=== PATIENT | female | born 1955 | race Hispanic/Latino ===

== ENCOUNTER 2022-01-30 14:59 | Outpatient (CLI) | payer MEDICARE, SELFPAY ==
--- NOTE | ~2022-01-30 | DEXA_ITS ---
Bone Density Report Name: QUIN LYLES Age: 66 Sex: Female Ethnicity: White Date of : 1955 Indication: postmenopausal; screening for osteoporosis; height loss; Referring Provider: MANUEL TROTTER Study: Bone densitometry was performed. Exam Date: January 30, 2022 Accession number: [id number] Bone Density: Region BMD T-score Z-score Classification AP Spine(L1-L4) 0.878 -1.5 0.3 Osteopenia Femoral Neck (Left) 0.643 -1.9 -0.3 Osteopenia Total Hip (Left) 0.754 -1.5 -0.2 Osteopenia Femoral Neck (Right) 0.640 -1.9 -0.3 Osteopenia Total Hip (Right) 0.712 -1.9 -0.6 Osteopenia Total Hip Mean 0.733 -1.7 -0.4 Osteopenia World Health Organization criteria for BMD impression classify patients as: Normal (T-score at or above -1.0), Osteopenia (T-score between -1.0 and -2.5), or Osteoporosis (T-score at or below -2.5). 10-year Fracture Risk(1): Major Osteoporotic Fracture 9.6% Hip Fracture 2.1% Reported Risk Factors: [place] (), Neck BMD=0.643, BMI=38.2, smoking (1) FRAX(R) Version 3.08. Fracture probability calculated for an untreated patient. Fracture probability may be lower if the patient has received treatment. Clinical Information Provided by Patient: Smokes Has used the following medications: Vitamin D, Calcium Patient maximum height was 64 Menopause Age: 45 Drinks caffeinated beverages Onset of menses at age 13 Number of children 1 Impression: The patient has low bone mass, based on the Right Total Hip T-score. The patient has an estimated ten-year risk of hip fracture of 2.1% and an estimated ten-year risk of major fracture of 9.6%, based on the WHO FRAX algorithm. The patient has risk factors, including: smoking. Discussion: BONE DENSITY IS LOW AT ONE OR MORE SKELETAL SITES. This patient's lowest T-score is low at one or more skeletal sites. It meets the World Health Organization's (WHO) criteria for ?low bone mass? (T-score between -1.0 and -2.5). The patient's 10-year risk of fracture as calculated by FRAX is less than the threshold where pharmacological therapy is recommended by the National Osteoporosis Foundation (NOF). However, all treatment decisions require clinical judgment and consideration of individual patient factors, including patient preferences, comorbidities, previous drug use, risk factors not captured in the FRAX model (e.g., frailty, falls, vitamin D deficiency, increased bone turnover, interval significant decline in bone density) and possible under or overestimation of fracture risk by FRAX. The patient should follow a healthful lifestyle (good nutrition with adequate calcium and vitamin D, and appropriate weight-bearing exercise). Follow-Up: Consider repeating this study in 2 to 3 years to reassess this patient's status, or sooner if ther
== END 2022-01-30 15:00 | disposition home or self-care (01) ==
LOC: ANHIMG 15:00
PROVIDERS: PCP Physician Assistant; Visit Provider Obstetrics & Gynecology
DX: Z78.0 Asymptomatic menopausal state (principal); M85.88 Other specified disorders of bone density and structure, other site; M85.852 Other specified disorders of bone density and structure, left thigh; M85.851 Other specified disorders of bone density and structure, right thigh
CPT/HCPCS: 77080

== ENCOUNTER 2022-06-25 07:58 | Outpatient (CLI) | payer MEDICARE, SELFPAY ==
--- NOTE | ~2022-06-25 | XR_ITS ---
EXAMINATION: XR UGIAC wo kub DATE: 06/25/2022 09:20 INDICATION: Nausea and diarrhea TECHNIQUE: The patient drank thick barium, gas-producing crystals, and thin barium. A total of 537 fl uoroscopic images of the esophagus, stomach, and proximal small bowel were obtained. Fluoroscopy expo sure time was 1.2 minutes. Total DAP was 10.992 Gycm^2 COMPARISON: None. FINDINGS: The esophagus is normal without mass or stricture. Esophageal motility is normal. There is a small sliding-type hiatal hernia with gastroesophageal junction approximately 3-4 cm above level of the diaphragm. There was no gastroesophageal reflux with provocative maneuvers. The stomach and prox imal small bowel are normal. IMPRESSION: 1. Small sliding-type hiatal hernia. Otherwise normal upper GI study. Reviewed, dictated and finalized at location A. LOADER
== END 2022-06-25 07:59 | disposition home or self-care (01) ==
PROVIDERS: PCP Physician Assistant; Visit Provider Physician Assistant
DX: R11.0 Nausea (principal); K44.9 Diaphragmatic hernia without obstruction or gangrene
CPT/HCPCS: 74246

== ENCOUNTER 2022-07-08 08:20 | Emergency (ER) | payer MEDICARE, SELFPAY ==
[2022-07-08] VITALS (7 sets, daily range): BP systolic 110–140; BP diastolic 71–90; PULSE 60–74; RESP 12–18; TEMP 36.4; O2SAT 100
--- NOTE | ~2022-07-08 | XR_ITS ---
EXAMINATION: XR chest 2V DATE: 07/08/2022 09:12 INDICATION: Mid sternal chest pain TECHNIQUE: PA and lateral views of the chest were obtained. COMPARISON: Chest radiograph dated 07/17/2010 FINDINGS: Mild blunting at the bilateral posterior sulci which could represent trace pleural effusions or atele ctasis. No other airspace opacities, pulmonary edema or pneumothorax. Heart size is normal with left paracardial fat pad partially obscuring the apical heart border. Median sternotomy wires and mediasti nal surgical clips are seen, likely from prior coronary artery bypass grafting. Large calcified righ t paratracheal lymph node consistent with old granulomatous disease. Old healed right rib fractures. Moderate thoracic spondylosis with bridging osteophytes at multiple levels consistent with diffuse id iopathic skeletal hyperostosis (DISH). IMPRESSION: 1. Mild atelectasis versus trace pleural effusions at the bilateral posterior sulci. Reviewed, dictated and finalized at location A. IMPRESSION: 1. Mild atelectasis versus trace pleural effusions at the bilateral posterior s ulci.
--- NOTE | 2022-07-08 08:30 | ECG_ITS ---
Measurements Intervals [place] Rate: 60 P: 41 VT: 220 QRS: 5 QRSD: 89 T: 65 QT: 422 QTc: 422 Interpretive Statements SINUS RHYTHM WITH FIRST DEGREE AV BLOCK VENTRICULAR PREMATURE COMPLEXES LOW QRS VOLTAGE IN PRECORDIAL LEADS BORDERLINE R WAVE PROGRESSION, ANTERIOR LEADS BORDERLINE ST-T WAVE ABNORMALITY- HIGH LATERAL LEADS BASELINE ARTIFACT- V1 BORDERLINE ECG NO PREVIOUS ECG AVAILABLE FOR COMPARISON Electronically Signed On 07-08-2022 8:55:55 CDT by Adonay Danielson D.O.
[2022-07-08] MEDS: ONDANSETRON INJ 4 MG/2 ML VIAL IV PUSH (09:03)
[2022-07-08] MEDS: SODIUM CHLORIDE 0.9% IV 500 ML 999 ML IV CONT (09:06)
[2022-07-08 09:10] LABS: Basophils Percent Auto 0.6 % (0.2-1.2); Eosinophils Absolute Auto 0.3 K/mm3 (0-0.3); Eosinophils Percent Auto 4.7 % (0-4.4); Hematocrit 41.9 % (37.0-47.0); Hemoglobin 13.8 g/dL (12.0-15.0); Immature Granulocyte Absolute 0.03 K/mm3 (0.00-0.031); Immature Granulocyte Percent A 0.4 % (0-0.5); Lymphocytes Absolute Auto 0.87 K/mm3 (0.9-3.2); Lymphocytes Percent Auto 12.1 % (18.3-44.2); Mean Corpuscular HGB Conc 32.9 g/dl (32-36); Mean Corpuscular Hemoglobin 29.2 pg (26-34); Mean Corpuscular Volume 88.8 fl (80-100); Mean Platelet Volume 10.2 fl (7.4-10.4); Monocytes Absolute Auto 0.4 K/mm3 (0.1-0.6); Neutrophils Absolute Auto 5.5 K/mm3 (1.3-6.7); Neutrophils Percent Auto 76.2 % (45.5-73.1); Platelet Count Result 215 k/mm3 (150-375); Red Blood Count 4.72 M/mm3 (4.2-5.4); Red Cell Distribution Width 13.6 % (11.5-14.5); White Blood Count 7.2 K/mm3 (4.5-10.0)
[2022-07-08 09:21] LABS: Prothrombin Time 12.7 Seconds (11.1-14.7)
[2022-07-08 09:22] LABS: Alanine Aminotransferase 31 U/L (6-35); Albumin Level 4.1 g/dL (3.5-5.1); Alkaline Phosphatase 106 U/L (38-126); Anion Gap 3 mmol/L (8-16); Aspartate Amino Transferase 28 U/L (14-36); Bilirubin,Total 0.7 mg/dL (0.2-1.3); Blood Urea Nitrogen 24 mg/dL (7-17); Calcium 9.1 mg/dL (8.4-10.2); Carbon Dioxide 33 mmol/L (22-30); Chloride 104 mmol/L (98-107); Estimated CRCL calculation 51 ml/min; Estimated Glomerular Filt Rate 55; Glucose 154 mg/dL (65-110); Lipase 84 U/L (23-300); Partial Thromboplastin Time 31.1 SECONDS (22.3-36.8); Potassium 3.8 mmol/L (3.4-5.0); Sodium 140 mmol/L (137-145)
[2022-07-08 09:33] LABS: Troponin I < 0.012 ng/mL (0.000-0.034)
--- NOTE | 2022-07-08 10:25 | ED.GENADULT ---
HPI - General Adult General Chief complaint: Unspecified Stated complaint: vomiting x 2 hrs, feel like I'm going to faint Time Seen by Provider: 07/08/22 08:29 Source: patient, RN notes reviewed and old records reviewed Mode of arrival: ambulatory Limitations: no limitations History of Present Illness HPI narrative: This is a 66 year old female with history of DM, hypertension, hyperlipidemia who presents for evaluation of dizziness. Patient reports she has been dealing with dizziness for over 1 year. She states sometimes she has vertigo and lightheadeness. Today she reports having dizziness when she was getting up this morning. she reports nausea and dry heaves. She also reports having palpitations for a few minutes. She denies chest pain or shortness of breath. She denies dizziness or palpitations now. Her primary care provider decreased her lisinopril from 40 to 10 mg to help her dizziness. Related Data Home Medications Medication Instructions Recorded Confirmed aspirin 81 mg tablet,delayed 81 mg PO DAILY 01/03/20 01/16/22 release atorvastatin 80 mg tablet 80 mg PO DAILY 01/03/20 01/16/22 calcium carbonate 200 mg calcium tablet PO 01/03/20 01/16/22 (500 mg)-vitamin D3 400 unit tablet cholecalciferol (vitamin D3) 1,250 1,250 mcg PO WEEKLY 01/03/20 01/16/22 mcg (50,000 unit) tablet lisinopril 20 mg tablet 20 mg PO BID 01/03/20 01/16/22 metformin 500 mg tablet,extended 500 mg PO BID 01/03/20 01/16/22 release 24 hr potassium chloride 20 mEq 20 meq PO BID 01/03/20 01/16/22 tablet,extended release torsemide 100 mg tablet 100 mg PO QAM 01/03/20 01/16/22 clopidogrel 75 mg tablet 75 mg PO DAILY 01/16/22 01/16/22 Allergies Allergy/AdvReac Type Severity Reaction Status Date / Time No Known Allergies Allergy Mild Verified 01/16/22 11:02 Review of Systems Constitutional: Constitutional: Denies weakness Cardiovascular: Cardiovascular: Denies syncope, Denies rapid heart rate, Denies irregular heart rhythm, Denies leg edema and Denies dyspnea Respiratory: Respiratory: Denies chest congestion, Denies hemoptysis, Denies excessive phlegm production and Denies dyspnea Gastrointestinal: Gastrointestinal: Denies abdominal pain, Denies hematochezia, Denies diarrhea, Reports nausea and Reports vomiting Genitourinary: Genitourinary: Denies hematuria and Denies dysuria Musculoskeletal: Musculoskeletal: Denies joint swelling, Denies loss of height and Denies muscle weakness Neurologic: Reports dizziness, Denies syncope, Denies focal weakness and Denies weakness PMFSH Past Medical History Medical History Carpal tunnel syndrome of left wrist Carpal tunnel syndrome of right wrist COPD (chronic obstructive pulmonary disease) Diabetes Diverticulosis Herpes simplex virus (HSV) type I or type II 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 History of blood transfusion Hyperlipidemia Hypertension Surgical History Surgical History H/O section H/O dilation and curettage H/O hernia repair History of open heart surgery Hx of elbow surgery [place] teeth removed Family History Family History Mother Hypertension Family history of elevated blood lipids Family history of diabetes mellitus in first degree relative Father Hypertension Cerebrovascular accident Sibling Family history of elevated blood lipids Hypertension Family history of diabetes mellitus in first degree relative Other Diabetes mellitus Family history of cardiovascular disease Family history of coronary artery disease Social History Social History Smoking status: Never smoker Second hand tobacco smoke exposure: No Alcohol intake: current Substance use: current Substance use type: marijuana Exam Narrative: GENERAL:
[2022-07-08 12:09] LABS: Troponin I < 0.012 ng/mL (0.000-0.034)
== END 2022-07-08 12:57 | disposition home or self-care (01) ==
PROVIDERS: Emergency Provider General Practice; PCP Physician Assistant
DX: R42 Dizziness and giddiness (principal); J44.9 Chronic obstructive pulmonary disease, unspecified; E11.9 Type 2 diabetes mellitus without complications; I10 Essential (primary) hypertension; E78.5 Hyperlipidemia, unspecified; F12.90 Cannabis use, unspecified, uncomplicated; Z79.82 Long term (current) use of aspirin; Z79.84 Long term (current) use of oral hypoglycemic drugs; Z79.02 Long term (current) use of antithrombotics/antiplatelets
CPT/HCPCS: 36415; 71046; 80053; 83690; 83735; 84484; 85025; 85610; 85730; 93005; 96361; 96374; 99284; J2405; J7040

== ENCOUNTER 2023-01-19 12:41 | Outpatient (CLI) | payer MEDICARE, SELFPAY ==
--- NOTE | ~2023-01-19 | CT_ITS ---
Non-contrast CT scan of the Abdomen and Pelvis Clinical indication: Incisional hernia Technique: 2.5 mm axial scans were obtained through the abdomen and pelvis without intravenous or or al contrast. Dose reduction technique was used on this scan by utilizing automated exposure control a nd iterative reconstruction technique. The dose-length product (DLP) was 997.43 mGy-cm. Findings: Images through the lung bases reveal no abnormalities. There is no evidence of renal or ureteral calculi. The kidneys and the ureters are nondilated. The liver, spleen, pancreas, gallbladder, and adrenals appear normal. There is no aortic aneurysm. There is no evidence of bowel obstruction. Small fat-containing ventral hernia noted. Images through the pelvis were performed. There is no evidence of ascites or lymphadenopathy. Left co mmon iliac vein stent is present. Urinary bladder unremarkable. No adnexal mass evident. Impression: Small fat-containing ventral hernia. Left common iliac vein stent. Reviewed, dictated and finalized at [facility]. Impression: Small fat-containing ventral hernia. Left common iliac vein stent.
== END 2023-01-19 12:42 ==
PROVIDERS: PCP Physician Assistant; Visit Provider Surgery
DX: K43.2 Incisional hernia without obstruction or gangrene (principal); K43.9 Ventral hernia without obstruction or gangrene
CPT/HCPCS: 74176

== ENCOUNTER 2023-03-11 14:30 | Outpatient (CLI) | payer MEDICARE, SELFPAY ==
[2023-03-11 15:11] LABS: Anion Gap 7 mmol/L (8-16); Blood Urea Nitrogen 28 mg/dL (7-17); Carbon Dioxide 31 mmol/L (22-30); Chloride 100 mmol/L (98-107); Estimated Glomerular Filt Rate 55; Glucose 101 mg/dL (65-110); Potassium 3.8 mmol/L (3.4-5.0); Sodium 138 mmol/L (137-145)
== END 2023-03-11 14:31 | disposition home or self-care (01) ==
LOC: ANHSURGERY 14:35
PROVIDERS: Anesthesiology; PCP Physician Assistant; Visit Provider Surgery
DX: K43.2 Incisional hernia without obstruction or gangrene (principal); E11.9 Type 2 diabetes mellitus without complications; Z01.818 Encounter for other preprocedural examination
CPT/HCPCS: 36415; 80048; 86850; 86900; 86901

== ENCOUNTER 2023-03-19 09:02 | Observation (INO) | payer MEDICARE, SELFPAY ==
[2023-03-09 14:18] VITALS: BMI 36.6
--- NOTE | 2023-03-09 14:29 | PC.NURSE ---
PRE-OP INSTRUCTIONS, PLEASE READ CAREFULLY Report to the Outpatient Waiting Room, entrance under the green pavilion located off [facility], at time _1000_ on date _03/17/23_. Planned Procedure Time: _1200_. PACK A SMALL OVERNIGHT BAG AND LEAVE IN THE CAR Time changes happen often and if your time is changed the preop area will call you the afternoon before. - You and your visitor will be asked to self-screen and do not enter if you have any COVID symptoms. - A mask is optional within the hospital at this time. Patients may have clear liquids (water, carbonated beverages, clear teas, apple juice) until 3 hours prior to surgery (0900 AM) with a maximum of 20 ounces. - No food from midnight until time of surgery Take the following medications with a SIP of water the morning of surgery: _AMLODIPINE, & ALBUTEROL INHALER IF NEEDED_ DO NOT STOP ANY OF YOUR OTHER PRESCRIPTION MEDICATIONS PRIOR TO SURGERY ?EXCEPT THE FOLLOWING Medications to discontinue - _CLOPIDOGREL PER DR. PHILLIPS, Date to take last dose CALL FOR INSTRUCTIONS_ Please no make-up, nail swedish, hairspray, perfume, deodorant, or body powder the day of surgery. No jewelry (including any body piercings) or valuables the day of surgery, leave them at home. Please take a shower or bath the night before, or the morning of, surgery with an antibacterial soap. Wear comfortable, loose fitting clothing. - Jewelry must be removed prior to entering the operating room. Rings and piercings that are not removed may be cut off. - The hospital will not accept responsibility for valuables. - Please leave all valuables, including medications, at home the day of surgery. If you are going home after surgery, a licensed pick up and delivery driver must drive you home. - NO public transportation without another adult if you receive anesthesia. - We recommend that an adult stay with you for 24 hours following discharge. - We also recommend that you do not drive, make important decision, drink alcoholic beverages, or take any drugs that were not prescribed by your health care provider for at least 24 hours after your discharge time. Follow any additional instructions given to you from your surgeon. HIBICLENS SHOWER AM OF SURGERY If you or anyone in your household have experienced Covid symptoms in the past week, please notify your surgeon or the nurse liaison at the phone number below for possible testing. Telephone instructions given to _PATIENT_and asked if any additional questions and then verbalized understanding. Patient advised to call surgeon office or pre surgery nurse liaison [phone] if any additional questions.
[2023-03-17] VITALS (15 sets, daily range): BP systolic 106–162; BP diastolic 44–95; PULSE 69–84; RESP 12–20; TEMP 36.5; O2SAT 93–100
[2023-03-17 11:13] LABS: Glucose Point of Care 91 mg/dl (65-105)
[2023-03-17] MEDS: LACTATED RINGERS 1,000 ML 30 ML IV CONT ×2 (12:00→17:18)
[2023-03-17] MEDS: ACETAMINOPHEN 500 MG TABLET 1000 MG PO (12:00)
[2023-03-17] MEDS: KETOROLAC 15 MG/ML VIAL (*BKC) IV PUSH (12:00)
--- NOTE | 2023-03-17 12:08 | WPDANESEPPF ---
Anes - Initial Pre Proc Eval Procedure: Operation Date: 03/17/23 12:30 Proposed Procedures p Robotic Assisted Laparoscopic Recurrent Ventral Hernia Repair with Mesh, Possible Open - Deon Bill MD Date/Time: 03/17/23 12:08 Surgeon: Deon Bill MD Pre Op Diagnosis: [facility] recurrent ventral hernia Patient Data Age: 67 Gender: F Height: 1.57 m Weight: 90.9 kg Allergies Allergy/AdvReac Type Severity Reaction Status Date / Time No Known Allergies Allergy Mild Verified 03/09/23 14:13 Home Medications Medication Instructions Recorded Confirmed Type aspirin 81 mg tablet,delayed 81 mg PO HS 01/03/20 03/09/23 History release atorvastatin 80 mg tablet 80 mg PO HS 01/03/20 03/09/23 History calcium carbonate 200 mg calcium 1 tablet PO DAILY 01/03/20 03/09/23 History (500 mg)-vitamin D3 400 unit tablet cholecalciferol (vitamin D3) 1,250 1,250 mcg PO WEEKLY 01/03/20 03/09/23 History mcg (50,000 unit) tablet lisinopril 20 mg tablet 20 mg PO BID 01/03/20 03/09/23 History metformin 500 mg tablet,extended 500 mg PO BID 01/03/20 03/09/23 History release 24 hr potassium chloride 20 mEq 20 meq PO BID 01/03/20 03/09/23 History tablet,extended release torsemide 100 mg tablet 50 mg PO QAM 01/03/20 03/09/23 History clopidogrel 75 mg tablet 75 mg PO DAILY 01/16/22 03/09/23 History albuterol sulfate 90 mcg/actuation 2 inh inhalation PRN PRN Wheezing 03/09/23 03/09/23 History aerosol inhaler amlodipine 10 mg tablet 10 mg HS 03/09/23 03/09/23 History Laboratory Tests 03/17/23 11:03 POC Capillary Glucose 91 mg/dl (65-105) Patient hx anesthesia problems: none Family hx anesthesia problems: none Results Review: All pre-operative results and documents have been reviewed as part of the pre-operative evaluation. 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 History of blood transfusion Hyperlipidemia Hypertension Ventral hernia Surgical History Surgical History H/O section H/O dilation and curettage H/O hernia repair History of open heart surgery Hx of elbow surgery [place] teeth removed Family History Family History Mother Hypertension Family history of elevated blood lipids Family history of diabetes mellitus in first degree relative Father Hypertension Cerebrovascular accident Sibling Family history of elevated blood lipids Hypertension Family history of diabetes mellitus in first degree relative Other Diabetes mellitus Family history of cardiovascular disease Family history of coronary artery disease Social History Social History Smoking status: Never smoker Second hand tobacco smoke exposure: No Alcohol intake: current Alcohol use details: 12/MONTH Substance use: current Substance use type: marijuana Other substance usage details: 4 JOINTS DAILY Last use: 03/09/23 Living arrangements: other Additional living arrangements comments: LIVES WITH BOYFRIEND MINE EVANS Spiritual care concerns: No Anes - Eval Final PreProcedure Day of Procedure 03/17/23 12:08 Patient weight: obese Heart: regular rate and rhythm Lungs: clear to auscultation Airway: Mallampati scale class II Neurological: alert and oriented Last oral intake: >/= 8 hours ASA classification: III Emergent: no Anesthetic plan: proceed Anesthesia type and monitoring: general ETT and standard monitoring Results Review: All pre-operative results and documents have been reviewed as part of the pre-operative evaluation. In
--- NOTE | 2023-03-17 12:32 | PM.IMHP ---
H&P: HPI History of Present Illness Date/Time: 03/17/23 12:32 Chief Complaint: Recurrent incisional hernia Narrative: Ms. Power returns to the office for recheck of a recurrent ventral incisional hernia.? She experiences intermittent bloating and back pain, but no recurrent nausea or emesis.? She denies abdominal distension, constipation, or other change in bowel habits.? She continues to monitor her glucose and states it's been well controlled.? Last A1c on 12/18/2022 was 6.4. Review of Systems Review of Systems: The remainder of the review of systems to include constitutional, HEENT, cardiovascular, respiratory, GI, , integumentary, musculoskeletal, endocrine, immunologic, hematologic, psychiatric, and neurologic are all negative except for which is mentioned above in the HPI. 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 History of blood transfusion Hyperlipidemia Hypertension Ventral hernia Surgical History Surgical History H/O section H/O dilation and curettage H/O hernia repair History of open heart surgery Hx of elbow surgery [place] teeth removed Family History Family History Mother Hypertension Family history of elevated blood lipids Family history of diabetes mellitus in first degree relative Father Hypertension Cerebrovascular accident Sibling Family history of elevated blood lipids Hypertension Family history of diabetes mellitus in first degree relative Other Diabetes mellitus Family history of cardiovascular disease Family history of coronary artery disease Social History Social History Smoking status: Never smoker Second hand tobacco smoke exposure: No Alcohol intake: current Alcohol use details: 12/MONTH Substance use: current Substance use type: marijuana Other substance usage details: 4 JOINTS DAILY Last use: 03/09/23 Living arrangements: other Additional living arrangements comments: LIVES WITH BOYFRIEND MINE EVANS Spiritual care concerns: No Meds Home Medications and Allergies Home Medications Medication Instructions Recorded Confirmed Type aspirin 81 mg tablet,delayed 81 mg PO HS 01/03/20 03/09/23 History release atorvastatin 80 mg tablet 80 mg PO HS 01/03/20 03/09/23 History calcium carbonate 200 mg calcium 1 tablet PO DAILY 01/03/20 03/09/23 History (500 mg)-vitamin D3 400 unit tablet cholecalciferol (vitamin D3) 1,250 1,250 mcg PO WEEKLY 01/03/20 03/09/23 History mcg (50,000 unit) tablet lisinopril 20 mg tablet 20 mg PO BID 01/03/20 03/17/23 History metformin 500 mg tablet,extended 500 mg PO BID 01/03/20 03/17/23 History release 24 hr potassium chloride 20 mEq 20 meq PO BID 01/03/20 03/09/23 History tablet,extended release torsemide 100 mg tablet 50 mg PO QAM 01/03/20 03/09/23 History clopidogrel 75 mg tablet 75 mg PO DAILY 01/16/22 03/17/23 History albuterol sulfate 90 mcg/actuation 2 inh inhalation PRN PRN Wheezing 03/09/23 03/09/23 History aerosol inhaler amlodipine 10 mg tablet 10 mg HS 03/09/23 03/17/23 History Allergies Allergy/AdvReac Type Severity Reaction Status Date / Time No Known Allergies Allergy Mild Verified 03/17/23 12:20 Vital Signs Vital Signs - 24 hr 03/17/23 11:00 Temperature 36.5 C Pulse Rate 75 Respiratory Rate 16 Blood Pressure 135/64 Pulse Oximetry 100 Oxygen Delivery Room Air Exam Const: General: comfortable and no acute distress Eyes: General: appearance normal, both eyes and all related structures Sclera: sclerae normal Pupils: Equal,
[2023-03-17] MEDS: ceFAZolin 2 GM/D5W 50 ML 2 GM/50 ML BAG IVPB (12:50)
[2023-03-17] MEDS: LIDO 1%/EPINEPHRINE 1:100,000 50 ML VIAL 30 ML INFILTRATE (13:37)
--- NOTE | 2023-03-17 17:21 | SUR.OPER ---
Urine:200ml
[2023-03-17 17:24] LABS: Glucose Point of Care 197 mg/dl (65-105)
[2023-03-17] MEDS: fentaNYL CITRATE INJ (*CRX) 100 MCG/2 ML VIAL 25 MCG IV PUSH ×8 (17:47→18:21)
--- NOTE | 2023-03-17 17:59 | W.PM.PROC2 ---
Procedure Note - Detailed Date of Procedure 03/17/23 Pre-op Diagnosis incarc recurrent ventral hernia Post-op Diagnosis Same Procedure Performed Robotic assisted laparoscopic recurrent incarcerated incisional hernia repair with Bard Ventralight ST mesh. Surgeon Deon Bill MD Convex Grinder JACQUE Castillo Anesthesia General Indications Patient is a 67-year-old female who previously underwent a primary open umbilical hernia repair without mesh. She has a recurrent ventral incisional hernia with incarcerated omentum within the hernia sac. She also had associated abdominal wall diastasis surrounding the hernia. Findings Patient had a recurrent ventral incisional hernia measuring 4x3cm. There was incarcerated but viable omentum within the hernia sac. Surrounding the hernia was a much larger area of abdominal diastasis. There were a few adhesions of the omentum to the previous hernia repair but no involvement of bowel. Description of Procedure After informed consent was obtained patient brought to the operating room where she was placed supine position and general endotracheal anesthesia was administered. The abdomen was then prepped and draped usual sterile fashion after placement of Ocasio catheter decompress the bladder. I then proceeded to gain entrance into the abdomen by placing a 10mm Optiview port in the left upper quadrant. Once inside the abdomen insufflated to adequate pneumoperitoneum 15mmmmofmercury CO2. I could see that there was omentum incarcerated within the recurrent ventral incisional hernia. The omentum appeared to be viable. No bowel was involved the hernia. I then placed additional robotic 8mm trocar ports in left lateral abdominal wall all under direct visualization. I then had GreenDust Rajan robot brought to the patient's bedside and then attached the robotic arms the robotic ports. Robotic instruments were then advanced into the abdomen with direct visualization. I then scrubbed out the procedure sent down the robotic console for the dissection and repair the hernia. First started by taking down the omental adhesions to the central abdominal wall. This was done with robotic scissor dissection. Once all the omentum had been removed from the hernia defect I checked it was all hemostatic. All the omentum was viable as well. The hernia defect measured 4cm in length by 3cm in width. It was centered on the much larger area of diastasis. I decided to go ahead and plicate the diastasis and repair of the hernia and reinforce the whole area the large piece of mesh. I then proceeded to plicate the diastasis starting several cm below the umbilicus and incorporated closure of the hernia defect with this fascial suture and extending all the way up to the upper mid epigastric region. This closed the defect very nicely in plicated the diastasis. I then chose a large piece of Ventralight ST mesh for the repair measuring 25cm in length by 20cm in width. A Vicryl suture was placed in the center portion of the mesh to allow the mesh pulled up to the undersurface of the anterior abdominal wall. The mesh was placed into the abdomen through the the clinical medical assistant port and then laid out such that the long axis of the mesh was parallel to the long axis of the abdomen. A suture Passer was then passed through the abdominal wall and the Vicryl suture was used to pull the mesh to the undersurface of the anterior abdominal wall. The mesh laid out very nicely with at least 5cm of overlap in all directions from the diastasis plication and hernia repair. Mesh was placed into the intraperitoneal onlay fashion. The barrier surface of the mesh was facing the intra-abdominal viscera of the prosthetic surface the mesh was in contact with the undersurface of the anterior abdominal wall. In order to make sure the mesh laid out nicely I did resect the falciform ligament. The falciform ligament was removed from the abdomen and discarded. I once I had the mesh laid out very
[2023-03-17] MEDS: IBUPROFEN IV 400 MG in SODIUM CHLORIDE 0.9% IV 100 ML 200 MG IVPB (18:45)
[2023-03-17] MEDS: HYDROmorphone HCL INJ (*CRX) 1 MG/ML SYR 0.5 MG IV PUSH ×2 (19:43→20:05)
--- NOTE | 2023-03-17 20:54 | ADMGEN ---
This patient, Norma Power, was admitted to 2 Medical Room 259-01. Patient/family oriented to hospital policies and general routines including ID bracelet, bed and alarms, visiting hours, pain management, procedures, bathroom and other care routines, personal items, smoking policy, room service/diet, and visiting hours. Information on how to activate the Rapid Response Team has been discussed. Patient/Family are encouraged to report perceived risks to care and to ask questions if they do not understand what they are told or what they should do.
[2023-03-17 21:09] LABS: Glucose Point of Care 153 mg/dl (65-105)
[2023-03-17] MEDS: SODIUM CHLORIDE 0.45% 1,000 ML 75 ML IV CONT (21:40)
[2023-03-17] MEDS: ceFAZolin 1 GM/NS 50 ML 1 GM/50 ML BAG IVPB (21:40)
[2023-03-17] MEDS: ATORVASTATIN 40 MG TABLET 80 MG PO (21:41)
[2023-03-17] MEDS: ASPIRIN 81 MG ENTERIC TABLET PO (21:41)
[2023-03-17] MEDS: amLODIPine BESYLATE 5 MG TABLET 10 MG BY MOUTH (21:41)
[2023-03-17] MEDS: DOCUSATE SODIUM 100 MG CAPSULE PO (21:41)
[2023-03-18 00:50] VITALS: BP 163/80; PULSE 75; RESP 20; TEMP 36.2; O2SAT 94
[2023-03-18] MEDS: ONDANSETRON INJ 4 MG/2 ML VIAL IV PUSH ×4 (00:55→20:37)
[2023-03-18] MEDS: IBUPROFEN IV 400 MG in SODIUM CHLORIDE 0.9% IV 100 ML 200 MG IVPB ×3 (00:58→12:56)
[2023-03-18] MEDS: HYDROcodone/acetaminophen (*CRX) 5-325 MG TABLET 2 TAB PO ×2 (01:50→20:28)
[2023-03-18 02:57] VITALS: BP 126/62; PULSE 70; RESP 20; TEMP 36.2; O2SAT 96
[2023-03-18] MEDS: ceFAZolin 1 GM/NS 50 ML 1 GM/50 ML BAG IVPB ×2 (05:52→12:07)
[2023-03-18] MEDS: oxyCODONE HCL (*CRX) 5 MG TAB IR PO ×2 (06:37→12:08)
[2023-03-18 08:33] VITALS: BP 130/64
[2023-03-18] MEDS: metFORMIN HCL XR 500 MG TAB.SR.24H PO ×2 (08:35→17:03)
[2023-03-18] MEDS: PANTOPRAZOLE 40 MG TABLET PO (08:35)
[2023-03-18] MEDS: CLOPIDOGREL BISULFATE 75 MG TABLET PO (08:35)
[2023-03-18] MEDS: TORSEMIDE 10 MG TABLET PO (08:35)
[2023-03-18] MEDS: POTASSIUM CHLORIDE 20 MEQ ER TABLET PO ×2 (08:35→17:03)
[2023-03-18] MEDS: TORSEMIDE 20 MG TABLET 40 MG PO (08:35)
[2023-03-18] MEDS: lisinopriL 20 MG TABLET PO ×2 (08:35→20:28)
[2023-03-18] MEDS: DOCUSATE SODIUM 100 MG CAPSULE PO ×2 (08:35→20:25)
[2023-03-18 08:43] LABS: Glucose Point of Care 126 mg/dl (65-105)
--- NOTE | 2023-03-18 11:27 | PM.PNGS ---
Progress Note: A&P Assessment and Plan (1) Recurrent ventral incisional hernia: Code(s): K43.2 - Incisional hernia without obstruction or gangrene Status: Acute Assessment and Plan: Postop day 1 following robotic assisted laparoscopic recurrent incarcerated incisional hernia repair with mesh. She is having some nausea and working on better pain control this morning. Will continue antiemetics and analgesics as needed. Start Miralax. If she is tolerating a diet for lunch, her IV fluids could be stopped. Encouraged increasing activity today and ambulating in the halls. She is wearing her abdominal binder. Will reassess her later today and if she is feeling better, then she could be discharged but may need to stay another night if not. Plan I have discussed the patient's case and plan of care with Dr. Bill, who would also like her to be started on prophylactic-dosed Lovenox today. Subjective Subjective Date/Time Seen: 03/18/23 11:27 Post Op day: 1 (Robotic assisted laparoscopic recurrent incarcerated incisional hernia repair with Bard Ventralight ST mesh) Patient reports: still having pain, tolerating a regular diet, voiding w/o difficulty, no flatus, no bowel movement and nausea Interval history: Patient complaining of abdominal pain this morning. She reports what feels like a lot of gas pains. She also is feeling very nauseous. I asked if she ate, and she said she did eat breakfast because she was also hungry. She is still feeling nauseous now but the Zofran helped. No vomiting. She has been up out of bed since about 6 am walking and sitting in the chair. No other complaints at this time. Review of Systems Constitutional: Constitutional: Reports no additional constitutional complaints, Denies fever(s) and Denies weakness Cardiovascular: Cardiovascular: Reports no additional cardiovascular complaints and Denies chest pain Respiratory: Respiratory: Reports no additional respiratory complaints and Denies dyspnea Gastrointestinal: Gastrointestinal: Reports as per HPI, Reports no additional gastrointestinal complaints, Reports abdominal pain, Reports nausea and Denies vomiting Exam Const: General: no acute distress and uncomfortable Orientation/consciousness: patient oriented x3 Resp: Effort & Inspection: normal respiratory effort Auscultation: clear to auscultation bilaterally Cardio: Rate: regular rate Rhythm: regular rhythm GI: GI Palp: Yes Tenderness to palpation present (GI) (as expected near the central abdomen at the area of repair) Auscultation: normal bowel sounds Other: trochar incisions dry with glue intact, minimal localized ecchymosis noted at LUQ incision. No erythema. Neuro: General: moves all extremities and no focal motor deficits Extrem: General: no calf tenderness and no edema Psych: Mental Status: mental status grossly normal Insight: Good insight present (Psych) Objective Data Vital Signs Vital Signs: Vital Signs - 24 hr 03/17/23 17:18 03/17/23 17:30 03/17/23 17:45 Temperature Pulse Rate 82 73 78 Respiratory Rate 12 17 12 Blood Pressure 160/72 H 145/95 H 162/64 H Pulse Oximetry 100 100 94 Oxygen Delivery Simple Face Mask Simple Face Mask Room Air Oxygen Flow Rate 8 8 03/17/23 18:00 03/17/23 18:15 03/17/23 18:30 Temperature Pulse Rate 84 80 76 Respiratory Rate 16 16 13 Blood Pressure 144/63 H 140/60 139/65 Pulse Oximetry 94 96 97 Oxygen Delivery Nasal Cannula Nasal Cannula Nasal Cannula Oxygen Flow Rate 2 2 2 03/17/23 18:45 03/17/23 19:00 03/17/23 19:15 Temperature Pulse Rate 76 81 82 Respiratory Rate 14 12 14 Blood Pressure 123/54 L 129/49 L 124/52 L Pulse Oximetry 96 93 94 Oxygen Delivery Nasal Cannula Nasal Cannula Nasal Cannula Oxygen Flow Rate 2 2 2 03/17/23 19:30 03/17/23 19:45 03/17/23 20:00 Temperature Pulse Rate 79 84 71 Respiratory Rate 14 12 12 Blood Pressure 128/53 L 106/44 L 128/49 L Pulse Oximetry 94 94 Oxygen Deliv
[2023-03-18 11:52] LABS: Glucose Point of Care 134 mg/dl (65-105)
[2023-03-18] MEDS: HYDROmorphone HCL INJ (*CRX) 1 MG/ML SYR IV PUSH (12:55)
[2023-03-18] MEDS: ENOXAPARIN 40 MG/0.4 ML SYRINGE SUB-Q (13:43)
[2023-03-18] MEDS: polyethylene glycoL 3350 17 GM POWD.PACK PO (13:43)
[2023-03-18 14:46] VITALS: BP 153/65; PULSE 60; RESP 16; TEMP 36.9; O2SAT 94
[2023-03-18] MEDS: SODIUM CHLORIDE 0.45% 1,000 ML 75 ML IV CONT (17:03)
[2023-03-18 17:12] LABS: Glucose Point of Care 111 mg/dl (65-105)
[2023-03-18] MEDS: amLODIPine BESYLATE 5 MG TABLET 10 MG BY MOUTH (20:25)
[2023-03-18] MEDS: ASPIRIN 81 MG ENTERIC TABLET PO (20:28)
[2023-03-18] MEDS: ATORVASTATIN 40 MG TABLET 80 MG PO (20:28)
[2023-03-18 21:12] VITALS: BP 123/59; PULSE 61; RESP 18; TEMP 37; O2SAT 99
[2023-03-18 21:23] LABS: Glucose Point of Care 115 mg/dl (65-105)
[2023-03-19] MEDS: oxyCODONE HCL (*CRX) 5 MG TAB IR PO ×3 (00:02→17:14)
[2023-03-19] MEDS: ONDANSETRON INJ 4 MG/2 ML VIAL IV PUSH ×3 (00:21→21:06)
[2023-03-19] MEDS: HYDROcodone/acetaminophen (*CRX) 5-325 MG TABLET 2 TAB PO ×2 (05:24→21:05)
[2023-03-19] MEDS: SODIUM CHLORIDE 0.45% 1,000 ML 75 ML IV CONT (06:24)
[2023-03-19 08:02] VITALS: BP 132/54; PULSE 64; RESP 17; TEMP 36.8; O2SAT 97
[2023-03-19 08:19] LABS: Glucose Point of Care 116 mg/dl (65-105)
[2023-03-19] MEDS: polyethylene glycoL 3350 17 GM POWD.PACK PO (10:13)
[2023-03-19] MEDS: TORSEMIDE 10 MG TABLET PO (10:13)
[2023-03-19] MEDS: CLOPIDOGREL BISULFATE 75 MG TABLET PO (10:13)
[2023-03-19] MEDS: POTASSIUM CHLORIDE 20 MEQ ER TABLET PO ×2 (10:13→17:14)
[2023-03-19] MEDS: TORSEMIDE 20 MG TABLET 40 MG PO (10:13)
[2023-03-19] MEDS: DOCUSATE SODIUM 100 MG CAPSULE PO ×2 (10:13→20:57)
[2023-03-19] MEDS: lisinopriL 20 MG TABLET PO ×2 (10:13→20:57)
[2023-03-19] MEDS: PANTOPRAZOLE 40 MG TABLET PO (10:14)
[2023-03-19] MEDS: metFORMIN HCL XR 500 MG TAB.SR.24H PO ×2 (10:14→17:14)
--- NOTE | 2023-03-19 11:04 | PM.PNGS ---
Progress Note: A&P Assessment and Plan (1) Recurrent ventral incisional hernia: Code(s): K43.2 - Incisional hernia without obstruction or gangrene Status: Acute Assessment and Plan: Postop day 2 following robotic assisted laparoscopic recurrent incarcerated incisional hernia repair with mesh. Still having nausea and feels it may be related to the narcotics. Her pain is still uncontrolled requiring multiple narcotics and a dose of Dilaudid yesterday. Discussed with Dr. Bill, and we will add IV Valium 5 mg Q12H and scheduled IV Ibuprofen 800 mg Q6H. Will also get labs today. She also denies flatus or BM since surgery. Will add Reglan 10 mg IV Q6H and add a dulcolax suppository as needed. Encouraged patient to continue increasing activity and walking the halls. She is concerned about going home and being able to do things like get out of her bed without assistance. Will order PT/OT to evaluate the patient today as well for discharge planning. Plan I have discussed the patient's case and plan of care with Dr. Bill. Subjective Subjective Date/Time Seen: 03/19/23 11:04 Patient reports: still having pain, no flatus, no bowel movement and nausea Interval history: Patient seen today and still complaining of abdominal pain and nausea. She feels that her nausea could be related to the narcotics. In review of her chart, she has received the hydrocodone, oxycodone, and Dilaudid all in the past 12 hours. She cannot tell if one of the narcotics is causing more nausea than the other. She is still complaining of abdominal pain mostly at the central abdomen near the area of repair but also spreading laterally across both sides of her abdomen. Her pain is better today than yesterday. She is belching a lot, but no flatus or BM. She is up and walking frequently through the day per the patient. Review of Systems Review of Systems: All systems reviewed & are unremarkable except as noted in HPI and below Exam Const: General: no acute distress and uncomfortable Orientation/consciousness: patient oriented x3 GI: Inspection: non-distended GI Palp: Yes Soft to palpation, Yes Tenderness to palpation present (GI) (mild diffuse tenderness with more focal tenderness near the area of repair) and No Guarding due to palpation present (GI) Auscultation: normal bowel sounds Other: trochar incisions dry with glue intact, minimal localized ecchymosis noted at LUQ incision. No erythema. Also noted today is skin maceration in her skin fold just left lateral to her groin. Neuro: General: moves all extremities and no focal motor deficits Extrem: General: no calf tenderness and no edema Psych: Mental Status: mental status grossly normal Insight: Good insight present (Psych) Objective Data Vital Signs Vital Signs: Vital Signs - 24 hr 03/18/23 14:46 03/18/23 19:53 03/18/23 21:12 Temperature 98.4 F 98.6 F Pulse Rate 60 61 Respiratory Rate 16 18 Blood Pressure 153/65 H 123/59 L Pulse Oximetry 94 99 Oxygen Delivery Room Air 03/19/23 08:02 Temperature 98.3 F Pulse Rate 64 Respiratory Rate 17 Blood Pressure 132/54 L Pulse Oximetry 97 Oxygen Delivery Intake/Output Intake/Output: Intake & Output 03/16/23 03/17/23 03/18/23 03/19/23 23:59 23:59 23:59 23:59 Intake Total 354 2388 1240 Output Total 400 Balance 354 1988 1240 Meds/Results Medications: Active Medications Generic Name Dose Route Start Last Admin Trade Name Freq PRN Reason Stop Dose Admin Acetaminophen 1,000 mg 03/17/23 17:43 Acetaminophen 500 Mg Tablet PO Q6H PRN Mild Pain (1-3) or Fever Hydrocodone Bitart/Acetaminophen 2 tab 03/17/23 17:43 03/19/23 05:24 Hydrocodone/Acetaminophen (*Crx) 5-325 Mg Tablet PO 2 tab Q6H PRN Administration Pain Rated 4-6 Albuterol 2 puff 03/17/23 20:24 Albuterol Sulfate (*Sp) Aerosol 1 Puff INHALATION PRN PRN Wheezing Amlodipine Besylate 10 mg 03/17/23 21:00
[2023-03-19] MEDS: METOCLOPRAMIDE HCL INJ 10 MG/2 ML VIAL IV PUSH ×2 (11:51→17:14)
[2023-03-19] MEDS: diazePAM INJ (*CRX) 10 MG/2 ML SYRINGE 5 MG IV PUSH ×2 (11:51→23:01)
[2023-03-19 11:52] LABS: Hematocrit 39.3 % (37.0-47.0); Hemoglobin 12.3 g/dL (12.0-15.0); Mean Corpuscular HGB Conc 31.3 g/dl (32-36); Mean Corpuscular Hemoglobin 28.7 pg (26-34); Mean Corpuscular Volume 91.8 fl (80-100); Mean Platelet Volume 11.1 fl (7.4-10.4); Platelet Count Result 187 k/mm3 (150-375); Red Blood Count 4.28 M/mm3 (4.2-5.4); Red Cell Distribution Width 13.8 % (11.5-14.5); White Blood Count 9.7 K/mm3 (4.5-10.0)
[2023-03-19 12:07] LABS: Anion Gap 7 mmol/L (8-16); Blood Urea Nitrogen 13 mg/dL (7-17); Calcium 8.7 mg/dL (8.4-10.2); Carbon Dioxide 28 mmol/L (22-30); Chloride 102 mmol/L (98-107); Estimated CRCL calculation 51 ml/min; Estimated Glomerular Filt Rate 55; Glucose 121 mg/dL (65-110); Potassium 4.2 mmol/L (3.4-5.0); Sodium 137 mmol/L (137-145)
[2023-03-19 12:18] VITALS: BP 123/42; PULSE 70; RESP 16; TEMP 36.7; O2SAT 91
[2023-03-19 12:55] LABS: Glucose Point of Care 125 mg/dl (65-105)
[2023-03-19] MEDS: ENOXAPARIN 40 MG/0.4 ML SYRINGE SUB-Q (13:28)
--- NOTE | 2023-03-19 14:56 | PC.NURSE ---
On 03/19/23, the student, [Layton Pedroza], provided care and completed [facility] documentation on this patient. I have reviewed the student's documentation and agree with the findings.
[2023-03-19 17:15] VITALS: BP 126/64; PULSE 70; RESP 17; TEMP 36.9; O2SAT 99
[2023-03-19 17:29] LABS: Glucose Point of Care 112 mg/dl (65-105)
[2023-03-19 20:00] VITALS: BP 133/83; PULSE 74; RESP 20; TEMP 36.2; O2SAT 97
[2023-03-19] MEDS: ATORVASTATIN 40 MG TABLET 80 MG PO (20:55)
[2023-03-19] MEDS: amLODIPine BESYLATE 5 MG TABLET 10 MG BY MOUTH (20:57)
[2023-03-19] MEDS: TOLNAFTATE 1% POWDER 45 GM BTL 1 APPLIC TOPICAL (20:58)
[2023-03-19] MEDS: ASPIRIN 81 MG ENTERIC TABLET PO (20:58)
[2023-03-19 23:00] LABS: Glucose Point of Care 126 mg/dl (65-105)
[2023-03-20] VITALS: BP 114/52; PULSE 62; RESP 20; TEMP 36.2; O2SAT 95
[2023-03-20] MEDS: METOCLOPRAMIDE HCL INJ 10 MG/2 ML VIAL IV PUSH ×3 (00:13→12:17)
[2023-03-20 03:36] VITALS: BP 117/66; PULSE 69; RESP 20; TEMP 36.1; O2SAT 98
[2023-03-20 08:32] LABS: Glucose Point of Care 114 mg/dl (65-105)
[2023-03-20] MEDS: TOLNAFTATE 1% POWDER 45 GM BTL 1 APPLIC TOPICAL ×2 (09:13→20:55)
[2023-03-20] MEDS: IBUPROFEN IV 800 MG/200 ML 800 MG/200 ML BAG 400 MG IVPB (09:19)
[2023-03-20 09:30] VITALS: BP 125/63
[2023-03-20] MEDS: lisinopriL 20 MG TABLET PO ×2 (10:00→20:52)
[2023-03-20] MEDS: POTASSIUM CHLORIDE 20 MEQ ER TABLET PO ×2 (10:00→18:46)
[2023-03-20] MEDS: metFORMIN HCL XR 500 MG TAB.SR.24H PO ×2 (10:00→18:46)
[2023-03-20] MEDS: TORSEMIDE 20 MG TABLET 40 MG PO (10:00)
[2023-03-20] MEDS: PANTOPRAZOLE 40 MG TABLET PO (10:00)
[2023-03-20] MEDS: TORSEMIDE 10 MG TABLET PO (10:00)
[2023-03-20] MEDS: CLOPIDOGREL BISULFATE 75 MG TABLET PO (10:01)
[2023-03-20] MEDS: DOCUSATE SODIUM 100 MG CAPSULE PO ×2 (10:01→20:54)
[2023-03-20] MEDS: ENOXAPARIN 40 MG/0.4 ML SYRINGE SUB-Q (10:01)
[2023-03-20] MEDS: polyethylene glycoL 3350 17 GM POWD.PACK PO (10:01)
[2023-03-20 11:53] LABS: Glucose Point of Care 111 mg/dl (65-105)
[2023-03-20] MEDS: ACETAMINOPHEN 500 MG TABLET 1000 MG PO ×2 (12:17→21:54)
--- NOTE | 2023-03-20 13:24 | PM.PNGS ---
Progress Note: A&P Assessment and Plan (1) Recurrent ventral incisional hernia: Code(s): K43.2 - Incisional hernia without obstruction or gangrene Status: Acute Assessment and Plan: Postop day 3 after robotic assisted laparoscopic incisional hernia repair with mesh. She is doing much better today. Go ahead and cover her to all p.o. medications to include the muscle relaxer and p.o. narcotic pain medications. Also transition to p.o. ibuprofen. Continue to ambulate today. Probably home tomorrow. Subjective Subjective Date/Time Seen: 03/20/23 13:24 Interval history: Patient is now postoperative day 3 after robotic assisted laparoscopic incisional ventral hernia repair with mesh. She is doing much better with pain today. Sitting up in a chair and tolerated full solid diet breakfast. She has not had any IV pain medications and over 12hours. Exam GI: Other: Abdomen is soft and nondistended. Laparoscopic port site incisions are healing well. Hernia site repair is mildly tender without any problems. Abdominal binder in place. Objective Data Vital Signs Vital Signs: Vital Signs - 24 hr 03/19/23 17:15 03/19/23 20:00 03/19/23 20:54 Temperature 36.9 C 36.2 C L Pulse Rate 70 74 Respiratory Rate 17 20 Blood Pressure 126/64 133/83 Pulse Oximetry 99 97 Oxygen Delivery Room Air 03/20/23 00:00 03/20/23 03:36 03/20/23 10:10 Temperature 36.2 C L 36.1 C L Pulse Rate 62 69 Respiratory Rate 20 20 Blood Pressure 114/52 L 117/66 Pulse Oximetry 95 98 Oxygen Delivery Room Air 03/20/23 09:30 03/20/23 09:15 Temperature Pulse Rate Respiratory Rate Blood Pressure 125/63 Pulse Oximetry Oxygen Delivery Room Air Intake/Output Intake/Output: Intake & Output 03/17/23 03/18/23 03/19/23 03/20/23 23:59 23:59 23:59 23:59 Intake Total 354 2388 1600 1820 Output Total 400 Balance 354 1988 1600 1820 Meds/Results Medications: Active Medications Generic Name Dose Route Start Last Admin Trade Name Freq PRN Reason Stop Dose Admin Acetaminophen 1,000 mg 03/17/23 17:43 03/20/23 12:17 Acetaminophen 500 Mg Tablet PO 1,000 mg Q6H PRN Administration Mild Pain (1-3) or Fever Hydrocodone Bitart/Acetaminophen 2 tab 03/17/23 17:43 03/19/23 21:05 Hydrocodone/Acetaminophen (*Crx) 5-325 Mg Tablet PO 2 tab Q6H PRN Administration Pain Rated 4-6 Albuterol 2 puff 03/17/23 20:24 Albuterol Sulfate (*Sp) Aerosol 1 Puff INHALATION PRN PRN Wheezing Amlodipine Besylate 10 mg 03/17/23 21:00 03/19/23 20:57 Amlodipine Besylate 5 Mg Tablet BY MOUTH 10 mg HS JHONATHAN Administration Aspirin 81 mg 03/17/23 21:00 03/19/23 20:58 Aspirin 81 Mg Enteric Tablet PO 81 mg HS JHONATHAN Administration Atorvastatin Calcium 80 mg 03/17/23 21:00 03/19/23 20:55 Atorvastatin 40 Mg Tablet PO 80 mg HS JHONATHAN Administration Bisacodyl 10 mg 03/19/23 11:00 Bisacodyl 10 Mg Suppository RECTAL QAM PRN Constipation Calcium Carbonate 500 mg 03/18/23 09:00 03/20/23 10:01 Calcium/Vitamin D 500 Mg Tablet PO 04/17/23 08:59 500 mg DAILY JHONATHAN Administration Clopidogrel Bisulfate 75 mg 03/18/23 09:00 03/20/23 10:01 Clopidogrel Bisulfate 75 Mg Tablet PO 75 mg DAILY JHONATHAN Administration Dextrose 12.5 gm 03/17/23 17:51 Dextrose 50% 25 Gm/50 Ml Syringe IV PUSH PRN PRN Hypoglycemia Protocol Diazepam 5 mg 03/19/23 11:00 03/20/23 12:56 Diazepam Inj (*Crx) 10 Mg/2 Ml Syringe IV PUSH Not Given Q12H JHONATHAN Docusate Sodium 100 mg 03/17/23 21:00 03/20/23 10:01 Docusate Sodium 100 Mg Capsule PO 100 mg Q12HR JHONATHAN Administration Enoxaparin Sodium 40 mg 03/19/23 09:00 03/20/23 10:01 Enoxaparin 40 Mg/0.4 Ml Syringe SUB-Q 40 mg DAILY JHONATHAN Administration Ergocalciferol 50,000 units 03/22/23 09:00 Ergocalciferol 50,000 Units Capsule PO Cherry@0900 [facility] Glucagon 1 mg 1
[2023-03-20 14:06] VITALS: BP 122/70; PULSE 68; RESP 18; TEMP 36.3; O2SAT 99
[2023-03-20] MEDS: MAGNESIUM HYDROXIDE SUSP 30 ML UDC PO (14:12)
--- NOTE | 2023-03-20 14:38 | PC.NURSE ---
On 03/20/23, the student, [Layton Pedroza], provided care and completed [facility] documentation on this patient. I have reviewed the student's documentation and agree with the findings.
[2023-03-20 17:51] LABS: Glucose Point of Care 121 mg/dl (65-105)
[2023-03-20 19:59] LABS: Glucose Point of Care 155 mg/dl (65-105)
[2023-03-20 20:00] VITALS: BP 154/73; PULSE 73; RESP 16; TEMP 36.6; O2SAT 98
[2023-03-20] MEDS: ASPIRIN 81 MG ENTERIC TABLET PO (20:51)
[2023-03-20] MEDS: ATORVASTATIN 40 MG TABLET 80 MG PO (20:52)
[2023-03-20] MEDS: amLODIPine BESYLATE 5 MG TABLET 10 MG BY MOUTH (20:52)
[2023-03-20 23:53] VITALS: BP 123/59; PULSE 66; RESP 16; TEMP 36.8; O2SAT 95
[2023-03-21 04:00] VITALS: BP 147/66; PULSE 63; RESP 13; TEMP 36.7; O2SAT 97
[2023-03-21] MEDS: ACETAMINOPHEN 500 MG TABLET 1000 MG PO (05:40)
[2023-03-21] MEDS: IBUPROFEN 600 MG TABLET PO ×2 (06:43→13:27)
[2023-03-21 08:50] LABS: Glucose Point of Care 127 mg/dl (65-105)
[2023-03-21 09:43] VITALS: O2SAT 99
--- NOTE | 2023-03-21 09:44 | PM.DS ---
DS: Admitting Diagnosis Discharge Date 03/21/2023 Admitting Diagnosis Recurrent incarcerated ventral incisional hernia DS: Discharge Diagnosis Discharge Diagnosis (1) Recurrent ventral incisional hernia: Code(s): K43.2 - Incisional hernia without obstruction or gangrene Status: Acute Assessment and Plan: Doing well, continue routine postoperative care including light activity restrictions, home with p.o. analgesia and bowel regimen, follow-up with Dr. Bill in 2 weeks DS: Summary Hospital Course Reason for hospitalization: Recurrent incarcerated ventral incisional hernia Hospital Course: The patient is a 67-year-old female presenting with a recurrent, incarcerated ventral incisional hernia. The patient was taken to the operating by Dr. Bill on 03/17 and robotic assisted repair of this hernia was performed. Please see full operative report for details of this procedure. Postoperatively the patient did well and was transferred to the floor. Over the next few days, the patient complained of severe pain and nausea, requiring IV analgesia and IV antiemetics. She was able to tolerate a clear liquid diet and physical therapy was consulted. After approximately 48 hours, her pain improved and we were able to advance her diet. At this time, she is on p.o. analgesia and a bowel regimen. She currently is tolerating a diet without issue and having bowel function. She will be discharged home with follow-up in [address] Bill. Status at Discharge Functional status at discharge: independent ambulation Overall status at discharge: patient is progressing back to baseline Time Spent with Patient Time attestation: Total time spent providing and/or coordinating discharge services: Time spent: Less than 30 minutes Exam Const: General: cooperative, comfortable and no acute distress Resp: Auscultation: clear to auscultation bilaterally Cardio: Rate: regular rate Rhythm: regular rhythm GI: Inspection: normal to inspection, distended and incision GI Palp: Yes abdominal tenderness, Yes Soft to palpation, Yes Tenderness to palpation present (GI), No Guarding due to palpation present (GI) and No Rigid due to palpation DS: Data Data Completed and Pending Labs on day of discharge: Labs from last 24 hours 03/21/23 03/20/23 03/20/23 08:29 19:54 17:49 POC Capillary Glucose 127 H 155 H 121 H 03/20/23 11:51 POC Capillary Glucose 111 H Discharge Plan Discharge Attending physician on discharge: Deon Bill Discharging Clinician: Nancy Wild Anticipated Discharge Date/Time: 03/21/23 11:00 Patient Disposition: Home, Self-Care Activity: may shower Diet: diabetic Wound Care Instructions: other - see discharge instructions Discharge Instructions: May discharge home with stable. Follow-up in the office with Dr. Bill in 2 weeks. Patient to call [phone] for an appointment. No lifting more than 5 to 10 lb for 4 to 6 weeks. If abdominal binder is in place than where night and day for 2 weeks. May remove abdominal binder to shower. May shower 24hours after surgery but no soaking of the incisions under water for 2 weeks. Resume all home medications and a prescription for narcotic pain medications will be sent to the patient's pharmacy if needed. Patient Instructions: Clopidogrel (By mouth) Follow-up/Referrals: Deon Bill MD [Physician] - Discharge Medications: New oxycodone 5 mg tablet 5 mg PO Q4H PRN (Reason: pain) Qty: 25 0RF diazepam [Valium] 5 mg tablet 5 mg PO BID PRN (Reason: muscle spasm) Qty: 20 0RF docusate sodium [Colace] 100 mg capsule 100 mg PO BID Qty: 60 1RF ibuprofen 600 mg tablet 600 mg PO Q6H PRN (Reason: pain (scale score 4-6)) Qty: 30 0RF polyethylene glycol 3350 [Miralax] 17 gram/dose powder 17 g PO DAILY Qty: 119 1RF Continued metformin 500 mg tablet extended release 24 hr 500 mg PO BID potassium ch
[2023-03-21 09:45] VITALS: BP 134/62; PULSE 73; RESP 16; TEMP 36.4; O2SAT 98
[2023-03-21] MEDS: PANTOPRAZOLE 40 MG TABLET PO (09:46)
[2023-03-21] MEDS: TORSEMIDE 20 MG TABLET 40 MG PO (09:47)
[2023-03-21] MEDS: TORSEMIDE 10 MG TABLET PO (09:47)
[2023-03-21] MEDS: DOCUSATE SODIUM 100 MG CAPSULE PO (09:47)
[2023-03-21] MEDS: polyethylene glycoL 3350 17 GM POWD.PACK PO (09:47)
[2023-03-21] MEDS: CLOPIDOGREL BISULFATE 75 MG TABLET PO (09:47)
[2023-03-21] MEDS: lisinopriL 20 MG TABLET PO (09:47)
[2023-03-21] MEDS: POTASSIUM CHLORIDE 20 MEQ ER TABLET PO (09:47)
[2023-03-21] MEDS: metFORMIN HCL XR 500 MG TAB.SR.24H PO (09:47)
[2023-03-21] MEDS: ENOXAPARIN 40 MG/0.4 ML SYRINGE SUB-Q (09:48)
[2023-03-21 12:04] LABS: Glucose Point of Care 104 mg/dl (65-105)
[2023-03-21] MEDS: TOLNAFTATE 1% POWDER 45 GM BTL 1 APPLIC TOPICAL (13:28)
--- NOTE | 2023-03-23 19:54 | WPDHPUPDATE1 ---
History and Physical Update Update Date/Time: 03/17/23 History and Physical has been reviewed, including an updated exam of the patient. There are NO changes in the patient's condition. Risks, benefits, and alternatives have been discussed and questions answered. Patient agrees to proceed with procedure.
== END 2023-03-21 15:45 | disposition home or self-care (01) ==
LOC: ANHSURGERY 10:05 → ANH2MED 03-20 13:35
PROVIDERS: Nurse Practitioner Family; Admitting Provider Surgery; PCP Physician Assistant; Visit Provider Surgery
PROC: (CPT 49616; principal; 2023-03-17 12:30)
DX: K43.2 Incisional hernia without obstruction or gangrene (principal); E11.9 Type 2 diabetes mellitus without complications; J44.9 Chronic obstructive pulmonary disease, unspecified; K57.90 Diverticulosis of intestine, part unspecified, without perforation or abscess without bleeding; E78.5 Hyperlipidemia, unspecified; I10 Essential (primary) hypertension; E66.9 Obesity, unspecified; Z68.37 Body mass index [BMI] 37.0-37.9, adult; F10.90 Alcohol use, unspecified, uncomplicated; F12.90 Cannabis use, unspecified, uncomplicated; Z86.79 Personal history of other diseases of the circulatory system; Z79.82 Long term (current) use of aspirin; Z79.84 Long term (current) use of oral hypoglycemic drugs; Z79.02 Long term (current) use of antithrombotics/antiplatelets; Z79.51 Long term (current) use of inhaled steroids; Z82.49 Family history of ischemic heart disease and other diseases of the circulatory system; Z83.49 Family history of other endocrine, nutritional and metabolic diseases; Z83.438 Family history of other disorder of lipoprotein metabolism and other lipidemia
CPT/HCPCS: 49616; 36415; 80048; 82948; 85027; 86850; 86900; 86901; 97161; 97165; 97530; 97535; A9270; C1781; G0378; J0690; J1170; J1650; J1741; J1885; J2250; J2371; J2405; J2704; J2765; J3010; J3360; J7030; J7120

== ENCOUNTER 2023-04-27 10:40 | Outpatient (CLI) | payer MEDICARE, SELFPAY ==
--- NOTE | ~2023-04-27 | XR_ITS ---
XR abdomen w oblique DATE: 04/27/2023 11:05 INDICATION: Right-sided abdominal pain TECHNIQUE: AP and oblique views of the abdomen and COMPARISON: 01/19/2023 CT abdomen pelvis FINDINGS: Vascular stent of left common iliac vein. The psoas shadows are intact. No visceromegaly is evident. Mobile calcified splenic granulomas. Moderately prominent of fecal material is noted, particularly in the sigmoid colon and rectal area. N o bowel obstruction, pneumatosis or portal venous gas. Levoscoliosis and degenerative change of the thoracic and lumbar spine IMPRESSION: Moderately prominent of fecal material in the rectum and colon; no bowel obstruction Left common iliac vein stent Reviewed, dictated and finalized at [facility]. Reviewed, dictated and finalized at location [facility]. 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
== END 2023-04-27 10:41 | disposition home or self-care (01) ==
LOC: ANHIMG 10:43
PROVIDERS: PCP Physician Assistant; Visit Provider Physician Assistant
DX: R10.9 Unspecified abdominal pain (principal)
CPT/HCPCS: 74021

== ENCOUNTER 2023-04-29 06:34 | Outpatient (CLI) | payer MEDICARE, SELFPAY ==
--- NOTE | ~2023-04-29 | NM_ITS ---
EXAMINATION: NM hepatobiliary wo pharm DATE: 04/29/2023 09:13 INDICATION: Cholelithiasis without obstruction. COMPARISON: CT abdomen and pelvis 01/19/2023 TECHNIQUE: 5 mCi Tc-99m mebrofenin (Choletec) was administered intravenously. Scintigraphic images o f the abdomen were obtained for one hour. Then, the patient drank 8 oz Ensure, and imaging was contin ued for 60 minutes. FINDINGS: There is normal clearance of radiotracer from the blood pool. There is homogeneous tracer u ptake by the liver. Activity progresses to the bowel and gallbladder. Gallbladder ejection fraction (GBEF) was 74%. Note that with this technique, normal GBEF >= 33%. IMPRESSION: 1. Normal hepatobiliary scintigraphy. Reviewed, dictated and finalized at location [facility]. 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
== END 2023-04-29 06:35 | disposition home or self-care (01) ==
PROVIDERS: PCP Physician Assistant; Visit Provider Physician Assistant
DX: K80.20 Calculus of gallbladder without cholecystitis without obstruction (principal)
CPT/HCPCS: 78226; A9537

== ENCOUNTER 2023-05-15 14:22 | Outpatient (CLI) | payer MEDICARE, SELFPAY ==
--- NOTE | ~2023-05-15 | US_ITS ---
EXAMINATION: US pelvic complete w TV DATE: 05/15/2023 15:39 INDICATION: Pelvic pain Comparison:No prior studies for comparison. TECHNIQUE: Multiple transabdominal and endovaginal sonographic images of the pelvis performed. FINDINGS: The uterus measures 4.4 x 1.4 x 2.1 cm. The endometrial complex measures 2 mm. The ovaries are not identified. There is no free fluid in the pelvis. There are no abnormal masses seen on either side. IMPRESSION: 1. Atrophic uterus. Reviewed, dictated and finalized at location [facility]. 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 Atrophic uterus.
== END 2023-05-15 14:23 | disposition home or self-care (01) ==
LOC: ANHIMG 14:24
PROVIDERS: PCP Physician Assistant; Visit Provider Obstetrics & Gynecology
DX: N85.8 Other specified noninflammatory disorders of uterus (principal); R10.2 Pelvic and perineal pain
CPT/HCPCS: 76830; 76856

== ENCOUNTER 2023-07-06 08:30 | Outpatient (CLI) | payer MEDICARE, SELFPAY ==
--- NOTE | ~2023-07-06 | CT_ITS ---
EXAMINATION: CT abdomen pelvis wo con DATE: 07/06/2023 08:51 INDICATION: Right upper quadrant abdominal pain for 6 months. History of hernia surgery, February, with pain since then. Left-sided abdominal pain. TECHNIQUE: Computed tomography (CT) of the abdomen and pelvis was performed without intravenous contr ast. Automated exposure control and iterative reconstruction technique were employed. Exam dose: 993 .81 mGy-cm total exam DLP. COMPARISON: 05/15/2023 pelvic ultrasound examination 04/29/2023 hepatobiliary scan, reported normal 04/27/2023 plain radiographs of the abdomen 01/19/2023 CT abdomen pelvis FINDINGS: There is minimal discoid atelectasis and/or scarring at the lung bases. No infiltrate or co nsolidation is noted at the included lower lung zones. Cardiomegaly. Coronary artery calcifications. Mitral annulus calcification. No pericardial or pleural effusion. At least one small stone is noted in the dependent aspect of the gallbladder. No gallbladder wall thi ckening or pericholecystic fluid or fat stranding. No bile duct or pancreatic duct dilatation. No hepatic space-occupying mass lesion. Multiple splenic calcified granulomas. No splenomegaly. Normal morphology of the adrenal glands. Exophytic 11.8 mm posterior left renal cyst. No urinary tract calculus or hydroureteronephrosis. The urinary bladder is evacuated. The uterus and adnexal areas are unremarkable. There is atherosclerotic calcification of the celiac and superior mesenteric arteries, renal arteries , abdominal aorta, inferior mesenteric artery. No abdominal aortic aneurysm. Left common iliac vein stent. No intraperitoneal or retroperitoneal or pelvic mass lesion or adenopathy or ascites. No bowel obstruction, bowel wall thickening, pneumatosis or intraperitoneal free air. Degenerative changes of the included lower thoracic and lumbar spine. No suspicious osteolytic or ost eoblastic lesions. IMPRESSION: Cholelithiasis Left common iliac vein stent 11 x 8 mm posterior left renal cyst Cardiomegaly, coronary atherosclerosis Reviewed, dictated and finalized at [facility]. Reviewed, dictated and finalized at [facility].
== END 2023-07-06 08:31 ==
LOC: GOSHIMG 08:31
PROVIDERS: PCP Physician Assistant; Visit Provider Surgery
DX: R10.11 Right upper quadrant pain (principal); K80.20 Calculus of gallbladder without cholecystitis without obstruction; N28.1 Cyst of kidney, acquired; I51.7 Cardiomegaly
CPT/HCPCS: 74176

== ENCOUNTER 2023-10-27 02:14 | Day surgery (SDC) | payer MEDICARE, SELFPAY ==
[2023-10-15 10:43] VITALS: BMI 36.8
--- NOTE | 2023-10-15 11:19 | PC.NURSE ---
Spoke with patient regarding medications. Pt. verbalizes understanding that the last dose of PLAVIX is to be taken on 10/22/2023 and the Endoscopist will instruct them when to restart after the procedure. PT. states she has been having more bruising as of late and I did encourage her to call Dr. Ortega's office.
[2023-10-27 10:58] VITALS: BP 147/77; PULSE 70; RESP 18; TEMP 36.6; O2SAT 98
[2023-10-27] MEDS: LACTATED RINGERS 1,000 ML 150 ML IV CONT (11:14)
[2023-10-27 11:15] LABS: Glucose Point of Care 114 mg/dl (65-105)
--- NOTE | 2023-10-27 11:59 | WPDANESEPPF ---
Anes - Initial Pre Proc Eval Procedure: Operation Date: 10/27/23 12:30 Proposed Procedures p Colonoscopy - Germain Mesa MD Date/Time: 10/27/23 11:59 Surgeon: Germain Mesa MD Pre Op Diagnosis: Lower abdominal pain unspecified Patient Data Age: 68 Gender: F Height: 1.55 m Weight: 85.8 kg Last Vital Signs Temp 97.8 F 10/27/23 10:58 Pulse 70 10/27/23 10:58 Resp 18 10/27/23 10:58 BP 147/77 H 10/27/23 10:58 Pulse Ox 98 10/27/23 10:58 O2 Del Method Room Air 10/27/23 10:58 Allergies Allergy/AdvReac Type Severity Reaction Status Date / Time adhesive tape Allergy Intermediate Rash Verified 10/27/23 10:49 Home Medications Medication Instructions Recorded Confirmed Type aspirin 81 mg tablet,delayed 81 mg PO HS 01/03/20 10/15/23 History release atorvastatin 80 mg tablet 80 mg PO HS 01/03/20 10/15/23 History cholecalciferol (vitamin D3) 1,250 1,250 mcg PO WEEKLY 01/03/20 10/15/23 History mcg (50,000 unit) tablet metformin 500 mg tablet,extended 500 mg PO BID 01/03/20 10/15/23 History release 24 hr torsemide 100 mg tablet 50 mg PO QAM 01/03/20 10/15/23 History clopidogrel 75 mg tablet 75 mg PO DAILY 01/16/22 10/15/23 History albuterol sulfate 90 mcg/actuation 2 inh inhalation PRN PRN Wheezing 03/09/23 10/15/23 History aerosol inhaler amlodipine 10 mg tablet 10 mg PO HS 03/09/23 10/15/23 History docusate sodium 100 mg capsule 100 mg PO BID #60 caps 03/20/23 10/15/23 Rx (Colace) lisinopril 10 mg tablet 10 mg PO DAILY 10/15/23 10/15/23 History potassium chloride 20 mEq 20 meq PO BID 10/15/23 10/15/23 History tablet,extended release(part/cryst) (Klor-Con M) Laboratory Tests 10/27/23 11:07 POC Capillary Glucose 114 H mg/dl (65-105) Patient hx anesthesia problems: none Family hx anesthesia problems: none Results Review: All pre-operative results and documents have been reviewed as part of the pre-operative evaluation. 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 History of blood transfusion Hyperlipidemia Hypertension Ventral hernia Surgical History Surgical History (Updated 07/07/23 @ 11:13 by Francia Lopez) H/O section H/O dilation and curettage H/O hernia repair History of incisional hernia repair Robotic assisted laparoscopic recurrent incarcerated incisional hernia repair with Bard Ventralight ST mesh 03/17/23 History of open heart surgery Hx of elbow surgery [place] teeth removed Family History Family History Mother Hypertension Family history of elevated blood lipids Family history of diabetes mellitus in first degree relative Father Hypertension Cerebrovascular accident Sibling Family history of elevated blood lipids Hypertension Family history of diabetes mellitus in first degree relative Other Diabetes mellitus Family history of cardiovascular disease Family history of coronary artery disease Social History Social History Smoking status: Never smoker Second hand tobacco smoke exposure: No Alcohol intake: current Drinks per week: 1 Alcohol use details: 12/MONTH Substance use: current Substance use type: marijuana Other substance usage details: DAILY- FOR PAIN Last use: 03/09/23 Lack of Transportation: No Lack of Food: Never True Current Housing: I Have Housing Concerned About Future Housing: No Difficulty Paying Gas/Electric Bills: No Difficulty Paying for Meds: No Currently Unemployed: No Education: High School Diploma/GED Difficulty w/ Childcare o
--- NOTE | 2023-10-27 12:35 | PM.HPGS ---
History of Present Illness History of Present Illness Consent: Risks, benefits, and alternatives have been discussed and questions answered. Patient agrees to proceed with procedure. Chief complaint: Lower abdominal pain unspecified Narrative: Norma Power is a 68 year old female with lower abdominal pain and bloating, she had hernia repair months ago but did not help with pain, CT scan no acute findings, had colonoscopy years ago. 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 History of blood transfusion Hyperlipidemia Hypertension Lower abdominal pain Ventral hernia Surgical History Surgical History (Updated 07/07/23 @ 11:13 by Francia Lopez) H/O section H/O dilation and curettage H/O hernia repair History of incisional hernia repair Robotic assisted laparoscopic recurrent incarcerated incisional hernia repair with Bard Ventralight ST mesh 03/17/23 History of open heart surgery Hx of elbow surgery [place] teeth removed Family History Family History Mother Hypertension Family history of elevated blood lipids Family history of diabetes mellitus in first degree relative Father Hypertension Cerebrovascular accident Sibling Family history of elevated blood lipids Hypertension Family history of diabetes mellitus in first degree relative Other Diabetes mellitus Family history of cardiovascular disease Family history of coronary artery disease Social History Social History Smoking status: Never smoker Second hand tobacco smoke exposure: No Alcohol intake: current Drinks per week: 1 Alcohol use details: 12/MONTH Substance use: current Substance use type: marijuana Other substance usage details: DAILY- FOR PAIN Last use: 03/09/23 Lack of Transportation: No Lack of Food: Never True Current Housing: I Have Housing Concerned About Future Housing: No Difficulty Paying Gas/Electric Bills: No Difficulty Paying for Meds: No Currently Unemployed: No Education: High School Diploma/GED Difficulty w/ Childcare or Family Care: No Living arrangements: with family Additional living arrangements comments: LIVES WITH BOYFRIEND MINE EVANS Spiritual care concerns: No Meds Home Medications and Allergies Home Medications Medication Instructions Recorded Confirmed Type aspirin 81 mg tablet,delayed 81 mg PO HS 01/03/20 10/15/23 History release atorvastatin 80 mg tablet 80 mg PO HS 01/03/20 10/15/23 History cholecalciferol (vitamin D3) 1,250 1,250 mcg PO WEEKLY 01/03/20 10/15/23 History mcg (50,000 unit) tablet metformin 500 mg tablet,extended 500 mg PO BID 01/03/20 10/15/23 History release 24 hr torsemide 100 mg tablet 50 mg PO QAM 01/03/20 10/15/23 History clopidogrel 75 mg tablet 75 mg PO DAILY 01/16/22 10/15/23 History albuterol sulfate 90 mcg/actuation 2 inh inhalation PRN PRN Wheezing 03/09/23 10/15/23 History aerosol inhaler amlodipine 10 mg tablet 10 mg PO HS 03/09/23 10/15/23 History docusate sodium 100 mg capsule 100 mg PO BID #60 caps 03/20/23 10/15/23 Rx (Colace) lisinopril 10 mg tablet 10 mg PO DAILY 10/15/23 10/15/23 History potassium chloride 20 mEq 20 meq PO BID 10/15/23 10/15/23 History tablet,extended release(part/cryst) (Klor-Con M) Allergies Allergy/AdvReac Type Severity Reaction Status Date / Time adhesive tape Allergy Intermediate Rash Verified 10/27/23 10:49 Vital Signs Vital Signs - 24 hr 10/27/23 1
[2023-10-27 12:55] VITALS: BP 107/78; PULSE 60; RESP 18; O2SAT 100
[2023-10-27 13:05] VITALS: BP 138/100; PULSE 60; RESP 18; O2SAT 96
[2023-10-27 13:15] VITALS: BP 155/77; PULSE 60; RESP 18; O2SAT 100
== END 2023-10-27 13:30 | disposition home or self-care (01) ==
PROVIDERS: PCP Physician Assistant; Visit Provider Internal Medicine Gastroenterology
PROC: 0DJD8ZZ Inspection of Lower Intestinal Tract, Via Natural or Artificial Opening Endoscopic (ICD-10-PCS; CPT 45378; principal; 2023-10-27 12:30)
DX: R10.30 Lower abdominal pain, unspecified (principal); K57.30 Diverticulosis of large intestine without perforation or abscess without bleeding; K64.8 Other hemorrhoids; E78.5 Hyperlipidemia, unspecified; I10 Essential (primary) hypertension; J44.9 Chronic obstructive pulmonary disease, unspecified; Z98.890 Other specified postprocedural states
CPT/HCPCS: 45378; 82948; J2001; J2704; J7120

== ENCOUNTER 2023-12-11 08:24 | Outpatient (CLI) | payer MEDICARE, SELFPAY ==
--- NOTE | ~2023-12-11 | XR_ITS ---
EXAMINATION: XR barium swallow modified DATE: 12/11/2023 08:58 INDICATION: Dysphagia. TECHNIQUE: The patient was given barium-containing material of multiple consistencies to swallow by t he speech pathologist while I performed fluoroscopy. Fluoroscopy exposure time was 0.5 minutes. The n umber of fluoroscopy images saved to the PACS was 1. Dose-area product was 0.383 Gy-cm^2. FINDINGS: The oral stage, pharyngeal stage, and cervical/esophageal stage of the swallow are normal. IMPRESSION: 1. Normal modified barium swallow. 2. Please refer to the speech therapy report for recommendations. Reviewed, dictated and finalized at location [facility].
--- NOTE | 2023-12-11 09:02 | REHSTMBS ---
Assessment and note entered by Namrata Orozco, TELEHEALTH CASE MANAGER Modified Barium Swallow Evaluation Feeding Type Recommended Oral Food Consistency Regular, Level 7 Liquid Consistency Thin (0) ST Clinical Summary MODIFIED BARIUM SWALLOW STUDY This patient was seen for a Modified Barium Swallow study at the request of her physician. Patient reports she has a burning sensation in her throat after consuming liquids and solids. She denies any difficulty with swallowing at this time, no choking or hard swallows, and reports that the burning sensation only appears after completing her meals/snacks. Also patient denies history of reflux. Patient was viewed in the lateral position to the level of C5/C6. She was presented with thin liquid contrast medium per cup and also per straw, pudding per spoon, and a one inch square of pasquale cracker coated with the pudding mixture. She exhibited adequate oral skills, with no evidence of penetration or aspiration, and no significant residue in the pharynx after swallowing. Results indicate the patient's swallowing skills are within normal limits. She may remain on regular diet and liquids. She is referred back to her physician for further assessment of her complaints. Thank you for this referral.
== END 2023-12-11 08:25 | disposition home or self-care (01) ==
PROVIDERS: PCP Physician Assistant; Visit Provider Otolaryngology
DX: R13.10 Dysphagia, unspecified (principal)
CPT/HCPCS: 92611

== ENCOUNTER 2023-12-28 15:13 | Outpatient (CLI) | payer MEDICARE, SELFPAY ==
--- NOTE | ~2023-12-28 | MM_ITS ---
EXAMINATION: MM screening [facility] BI w luly HISTORY: Screening mammogram TECHNIQUE: Craniocaudal and mediolateral oblique 3-D tomosynthesis images were obtained and synthetic 2-D images were generated. CAD analysis was submitted and interpreted. COMPARISON: 01/03/2013 BREAST PARENCHYMAL COMPOSITION:Not Dense. There are scattered areas of fibroglandular density. FINDINGS: No suspicious mass, calcification, or architectural distortion are identified in either deidra ast to suggest malignancy. There has been no suspicious interval change. IMPRESSION: No mammographic evidence of malignancy. Recommend routine screening mammography in one year. BI-RADS Category 1: Negative Reviewed, dictated and finalized at location .
== END 2023-12-28 15:14 | disposition home or self-care (01) ==
LOC: ANHIMG 15:15
PROVIDERS: PCP Physician Assistant; Visit Provider Physician Assistant
DX: Z12.31 Encounter for screening mammogram for malignant neoplasm of breast (principal)
CPT/HCPCS: 77063; 77067

== ENCOUNTER 2024-02-15 08:03 | Outpatient (CLI) | payer MEDICARE, SELFPAY ==
--- NOTE | 2024-02-15 12:38 | WPDPFTINT ---
PFT Procedure Performed PFT Procedure Performed Spirometry with Pre/Post Bronchodilator Plethysmography (Lung Vol) Diffusing Cap (DLCO) Flow Vol Loop PFT Interpretation This is a pulmonary function test with pre and post-bronchodilator spirometry, plethysmography and diffusing capacity. The test was performed and results interpreted in accordance with the 2019 and 2005 ATS/ERS Task Force guidelines respectively using the Global Lung Function Initiative-2012 reference equations. Patient demonstrated good effort and cooperation. Reproducibility criteria were met. The quality of the pre bronchodilator spirometry maneuver was Grade A and post bronchodilator spirometry maneuver was Grade A. Findings: Spirometry: The contour the inspiratory and expiratory flow tracing are normal. The pre bronchodilator FVC is 2.07 L, 90% predicted. The pre bronchodilator FEV1 is 1.49 L, 80% predicted. The pre bronchodilator FEV1: FVC ratio is 72%. The post bronchodilator FVC is 2.21 L, representing a 7% increase. The post bronchodilator FEV1 is 1.62 L, representing a 9% increase. The post bronchodilator FEV1: FVC ratio is 73%. Plethysmography: The total lung capacity is 4.00 L, 85% predicted. The functional residual capacity is 2.25 L, 84% predicted. The residual volume is 1.73 L, 85% predicted. Diffusing capacity: The diffusing capacity unadjusted for hemoglobin and carboxyhemoglobin is 13.3, 67% predicted. The diffusing capacity adjusted for alveolar volume is 3.99, 90% predicted. Impression: The spirometry is normal without evidence of an obstructive abnormality. There is no significant improvement after inhaling a single dose of albuterol. The lung volumes are normal. The diffusing capacity unadjusted for hemoglobin and carboxyhemoglobin is mildly decreased and normalizes when adjusted for alveolar volume. There are no prior studies for comparison
== END 2024-02-15 08:04 | disposition home or self-care (01) ==
LOC: ANHPFT 08:03
PROVIDERS: PCP Physician Assistant; Visit Provider Physician Assistant
DX: J44.9 Chronic obstructive pulmonary disease, unspecified (principal)
CPT/HCPCS: 94060; 94726; 94729

== ENCOUNTER 2024-04-04 09:14 | Outpatient (CLI) | payer MEDICARE, SELFPAY ==
--- NOTE | ~2024-04-04 | US_ITS ---
Thyroid ultrasound. Clinical History: Abnormal thyroid function tests Findings: Real-time sonography of the thyroid gland was performed. The right lobe measures 3.6 x 1.8 x 1.5 cm. The left lobe measures 3.8 x 1.4 x 1.6 cm. The isthmus is 5 mm in AP diameter. Right thyroid lobe nodule measures 1.2 x 1.3 x 0.8 cm, hypoechoic with punctate calcifications. Impression: 1.2 cm TR-5 nodule. FNA recommended to establish a histologic diagnosis.. Reviewed, dictated and finalized at location . [facility]ANCE FOLLOW UP REPRESENTATIVE Impression: 1.2 cm TR-5 nodule. FNA recommended to establish a histologic diagnosis..
== END 2024-04-04 09:15 | disposition home or self-care (01) ==
LOC: GOSHIMG 09:16
PROVIDERS: PCP Physician Assistant; Visit Provider Physician Assistant
DX: R94.6 Abnormal results of thyroid function studies (principal)
CPT/HCPCS: 76536

== ENCOUNTER 2024-06-09 00:36 | Day surgery (SDC) | payer MEDICARE, SELFPAY ==
[2024-04-08 12:01] VITALS: BMI 37.7
--- NOTE | 2024-04-28 10:18 | PC.NURSE ---
SPOKE TO PT REGARDING UPCOMING EGD, PT DENIES ANY CHANGES OR ADDITIONS TO MEDICAL HISTORY, STATES UNDERSTANDING OF NEW DATE AND PROCEDURE TIME.
--- OUTSIDE RECORDS SUMMARY | 2024-05-12 11:14 | XMS_ITS | CONTINUITY OF CARE DOCUMENT ---
Author Name weston ontiveros Address Unknown Organization [facility] Address [address] [address] [place] [address] Phone [phone] Care Team Providers Care Instructor Private Name Role Phone Mitchel Ortega MD Unavailable [phone] DANELLE HARRIS Unavailable [phone] DANELLE HARRIS Unavailable [phone] PROBLEMS Condition Status Date Provider Notes DIABETES MELLITUS active Blossom Stahlschmid t CP-12/29 NUC NEG completed - Mitchel Ortega MD CAD S/P CABGx5 -02/25 [id number], LRA-T [id number], SVG-PDA active Mitchel Ortega MD PALPITATIONS-09/27 [address] 53-105 completed - Dhruv Monroe PVD active Dhruv Monroe HTN-07/01 ECHO SEVERE LVE EF 60 completed - Mitchel Ortega MD Edema active Mitchel Ortega MD DYSPNEA-12/30 CATH PATENT GRA FT XCEPT PL OCCLUDED completed - Mitchel Ortega MD SHORTNESS OF BREATH completed - Dhruv Monroe COPD active Mitchel Ortega MD Obstructive sleep apnea active Dhruv moreira Vertigo completed - Dhruv Monroe Carotid artery stenosis - 07/2018 DUPLEX <50% ICAs active Dhruv Monroe 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 Dhruv Monroe Compression of left common iliac vein S/P stent 08/2016 active Dhruv Monroe Obesity active Dhruv Monroe Preop exam completed - Mitchel Ortega MD PVC's active Mitchel Ortega MD COVID-19 screening - negativ e antibodies and swab 11/2019 active Dhruv Monroe Bradycardia active Mitchel Ortega MD Abnormal nuclear stress test active Mitchel reyna MD LEG PAIN active Dhruv Monroe Hyperlipidemia active Mitchel Ortega MD HTN active Mitchel Ortega MD ENCOUNTERS Date Type Provider Location Encounter Diag nosis - In-person encounter Office Visit Mitchel Ortega MD [facility] Abnormal nuclear stress test - In-person encounter Office Visit Mitchel Ortega MD [facility] - In-person encounter Office Visit Mitchel Ortega MD [facility] - In-person encounter Office Visit Mitchel Ortega MD [facility] - In-person encounter Office Visit Mitchel Ortega MD [facility] - In-person encounter Office Visit Mitchel Ortega MD [facility] - In-person encounter Office Visit Mitchel Ortega MD [facility] - In-person encounter Office Visit Mitchel Ortega MD [facility] - In-person encounter Office Visit Mitchel Ortega MD [facility] Bradycardia - In-person encounter Office Visit Mitchel Ortega MD [facility] - In-person encounter Office Visit Mitchel Ortega MD [facility] - In-person encounter Office Visit Mitchel Ortega MD [facility] - In-person encounter Office Visit Mitchel Ortega MD [facility] LEG PAIN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COVID-19 screening - negative antibodies and swab 11/2019 - In-person encounter Office Visit Mitchel Ortega MD [facility] PALPITATIONS-09/27 [address] 53-105PVDSHORTNESS OF BREATHVertigoCOVID-19 screening - negative antibodies and swab 11/2019 - In-person encounter Office Visit Mitchel Ortega MD TeleHealth - In-person encounter Office Visit Mitchel Ortega MD [facility] CP-12/29 NUC NEGCarotid artery stenosis - 07/2018 DUPLEX <50% ICAsPreop examPVC's - In-person encounter Office Visit Henry Abdul MD [facility] - In-person encounter Office Visit Mitchel Ortega MD [facility] - In-person encounter Office Visit Mitchel Ortega MD [facility] - In-person encounter Office Visit Mitchel Ortega MD [facility] - In-person encounter Office Visit Mitchel Ortega MD [facility] Obstructive sleep apneaCarotid artery stenosis - 07/2018 DUPLEX <50% ICAsCompression of left common iliac vein S/P stent 08/2016Obesity - In-person encounter Office Visit Mitchel Ortega MD [facility] 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 - In-person encounter Office Visit Mitchel Ortega MD [facility] Obstructive sleep apnea - In-person encounter Office Visit Mitchel Ortega MD [facility] HTNHyperlipidemiaLEG PAINCAD S/P CABGx5 -02/25 [id number], LRA-T [id number], SVG-PDAEdemaCarotid artery stenosis - 07/2018 DUPLEX <50% ICAs - In-person encounter Office Visit Mitchel Ortega MD [facility] - In-person encounter Office Visit Mitchel Ortega MD [facility] Obstructive sleep apnea - In-person encounter Office Visit Mitchel Ortega MD [facility] - In-person encounter Office Visit Mitchel Ortega MD [facility] - In-person encounter Office Visit Mitchel Ortega MD [facility] HTNCAD S/P CABGx5 -1 04/27 [id number], LRA-T [id number]-RCA, SVG-PDAEdemaSHORTNESS OF BREATHCOPD - In-person encounter Office Visit Mitchel Ortega MD [facility] - In-person encounter Office Visit Mitchel Ortega MD [facility] - In-person encounter Office Visit Mitchel Ortega MD [facility] - In-person encounter Office Visit Mitchel Ortega MD [facility] - In-person encounter Office Visit Mitchel Ortega MD [facility] - In-person encounter Office Visit Mitchel Ortega MD [facility] - In-person encounter Office Visit Mitchel Ortega MD [facility] - In-person encounter Office Visit Mitchel Ortega MD [facility] - In-person encounter Office Visit Mitchel Ortega MD [facility] - In-person encounter Office Visit Mitchel Ortega MD [facility] EdemaDYSPNEA-12/30 CATH PATENT GRAFT XCEPT PL OCCLUDED - In-person encounter Office Visit Mitchel Ortega MD [facility] CP-12/29 NUC NEGPVDHTN-07/01 ECHO SEVERE LVE EF 60 - In-person encounter Office Visit Mitchel Ortega MD [facility] PVD - In-person encounter Office Visit Henry Abdul MD [facility] - In-person encounter Office Visit Mitchel Ortega MD [facility] - In-person encounter Office Visit Mitchel Ortega MD [facility] - In-person encounter Office Visit Mitchel Ortega MD [facility] - In-person encounter Office Visit Mitchel Ortega MD [facility] Hyperlipidemia - In-person encounter Office Visit Henry Abdul MD [facility] VITAL SIGNS Date Observation Value Provider Body Mass Index (Ratio) 37.35 kg/m2 Mitchel Ortega MD blood pressure, diastolic 86 mm[Hg] [facility] blood pressure, systolic 158 mm[Hg] Yuliya prasanna [place] oxygen saturation, oximetry 95 % [facility] pulse rate 60 /min [facility] blood pressure, cuff size regular [facility] weight E&M 208.2 [lb_av] [facility] height E&M 62.6 [in_i] [facility] Body Mass Index (Ratio) 36.24 kg/m2 Zeeshan Lea blood pressure, diastolic 75 mm[Hg] Ja rret blood pressure, systolic 127 mm[Hg] Jar ret pulse rate 52 /min Kendrick y blood pressure, cuff size regular Ja rret oxygen saturation, oximetry 97 % Kendrick respiratory rate E&M 16 /min Kendrick weight E&M 202 [lb_av] Kendrick height E&M 62.6 [in_i] Kendrick Body Mass Index (Ratio) 35.88 kg/m2 Mitchel Ortega MD blood pressure, cuff size regular Ja rr blood pressure, diastolic 72 mm[Hg] Ja rr blood pressure, systolic 124 mm[Hg] Jar pulse rate 59 /min Kendrick respiratory rate E&M 14 /min Kendrick oxygen saturation, oximetry 98 % Kendrick weight E&M 200 [lb_av] Kendrick height E&M 62.6 [in_i] Kendrick y Body Mass Index (Ratio) 34.08 kg/m2 [facility] blood pressure, cuff size regular [facility] blood pressure, diastolic 79 mm[Hg] [facility] blood pressure, systolic 141 mm[Hg] [facility] oxygen saturation, oximetry 97 % [facility] respiratory rate E&M 16 /min Andie arriaza pulse rate 73 /min [facility] weight E&M 190 [lb_av] [facility] height E&M 62.6 [in_i] [facility] Body Mass Index (Ratio) 35.88 kg/m2 [facility] blood pressure, cuff size large Ja [facility] blood pressure, diastolic 72 mm[Hg] Ja rret blood pressure, systolic 130 mm[Hg] Jar ret pulse rate 72 /min Kendrick respiratory rate E&M 12 /min oxygen saturation, oximetry 97 % [facility]rick weight E&M 200 [lb_av] Kendrick height E&M 62.6 [in_i] Kendrick Body Mass Index (Ratio) 38.39 kg/m2 Mark yun Madhu blood pressure, diastolic 65 mm[Hg] Delisa nkLog blood pressure, systolic 126 mm[Hg] Chelita kLog pulse rate 50 /min Laisha Galvan blood pressure, diastolic 65 mm[Hg] suri Galvan blood pressure, systolic 126 mm[Hg] She rrdameon Galvan oxygen saturation, oximetry 98 % Laisha Galvan respiratory rate E&M 18 /min Laisha Galvan blood pressure, cuff size large suri Galvan weight E&M 214 [lb_av] Laisha Galvan height E&M 62.6 [in_i] Laisha Galvan Body Mass Index (Ratio) 36.09 kg/m2 Antwan Ava oxygen saturation, oximetry 97 % Laisha Galvan blood pressure, cuff size regular suri Galvan blood pressure, diastolic 68 mm[Hg] suri Galvan blood pressure, systolic 107 mm[Hg] She rrdameon Galvan respiratory rate E&M 18 /min Laisha Galvan pulse rate 68 /min Laisha Galvan weight E&M 201.2 [lb_av] Laisha Galvan height E&M 62.6 [in_i] Laisha Galvan Body Mass Index (Ratio) 39.11 kg/m2 Mitchel Ortega MD blood pressure, cuff size large Adriana Ortega blood pressure, diastolic 82 mm[Hg] Adriana allen [place] blood pressure, systolic 140 mm[Hg] [facility] helle [place] oxygen saturation, oximetry 97 % Madeline Ortega respiratory rate E&M 16 /min Nakita Ortega pulse rate 88 /min Madeline dozier weight E&M 218 [lb_av] Mitchel Ortega MD height E&M 62.6 [in_i] Madeline dozier Body Mass Index (Ratio) 40.90 kg/m2 Yonny Worley oxygen saturation, oximetry 98 % Chastity Leonor pulse rate 51 /min Chastity Leonor blood pressure, diastolic 77 mm[Hg] Ch astity Leonor blood pressure, systolic 160 mm[Hg] Amanda stity Leonor weight E&M 228 [lb_av] Chastity Leonor respiratory rate E&M 16 /min Chastit y Leonor height E&M 62.6 [in_i] Chastity Leonor Body Mass Index (Ratio) 44.85 kg/m2 Danya Pineda blood pressure, cuff size large Ut alejandro [place] blood pressure, diastolic 100 mm[Hg] Ut alejandro [place] blood pressure, systolic 150 mm[Hg] [facility] helle [place] oxygen saturation, oximetry 98 % Madeline Ortega respiratory rate E&M 16 /min Nakita Ortega pulse rate 76 /min Madeline dozier weight E&M 250 [lb_av] Madeline dozier height E&M 62.6 [in_i] Madeline dozier Body Mass Index (Ratio) 39.47 kg/m2 Loi Monroe blood pressure, diastolic 80 mm[Hg] astity Leonor blood pressure, systolic 145 mm[Hg] Amanda stity Leonor oxygen saturation, oximetry 98 % Chastity Leonor pulse rate 62 /min Chastity Leonor respiratory rate E&M 16 /min Amandastit dameon Leonor weight E&M 220 [lb_av] [facility] 62.[facility] [in_i] [facility] (Ratio) 38.75 kg/m2 Loi muniz [facility] blood pressure, cuff size regular Cy margie Ramirez blood pressure, diastolic 80 mm[Hg] Cy margie Ramirez blood pressure, systolic 140 mm[Hg] Alycia Ramirez weight E&M 216 [lb_av] Kaylah hidalgo pulse rate 67 /min Kaylah hidalgo respiratory rate E&M 16 /min Kaylah Ramirez oxygen saturation, oximetry 98 % Kaylah Ramirez height E&M 62.6 [in_i] Kaylah Canalesbel l Body Mass Index (Ratio) 40.72 kg/m2 Loi muniz Fer blood pressure, cuff size large Ke rri Gruenenfjuan manueler blood pressure, diastolic 66 mm[Hg] Ke rri Gruenenfelder blood pressure, systolic 110 mm[Hg] Yovany ri Amandanenfjuan manueler oxygen saturation, oximetry 96 % Felicia Sandra respiratory rate E&M 16 /min Felicia Tavo ferroer pulse rate 50 /min Felicia Gruenenfe er weight E&M 227 [lb_av] Felicia Gruenenfe er height E&M 62.6 [in_i] Felicia Gruenenfe [facility] Body Mass Index (Ratio) 39.83 kg/m2 Loi Monroe blood pressure, diastolic 85 mm[Hg] Cy margie Ramirez blood pressure, systolic 164 mm[Hg] Alycia cece Ramirez oxygen saturation, oximetry 94 % Kaylah Ramirez respiratory rate E&M 16 /min Kaylahcece Ramirez pulse rate 65 /min Kaylah hidalgo blood pressure, cuff size regular Cy margie Ramirez weight E&M 222 [lb_av] Kaylah Canalesbel l height E&M 62.6 [in_i] Kaylah Canalesbel l Body Mass Index (Ratio) 43.59 kg/m2 Loi muniz Fer weight E&M 243 [lb_av] [employer] erg height E&M 62.6 [in_i] [facility] erg Body Mass Index (Ratio) 44.99 kg/m2 Loi muniz Fer blood pressure, diastolic 70 mm[Hg] Karl Carlinenson blood pressure, systolic 126 mm[Hg] Zahida Jimenez oxygen saturation, oximetry 97 % Moe Jimenez respiratory rate E&M 18 /min Jennifer Jimenez pulse rate 88 /min Moe yip weight E&M 250.8 [lb_av] Moe Tesfaye on height E&M 62.6 [in_i] Moe Gera nson Body Mass Index (Ratio) 43.59 kg/m2 Loi [facility] blood pressure, diastolic, left arm 90 mm [Hg] [facility], [facility], left arm 140 mm [Hg] [facility], diastolic, right arm 86 m m[Hg] [facility], [facility], right arm 138 m m[Hg] [place] Maddox blood pressure, diastolic 90 mm[Hg] Fer etienne blood pressure, systolic 140 mm[Hg] Bairon ross [place] oxygen saturation, oximetry 97 % [place] respiratory rate E&M 16 /min [place] pulse rate 65 /min [place] weight E&M 243 [lb_av] Pauly height E&M 62.6 [in_i] Pauly Body Mass Index (Ratio) 42.19 kg/m2 Radha Blank blood pressure, diastolic 98 mm[Hg] Rajiv Cantuby blood pressure, systolic 150 mm[Hg] Pratima Cantuby oxygen saturation, oximetry 95 % Shakira Cantuby respiratory rate E&M 17 /min Shakira Radha pulse rate 66 /min Shakira [place] blood pressure, cuff size regular Rajiv Cantuby weight E&M 235.2 [lb_av] Shakira [place] height E&M 62.6 [in_i] Shakira [place] Body Mass Index (Ratio) 43.05 kg/m2 Loi Monroe blood pressure, diastolic 80 mm[Hg] Da dat Yesenia blood pressure, systolic 136 mm[Hg] Dac ia Yesenia oxygen saturation, oximetry 98 % Bobbi Yesenia respiratory rate E&M 18 /min Bobbi V oss pulse rate 62 /min Bobbi Yesenia weight E&M 240 [lb_av] Bobbi Yesenia height E&M 62.6 [in_i] Bobbi Yesenia Body Mass Index (Ratio) 49.15 kg/m2 Loi Monroe blood pressure, cuff size large [place] rri Sandra blood pressure, diastolic 72 mm[Hg] Ke rri Amandayadirajessee blood pressure, systolic 112 mm[Hg] Yovany Nelsonjuan manueljean claude oxygen saturation, oximetry 90 % Felicia Nelsonjuan manueljean claude respiratory rate E&M 18 /min Felicia huntleyjessee pulse rate 65 /min Felicia Kaufman [facility] weight E&M 274 [lb_av] Felicia Kaufman er height E&M 62.6 [in_i] Felicia Kaufman [facility] Body Mass Index (Ratio) 54.36 kg/m2 Loi Monroe blood pressure, cuff size large Christianne brown Solis blood pressure, diastolic 80 mm[Hg] Christianne brown [place] blood pressure, systolic 130 mm[Hg] Ana Solis oxygen saturation, oximetry 97 % Michelleshira Solis respiratory rate E&M 16 /min Michelle Solis pulse rate 71 /min Michelleshira Solis weight E&M 303 [lb_av] Michelle Solis height E&M 62.6 [in_i] Michelleshira Solis Body Mass Index (Ratio) 55.61 kg/m2 Loi Monroe blood pressure, cuff size large Christianne brown Will blood pressure, diastolic 90 mm[Hg] Christianne brown Solis blood pressure, systolic 140 mm[Hg] Ana rubin Will oxygen saturation, oximetry 94 % Michelle Solis respiratory rate E&M 16 /min Michelleshira Solis pulse rate 77 /min Michelleshira Solis weight E&M 310 [lb_av] Michelleshira Solis height E&M 62.6 [in_i] Michelleshira Solis Body Mass Index (Ratio) 54.89 kg/m2 Loi Monroe blood pressure, cuff size large [place] obrienpeggy Sandra blood pressure, diastolic 61 mm[Hg] [place] bean Sandra blood pressure, systolic 105 mm[Hg] Yovany medellin Quet[place] oxygen saturation, oximetry 93 % Felicia Rogersjessicayadirajessee respiratory rate E&M 16 /min Felicia Vo clifabiolaanand pulse rate 72 /min Felicia Kaufman [facility] weight E&M 306 [lb_av] Felicia Kaufman [facility] height E&M 62.6 [in_i] Felicia Kaufman [facility] Body Mass Index (Ratio) 54.28 kg/m2 Loi Monroe blood pressure, resting Yes Loi Monroe blood pressure, diastolic 74 mm[Hg] Karl Jimenez blood pressure, systolic 140 mm[Hg] Zahida Jimenez oxygen saturation, oximetry 90 % Moe Jimenez respiratory rate E&M 18 /min Jennifer jacobson Jimenez pulse rate 71 /min Moe Boss sulmanaz weight E&M 302.6 [lb_av] Moe hahnnaz height E&M 62.6 [in_i] Moe Boss sulmanaz blood pressure, diastolic 76 mm[Hg] Or glenroy Montemayor blood pressure, systolic 142 mm[Hg] Shyann katey Montemayor pulse rate 72 /min Jayda Montemayor oxygen saturation, oximetry 95 % Jayda Montemayor respiratory rate E&M 15 /min Jayda Montemayor Body Mass Index (Ratio) 52.74 kg/m2 Gianna michele Montemayor weight E&M 294 [lb_av] Jayda Montemayor blood pressure, diastolic, left arm 92 mm [Hg] Jayda Roger blood pressure, systolic, left arm 148 mm [Hg] Jayda Roger blood pressure, diastolic, right arm 82 m m[Hg] Jayda Roger blood pressure, systolic, right arm 142 m m[Hg] Jayda Roger Body Mass Index (Ratio) 52.56 kg/m2 Gianna Duran weight E&M 293 [lb_av] Jayda Roger respiratory rate E&M 18 /min Jayda Duran pulse rate 74 /min Jayda Roger oxygen saturation, oximetry 97 % Jayda Duran blood pressure, diastolic 92 mm[Hg] Me glenroy Duran blood pressure, systolic 148 mm[Hg] Shyann canoa Roger blood pressure, diastolic 70 mm[Hg] Karl Jimenez blood pressure, systolic 144 mm[Hg] Zahida Jimenez pulse rate 65 /min Moe Gera phi oxygen saturation, oximetry 95 % Moe Tony respiratory rate E&M 18 /min Jennifer Jimenez Body Mass Index (Ratio) 52.20 kg/m2 Ella Jimenez weight E&M 291 [lb_av] Moe Boss naz blood pressure, diastolic, left arm 77 mm [Hg] Jayda Montemayor blood pressure, systolic, left arm 151 mm [Hg] Jayda Montemayor blood pressure, diastolic, right arm 89 m m[Hg] Jayda Montemayor blood pressure, systolic, right arm 162 m m[Hg] Jayda Montemayor blood pressure, diastolic 77 mm[Hg] Me tim Montemayor blood pressure, systolic 151 mm[Hg] Shyann katey Montemayor pulse rate 66 /min Jayda Montemayor oxygen saturation, oximetry 96 % Jayda Montemayor respiratory rate E&M 15 /min Jayda Montemayor Body Mass Index (Ratio) 53.10 kg/m2 [facility] weight E&M 296 [lb_av] Jayda Montemayor blood pressure, diastolic 82 mm[Hg] Michael Jolly blood pressure, systolic 150 mm[Hg] Mick Jolly pulse rate 70 /min Aliyah Jolly oxygen saturation, oximetry 94 % Aliyah Jolly respiratory rate E&M 17 /min Aliyah Jolly Body Mass Index (Ratio) 52.67 kg/m2 Kulwinder Jolly weight E&M 293.6 [lb_av] Aliyah Jolly blood pressure, diastolic 79 mm[Hg] Karl Clarke Jimenez blood pressure, systolic 142 mm[Hg] Zahida Neri Jimenez Body Mass Index (Ratio) 56.72 kg/m2 RosarioSharonda Jimenez pulse rate 81 /min MoeSharonda yip oxygen saturation, oximetry 90 % Moe Carlinenson respiratory rate E&M 16 /min Jennifer jacobson Jimenez weight E&M 316.2 [lb_av] Moe Tesfaye judy Body Mass Index (Ratio) 52.22 kg/m2 Gianna bautista blood pressure, diastolic, right arm 76 m m[Hg] Jayda Montemayor blood pressure, systolic, right arm 142 m m[Hg] Jayda Montemayor blood pressure, diastolic 76 mm[Hg] Or glenroy Montemayor blood pressure, systolic 142 mm[Hg] Shyann canoa Montemayor pulse rate 74 /min Jayda Montemayor oxygen saturation, oximetry 96 % Jayda Montemayor respiratory rate E&M 14 /min Jayda Montemayor weight E&M 290 [lb_av] Jayda Montemayor Body Mass Index (Ratio) 56.72 kg/m2 Tessie Lester blood pressure, bryanashley clark, second observation 68 mm[Hg] Danelle Lester blood pressure, syst olic, second observation 116 mm[Hg] Danelle Lester blood pressure, diastolic 68 mm[Hg] Na gino Lester blood pressure, systolic 116 mm[Hg] Olive Lester pulse rate 73 /min Danelle Lester oxygen saturation, oximetry 93 % Danelle Lester respiratory rate E&M 18 /min Danelle Lester weight E&M 315 [lb_av] Danelle Lester pulse rate 77 /min Nina Morales oxygen saturation, oximetry 91 % Nina Morales blood pressure, diastolic 66 mm[Hg] Marlo triplett Morales blood pressure, systolic 121 mm[Hg] Carlos Morales Body Mass Index (Ratio) 57.80 kg/m2 Kerry apoorva Morales respiratory rate E&M 20 /min Nina Morales weight E&M 321 [lb_av] Nina Morales Body Mass Index (Ratio) 55.78 kg/m2 Fiona Cortez blood pressure, diastolic 67 mm[Hg] Marlo Cortez blood pressure, systolic 123 mm[Hg] Bernabe Cortez pulse rate 72 /min Sheron Cortez oxygen saturation, oximetry 94 % Sheorn Cortez respiratory rate E&M 20 /min Sheron rios weight E&M 309.8 [lb_av] Sheron Cortez Body Mass Index (Ratio) 55.10 kg/m2 Daryn Pena RN blood pressure, diastolic 87 mm[Hg] Tyrone Pena RN blood pressure, systolic 150 mm[Hg] Daryn Pena RN pulse rate 75 /min Daryn Pena RN oxygen saturation, oximetry 92 % Daryn Pena RN respiratory rate E&M 16 /min Daryn santana RN weight E&M 306 [lb_av] Daryn Pena RN height E&M 62.6 [in_i] Daryn Pena RN blood pressure, diastolic 68 mm[Hg] Ke vikas Folres blood pressure, systolic 106 mm[Hg] Yovany Flores pulse rate 70 /min Felicia reeves oxygen saturation, oximetry 91 % Felicia Flores respiratory rate E&M 16 /min Felicia alexander weight E&M 314.2 [lb_av] Felicia hooks blood pressure, diastolic 83 mm[Hg] Ke vikas Flores blood pressure, systolic 156 mm[Hg] Yovany Flores pulse rate 74 /min Felicia reeves oxygen saturation, oximetry 94 % Felicia Flores respiratory rate E&M 18 /min Felicia alexander weight E&M 321.2 [lb_av] Felicia hooks blood pressure, diastolic 87 mm[Hg] Vital blood pressure, systolic 157 mm[Hg] Toño Aguilar pulse rate 81 /min Radu Aguilar oxygen saturation, oximetry 95 % Radu Aguilar respiratory rate E&M 18 /min Denyean Aguilar weight E&M 311 [lb_av] Denyean Aguilar blood pressure, diastolic 78 mm[Hg] He ather Blunt blood pressure, systolic 146 mm[Hg] Hea ther Blunt pulse rate 81 /min Merissa Blunt oxygen saturation, oximetry 92 % Merissa Blunt respiratory rate E&M 16 /min Merissa Blunt weight E&M 315 [lb_av] Merissa Blunt blood pressure, diastolic, left arm 70 mm [Hg] Nina Morales blood pressure, systolic, left arm 137 mm [Hg] Nina Morales blood pressure, diastolic, right arm 70 m m[Hg] Nina Morales blood pressure, systolic, right arm 135 m m[Hg] Nina Morales blood pressure, diastolic 70 mm[Hg] Marlo Morales blood pressure, systolic 135 mm[Hg] Carlos Morales pulse rate 74 /min Nina Morales oxygen saturation, oximetry 94 % Nina Morales respiratory rate E&M 16 /min Nina Morales weight E&M 291 [lb_av] Nina Morales blood pressure, diastolic 78 mm[Hg] Gabriela love [place] blood pressure, systolic 138 mm[Hg] Justin joiner [place] pulse rate 75 /min [place]re [place] oxygen saturation, oximetry 98 % Sincere [facility] respiratory rate E&M 16 /min Sincere [place] weight E&M 297 [lb_av] [facility]re [facility] blood pressure, bryan tolic, second observation 77 mm[Hg] Korin Russell blood pressure, syst olic, second observation 171 mm[Hg] Korin Russell blood pressure, diastolic 77 mm[Hg] Ca rol Drew blood pressure, systolic 171 mm[Hg] Car vikram Russell pulse rate 80 /min Korin Russell oxygen saturation, oximetry 94 % Korin Russell respiratory rate E&M 16 /min Korin lee weight E&M 299 [lb_av] Korin Russell blood pressure, diastolic 94 mm[Hg] Tyrone Pena RN blood pressure, systolic 156 mm[Hg] Daryn Pena RN pulse rate 70 /min Daryn Pena RN oxygen saturation, oximetry 97 % Daryn Pena RN respiratory rate E&M 16 /min Daryn santana RN weight E&M 287 [lb_av] Daryn Pena RN blood pressure, diastolic 88 mm[Hg] Fe cintia Ragland blood pressure, systolic 144 mm[Hg] Fel icia Jhonny pulse rate 65 /min Enedina Ragland oxygen saturation, oximetry 96 % Enedina Jhonny respiratory rate E&M 16 /min Enedina Ragland weight E&M 272 [lb_av] Enedina Ragland blood pressure, diastolic 77 mm[Hg] Tyrone Pena RN blood pressure, systolic 130 mm[Hg] Daryn Pena RN pulse rate 72 /min Daryn Pena RN oxygen saturation, oximetry 98 % Daryn Pena RN respiratory rate E&M 16 /min Daryn santana RN weight E&M 292 [lb_av] Daryn Pena RN blood pressure, diastolic 80 mm[Hg] Tyrone Pena RN blood pressure, systolic 150 mm[Hg] Daryn Pena RN pulse rate 71 /min Daryn Pena RN oxygen saturation, oximetry 98 % Daryn Pena RN respiratory rate E&M 22 /min Daryn santana RN weight E&M 301 [lb_av] Daryn Pena RN blood pressure, diastolic 106 mm[Hg] Tyrone Pena RN blood pressure, systolic 212 mm[Hg] Daryn Pena RN pulse rate 74 /min Daryn Pena RN oxygen saturation, oximetry 97 % Daryn Pena RN respiratory rate E&M 22 /min Daryn santana RN weight E&M 302 [lb_av] Daryn Pena RN ALLERGIES No Known Drug Allergies RESULTS Date Observation Value Provider Reference Range Interpretation Location LDL cholesterol, serum 56 mg/dL Dhruv Fer prothrombin time (patient) 10.5 s [facility] 9.1-12.0 international normalized ratio (INR) 1.0 [facility] 0.8-1.2 lipoprotein, beta, serum, point, quantitative, calculated 56 mg/dL [facility] 0-99 very low density lipoproteins 39 mg/dL [facility] 5-40 HDL cholesterol, serum 35 mg/dL [facility] >39 Low triglyceride, serum, random 194 mg/dL [facility] 0-149 High cholesterol, serum 130 mg/dL [facility] [phone]/11 /16 calcium, serum 9.3 mg/dL [facility] 8.7-10.3 carbon dioxide, venous blood 23 mmol/L [facility] 20-29 chloride, serum 103 mmol/L [facility] 96-106 potassium, serum 4.2 mmol/L [facility] 3.5-5.2 sodium, serum 142 mmol/L [facility] [phone]/11 /16 urea nitrogen/creatinine ratio, serum 27 [facility] 12-28 eGFR if 67 mL/min/{1.7 3_m2} [facility] >59 eGFR if not 58 mL/min/{1.7 3_m2} [facility] >59 Low creatinine, serum 1.03 mg/dL [facility] 0.57-1.00 High urea nitrogen, blood 28 mg/dL [facility] 8-27 High blood glucose, random 127 mg/dL [facility] 65-99 High basophil count, absolute 0.0 x10E3/uL [facility] 0.0-0.2 Eosinophil Absolute Count 0.5 X10E3/UL [facility] 0.0-0.4 High monocyte count, blood, automated 0.6 X10E3/UL [facility] 0.1-0.9 lymphocyte count, blood, automated 1.6 X10E3/UL [facility] 0.7-3.1 Absolute Neutrophils 6.3 X10E3/UL [facility] 1.4-7.0 basophils as percent of blood leukocytes 0 % [facility] Not Estab. eosinophils as percent of blood leukocytes 5 % [facility] Not Estab. monocytes as percent of blood leukocytes 6 % [facility] Not Estab. lymphocytes as percent of blood leukocytes 17 % [facility] Not Estab. neutrophils as percent of blood leukocytes 72 % [facility] Not Estab. platelet count 205 X10E3/UL [facility] [phone]/11 /16 red blood cell distribution width 13.6 % [facility] 12.3-15.4 mean corpuscular hemoglobin concentration, RBC 33.6 G/DL [facility] 31.5-35.7 mean corpuscular hemoglobin, RBC 29.1 pg [facility] 26.6-33.0 mean corpuscular volume, RBC 87 fL [facility] 79-97 hematocrit, blood 40.5 % [facility] 34.0-46.6 hemoglobin, blood 13.6 g/dL [facility] 11.1-15.9 erythrocyte (RBC) count 4.67 X10E6/UL [facility] 3.77-5.28 leukocyte count, blood 8.9 X10E3/UL [facility] 3.4-10.8 LDL cholesterol, serum 130 mg/dL Mitchel Ortega MD microalbumin/creati nine ratio, urine 54.7 MG/G CREAT [facility] 0.0-30.0 High microalbumin, random, urine 5.3 mg/dL [facility] Units converted. See lab report for original value. creatinine, random, urine 96.9 mg/dL [facility] Not Estab. hemoglobin A1C, blood, as % of total hemoglobin 7.4 % [facility] 4.8-5.6 High lipoprotein, beta, serum, point, quantitative, calculated 130 mg/dL [facility] 0-99 High very low density lipoproteins 38 mg/dL [facility] 5-40 HDL cholesterol, serum 37 mg/dL [facility] >39 Low triglyceride, serum, random 191 mg/dL [facility] 0-149 High cholesterol, serum 205 mg/dL [facility] 100-199 High calcium, serum 9.4 mg/dL [facility] 8.7-10.3 carbon dioxide, venous blood 27 mmol/L [facility] 20-29 chloride, serum 99 mmol/L [facility] 96-106 potassium, serum 4.3 mmol/L [facility] 3.5-5.2 sodium, serum 140 mmol/L [facility] [phone]/10 /11 urea nitrogen/creatinine ratio, serum 22 [facility] 12-28 eGFR if 67 mL/min/{1.7 3_m2} [facility] >59 eGFR if not 58 mL/min/{1.7 3_m2} [facility] >59 Low creatinine, serum 1.03 mg/dL [facility] 0.57-1.00 High urea nitrogen, blood 23 mg/dL [facility] 8-27 blood glucose, random 130 mg/dL [facility] 65-99 High LDL cholesterol, serum 75 mg/dL [facility] LDL cholesterol, serum 135 mg/dL [facility] very low density lipoproteins 59.4 mg/dL [facility] 5.0 - 40.0 High LDL/HDL (low-density lipoprotein/high-de nsity lipoprotein) ratio 2.6 RATIO [facility] - lipoprotein, beta, serum, point, quantitative, calculated 74.6 (?) [facility] 0.0 - 100.0 HDL cholesterol, serum 29.0 mg/dL [facility] 45.0 - 65.0 Low cholesterol, serum 163.0 mg/dL [facility] 0.0 - 200.0 triglyceride, serum, fasting 297.0 mg/dL [facility] 0.0 - 150.0 High urea nitrogen/creatinine ratio, serum 14.0 [facility] - Estimated Glomerular Filtration Rate (calc) 59.9 ([facility], serum 100.6 mmol[facility] - 107.0 potassium, serum 4.2 mmol/[facility] 3.5 - 5.1 sodium, serum 140.0 mmol/[facility] 136.0 - 145.0 creatinine, serum 1.0 mg/dL [facility] 0.5 - 1.0 High carbon dioxide, venous blood 27.0 mmol/L [facility] 23.0 - 31.0 calcium, serum 8.9 mg/dL [facility] 8.6 - 10.2 urea nitrogen, blood 14.0 mg/dL [facility] 8.0 - 23.0 blood glucose, random 244.0 mg/dL [facility] 74.0 - 99.0 High red blood cell distribution width, size density 44.9 fL [facility] - immature granulocytes, percentage of total cells, blood 1.1 % [facility] - nucleated red blood cells as percent of blood leukocytes 0.0 % [facility] - red blood cell (erythrocyte) count, per high power field 0.0 10*3/UL [facility] - eosinophils as percent of blood leukocytes 7.0 % [facility] - neutrophils as percent of blood leukocytes 69.2 % [facility] - Absolute Neutrophils 5.7 CELLS/UL [facility] 1.5 - 7.8 basophils as percent of blood leukocytes 0.4 % [facility] - Absolute Basophils 0.0 CELLS/UL [facility] 0.0 - 0.2 monocytes as percent of blood leukocytes 5.8 % [facility] - Absolute Monocytes 0.5 CELLS/UL [facility] 0.2 - 1.0 lymphocytes as percent of blood leukocytes 16.5 % [facility] Lymphocytes 1.4 CELLS/UL [facility] 0.9 - 3.9 mean platelet volume 12.0 (?) [facility] - platelet count 209.0 THOUSAND/UL [facility] 100.0 - 400.0 mean corpuscular hemoglobin concentration, RBC 31.1 G/DL [facility] 31.0 - 38.0 mean corpuscular hemoglobin, RBC 27.9 pg [facility] 25.0 - 35.0 mean corpuscular volume, RBC 89.6 fL [facility] 75.0 - 100.0 hematocrit, blood 41.5 % [facility] 35.0 - 55.0 hemoglobin, blood 12.9 g/dL [facility] 11.5 - 16.5 erythrocyte count, whole blood 4.6 MILLION/UL [facility] 3.5 - 5.5 prothrombin time (patient) 10.1 s [facility] 9.0 - 11.5 international normalized ratio (INR) 0.9 [facility] 0.9 - 1.1 pro brain natriuretic peptide 249.0 pg/mL [facility] 0.0 - 125.0 High very low density lipoproteins 65.6 mg/dL [facility] 5.0 - 40.0 High LDL/HDL (low-density lipoprotein/high-de nsity lipoprotein) ratio 3.7 RATIO [facility] - lipoprotein, beta, serum, point, quantitative, calculated 135.4 (?) [facility] 0.0 - 100.0 High HDL cholesterol, serum 37.0 mg/dL [facility] 45.0 - 65.0 Low cholesterol, serum 238.0 mg/dL [facility] 0.0 - 200.0 High triglyceride, serum, fasting 328.0 mg/dL [facility] 0.0 - 150.0 High urea nitrogen/creatinine ratio, serum [facility]8 [facility]imated Glomerular Filtration Rate (calc) 44.4 (?) [facility] 59.0 - Low chloride, serum 99.0 mmol/L [facility] 98.0 - 107.0 potassium, serum 4.0 mmol/L [facility] 3.5 - 5.1 sodium, serum 143.0 mmol/L [facility] 136.0 - 145.0 creatinine, serum 1.3 mg/dL [facility] 0.5 - 1.0 High carbon dioxide, venous blood 31.0 mmol/L [facility] 23.0 - 31.0 calcium, serum 9.1 mg/dL [facility] 8.6 - 10.2 urea nitrogen, blood 31.0 mg/dL [facility] 8.0 - 23.0 High blood glucose, random 54.0 mg/dL [facility] 74.0 - 99.0 Low globulin, serum 2.7 [facility] 2.3 - 3.8 albumin/globulin ratio, serum 2.6 g/dL [facility] 1.1 - 2.5 High albumin, serum 4.3 g/dL [facility] 3.5 - 5.2 aspartate aminotransferase (SGOT), serum 21.0 1/L [facility] 0.0 - 32.0 alkaline phosphatase, serum 103.0 1/L [facility] 40.0 - 130.0 alanine aminotransferase (SGPT), serum 24.0 1/L [facility] 0.0 - 33.0 protein, total, serum 7.0 g/dL [facility] 6.6 - 8.7 bilirubin, serum, total 0.3 mg/dL [facility] 0.0 - 1.2 very low density lipoproteins 80.6 mg/dL [facility] 5.0 - 40.0 High LDL/HDL (low-density lipoprotein/high-de nsity lipoprotein) ratio -34.4 RATIO [facility] - lipoprotein, beta, serum, point, quantitative, calculated -999.0 (?) [facility] - HDL cholesterol, serum 29.0 mg/dL [facility] 45.0 - 65.0 Low cholesterol, serum 191.0 mg/dL [facility] 0.0 - 200.0 triglyceride, serum, fasting 403.0 mg/dL [facility] 0.0 - 150.0 High urea nitrogen/creatinine ratio, serum 14.0 [facility] - Estimated Glomerular Filtration Rate (calc) 60.3 (?) [facility] 59.0 - chloride, serum 98.6 mmol/L [facility] 98.0 - 107.0 potassium, serum 4.2 mmol/L [facility] 3.5 - 5.1 sodium, serum 143.0 mmol/L [facility] 136.0 - 145.0 creatinine, serum 1.0 mg/dL [facility] 0.5 - 0.9 High carbon dioxide, venous blood 33.0 mmol/L [facility] 22.0 - 29.0 High calcium, serum 9.7 mg/dL [facility] 8.6 - 10.2 urea nitrogen, blood 14.0 mg/dL [facility] 6.0 - 20.0 blood glucose, random 105.0 mg/dL [facility] 74.0 - 99.0 High pro brain natriuretic peptide 443.4 pg/mL [facility] 0.0 - 125.0 High hemoglobin A1C, blood, as % of total hemoglobin 9.1 % [facility] 4.0 - 6.0 High B-type natriuretic peptide 71 (?) [facility] 0-100 Normal calcium, serum 9.4 mg/dL [facility] 8.6-10.0 Normal blood glucose, random 65 mg/dL [facility] 74-109 Low eGFR if 83 mL/min/{1.7 3_m2} [facility] >60 Normal eGFR if not 69 mL/min/{1.7 3_m2} [facility] >60 Normal urea nitrogen/creatinine ratio, serum 30.0 ratio [facility] 8.0-25.0 High creatinine, serum 0.9 mg/dL [facility] 0.50-0.90 Normal urea nitrogen, blood 27 mg/dL [facility] 6-20 High carbon dioxide, venous blood 34 mmol[facility] High chloride, serum 99 MEQ/L [facility] 98-107 Normal potassium, serum 4.3 MEQ/L [facility] 3.5-5.1 Normal sodium, serum 143 MEQ/[facility] 136[facility]145 Normal triglyceride, serum, fasting 262 mg/dL [facility] HDL cholesterol, serum 33 mg/dL [facility] LDL cholesterol, serum 72 mg/dL [facility] cholesterol, serum 157 mg/dL [facility] platelet count 250 10*3/mm3 [facility] hematocrit, blood 42.6 % [facility] international normalized ratio (INR) 1.0 [facility] creatinine, serum 0.78 mg/dL [facility] potassium, serum 4.0 mmol/L [facility] sodium, serum 138 mmol/L [facility] B-type natriuretic peptide 78.4 pg/mL [facility] 0.0-100.0 thyroid stimulating hormone, serum 1.110 u[IU]/mL [facility] 0.450-4.500 calcium, serum 9.1 mg/dL [facility] 8.7-10.2 carbon dioxide, venous blood 30 mmol/[facility] 20-32 chloride, serum 98 mmol/L [facility] 97-108 potassium, serum 4.3 mmol/[facility] 3.5-5.2 sodium, serum 141 mmol/[facility] 534-271 1891/06 /28 urea nitrogen/creatinine ratio, serum 23 [facility] 9-23 eGFR if not 92 mL/min/{1.7 3_m2} [facility] >59 creatinine, serum 0.73 mg/dL [facility] 0.57-1.00 urea nitrogen, blood 17 mg/dL [facility] 6-24 blood glucose, random 226 mg/dL [facility] 65-99 High alanine aminotransferase (SGPT), serum 47 1/L [facility] aspartate aminotransferase (SGOT), serum 22 1/L [facility] platelet count 192 10*3/mm3 [facility] hematocrit, blood 38.6 % [facility] creatinine, serum 0.94 mg/dL [facility] potassium, serum 4.1 mmol/L [facility] sodium, serum 138 mmol/L [facility] lipase, serum 128 1/L [facility] anion gap, serum 10.0 [facility] globulins, serum, total 3.6 g/dL [facility] bilirubin, serum, direct 0.11 mg/dL [facility] bilirubin, serum, indirect 0.48 mg/dL [facility] albumin/globulin ratio, serum 0.9 [facility] protein, total, serum 6.8 g/dL [facility] albumin, serum 3.2 g/dL [facility] bilirubin, serum, total 0.59 mg/dL [facility] alkaline phosphatase, serum 130 1/L [facility] alanine aminotransferase (SGPT), serum 54 1/L [facility] aspartate aminotransferase (SGOT), serum 28 1/L [facility] PTT patient 28.7 s [facility] prothrombin time (patient) 9.8 s [facility] lipase, serum 566 1/L [facility] international normalized ratio (INR) 1.0 [facility] PTT patient 28.7 s prothrombin time (patient) 9.8 s lipase, serum 566 1/L [facility] international normalized ratio (INR) 1.0 [facility] hemoglobin A1C, blood, as % of total hemoglobin 9.4 % [facility] amylase, serum 54 1/L [facility] globulins, serum, total 4.4 g/dL [facility] calcium, serum 9.0 mg/dL [facility] protein, total, serum 8.0 g/dL [facility] albumin, serum 3.6 g/dL [facility] bilirubin, serum, total 0.52 mg/dL [facility] alkaline phosphatase, serum 152 1/L [facility] alanine aminotransferase (SGPT), serum 68 1/L aspartate aminotransferase (SGOT), serum 28 1/L [facility] blood glucose, random 185 mg/dL estimated glomerular filtration rate >60 [facility] creatinine, serum 0.88 mg/dL [facility] urea nitrogen, blood 15.3 mg/dL [facility] carbon dioxide, venous blood 29 mmol/L chloride, serum 101 mmol/L potassium, serum 4.0 mmol/L [facility] sodium, serum 136 mmol/L [facility] troponin I <0.04 creatine kinase, serum 78 1/L [facility] hemoglobin A1C, blood, as % of total hemoglobin 9.4 % yeast identified on urinalysis No [facility] mucus on urinalysis Yes Denetrbandar Avilez urine crystals, microscopic None Denetrist Raghav epithelial cells, urine, per microscopy moderate [facility] Avile[facility] casts, urine Moderate [facility] on microscopy 1-3 Denetrbandar Avilez bacteria, urine microscopy Moderate [facility] RBC urine by microscopy 0-2 [facility] leukocyte esterase, urine, by dipstick Negative [facility] urobilinogen, urine, semiquantitative (dipstick) Normal [facility] nitrite, urine, semiquantitative Negative [facility] RBC, urine, dipstick Negative [facility] bilirubin, urine Negative [facility] ketones, urine, by test strip Negative [facility] glucose, urine, semiquantitative Normal [facility] protein, urine, semiquantitative (dipstick) [facility], urine, [facility]iqu[facility]itative [facility] specific gravity, urine 1.020 etrbandar Avilez urine color Yellow etrbandar Avilez appearance, urine Hazy [facility] Raghav platelet count 204 10*3/uL [facility] red blood cell distribution width 12.9 % [facility] mean corpuscular hemoglobin concentration, RBC 33.3 g/dL [facility]hav mean corpuscular hemoglobin, RBC 29.0 pg [facility]hav mean corpuscular volume, RBC 86.9 fL [facility]hav hematocrit, blood 36.6 % [facility]hav hemoglobin, blood 12.2 g/dL [facility]hav erythrocyte (RBC) count 4.12 10*6/mm3 [facility] Raghav monocytes as percent of blood leukocytes 7.6 % [facility]hav lymphocytes as percent of blood leukocytes 18.1 % [facility] leukocyte count, blood 7.5 10*3/mm3 [facility] calcium, serum 9.1 mg/dL [facility] blood glucose, fasting 171 mg/dL [facility] creatinine, serum 0.70 mg/dL [facility] urea nitrogen, blood 15 mg/dL [facility] carbon dioxide, serum, total 31 mmol/L [facility] chloride, serum 99 mmol/L [facility] potassium, serum 4.0 mmol/L [facility] sodium, serum 141 mmol/L [facility] prothrombin time (patient) 9.5 s Ella Hyatt RN international normalized ratio (INR) 0.9 Ella Edmar DOYLE creatinine, serum 0.77 mg/dL [facility] urea nitrogen, blood 16 mg/dL [facility] potassium, serum 4.2 mmol/L [facility] sodium, serum 139 mmol/L [facility] platelet count 219 10*3/uL [facility] hematocrit, blood 43.6 % [facility] hemoglobin, blood 14.3 g/dL [facility] erythrocyte (RBC) count 5.07 10*6/mm3 [facility] leukocyte count, blood 7.8 10*3/mm3 [facility] HISTORY OF MEDICATION USE Medication Status Instructions Dates Provider Indications Com ments amlodipine 10 mg tablet active TAKE 1 TABLET BY MOUTH EVERY DAY 05/30 Tasia Levin clopidogrel 75 mg tablet active TAKE 1 TABLET BY MOUTH EVERY DAY 12/15 Raquel Charles RN torsemide 100 mg tablet active TAKE 1/2 TABLET BY MOUTH EVERY DAY 12/15 Raquel Charles RN lisinopril 10 mg tablet active TAKE 1 TABLET BY MOUTH EVERY DAY 09/03 Kendrick martin torsemide 100 mg tablet completed TAKE 1/2 TABLET BY MOUTH ONCE A DAY 12/12 - 12/15 Raquel Charles RN atorvastatin 80 mg tablet active TAKE 1 TABLET BY MOUTH EVERY DAY 12/12 Dantearon Jan clopidogrel 75 mg tablet completed TAKE 1 TABLET BY MOUTH EVERY DAY 12/12 - 11/03 Mitchel Ortega MD amlodipine 10 mg tablet completed TAKE 1 TABLET BY MOUTH EVERY DAY 12/12 - 01/05 Mitchel Ortega MD amlodipine 10 mg tablet completed Take 1 tablet by mouth once a day TAKE 1 TABLET BY MOUTH DAILY 09/18 - 12/12 Madeline Ortega Klor-Con M20 20 mEq tablet,ER particles/crystals active TAKE 1 TABLET BY MOUTH TWICE A DAY 05/27 [facility] 75 mg tablet completed Take 1 table t by mouth once a day - 12/12 Madeline Ortega potassium chloride 20 mEq tablet,ER particles/crystals completed Take 1 tablet by mouth twice a day 12/29 - 05/27 Domonique Pineda aspirin 81 mg tablet,delayed release (DR/EC) active 1 tablet by mouth once a day 07/22 Jayda Montemayor NITROFURANTOIN MONOHYD MACRO 100 MG ORAL CAPSULE completed take one tablet by mouth for 10 days - 12/28 Moe Jimenez #20, 10 days supply, Filled 8 TRAMADOL HCL 50 MG ORAL TABLET completed take one tablet by mouth as needed for pain - 12/28 Moe Jimenez #12, 3 days supply, Filled 8 COMPASS ASA/ RIVAROXABAN completed ASA 100mg once daily and Rivaroxaban 2.5mg BID 09/11 - 07/22 Jayda COSTA PROTONIX VS PLACEBO completed 07/11 - 09/11 Kiley Haile ASPIRIN ADULT LOW DOSE 81 MG ORAL TABLET DELAYED RELEASE completed One Tab By Mouth Daily 07/17 - 09/11 Kiley Haile meclizine 12.5 mg tablet active 1 tablet by mouth as needed 12/25 Mitchel COSTA PROTONIX VS PLACEBO completed 07/11 - 07/17 Jayda Albina COSTA ASA/ RIVAROXABAN completed 07/11 - 07/17 Jayda Montemayor JULISSA RUN IN ASA 100MG / PLACEBO XARELTO completed 06/07 - 07/11 Junie Hidalgo RN torsemide 100 mg tablet completed Take 0.5 tablet by mouth once a day 05/27 - 12/12 Madeline Ortega CALCIUM 600 + D TABLET completed TWICE DAILY - 05/12 Jayda Montemayor FUROSEMIDE 40 MG ORAL TABLET completed 1 tab daily - 05/12 Mitchel Ortega MD Dose change CLOPIDOGREL BISULFATE 75 MG ORAL TABLET completed 1 tab po daily 10/26 - 06/07 Junie Hidalgo RN KLOR-CON M20 20 MEQ ORAL TABLET EXTENDED RELEASE completed Take 1 tablet twice daily 10/26 - 01/10 Kaylah Ramirez LASIX 40 MG ORAL TABLET completed One tab daily 07/18 - 10/26 Ella Solis RN BYDUREON SUSPENSION RECONSTITUTED ER completed ONCE A WEEK - 12/28 Moe Jimenez PLAVIX 75 MG ORAL TABLET completed ONE TAB. DAILY - 10/26 Ella Solis RN BIAXIN 500 MG ORAL TABLET completed take one pill twice a day 10/26 - 05/01 Daryn Pena RN KLOR-CON 20 MEQ ORAL PACKET completed one tab twice daily 09/16 - 10/26 Ella Solis RN METFORMIN HCL 500 MG ORAL TABLET completed 1 tab twice daily - Mitchel Ortega MD atorvastatin 80 mg tablet completed Take 1 tablet by mouth once a day 11/06 - 12/12 Madeline Ortega AMLODIPINE BESYLATE 5 MG ORAL TABLET completed Take one tablet daily. Hold if systolic BP is less than 130 05/27 - 07/02 Kaylah Ramirez ergocalciferol (vitamin D2) 1,250 mcg (50,000 unit) capsule active 1 capsule by mouth once a week Madeline Ortega CALCIUM 600+D TABLET completed 1 tablet by mouth daily - 12/28 Felicia Flores FISH OIL 1000 MG ORAL CAPSULE completed daily - 12/28 Felicia Flores ASPIRIN 325 MG ORAL TABLET completed one tab daily - 06/07 Junie Hidalgo RN PER MED LIST LANTUS 100 UNIT/ML SUBCUTANEOUS SOLUTION completed 55 UNITS TWICE DAILY - 12/28 Bobbi Patterson NOVOLOG 100 UNIT/ML SUBCUTANEOUS SOLUTION completed SLIDING SCALE - 12/28 Bobbi Yesenia SIMVASTATIN 40 MG ORAL TABLET completed at bedtime daily 06/13 - 07/22 Merissa Bart lisinopril 10 mg tablet completed 1 tablet by mouth once a day 05/12 - 09/03 Kendrick Sheffield PER MED LIST POTASSIUM CHLORIDE TRAY ER 20 MEQ ORAL TABLET EXTENDED RELEASE completed TAKE ONE TABLET TWICE DAILY - 07/22 Merissa Arriaga HYDRALAZINE HCL 50 MG ORAL TABLET completed one tablet twice a day. - 05/30 Sincere Petit CIPROFLOXACIN HCL TABS completed 400 mg 01/16 - 05/30 Sincere Cervantesacop ACCURETIC 10-12.5 MG ORAL TABLET completed ONE TAB. DAILY 01/16 - Daryn Pena RN CLONIDINE HCL 0.1 MG ORAL TABLET completed ONE TAB. TWICE DAILY 01/16 - Daryn Pena RN GLIMEPIRIDE 4 MG ORAL TABLET completed one tab daily - 05/30 Sincere Cervantesacoaurea AVALIDE 300-25 MG TABS completed ONE TAB. DAILY - 05/30 Sincere Manacop ACTOS 30 MG ORAL TABLET completed ONE TAB. DAILY - 05/30 Sincere Cervantesacop HYDROCHLOROTHIAZIDE 12.5 MG ORAL CAPSULE completed ONE TAB. DAILY - 01/16 Daryn Pena RN METFORMIN HCL 1000 MG ORAL TABLET completed BID - 05/30 Sincere Manacop ZETIA 10 MG ORAL TABLET completed ONE TAB. DAILY - 01/16 Daryn Pena RN TRICOR 145 MG ORAL TABLET completed ONE TAB. DAILY - 01/16 Daryn Pena RN QUINAPRIL HCL 40 MG ORAL TABLET completed BID - 05/30 Sincere Manacop Coreg 12.5 mg tablet completed 0.5 tablet by mouth twice a day 10/15 - 09/18 Kaylah Ramirez SOCIAL HISTORY Date Observation Value Provider drug use no Mitchel Ortega MD alcohol use no Mitchel Ortega MD passive cigarette sm natasha exposure yes Mitchel Ortega MD smoking status Never smoker Mitchel Dozier drug use no Didier odell alcohol use no Didier odell passive cigarette sm natasha exposure yes Didier Lea smoking status Never smoker Didier [facility] use no Mitchel Ortega MD alcohol use no Mitchel Ortega MD passive cigarette sm natasha exposure yes Mitchel Ortega MD smoking status Never smoker Mitchel Dozier drug use no [facility] alcohol use no [facility] passive cigarette sm natasha exposure yes [facility] smoking status Never smoker [facility] drug use no Mitchel Ortega MD alcohol use no Mitchel Ortega MD passive cigarette sm natasha exposure yes Mitchel Ortega MD smoking status Never smoker Mitchel Dozier physical exercise, f requency, days per week no Mitchel Ortega MD caffeine use, averag e drinks per day 1+ Mitchel Ortega MD passive cigarette sm natasha exposure yes Mitchel Ortega MD smoking status Never smoker Mitchel Dozier social history reviewed E&M nicholas boles - no changes required Mitchel Ortega MD social history E&M Marital Statu s: Single L alanna with family/friends E thnicity: Smoking History: P atient has never smoked. Mitchel Ortega MD social history reviewed E&M nicholas ewdara - no changes required Mitchel Ortega MD passive cigarette sm natasha exposure yes Laisha Mandy smoking status Never smoker Laisha Galvan social history E&M Marital Statu s: Single L alanna with family/friends E thnicity: Smoking History: P fritz has never smoked. Domonique Pineda social history reviewed E&M revi ewed - no changes required Domonique Pineda physical exercise, f requency, days per week no Madeline Jordan caffeine use, averag e drinks per day 1+ Madeline Ortega passive cigarette sm natasha exposure no Madeline Jordan smoking status Never smoker Madeline Jones and smoking status Never smoker Mitchel Dozier social history E&M Marital Statu s: Single L alanna with family/friends E thnicity: Smoking History: P fritz has never smoked. Mitchel Ortega MD social history reviewed E&M revi ewed - no changes required Mitchel Ortega MD physical exercise, f requency, days per week no Chastity Leonor caffeine use, averag e drinks per day 1+ Chastity Leonor passive cigarette sm natasha exposure no Chastity Leonor social history E&M Marital Statu s: Single L alanna with family/friends E thnicity: Smoking History: P fritz has never smoked. Mitchel Ortega MD social history reviewed E&M revi ewed - no changes required Mitchel Ortega MD physical exercise, f requency, days per week no Madeline Ortega caffeine use, averag e drinks per day 1+ Madeline Ortega passive cigarette sm natasha exposure no Madeline Ortega smoking status Never smoker Madeline Jones and social history reviewed E&M revi ewed - no changes required Dhruv Monreo physical exercise, f requency, days per week no Chastity Leonor caffeine use, averag e drinks per day 1+ Amandastity Leonor passive cigarette sm natasha exposure no Karis Leonor smoking status Never smoker Karis Floydu e social history reviewed E&M revi ewed - no changes required Dhruv Monroe physical exercise, f requency, days per week no Kaylah James caffeine use, averag e drinks per day 1+ Kaylah James passive cigarette sm natasha exposure no Kaylah James smoking status Never smoker Kaylah [place] social history reviewed E&M revi ewed - no changes required Dhruv Monroe physical exercise, f requency, days per week no Felicia Flores caffeine use, averag e drinks per day 1+ Felicia Flores passive cigarette sm natasha exposure no Felicia Sandra smoking status Never smoker Felicia Rogersgrayson perales social history reviewed E&M revi ewed - no changes required Dhruv Monroe physical exercise, f requency, days per week no Kaylah Ramirez caffeine use, averag e drinks per day 1+ Kaylah Ramirez passive cigarette sm natasha exposure no Kaylah Ramirez smoking status Never smoker Kaylah [place] social history reviewed E&M revi ewed - no changes required Dhruv Monroe physical exercise, f requency, days per week no Dhruv Monroe caffeine use, averag e drinks per day 1+ Dhruv Monroe passive cigarette sm natasha exposure no Dhruv Monroe smoking status Never smoker Dhruv clark social history reviewed E&M revi ewed - no changes required Dhruv Monroe physical exercise, f requency, days per week no Moe Jimenez caffeine use, averag e drinks per day 1+ Moe Jimenez passive cigarette sm natasha exposure no Moe Jimenez smoking status Never smoker Moe Nichols social history reviewed E&M revi ewed - no changes required Dhruv Monroe number of grandchildren Mitchel Ortega MD Kill pia Maddox physical exercise, f requency, days per week no Pauly Maddox alcohol use, average drinks per day social basis only Pauly Maddox alcohol use no Pauly Maddox caffeine use, averag e drinks per day 1+ [place] Maddox drug use no [place] Maddox passive cigarette sm natasha exposure no [place] Maddox smoking status Never smoker Pauly ramos social history reviewed E&M revi ewed - no changes required Mitchel Ortega MD physical exercise, f requency, days per week no Shakira Radha alcohol use, average drinks per day social basis only Shakira [place] alcohol use no Shakira [place] caffeine use, averag e drinks per day 1+ Shakira [place] drug use no Shakira [place] passive cigarette sm natasha exposure no Shakira Radha smoking status Never smoker Shakira [place] social history reviewed E&M revi ewed - no changes required Mitchel Ortega MD physical exercise, f requency, days per week no Bobbi Yesenia alcohol use, average drinks per day social basis only Bobbi Yesenia alcohol use no Bobbi Yesenia caffeine use, averag e drinks per day 1+ Bobbi Yesenia drug use no Bobbi Yesenia passive cigarette sm natasha exposure no Bobbi Yesenia smoking status Never smoker Bobbi Yesenia social history reviewed E&M revi ewed - no changes required Mitchel Ortega MD physical exercise, f requency, days per week no Felicia Flores alcohol use, average drinks per day social basis only Felicia Flores alcohol use no Felicia stahler caffeine use, averag e drinks per day 1+ Felicia Flores drug use no Felicialacie stahler passive cigarette sm natasha exposure no Felicia Sandra smoking status Never smoker Felicia Rogersgrayson perales social history reviewed E&M revi ewed - no changes required Dhruv Monroe physical exercise, f requency, days per week no Michelle Solis alcohol use, average drinks per day social basis only Michelle Solis alcohol use no Michelle Solis caffeine use, averag e drinks per day 1+ Michelle Solis drug use no Michelle Solis passive cigarette sm natasha exposure no Michelle Will smoking status Never smoker Michelle Solis social history reviewed E&M revi ewed - no changes required Mitchel rOtega MD physical exercise, f requency, days per week no Michelle Solis alcohol use, average drinks per day social basis only Michelle Solis alcohol use no Michelle Solis caffeine use, averag e drinks per day 1+ Michelle Solis drug use no Michelle Solis passive cigarette sm natasha exposure no Michelle Solis smoking status Never smoker Michelle Solis social history reviewed E&M revi ewed - no changes required Mitchel Ortega MD physical exercise, f requency, days per week no Felicia Flores alcohol use, average drinks per day social basis only Felicia Flores alcohol use no Felicialacie reeves caffeine use, averag e drinks per day 1+ Dhruv Fer drug use no Felicia Kaufman favioer passive cigarette sm natasha exposure no Felicia Rogersrafaelmarthajessee smoking status Never smoker Felicia perales social history reviewed E&M revi ewed - no changes required Dhruv Fer physical exercise, f requency, days per week no Moe Jimenez alcohol use, average drinks per day social basis only Moe Jimenez alcohol use no Moe ozunaon caffeine use, averag e drinks per day yes Moe Jimenez drug use no Moe Boss nson passive cigarette sm natasha exposure no Moe Jimenez smoking status Never smoker Moe Nichols physical exercise, f requency, days per week no Jayda Montemayor alcohol use, average drinks per day social basis only Jayda Montemayor alcohol use no Jayda Montemayor caffeine use, averag e drinks per day yes Jayda Montemayor drug use no Jayda Montemayor passive cigarette sm natasha exposure no Jayda Montemayor smoking status Never smoker Jayda Payne alexy social history E&M Marital Statu s: Single L alanna with family/friends E thnicity: Smoking History: P fritz has never smoked. Mitchel Ortega MD social history reviewed E&M revi ewed - no changes required Mitchel Ortega MD physical exercise, f requency, days per week no Jayda Roger alcohol use, average drinks per day social basis only Jayda Duran alcohol use no Jayda Duran caffeine use, averag e drinks per day yes Jayda Duran drug use no Jayda Duran passive cigarette sm natasha exposure no Jayda Duran smoking status Never smoker Jayda Duran social history reviewed E&M revi ewed - no changes required Mitchel Ortega MD physical exercise, f requency, days per week no Moe Jimenez alcohol use, average drinks per day social basis only Moe Jimenez alcohol use no Moe yip caffeine use, averag e drinks per day yes Moe Jimenez drug use no Moe yip passive cigarette sm natasha exposure no Moe Jimenez smoking status Never smoker Moe Nichols social history reviewed E&M revi ewed - no changes required Mitchel Ortega MD physical exercise, f requency, days per week no Jayda Montemayor alcohol use, average drinks per day social basis only Jayda Montemayor alcohol use no Jayda Montemayor caffeine use, averag e drinks per day yes Jayda Montemayor drug use no Jayda Montemayor passive cigarette sm natasha exposure no Jayda Montemayor smoking status Never smoker Jayda Payne alexy social history E&M Marital Statu s: Single L alanna with family/friends E thnicity: Smoking History: P fritz has never smoked. Mitchel Ortega MD physical exercise, f requency, days per week no Mitchel Ortega MD alcohol use, average drinks per day social basis only Mitchel Ortega MD alcohol use no Mitchel Ortega MD caffeine use, averag e drinks per day yes Mitchel Ortega MD drug use no Mitchel Ortega MD passive cigarette sm natasha exposure no Mitchel Ortega MD smoking status Never smoker Mitchel Dozier social history reviewed E&M nicholas ewed - no changes required Mitchel Ortega MD social history reviewed E&M nicholas ewed - no changes required Mitchel Ortega MD physical exercise, f requency, days per week no Moe Jimenez alcohol use, average drinks per day social basis only Moe Jimenez caffeine use, averag e drinks per day yes Moe Jimenez drug use no Moe ozunaon passive cigarette sm natasha exposure no Moe Jimenez smoking status Never smoker Moe Nichols social history reviewed E&M reviewed Mitchel Ortega MD social history reviewed E&M reviewed Daryn Pena RN social history reviewed E&M reviewed Mitchel Ortega MD social history reviewed E&M reviewed Mitchel Ortega MD drug use no Daryn Pena RN passive cigarette sm natasha exposure no Daryn Pena RN social history reviewed E&M reviewed Daryn Pena RN smoking status never smoker Daryn Pena RN social history reviewed E&M reviewed Daryn Pena RN social history reviewed E&M reviewed Mitchel Ortega MD social history reviewed E&M reviewed Daryn Pena RN social history reviewed E&M reviewed Mitchel Ortega MD social history reviewed E&M reviewed Daryn Pena RN social history reviewed E&M reviewed Daryn Pena RN social history reviewed E&M reviewed Daryn Pena RN social history E&M Marital Statu s: Single L alanna with family/friends E thnicity: Mitchel Ortega MD social history E&M Marital Statu s: Single L alanna with family/friends E thnicity: Mitchel Ortega MD social history reviewed E&M reviewed Daryn Pena RN social history E&M Marital Statu s: Single L alanna with family/friends E thnicity: Daryn Pena RN social history reviewed E&M reviewed Daryn Pena RN social history E&M L alanna with family/friends E thnicity: L alanna with family/friends E thnicity: Henry Abdul MD drug use none Henry Abdul MD social history reviewed E&M reviewed Henry Abdul MD physical exercise, f requency, days per week no [employer] caffeine use, averag e drinks per day yes [employer] alcohol use, average drinks per day social basis only [employer] smoking status Non-smoker [employer] FUNCTIONAL STATUS Date Observation Value Provider HRA, CV Assess/Plan, Angina (inactive) Management Plan continue current therapy Mitchel Ortega MD HRA, CV Assess/Plan, Angina (inactive) Management Plan continue current therapy Didier Lea HRA, CV Assess/Plan, Angina (inactive) Management Plan continue current therapy Mitchel Ortega MD HRA, CV Assess/Plan, Angina (inactive) Management Plan continue current therapy Mitchel Ortega MD HRA, CV Assess/Plan, Angina (inactive) Management Plan continue current therapy Mitchel Ortega MD HRA, CV Assess/Plan, Angina (inactive) Management Plan continue current therapy Mitchel Ortega MD HRA, CV Assess/Plan, Angina (inactive) Management Plan continue current therapy Antwan Escalante HRA, CV Assess/Plan, Angina (inactive) Management Plan continue current therapy Domonique Pineda HRA, CV Assess/Plan, Angina (inactive) Management Plan continue current therapy Mitchel Ortega MD HRA, CV Assess/Plan, Angina (inactive) Management Plan continue current therapy Mitchel Ortega MD HRA, CV Assess/Plan, Angina (inactive) Management Plan continue current therapy Dhruv Fer HRA, CV Assess/Plan, Angina (inactive) Management Plan continue current therapy Dhruv [facility] HRA, CV Assess/Plan, Angina (inactive) Management Plan continue current therapy [facility] HRA, CV Assess/Plan, Angina (inactive) Management Plan continue current therapy [facility] HRA, CV Assess/Plan, Angina (inactive) Management Plan continue current therapy Mitchel Ortega MD HRA, CV Assess/Plan, Angina (inactive) Management Plan continue current therapy Micthel Ortega MD HRA, CV Assess/Plan, Angina (inactive) Management Plan continue current therapy [facility] HRA, CV Assess/Plan, Angina (inactive) Management Plan continue current therapy Mitchel Ortega MD HRA, CV Assess/Plan, Angina (inactive) Management Plan continue current therapy Mitchel Ortega MD HRA, CV Assess/Plan, Angina (inactive) Management Plan continue current therapy Mitchel Ortega MD HRA, CV Assess/Plan, Angina (inactive) Management Plan continue current therapy [facility] HRA, CV Assess/Plan, Angina (inactive) Management Plan continue current therapy Mitchel Ortega MD HRA, CV Assess/Plan, Angina (inactive) Management Plan continue current therapy Mitchel Ortega MD HRA, CV Assess/Plan, Angina (inactive) Management Plan continue current therapy Mitchel Ortega MD HRA, CV Assess/Plan, Angina (inactive) Management Plan continue current therapy Mitchel Ortega MD HRA, CV Assess/Plan, Angina (inactive) Management Plan continue current therapy Mitchel Ortega MD MENTAL STATUS Date Observation Value Provider assessment of judgme nt and insight E&M Alert and oriented to time, place and person. Mood and affect are normal. Mitchel Ortega MD assessment of judgme nt and insight E&M Alert and oriented to time, place and person. Mood and affect are normal. Daryn Pena RN assessment of judgme nt and insight E&M Alert and oriented to time, place and person. Mood and affect are normal. Mitchel Ortega MD assessment of judgme nt and insight E&M Alert and oriented to time, place and person. Mood and affect are normal. Mitchel Ortega MD assessment of judgme nt and insight E&M Alert and oriented to time, place and person. Mood and affect are normal. Daryn Almaguerashley DOYLE assessment of judgme nt and insight E&M Alert and oriented to time, place and person. Mood and affect are normal. Daryn Almaguerashley DOYLE assessment of judgme nt and insight E&M Alert and oriented to time, place and person. Mood and affect are normal. Mitchel Ortega MD assessment of judgme nt and insight E&M Alert and oriented to time, place and person. Mood and affect are normal. Daryn Pena RN assessment of judgme nt and insight E&M Alert and oriented to time, place and person. Mood and affect are normal. Daryn Almaguerashley DOYLE assessment of judgme nt and insight E&M Alert and oriented to time, place and person. Mood and affect are normal. Daryn Almaguerashley DOYLE assessment of judgme nt and insight E&M Alert and oriented to time, place and person. Mood and affect are normal. Daryn Almaguerashley DOYLE assessment of judgme nt and insight E&M Alert and oriented to time, place and person. Mood and affect are normal. Daryn Almaguerashley DOYLE assessment of judgme nt and insight E&M Alert and oriented to time, place and person. Mood and affect are normal. Daryn Almaguerashley DOYLE assessment of judgme nt and insight E&M Alert and oriented to time, place and person. Mood and affect are normal. Mitchel Ortega MD assessment of judgme nt and insight E&M Alert and oriented to time, place and person. Mood and affect are normal. Daryn Pena RN assessment of judgme nt and insight E&M Alert and oriented to time, place and person. Mood and affect are normal. Daryn Almaguerashley DOYLE assessment of judgme nt and insight E&M Alert and oriented to time, place and person. Mood and affect are normal. Henry Abdul MD FAMILY HISTORY Family Member Condition Mother Family History of Di abetes: Mother Family History of Hy pertension: Full Sister Family History of Co ronary Artery Disease: Full Sister Family History of Hy pertension: Full Brother Family History of Di abetes: Father Family History of CV A or Stroke: INSURANCE PROVIDERS Payer name Policy type / Coverage type [place] [employer] republic[employer] ID [employer] MEDICARE GOLD ADVANTAGE HMO Medicare [id number] ADVANCE DIRECTIVES Name Date DISCUSSED - NO DECISION MADE TREATMENT PLAN Date Name Performer [id number],S, Mitchel Ortega MD [id number],B, Mitchel Ortega MD [id number],S,T he patient is using CPAP on a regular basis. The patient has been benefiting from therapy and should continue use. Mitchel Ortega MD [id number],S, H er updated medication list for this problem includes: Atorvastatin 80 Mg Tablet (Atorvastatin) ..... Take 1 tablet by mouth every day Mitchel Ortega MD [id number],C, H er updated medication list for this problem includes: Lisinopril 10 Mg Tablet (Lisinopril) ..... 1 tablet by mouth once a day Aspirin 81 Mg Tablet,delayed Release (dr/ec) (Aspirin) ..... 1 tablet by mouth once a day Mitchel Ortega MD [id number],S, T he following medications were removed from the medication list: Amlodipine 10 Mg Tablet (Amlodipine) ..... Take 1 tablet by mouth every day Her updated medication list for this problem includes: Clopidogrel 75 Mg Tablet (Clopidogrel) ..... Take 1 tablet by mouth every day Lisinopril 10 Mg Tablet (Lisinopril) ..... 1 tablet by mouth once a day Aspirin 81 Mg Tablet,delayed Release (dr/ec) (Aspirin) ..... 1 tablet by mouth once a day Mitchel Ortega MD [id number],SAntwan i [id number],SAntwan i [id number],S, Antwan Charles i [id number],S, Antwan Charles i [id number],SAntwan i [id number],C,Weight loss a dvised Mitchel Ortega MD [id number],C, H er updated medication list for this problem includes: Atorvastatin 80 Mg Tablet (Atorvastatin) ..... Take 1 tablet by mouth once a day Mitchel Ortega MD [id number],C, H er updated medication list for this problem includes: Lisinopril 40 Mg Tablet (Lisinopril) ..... 0.5 tablet by mouth twice a day Aspirin 81 Mg Tablet,delayed Release (dr/ec) (Aspirin) ..... 1 tablet by mouth once a day Mitchel Ortega MD [id number],C, B P today: 140/82 P rior BP: 160/77 (09/18/2021) Labs Reviewed: C reat: 1.03 (03/05/2019) C hol: 130 (03/05/2019) HDL: 35 (03/05/2019) Her updated medication list for this problem includes: Amlodipine 10 Mg Tablet (Amlodipine) ..... Take 1 tablet by mouth once a day take 1 tablet by mouth daily Lisinopril 40 Mg Tablet (Lisinopril) ..... 0.5 tablet by mouth twice a day Aspirin 81 Mg Tablet,delayed Release (dr/ec) (Aspirin) ..... 1 tablet by mouth once a day Torsemide 100 Mg Tablet (Torsemide) ..... Take 0.5 tablet by mouth once a day Mitchel Ortega MD [id number],C,T he pt is feeling better, review of telesentry showed there is no further bradycardia (however frequent PVCs and PACs noted). Will keep her off Coreg. Carotid duplex in August [address] [facility] was normal. Mitchel Ortega MD [id number],C, Will keep her off Coreg. Carotid duplex in August [address] [facility] was normal. H er updated medication list for this problem includes: Amlodipine 10 Mg Tablet (Amlodipine) ..... Take 1 tablet by mouth once a day take 1 tablet by mouth daily Lisinopril 40 Mg Tablet (Lisinopril) ..... 0.5 tablet by mouth twice a day Plavix 75 Mg Tablet (Clopidogrel) ..... 1 tablet by mouth once a day Aspirin 81 Mg Tablet,delayed Release (dr/ec) (Aspirin) ..... 1 tablet by mouth once a day Mitchel Ortega MD [id number],S, I f she develops more leg swelling, we will consider Venaseal. Marito Worley [id number],S, H er updated medication list for this problem includes: Atorvastatin 80 Mg Tablet (Atorvastatin) ..... Take 1 tablet by mouth once a day Marito Worley [id number],S, B P today: 160/77 P rior BP: 150/100 (02/04/2021) T he following medications were removed from the medication list: Coreg 12.5 Mg Tablet (Carvedilol) ..... 0.5 tablet by mouth twice a day Her updated medication list for this problem includes: Amlodipine 10 Mg Tablet (Amlodipine) ..... Take 1 tablet by mouth once a day take 1 tablet by mouth daily Lisinopril 40 Mg Tablet (Lisinopril) ..... 0.5 tablet by mouth twice a day Aspirin 81 Mg Tablet,delayed Release (dr/ec) (Aspirin) ..... 1 tablet by mouth once a day Torsemide 100 Mg Tablet (Torsemide) ..... Take 0.5 tablet by mouth once a day Marito Worley [id number],S,N o chest pain. T he following medications were removed from the medication list: Coreg 12.5 Mg Tablet (Carvedilol) ..... 0.5 tablet by mouth twice a day Her updated medication list for this problem includes: Amlodipine 10 Mg Tablet (Amlodipine) ..... Take 1 tablet by mouth once a day take 1 tablet by mouth daily Lisinopril 40 Mg Tablet (Lisinopril) ..... 0.5 tablet by mouth twice a day Plavix 75 Mg Tablet (Clopidogrel) ..... 1 tablet by mouth once a day Aspirin 81 Mg Tablet,delayed Release (dr/ec) (Aspirin) ..... 1 tablet by mouth once a day Marito Worley [id number],C,T he pt complains of dizziness, weakness, and 'fogginess.' EKG shows sinus brachycardia down to the 30s. We will stop carvedilol and start amlodipine 10mg daily. Obtained telesentry, may need PMR. She had carotid duplex at [facility] and we will try to obtain the report. Mitchel Ortega MD [id number],S, Domonique banks [id number],C, H er updated medication list for this problem includes: Lisinopril 40 Mg Tablet (Lisinopril) ..... 0.5 tablet by mouth twice a day Aspirin 81 Mg Tablet,delayed Release (dr/ec) (Aspirin) ..... 1 tablet by mouth once a day Domonique Pineda [id number],C, H er updated medication list for this problem includes: Atorvastatin 80 Mg Tablet (Atorvastatin) ..... Take 1 tablet by mouth once a day Domonique Pineda [id number],C,T he pt missed her meds yesterday and today. She noticed rapid heart beats but no CP or SOB. She will go home and take them now. No testing is needed at this time. BP today: 150/100 P rior BP: 145/80 (08/22/2020) Labs Reviewed: C reat: 1.03 (03/05/2019) C hol: 130 (03/05/2019) HDL: 35 (03/05/2019) Her updated medication list for this problem includes: Lisinopril 40 Mg Tablet (Lisinopril) ..... 0.5 tablet by mouth twice a day Aspirin 81 Mg Tablet,delayed Release (dr/ec) (Aspirin) ..... 1 tablet by mouth once a day Torsemide 100 Mg Tablet (Torsemide) ..... Take 0.5 tablet by mouth once a day Coreg 12.5 Mg Tablet (Carvedilol) ..... 0.5 tablet by mouth twice a day Domonique Pineda [id number],S, Domonique banks [id number],C,No pain today Domonique Pineda [id number],C,T he pt missed her meds yesterday and today. She noticed rapid heart beats but no CP or SOB. She will go home and take them now. No testing is needed at this time. Her updated medication list for this problem includes: Lisinopril 40 Mg Tablet (Lisinopril) ..... 0.5 tablet by mouth twice a day Plavix 75 Mg Tablet (Clopidogrel) ..... 1 tablet by mouth once a day Aspirin 81 Mg Tablet,delayed Release (dr/ec) (Aspirin) ..... 1 tablet by mouth once a day Coreg 12.5 Mg Tablet (Carvedilol) ..... 0.5 tablet by mouth twice a day Domonique Barbarajazmyn Cardiology: Jacoby alas. Mitchel Ortega MD Cardiology Mitchel Ortega MD Cardiology: H er updated medication list for this problem includes: Atorvastatin 80 Mg Tablet (Atorvastatin) ..... Take 1 tablet by mouth every day Mitchel Ortega MD Cardiology: B P today: 158/86 P rior BP: 127/75 (11/04/2023) Labs Reviewed: C reat: 1.03 (03/05/2019) C hol: 130 (03/05/2019) HDL: 35 (03/05/2019) LDL: 56 (03/05/2019) T (03/05/2019) Her updated medication list for this problem includes: Torsemide 100 Mg Tablet (Torsemide) ..... Take 1/2 tablet by mouth every day Lisinopril 10 Mg Tablet (Lisinopril) ..... Take 1 tablet by mouth every day Aspirin 81 Mg Tablet,delayed Release (dr/ec) (Aspirin) ..... 1 tablet by mouth once a day Mitchel Ortega MD Cardiology:Complains of SOB and chest tignhtess with exertion. Stress test showed possible inferior ischemia. Will arrange for right and left heart cath. Bruising improved after stopping plavix and aspirin. Mitchel Ortega MD Cardiology: The pt is feeling better, review of telesentry showed there is no further bradycardia (however frequent PVCs and PACs noted). Will keep her off Coreg. Carotid duplex in August [address] [facility] was normal. Mitchel Ortega MD Cardiology:04/2023: Arterial and venous duplex of lower extremities were normal. Didier Lea Cardiology Didier Lea Cardiology: H er updated medication list for this problem includes: Atorvastatin 80 Mg Tablet (Atorvastatin) ..... Take 1 tablet by mouth every day This visit has been a part of the consistent, comprehensive, and ongoing management of the chronic medical condition(s) listed above for the patient. Didier Lea Cardiology:Pt compla ined of excessive bruising. We will stop plavix and continue baby aspirin. Also complained of heart fluttering. We will obtain 1 week telecentry. Pt denies SOB and CP. The following medications were removed from the medication list: Clopidogrel 75 Mg Tablet (Clopidogrel) ..... Take 1 tablet by mouth every day Her updated medication list for this problem includes: Lisinopril 10 Mg Tablet (Lisinopril) ..... Take 1 tablet by mouth every day Aspirin 81 Mg Tablet,delayed Release (dr/ec) (Aspirin) ..... 1 tablet by mouth once a day Didier Lea Cardiology:Carotid duplex did no t show severe disease Mitchel Ortega MD Cardiology: H er updated medication list for this problem includes: Lisinopril 10 Mg Tablet (Lisinopril) ..... 1 tablet by mouth once a day Aspirin 81 Mg Tablet,delayed Release (dr/ec) (Aspirin) ..... 1 tablet by mouth once a day Mitchel Ortega MD Cardiology: H er updated medication list for this problem includes: Atorvastatin 80 Mg Tablet (Atorvastatin) ..... Take 1 tablet by mouth every day Mitchel Ortega MD Cardiology: B P today: 124/72 P rior BP: 141/79 (05/18/2023) Labs Reviewed: C reat: 1.03 (03/05/2019) C hol: 130 (03/05/2019) HDL: 35 (03/05/2019) LDL: 56 (03/05/2019) T (03/05/2019) Her updated medication list for this problem includes: Torsemide 100 Mg Tablet (Torsemide) ..... Take 1/2 tablet by mouth once a day Lisinopril 10 Mg Tablet (Lisinopril) ..... 1 tablet by mouth once a day Aspirin 81 Mg Tablet,delayed Release (dr/ec) (Aspirin) ..... 1 tablet by mouth once a day Mitchel Ortega MD Cardiology:Pt does n ot have any further CP. Carotid duplex did not show severe disease. Stress test revealed moderate sized area of absent perfusion of inferior wall partially reversible on rest images. This is similar to her stress test from 2019. At that time, we followed with cardiac cath that showed that all ehr bypass grafts were patent. Since she is asx and no significant changes in stress test, we will not proceed to cardiac cath at this time. Mitchel Ortega MD Cardiology:arterial and venous d uplex normal Mitchel Ortega MD Cardiology: B P today: 141/79 P rior BP: 130/72 (05/06/2023) Labs Reviewed: C reat: 1.03 (03/05/2019) C hol: 130 (03/05/2019) HDL: 35 (03/05/2019) LDL: 56 (03/05/2019) T (03/05/2019) Her updated medication list for this problem includes: Torsemide 100 Mg Tablet (Torsemide) ..... Take 1/2 tablet by mouth once a day Lisinopril 10 Mg Tablet (Lisinopril) ..... 1 tablet by mouth once a day Aspirin 81 Mg Tablet,delayed Release (dr/ec) (Aspirin) ..... 1 tablet by mouth once a day Mitchel Ortega MD Cardiology: H er updated medication list for this problem includes: Atorvastatin 80 Mg Tablet (Atorvastatin) ..... Take 1 tablet by mouth every day Mitchel Ortega MD Cardiology:Pt noted some pressure in her neck. She does not relate it to exertion. In view of her hx of severe CAD s/p CABG surgery, will obain stress myoview and follow up carotid duplex. H er updated medication list for this problem includes: Clopidogrel 75 Mg Tablet (Clopidogrel) ..... Take 1 tablet by mouth every day Lisinopril 10 Mg Tablet (Lisinopril) ..... 1 tablet by mouth once a day Aspirin 81 Mg Tablet,delayed Release (dr/ec) (Aspirin) ..... 1 tablet by mouth once a day Mitchel Ortega MD Cardiology:Arterial and venous duplex of lower extremities were normal. Mitchel Ortega MD Cardiology:Pt compla ining of leg heaviness and pain after she stands. ALso notices very slow healing of a cut in her left foot, which is now healed. Will obtain arterial and venous duplex Mitchel Ortega MD Cardiology: B P today: 130/72 P rior BP: 126/65 (01/05/2023) Labs Reviewed: C reat: 1.03 (03/05/2019) C hol: 130 (03/05/2019) HDL: 35 (03/05/2019) LDL: 56 (03/05/2019) T (03/05/2019) Her updated medication list for this problem includes: Torsemide 100 Mg Tablet (Torsemide) ..... Take 1/2 tablet by mouth once a day Lisinopril 10 Mg Tablet (Lisinopril) ..... 1 tablet by mouth once a day Aspirin 81 Mg Tablet,delayed Release (dr/ec) (Aspirin) ..... 1 tablet by mouth once a day Mitchel Ortega MD Cardiology: LDL 72, she would like to participate in PREVAIL trial. Mitchel Ortega MD Cardiology: LDL 72, she would like to participate in PREVAIL trial. H er updated medication list for this problem includes: Clopidogrel 75 Mg Tablet (Clopidogrel) ..... Take 1 tablet by mouth every day Lisinopril 10 Mg Tablet (Lisinopril) ..... 1 tablet by mouth once a day Aspirin 81 Mg Tablet,delayed Release (dr/ec) (Aspirin) ..... 1 tablet by mouth once a day Mitchel Ortega MD Cardiology:Pt compla ining of leg heaviness and pain after she stands. ALso notices very slow healing of a cut in her left foot, which is now healed. Will obtain arterial and venous duplex. LDL 72, she would like to participate in PREVAIL trial. Mitchel Ortega MD Cardiology:Pt compla ining of leg heaviness and pain after she stands. ALso notices very slow healing of a cut in her left foot, which is now healed. Will obtain arterial and venous duplex. LDL 72, she would like to participate in PREVAIL trial. Mitchel Ortega MD Cardiology Mitchel Ortega MD Cardiology Mitchel Ortega MD Cardiology:The patie nt is using CPAP on a regular basis. The patient has been benefiting from therapy and should continue use. Mitchel Ortega MD Cardiology: H er updated medication list for this problem includes: Atorvastatin 80 Mg Tablet (Atorvastatin) ..... Take 1 tablet by mouth every day Mitchel Ortega MD Cardiology: H er updated medication list for this problem includes: Lisinopril 10 Mg Tablet (Lisinopril) ..... 1 tablet by mouth once a day Aspirin 81 Mg Tablet,delayed Release (dr/ec) (Aspirin) ..... 1 tablet by mouth once a day Mitchel Ortega MD Cardiology: T he following medications were removed from the medication list: Amlodipine 10 Mg Tablet (Amlodipine) ..... Take 1 tablet by mouth every day Her updated medication list for this problem includes: Clopidogrel 75 Mg Tablet (Clopidogrel) ..... Take 1 tablet by mouth every day Lisinopril 10 Mg Tablet (Lisinopril) ..... 1 tablet by mouth once a day Aspirin 81 Mg Tablet,delayed Release (dr/ec) (Aspirin) ..... 1 tablet by mouth once a day Mitchel Ortega MD Cardiology Antwan Ahkulwinder Cardiology Antwan Ahkulwinder Cardiology Antwan kulwinder Cardiology Antwan kulwinder Cardiology Antwan kulwinder Cardiology:Weight loss advised G rachel Ortega MD Cardiology: H er updated medication list for this problem includes: Atorvastatin 80 Mg Tablet (Atorvastatin) ..... Take 1 tablet by mouth once a day Mitchel Ortega MD Cardiology: H er updated medication list for this problem includes: Lisinopril 40 Mg Tablet (Lisinopril) ..... 0.5 tablet by mouth twice a day Aspirin 81 Mg Tablet,delayed Release (dr/ec) (Aspirin) ..... 1 tablet by mouth once a day Mitchel Ortega MD Cardiology: B P today: 140/82 P rior BP: 160/77 (09/18/2021) Labs Reviewed: C reat: 1.03 (03/05/2019) C hol: 130 (03/05/2019) HDL: 35 (03/05/2019) Her updated medication list for this problem includes: Amlodipine 10 Mg Tablet (Amlodipine) ..... Take 1 tablet by mouth once a day take 1 tablet by mouth daily Lisinopril 40 Mg Tablet (Lisinopril) ..... 0.5 tablet by mouth twice a day Aspirin 81 Mg Tablet,delayed Release (dr/ec) (Aspirin) ..... 1 tablet by mouth once a day Torsemide 100 Mg Tablet (Torsemide) ..... Take 0.5 tablet by mouth once a day Mitchel Ortega MD Cardiology:The pt is feeling better, review of telesentry showed there is no further bradycardia (however frequent PVCs and PACs noted). Will keep her off Coreg. Carotid duplex in August [address] [facility] was normal. Mitchel Ortega MD Cardiology: Will michelle p her off Coreg. Carotid duplex in August [address] [facility] was normal. H er updated medication list for this problem includes: Amlodipine 10 Mg Tablet (Amlodipine) ..... Take 1 tablet by mouth once a day take 1 tablet by mouth daily Lisinopril 40 Mg Tablet (Lisinopril) ..... 0.5 tablet by mouth twice a day Plavix 75 Mg Tablet (Clopidogrel) ..... 1 tablet by mouth once a day Aspirin 81 Mg Tablet,delayed Release (dr/ec) (Aspirin) ..... 1 tablet by mouth once a day Mitchel Ortega MD Cardiology: I f she develops more leg swelling, we will consider Venaseal. Marito Worley Cardiology: H er updated medication list for this problem includes: Atorvastatin 80 Mg Tablet (Atorvastatin) ..... Take 1 tablet by mouth once a day Marito Worley Cardiology: B P today: 160/77 P rior BP: 150/100 (02/04/2021) T he following medications were removed from the medication list: Coreg 12.5 Mg Tablet (Carvedilol) ..... 0.5 tablet by mouth twice a day Her updated medication list for this problem includes: Amlodipine 10 Mg Tablet (Amlodipine) ..... Take 1 tablet by mouth once a day take 1 tablet by mouth daily Lisinopril 40 Mg Tablet (Lisinopril) ..... 0.5 tablet by mouth twice a day Aspirin 81 Mg Tablet,delayed Release (dr/ec) (Aspirin) ..... 1 tablet by mouth once a day Torsemide 100 Mg Tablet (Torsemide) ..... Take 0.5 tablet by mouth once a day Marito Worley Cardiology:No chest pain. T he following medications were removed from the medication list: Coreg 12.5 Mg Tablet (Carvedilol) ..... 0.5 tablet by mouth twice a day Her updated medication list for this problem includes: Amlodipine 10 Mg Tablet (Amlodipine) ..... Take 1 tablet by mouth once a day take 1 tablet by mouth daily Lisinopril 40 Mg Tablet (Lisinopril) ..... 0.5 tablet by mouth twice a day Plavix 75 Mg Tablet (Clopidogrel) ..... 1 tablet by mouth once a day Aspirin 81 Mg Tablet,delayed Release (dr/ec) (Aspirin) ..... 1 tablet by mouth once a day Marito Worley Cardiology:The pt co mplains of dizziness, weakness, and 'fogginess.' EKG shows sinus brachycardia down to the 30s. We will stop carvedilol and start amlodipine 10mg daily. Obtained telesentry, may need PMR. She had carotid duplex at [facility] and we will try to obtain the report. Mitchel Ortega MD Cardiology Domonique Calix eyerenay Cardiology: H er updated medication list for this problem includes: Lisinopril 40 Mg Tablet (Lisinopril) ..... 0.5 tablet by mouth twice a day Aspirin 81 Mg Tablet,delayed Release (dr/ec) (Aspirin) ..... 1 tablet by mouth once a day Domonique Pineda Cardiology: H er updated medication list for this problem includes: Atorvastatin 80 Mg Tablet (Atorvastatin) ..... Take 1 tablet by mouth once a day Domonique Pineda Cardiology:The pt mi ssed her meds yesterday and today. She noticed rapid heart beats but no CP or SOB. She will go home and take them now. No testing is needed at this time. BP today: 150/100 P rior BP: 145/80 (08/22/2020) Labs Reviewed: C reat: 1.03 (03/05/2019) C hol: 130 (03/05/2019) HDL: 35 (03/05/2019) Her updated medication list for this problem includes: Lisinopril 40 Mg Tablet (Lisinopril) ..... 0.5 tablet by mouth twice a day Aspirin 81 Mg Tablet,delayed Release (dr/ec) (Aspirin) ..... 1 tablet by mouth once a day Torsemide 100 Mg Tablet (Torsemide) ..... Take 0.5 tablet by mouth once a day Coreg 12.5 Mg Tablet (Carvedilol) ..... 0.5 tablet by mouth twice a day Domonique Pineda Cardiology Domonique Calix eyerenay Cardiology:No pain today Kathy Epsteinjazmyn Cardiology:The pt adriana ssed her meds yesterday and today. She noticed rapid heart beats but no CP or SOB. She will go home and take them now. No testing is needed at this time. Her updated medication list for this problem includes: Lisinopril 40 Mg Tablet (Lisinopril) ..... 0.5 tablet by mouth twice a day Plavix 75 Mg Tablet (Clopidogrel) ..... 1 tablet by mouth once a day Aspirin 81 Mg Tablet,delayed Release (dr/ec) (Aspirin) ..... 1 tablet by mouth once a day Coreg 12.5 Mg Tablet (Carvedilol) ..... 0.5 tablet by mouth twice a day Domonique Pineda Cardiology Dhruv radford Cardiology:Her updat ed medication list for this problem includes: Aspirin Adult Low Dose 81 Mg Oral Tablet Delayed Release (Aspirin) ..... One tab by mouth daily Lisinopril 40 Mg Oral Tablet (Lisinopril) ..... One half tab. twice daily Dhruv Fer Cardiology:Her updat ed medication list for this problem includes: Atorvastatin 80mg (Atorvastatin calcium) ..... Take one tablet daily Dhruv Monroe Cardiology:BP today: 145/80 P rior BP: 140/80 (07/02/2020) Her updated medication list for this problem includes: Torsemide 100mg Tab (Torsemide) ..... Take one-half tablet daily Coreg 12.5 Mg Oral Tablet (Carvedilol) ..... 1/2 twice a day Lisinopril 40 Mg Oral Tablet (Lisinopril) ..... One half tab. twice daily Dhruv Fer Cardiology:She had o ne episode of SOB after holding her grandson and walking up a flight of stairs but since then she has been exercising without any dyspnea. No chest pain. If she develops cardiac symptoms we will consider cardiac cath again. Her updated medication list for this problem includes: Plavix 75 Mg Oral Tablet (Clopidogrel bisulfate) ..... One tab. daily Aspirin Adult Low Dose 81 Mg Oral Tablet Delayed Release (Aspirin) ..... One tab by mouth daily Coreg 12.5 Mg Oral Tablet (Carvedilol) ..... 1/2 twice a day Lisinopril 40 Mg Oral Tablet (Lisinopril) ..... One half tab. twice daily [facility] Cardiology:If she de velops more leg swelling, we will consider Venaseal. [facility] Cardiology:She finis hes her supervised exercise therapy this week. She has some post-exercise tingling in the feet but she is not interested in intervention at this time. If she develops more claudication, we will consider AIF. [facility] follow up :Her updated medication list for this problem includes: Aspirin Adult Low Dose 81 Mg Oral Tablet Delayed Release (Aspirin) ..... One tab by mouth daily Lisinopril 40 Mg Oral Tablet (Lisinopril) ..... One half tab. twice daily [facility] follow up :Her updated medication list for this problem includes: Atorvastatin 80mg (Atorvastatin calcium) ..... Take one tablet daily [facility] follow up :BP today: 140/80 P rior BP: 110/66 (02/15/2020) Her updated medication list for this problem includes: Torsemide 100mg Tab (Torsemide) ..... Take one-half tablet daily Coreg 12.5 Mg Oral Tablet (Carvedilol) ..... 1/2 twice a day Lisinopril 40 Mg Oral Tablet (Lisinopril) ..... One half tab. twice daily [facility] follow up :No issues with leg swelling at this time. [facility] follow up :Since she does not have chest pain or SOB, she is clear to resume supervised exercise therapy. 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 Clinically, it is not clear if this is an indication new ischemia or an expression of old changes. Since she is asymptomatic, she is clear to resume supervised exercise therapy. Her updated medication list for this problem includes: Plavix 75 Mg Oral Tablet (Clopidogrel bisulfate) ..... One tab. daily Aspirin Adult Low Dose 81 Mg Oral Tablet Delayed Release (Aspirin) ..... One tab by mouth daily Coreg 12.5 Mg Oral Tablet (Carvedilol) ..... 1/2 twice a day Lisinopril 40 Mg Oral Tablet (Lisinopril) ..... One half tab. twice daily [facility]iology Follow up :Her updated medication list for this problem includes: Atorvastatin 80mg (Atorvastatin calcium) ..... Take one tablet daily [facility] Card[facility] Follow up :BP today: 110/66 P rior BP: 164/85 (01/11/2020) Her updated medication list for this problem includes: Torsemide 100mg Tab (Torsemide) ..... Take one-half tablet daily Coreg 12.5 Mg Oral Tablet (Carvedilol) ..... One tab. twice daily Lisinopril 40 Mg Oral Tablet (Lisinopril) ..... One half tab. twice daily Amlodipine Besylate 5 Mg Oral Tablet (Amlodipine besylate) ..... Take one tablet daily. hold if systolic bp is less than 130 [facility] Follow up :Medicare did not approve a new CPAP machine. [facility] Follow up :No chest pain. Her updated medication list for this problem includes: Plavix 75 Mg Oral Tablet (Clopidogrel bisulfate) ..... One tab. daily Aspirin Adult Low Dose 81 Mg Oral Tablet Delayed Release (Aspirin) ..... One tab by mouth daily Coreg 12.5 Mg Oral Tablet (Carvedilol) ..... One tab. twice daily Lisinopril 40 Mg Oral Tablet (Lisinopril) ..... One half tab. twice daily Amlodipine Besylate 5 Mg Oral Tablet (Amlodipine besylate) ..... Take one tablet daily. 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 Still symptomatic with numbness and pain. No rest pain, swelling or sores. 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 Still symptomatic with numbness and pain. No rest pain, swelling or sores. Will enroll her in supervised exercise therapy. 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 Still symptomatic with numbness and pain. No rest pain, swelling or sores. Will send her Plavix and enroll her in supervised exercise therapy. [facility] follow up :She needs a new CPAP machine. [facility] follow up :Her updated medication list for this problem includes: Aspirin Adult Low Dose 81 Mg Oral Tablet Delayed Release (Aspirin) ..... One tab by mouth daily Lisinopril 40 Mg Oral Tablet (Lisinopril) ..... One half tab. twice daily [facility] follow up :Her updated medication list for this problem includes: Atorvastatin 80mg (Atorvastatin calcium) ..... Take one tablet daily [facility] Cardiology follow up :BP today: 164/85 P rior BP: 126/70 (01/24/2019) Her updated medication list for this problem includes: Torsemide 100mg Tab (Torsemide) ..... Take one-half tablet daily Coreg 12.5 Mg Oral Tablet (Carvedilol) ..... One tab. twice daily Lisinopril 40 Mg Oral Tablet (Lisinopril) ..... One half tab. twice daily Amlodipine Besylate 5 Mg Oral Tablet (Amlodipine besylate) ..... Take one tablet daily. hold if systolic bp is less than 130 [facility] Cardiology follow up :No chest pain or SOB. Her updated medication list for this problem includes: Aspirin Adult Low Dose 81 Mg Oral Tablet Delayed Release (Aspirin) ..... One tab by mouth daily Coreg 12.5 Mg Oral Tablet (Carvedilol) ..... One tab. twice daily Lisinopril 40 Mg Oral Tablet (Lisinopril) ..... One half tab. twice daily Amlodipine Besylate 5 Mg Oral Tablet (Amlodipine besylate) ..... Take one tablet daily. hold if systolic bp is less than 130 [facility] Card[facility] follow up :Orders: A rterial Duplex Bi-Lower EX (CPT-83911) [facility] Card[facility] follow up :Orders: V enous Doppler Bilateral LE - Reflux ([id number]) [facility] Cardiology follow up :C/O pain and numbness in right LE, she believes she broke the 3rd toe. In view of pain and numbness in the leg, will check JABIER's and venous duplex. [facility] TeleHealth:CHOL: 130 (03/05/2019) HDL: 35 (03/05/2019) LDL: 56 (03/05/2019) TRI (03/05/2019) Her updated medication list for this problem includes: Lipitor 80 Mg Oral Tablet (Atorvastatin calcium) ..... One tab. daily [facility]:She had a sleep study for titration. Will order a machine for her. [facility] TeleHealth:Mild occa sional dizziness. She will obtain a blood pressure machine. If systolic BP is less then 130 she will hold Amlodipine. May need to reduce Lisinopril dose. Her updated medication list for this problem includes: Torsemide 100 Mg Oral Tablet (Torsemide) ..... Half tab twice daily Coreg 12.5 Mg Oral Tablet (Carvedilol) ..... One tab. twice daily Lisinopril 40 Mg Oral Tablet (Lisinopril) ..... One half tab. twice daily Amlodipine Besylate 5 Mg Oral Tablet (Amlodipine besylate) ..... Take one tablet daily. hold if systolic bp is less than 130 Prior BP: 126/70 (01/24/2019) Labs Reviewed: C reat: 1.03 (03/05/2019) [facility] Tele[facility]:Monitor s howed frequent PVC's. She feels palpitations twice a week. [facility] TeleHealth:Echo show ed EF of 50%. Myoview scan showed a fixed defect, thus cardiac cath was performed. All grafts were patent. EF was normal. No chest pain or SOB. Her updated medication list for this problem includes: Aspirin Adult Low Dose 81 Mg Oral Tablet Delayed Release (Aspirin) ..... One tab by mouth daily Coreg 12.5 Mg Oral Tablet (Carvedilol) ..... One tab. twice daily Lisinopril 40 Mg Oral Tablet (Lisinopril) ..... One half tab. twice daily Amlodipine Besylate 5 Mg Oral Tablet (Amlodipine besylate) ..... Take one tablet daily. hold if systolic bp is less than 130 [facility] TeleHealth:Echo show ed EF of 50%. Myoview scan showed a fixed defect, thus cardiac cath was performed. All grafts were patent. EF was normal. Monitor showed frequent PVC's. She feels palpitations twice a week. [facility] Cardiology:Recent ca rotid duplex did not show significant disease in the ICAs but there were some increased velocities in the RECA. [facility] Cardiology:Her [facility] ed medication list for this problem includes: Aspirin Adult Low Dose 81 Mg Oral Tablet Delayed Release (Aspirin) ..... One tab by mouth daily Lisinopril 40 Mg Oral Tablet (Lisinopril) ..... One half tab. twice daily [facility] Cardiology:Her [facility] ed medication list for this problem includes: Lipitor 80 Mg Oral Tablet (Atorvastatin calcium) ..... One tab. daily [facility] Cardiology:BP today: 126/70 P rior BP: 140/90 (07/28/2018) Her updated medication list for this problem includes: Torsemide 100 Mg Oral Tablet (Torsemide) ..... Half tab twice daily Coreg 12.5 Mg Oral Tablet (Carvedilol) ..... One tab. twice daily Lisinopril 40 Mg Oral Tablet (Lisinopril) ..... One half tab. twice daily Amlodipine 5mg (Amlodipine besylate) ..... Take 1 tablet daily [facility] Cardiology:Denies le g swelling. Will obtain f/u venous duplex. [facility] Cardiology:Denies leg swelling. [facility] Cardiology:Overall d oing well. Denies chest pain, SOB or leg swelling. EKG today shows frequent PVC's. We will obtain an echo and stress myoview. Will also perform 24 hour Holter monitor. Dhruv [facility] Cardiology:Denies ch est pain, SOB. EKG today shows frequent PVC's. We will obtain an echo and stress myoview. Her updated medication list for this problem includes: Aspirin Adult Low Dose 81 Mg Oral Tablet Delayed Release (Aspirin) ..... One tab by mouth daily Coreg 12.5 Mg Oral Tablet (Carvedilol) ..... One tab. twice daily Lisinopril 40 Mg Oral Tablet (Lisinopril) ..... One half tab. twice daily Amlodipine 5mg (Amlodipine besylate) ..... Take 1 tablet daily Dhruv Monroe Cardiology, seen by Dr. Franko Avilez [facility] Cardiology, seen by Dr. Franko Avilez [facility] Cardiology, seen by Dr. Franko Avilez [facility] Cardiology, seen by Dr. Franko Cadena flavio [facility] Cardiology, seen by Dr. Franko Avilez [facility] Cardiology, seen by Dr. Franko Avilez [facility] today: 150/98 P rior BP: 136/80 (01/27/2018) Her updated medication list for this problem includes: Torsemide 100 Mg Oral Tablet (Torsemide) ..... Half tab twice daily Coreg 12.5 Mg Oral Tablet (Carvedilol) ..... One tab. twice daily Lisinopril 40 Mg Oral Tablet (Lisinopril) ..... One half tab. twice daily Amlodipine Besylate 5 Mg Oral Tablet (Amlodipine besylate) ..... 1 tab daily Dhruv [facility] Cardiology:Encouraged further we ight loss. Mitchel Ortega MD Cardiology:Labs Revi ewed: H gBA1c: 7.4 (01/28/2018) Creat: 1.03 (01/28/2018) The following medications were stopped (by the patient): Metformin Hcl 500 Mg Oral Tablet (Metformin hcl) ..... 1 tab twice daily Her updated medication list for this problem includes: Lisinopril 40 Mg Oral Tablet (Lisinopril) ..... One half tab. twice daily She'll discuss with Dr. Franco. Mitchel Ortega MD Cardiology:Her [facility] medication list for this problem includes: Coreg 12.5 Mg Oral Tablet (Carvedilol) ..... One tab. twice daily Lisinopril 40 Mg Oral Tablet (Lisinopril) ..... One half tab. twice daily Amlodipine Besylate 5 Mg Oral Tablet (Amlodipine besylate) ..... 1 tab daily Compass Asa/ Rivaroxaban .... Asa 100mg once daily and rivaroxaban 2.5mg bid Mitchel Ortega MD Cardiology:CHOL: 205 (01/28/2018) HDL: 37 (01/28/2018) LDL: 130 (01/28/2018) TRI (01/28/2018) Lipitor increased from 40mg daily to 80mg daily. Mitchel Ortega MD Cardiology follow up Dhruv wade Cardiology follow up :Her updated medication list for this problem includes: Lipitor 40 Mg Oral Tablet (Atorvastatin calcium) ..... One tablet daily Orders: Nidhi IPID PANEL (7600) Dhruv [facility] Cardiology follow up :BP today: 136/80 P rior BP: 112/72 (03/23/2017) Her updated medication list for this problem includes: Torsemide 100 Mg Oral Tablet (Torsemide) ..... Half tab twice daily Coreg 12.5 Mg Oral Tablet (Carvedilol) ..... One tab. twice daily Lisinopril 40 Mg Oral Tablet (Lisinopril) ..... One half tab. twice daily Amlodipine Besylate 5 Mg Oral Tablet (Amlodipine besylate) ..... 1 tab daily Dhruv Monroe Cardiology follow up :The following medications were removed from the medication list: Lantus 100 Unit/ml Subcutaneous Solution (Insulin glargine) ..... 55 units twice daily Novolog 100 Unit/ml Subcutaneous Solution (Insulin aspart) ..... Sliding scale Her updated medication list for this problem includes: Lisinopril 40 Mg Oral Tablet (Lisinopril) ..... One half tab. twice daily Metformin Hcl 500 Mg Oral Tablet (Metformin hcl) ..... 1 tab twice daily Orders: B ASIC METABOLIC PANEL W/EGFR (51891) H EMOGLOBIN A1c (496) U RINALYSIS, RANDOM, MICROALB/CREATININE (6517) Dhruv Monroe Cardiology follow up :Her updated medication list for this problem includes: Coreg 12.5 Mg Oral Tablet (Carvedilol) ..... One tab. twice daily Lisinopril 40 Mg Oral Tablet (Lisinopril) ..... One half tab. twice daily Amlodipine Besylate 5 Mg Oral Tablet (Amlodipine besylate) ..... 1 tab daily Compass Asa/ Rivaroxaban .... Asa 100mg once daily and rivaroxaban 2.5mg bid Orders: E KG (CPT-86269) C omplete Echo (CPT-42153) Dhruv [facility] Cardiology Follow up :Down ~30 lbs since last visit in January. Mitchel Ortega MD Cardiology Follow up :BP today: 112/72 P rior BP: 130/80 (01/19/2017) Her updated medication list for this problem includes: Torsemide 100 Mg Oral Tablet (Torsemide) ..... Half tab twice daily Coreg 12.5 Mg Oral Tablet (Carvedilol) ..... One tab. twice daily Lisinopril 40 Mg Oral Tablet (Lisinopril) ..... One half tab. twice daily Amlodipine Besylate 5 Mg Oral Tablet (Amlodipine besylate) ..... 1 tab daily Mitchel Ortega MD Cardiology Follow up :Pt is a candidate for hernia surgery. She denies SOB and chest pain. She has normal activity level. She is clear from cardiology perspective. Her updated medication list for this problem includes: Aspirin Adult Low Dose 81 Mg Oral Tablet Delayed Release (Aspirin) ..... One tab by mouth daily Coreg 12.5 Mg Oral Tablet (Carvedilol) ..... One tab. twice daily Lisinopril 40 Mg Oral Tablet (Lisinopril) ..... One half tab. twice daily Amlodipine Besylate 5 Mg Oral Tablet (Amlodipine besylate) ..... 1 tab daily Mitchel Ortega MD Cardiology Follow up :Pt is a candidate for hernia surgery. She denies SOB and chest pain. She has normal activity level. She is clear from cardiology perspective. Mitchel Ortega MD Cardiology:Weight loss advised. Dhruv [facility] Cardiology:Per Dr. Franco. Albert san [facility] Cardiology:CHOL: 163 .0 (08/13/2016) HDL: 29.0 (08/13/2016) T.0 (08/13/2016) LDL: 74.6 (08/13/2016) Her updated medication list for this problem includes: Lipitor 40 Mg Tabs (Atorvastatin calcium) ..... One tablet daily Dhruv [facility] Cardiology:BP today: 130/80 P rior BP: 140/90 (08/11/2016) Her updated medication list for this problem includes: Torsemide 100 Mg Tabs (Torsemide) ..... Half tab twice daily Coreg 12.5 Mg Tabs (Carvedilol) ..... One tab. twice daily Lisinopril 40 Mg Tabs (Lisinopril) ..... One half tab. twice daily Amlodipine Besylate 5 Mg Tabs (Amlodipine besylate) ..... 1 tab daily [facility] Cardiology:Duplex la st month showed: Mild plaque with less than 50% stenosis of the internal carotid arteries bilaterally. Vertebral flow is antegrade bilaterally. Elevated doppler velocity of the right ECA ( no siginificant plaque seen). Dhruv [facility] Cardiology:No claudication. Loi muniz [facility] Cardiology:No chest pain or SOB. Her updated medication list for this problem includes: Aspirin Adult Low Dose 81 Mg Oral Tbec (Aspirin) ..... One tab by mouth daily Coreg 12.5 Mg Tabs (Carvedilol) ..... One tab. twice daily Lisinopril 40 Mg Tabs (Lisinopril) ..... One half tab. twice daily Amlodipine Besylate 5 Mg Tabs (Amlodipine besylate) ..... 1 tab daily Dhruv Fer Cardiology:S/P stent to the left iliac vein with significant improvement of her swelling. Dhruv [facility] Cardiology:S/P stent to the left iliac vein with significant improvement of her swelling. Dhruv Fer Cardiology Follow up Dhruv Hidalgo sheri Cardiology Follow up :Per Dr. Franco. Her updated medication list for this problem includes: Aspirin Adult Low Dose 81 Mg Oral Tbec (Aspirin) ..... One tab by mouth daily Lisinopril 40 Mg Tabs (Lisinopril) ..... One half tab. twice daily Novolog 100 Unit/ml Soln (Insulin aspart) ..... Sliding scale Lantus 100 Unit/ml Soln (Insulin glargine) ..... 55 units twice daily Metformin Hcl 500 Mg Tabs (Metformin hcl) ..... 1 tab twice daily Dhruv [facility] Cardiology Follow up :Her updated medication list for this problem includes: Lipitor 40 Mg Tabs (Atorvastatin calcium) ..... One tablet daily CHOL: 238.0 (06/24/2016) HDL: 37.0 (06/24/2016) T.0 (06/24/2016) LDL: 135.4 (06/24/2016) [facility] Cardiology Follow up :BP today: 140/90 P rior BP: 105/61 (06/23/2016) Her updated medication list for this problem includes: Aspirin Adult Low Dose 81 Mg Oral Tbec (Aspirin) ..... One tab by mouth daily Torsemide 100 Mg Tabs (Torsemide) ..... Half tab twice daily Coreg 12.5 Mg Tabs (Carvedilol) ..... One tab. twice daily Lisinopril 40 Mg Tabs (Lisinopril) ..... One half tab. twice daily Amlodipine Besylate 5 Mg Tabs (Amlodipine besylate) ..... 1 tab daily Dhruv [facility] Cardiology Follow up :She denies claudication at this time. Dhruv [facility] Cardiology Follow up :No chest pain or SOB. Her updated medication list for this problem includes: Aspirin Adult Low Dose 81 Mg Oral Tbec (Aspirin) ..... One tab by mouth daily Coreg 12.5 Mg Tabs (Carvedilol) ..... One tab. twice daily Lisinopril 40 Mg Tabs (Lisinopril) ..... One half tab. twice daily Amlodipine Besylate 5 Mg Tabs (Amlodipine besylate) ..... 1 tab daily Dhruv Monroe Cardiology Follow up :Venous duplex showed bilateral venous insufficiency of the SFJ and GSV. She has some trophic skin changes, worse on the left. She may have iliac vein compression. Will check with venography and IVUS. Meanwhile, she will try support stockings and she can increase Torsemide to BID. Dhruv Monroe Cardiology Follow up Mitchel Ortega MD Cardiology Follow up :BP today: 105/61 P rior BP: 140/74 (04/30/2016) Her updated medication list for this problem includes: Torsemide 100 Mg Tabs (Torsemide) ..... Half tab daily Coreg 12.5 Mg Tabs (Carvedilol) ..... One tab. twice daily Lisinopril 40 Mg Tabs (Lisinopril) ..... One half tab. twice daily Amlodipine Besylate 5 Mg Tabs (Amlodipine besylate) ..... 1 tab daily Micthel Ortega MD Cardiology Follow up:No chest pa in or SOB. Mitchel Ortega MD Cardiology Follow up Mitchel Ortega MD Cardiology Follow up :Complaining of swelling and discomfort of the right leg for about 6 weeks. Will check venous duplex, BMP and proBNP. Mitchel Ortega MD Cardiology Dhruv [place]ford Cardiology:Orders: S NOMED-CT: [id number] Current Medications Documented ([facility]-[id number]) L IPID PANEL (9678) Her updated medication list for this problem includes: Lipitor 40 Mg Tabs (Atorvastatin calcium) ..... One tab. daily Dhruv Monroe Cardiology:Followed by Dr. Franco . Dhruv Monroe Cardiology:Resolved. Dhruv wade Cardiology:Carotid d uplex in December 2015 showed 50-69% stenosis of the left internal carotid artery. No evidence of significant atherosclerotic disease was seen in the right internal carotid artery. Dhruv [facility] Cardiology Dhruv [place]ford Cardiology:Stable. N o chest pain or SOB. She continues on Compass study drugs. Dhruv Fer Cardiology:BP today: 142/76 P rior BP: 148/92 (10/31/2015) Dhruv Fer Cardiology Dhruv radford Cardiology:No claudication. Loi muniz Fer Cardiology:No chest pain or SOB. Dhruv [facility] Cardiology:Compliant with CPAP. Mitchel Ortega MD Cardiology:No palpitations. Mitchel Ortega MD Cardiology:BP today: 148/92 P rior BP: 144/70 (05/16/2015) Her updated medication list for this problem includes: Torsemide 100 Mg Tabs (Torsemide) ..... Half tab daily Coreg 12.5 Mg Tabs (Carvedilol) ..... One tab. twice daily Lisinopril 40 Mg Tabs (Lisinopril) ..... One half tab. twice daily Amlodipine Besylate 5 Mg Tabs (Amlodipine besylate) ..... 1 tab daily Mitchel Ortega MD Cardiology Mitchel Ortega MD Cardiology:Lipitor increased to 40mg daily. Mitchel Ortega MD Cardiology:Denies chest pain or SOB. Mitchel Ortega MD Cardiology:Labs Revi ewed: H gBA1c: 9.1 (02/23/2015) Creat: 1.0 (03/13/2015) Her updated medication list for this problem includes: Lisinopril 40 Mg Tabs (Lisinopril) ..... One half tab. twice daily Novolog 100 Unit/ml Soln (Insulin aspart) ..... Sliding scale Lantus 100 Unit/ml Soln (Insulin glargine) ..... 55 units twice daily Aspirin 325 Mg Tabs (Aspirin) ..... One tab daily Metformin Hcl 500 Mg Tabs (Metformin hcl) ..... 1 tab twice daily Dhruv [facility] Cardiology:CHOL: 191 .0 (03/13/2015) LDL: -999.0 (?) (03/13/2015) HDL: 29.0 (03/13/2015) T.0 (03/13/2015) Her updated medication list for this problem includes: Lipitor 20 Mg Tabs (Atorvastatin calcium) ..... 1 tablet by mouth daily [facility] Cardiology:BP today: 144/70 P rior BP: 151/77 (03/12/2015) Her updated medication list for this problem includes: Torsemide 100 Mg Tabs (Torsemide) ..... Half tab daily Coreg 12.5 Mg Tabs (Carvedilol) ..... One tab. twice daily Lisinopril 40 Mg Tabs (Lisinopril) ..... One half tab. twice daily Aspirin 325 Mg Tabs (Aspirin) ..... One tab daily Amlodipine Besylate 5 Mg Tabs (Amlodipine besylate) ..... 1 tab daily [facility] Cardiology:ProBNP wa s elevated to 440. Echo showed normal EF and venous duplex was normal. She reported significant improvement with Demadex. [facility] Cardiology:ProBNP wa s elevated to 440. Echo showed normal EF and venous duplex was normal. She reported significant improvement with Demadex. [facility] Cardiology:BP today: 151/77 P rior BP: 150/82 (02/22/2015) The following medications were removed from the medication list: Furosemide 40 Mg Tabs (Furosemide) ..... 1 tab daily & #13;Her updated medication list for this problem includes: Torsemide 100 Mg Tabs (Torsemide) ..... One tab daily for one week. then, half tab daily Coreg 12.5 Mg Tabs (Carvedilol) ..... One tab. twice daily Lisinopril 40 Mg Tabs (Lisinopril) ..... One half tab. twice daily Aspirin 325 Mg Tabs (Aspirin) ..... One tab daily Amlodipine Besylate 5 Mg Tabs (Amlodipine besylate) ..... 1 tab daily Mitchel Ortega MD Cardiology Mitchel Ortega MD Cardiology:She has s ome pleuritic chest pain. Will obtain echo, venous duplex, check BMP, proBNP. Mitchel Ortega MD Cardiology:The pt co mplains of progressive leg swelling. The swelling continues even though she is taking 80mg of Lasix daily. Will obtain echo, venous duplex, check BMP, proBNP. We will start Demadex 100mg daily. Mitchel Ortega MD Cardiology:CHOL: 157 (03/01/2012) LDL: 72 (03/01/2012) HDL: 33 (03/01/2012) T (03/01/2012) Her updated medication list for this problem includes: Lipitor 20 Mg Tabs (Atorvastatin calcium) ..... 1 tablet by mouth daily Mitchel Ortega MD Cardiology:BP today: 150/82 P rior BP: 142/79 (10/18/2014) Her updated medication list for this problem includes: Furosemide 40 Mg Tabs (Furosemide) ..... 1 tab daily Coreg 12.5 Mg Tabs (Carvedilol) ..... One tab. twice daily Aspirin 325 Mg Tabs (Aspirin) ..... One tab daily Amlodipine Besylate 5 Mg Tabs (Amlodipine besylate) ..... 1 tab daily Mitchel Ortega MD Cardiology:No chest pain. Mitchel Ortega MD Cardiology:Pt had a recent admission to [facility] for COPD. Mitchel Ortega MD FOLLOW UP: H er updated medication list for this problem includes: Lasix 40 Mg Tabs (Furosemide) ..... One tab daily Coreg 12.5 Mg Tabs (Carvedilol) ..... One tab. twice daily Aspirin 325 Mg Tabs (Aspirin) ..... One tab daily Amlodipine Besylate 5 Mg Tabs (Amlodipine besylate) ..... 1 tab daily Klor-con 20 Meq Pack (Potassium chloride) ..... One tab twice daily Mitchel Ortega MD routine: H er updated medication list for this problem includes: Carvedilol 3.125 Mg Tabs (Carvedilol) ..... Take one tablet twice daily Enalapril Maleate 2.5 Mg Tabs (Enalapril maleate) ..... Take one tablet daily Lipitor 20 Mg Tabs (Atorvastatin calcium) ..... Take one tablet daily Aspirin 81 Mg Tabs (Aspirin) ..... Take one tablet daily BP today: 156/94 Prior BP: 144/88 (06/20/2008) N uclear Stress Findings: EF - 50%. T est is considered to be negative by ECG criteria. F ixed inferior wall defect consistent with diaphragmatic attenuation. (03/31/2006) C ardiac Cath: Severe triple vessel CAD. Normal LV systolic function. EF 60%. Normal renal arteries. (02/21/2008) C arotid Doppler/Duplex: Mild plaque and mild stenosis in right external carotid artery 70-80%. B ilateral normal CCA, ICA, vertebral artery & left duplex scan. [facility] (07/05/2007) H gb: 14.3 (02/14/2008) HCT: 43.6 (02/14/2008) RBC: 5.07 (02/14/2008) WBC: 7.8 (02/14/2008) B UN: 16 (02/14/2008) Creat: 0.77 (02/14/2008) Na+: 139 (02/14/2008) K+: 4.2 (02/14/2008) PT: 9.5 (02/14/2008) INR: 0.9 (02/14/2008) Orders: C omplete Echo (CPT-53627) Mitchel Ortega MD routine: H er updated medication list for this problem includes: Carvedilol 3.125 Mg Tabs (Carvedilol) ..... Take one tablet twice daily Enalapril Maleate 2.5 Mg Tabs (Enalapril maleate) ..... Take one tablet daily Aspirin 81 Mg Tabs (Aspirin) ..... Take one tablet daily BP today: 156/94 Prior BP: 144/88 (06/20/2008) N uclear Stress Findings: EF - 50%. T est is considered to be negative by ECG criteria. F ixed inferior wall defect consistent with diaphragmatic attenuation. (03/31/2006) C ardiac Cath: Severe triple vessel CAD. Normal LV systolic function. EF 60%. Normal renal arteries. (02/21/2008) C arotid Doppler/Duplex: Mild plaque and mild stenosis in right external carotid artery 70-80%. B ilateral normal CCA, ICA, vertebral artery & left duplex scan. [facility] (07/05/2007) H gb: 14.3 (02/14/2008) HCT: 43.6 (02/14/2008) RBC: 5.07 (02/14/2008) WBC: 7.8 (02/14/2008) B UN: 16 (02/14/2008) Creat: 0.77 (02/14/2008) Na+: 139 (02/14/2008) K+: 4.2 (02/14/2008) PT: 9.5 (02/14/2008) INR: 0.9 (02/14/2008) E chocardiogram: The left ventricular chamber size is normal. Wall thickness is increased consistent with mild c oncentric left ventricular hypertrophy. Normal left ventricular function. LV EF is estimated at 55% M ild left atrial enlargement. T here is mitral annular calcification. Myxomatous mitral valve. M inimal mitral regurgitation. M inimal tricuspid regurgitation. (02/07/2008) Mitchel Ortega MD : H er updated medication list for this problem includes: Carvedilol 3.125 Mg Tabs (Carvedilol) ..... Take one tablet twice daily Enalapril Maleate 2.5 Mg Tabs (Enalapril maleate) ..... Take one tablet daily Aspirin 81 Mg Tabs (Aspirin) ..... Take one tablet daily Mitchel Ortega MD office visit: H er updated medication list for this problem includes: Carvedilol 3.125 Mg Tabs (Carvedilol) Enalapril Maleate 2.5 Mg Tabs (Enalapril maleate) Lipitor 20 Mg Tabs (Atorvastatin calcium) BP today: 130/77 Prior BP: 150/80 (01/31/2008) N uclear Stress Findings: EF - 50%. T est is considered to be negative by ECG criteria. F ixed inferior wall defect consistent with diaphragmatic attenuation. (03/31/2006) C ardiac Cath: Severe triple vessel CAD. Normal LV systolic function. EF 60%. Normal renal arteries. (02/21/2008) H gb: 14.3 (02/14/2008) HCT: 43.6 (02/14/2008) RBC: 5.07 (02/14/2008) WBC: 7.8 (02/14/2008) B UN: 16 (02/14/2008) Creat: 0.77 (02/14/2008) Na+: 139 (02/14/2008) K+: 4.2 (02/14/2008) PT: 9.5 (02/14/2008) INR: 0.9 (02/14/2008) Orders: O ther Test (*) Mitchel Ortega MD office visit: H er updated medication list for this problem includes: Furosemide 40 Mg Tabs (Furosemide) ..... One tab daily Carvedilol 3.125 Mg Tabs (Carvedilol) Enalapril Maleate 2.5 Mg Tabs (Enalapril maleate) BP today: 130/77 P rior BP: 150/80 (01/31/2008) Labs Reviewed: C reat: 0.77 (02/14/2008) Mitchel Ortega MD office visit: H er updated medication list for this problem includes: Enalapril Maleate 2.5 Mg Tabs (Enalapril maleate) Novolog 100 Unit/ml Soln (Insulin aspart) Lantus 100 Unit/ml Soln (Insulin glargine) BP today: 130/77 Prior BP: 150/80 (01/31/2008) Labs Reviewed: C reat: 0.77 (02/14/2008) Mitchel Ortega MD office visit: H er updated medication list for this problem includes: Lipitor 20 Mg Tabs (Atorvastatin calcium) BP today: 130/77 Prior BP: 150/80 (01/31/2008) Mitchel Ortega MD office visit: H er updated medication list for this problem includes: Furosemide 40 Mg Tabs (Furosemide) ..... One tab daily Carvedilol 3.125 Mg Tabs (Carvedilol) Enalapril Maleate 2.5 Mg Tabs (Enalapril maleate) Aspirin 81 Mg Tabs (Aspirin) ..... One tab. daily BP today: 130/77 P rior BP: 150/80 (01/31/2008) Labs Reviewed: C reat: 0.77 (02/14/2008) Mitchel Ortega MD office visit: H er updated medication list for this problem includes: Carvedilol 3.125 Mg Tabs (Carvedilol) Enalapril Maleate 2.5 Mg Tabs (Enalapril maleate) Aspirin 81 Mg Tabs (Aspirin) ..... One tab. daily BP today: 130/77 Prior BP: 150/80 (01/31/2008) N uclear Stress Findings: EF - 50%. T est is considered to be negative by ECG criteria. F ixed inferior wall defect consistent with diaphragmatic attenuation. (03/31/2006) C ardiac Cath: Severe triple vessel CAD. Normal LV systolic function. EF 60%. Normal renal arteries. (02/21/2008) H gb: 14.3 (02/14/2008) HCT: 43.6 (02/14/2008) RBC: 5.07 (02/14/2008) WBC: 7.8 (02/14/2008) B UN: 16 (02/14/2008) Creat: 0.77 (02/14/2008) Na+: 139 (02/14/2008) K+: 4.2 (02/14/2008) PT: 9.5 (02/14/2008) INR: 0.9 (02/14/2008) E chocardiogram: The left ventricular chamber size is normal. Wall thickness is increased consistent with mild c oncentric left ventricular hypertrophy. Normal left ventricular function. LV EF is estimated at 55% M ild left atrial enlargement. T here is mitral annular calcification. Myxomatous mitral valve. M inimal mitral regurgitation. M inimal tricuspid regurgitation. (02/07/2008) Mitchel Ortega MD office visit: B P today: 150/80 Prior BP: 212/106 (01/17/2008) Mitchel Ortega MD office visit: T he following medications were removed from the medication list: Clonidine Hcl 0.1 Mg Tabs (Clonidine hcl) ..... One tab. twice daily Accuretic 10-12.5 Mg Tabs (Quinapril-hydrochlorothiazide) ..... One tab. daily Her updated medication list for this problem includes: Coreg 25 Mg Tabs (Carvedilol) ..... One tab. twice daily Quinapril Hcl 40 Mg Tabs (Quinapril hcl) ..... Bid Avalide 300-25 Mg Tabs (Irbesartan-hydrochlorothiazide) ..... One tab. daily Furosemide 40 Mg Tabs (Furosemide) ..... One tab daily Hydralazine Hcl 50 Mg Tabs (Hydralazine hcl) ..... One tablet twice a day. BP today: 150/80 P rior BP: 212/106 (01/17/2008) Mitchel Ortega MD office visit: T desmond following medications were removed from the medication list: Accuretic 10-12.5 Mg Tabs (Quinapril-hydrochlorothiazide) ..... One tab. daily Her updated medication list for this problem includes: Quinapril Hcl 40 Mg Tabs (Quinapril hcl) ..... Bid Metformin Hcl 1000 Mg Tabs (Metformin hcl) ..... Bid Actos 30 Mg Tabs (Pioglitazone hcl) ..... One tab. daily Avalide 300-25 Mg Tabs (Irbesartan-hydrochlorothiazide) ..... One tab. daily Glimepiride 4 Mg Tabs (Glimepiride) ..... One tab daily BP today: 150/80 Prior BP: 212/106 (01/17/2008) Mitchel Ortega MD office visit: T desmond following medications were removed from the medication list: Clonidine Hcl 0.1 Mg Tabs (Clonidine hcl) ..... One tab. twice daily Accuretic 10-12.5 Mg Tabs (Quinapril-hydrochlorothiazide) ..... One tab. daily Her updated medication list for this problem includes: Coreg 25 Mg Tabs (Carvedilol) ..... One tab. twice daily Quinapril Hcl 40 Mg Tabs (Quinapril hcl) ..... Bid Avalide 300-25 Mg Tabs (Irbesartan-hydrochlorothiazide) ..... One tab. daily Furosemide 40 Mg Tabs (Furosemide) ..... One tab daily Hydralazine Hcl 50 Mg Tabs (Hydralazine hcl) ..... One tablet twice a day. c ould not tolerate clonidine due to nausea and vomiting. B P today: 150/80 P rior BP: 212/106 (01/17/2008) Orders: E KG (CPT-01591) C omplete Echo (CPT-32679) Mitchel Ortega MD office visit: T he following medications were removed from the medication list: Accuretic 10-12.5 Mg Tabs (Quinapril-hydrochlorothiazide) ..... One tab. daily Her updated medication list for this problem includes: Coreg 25 Mg Tabs (Carvedilol) ..... One tab. twice daily Quinapril Hcl 40 Mg Tabs (Quinapril hcl) ..... Bid Hydralazine Hcl 50 Mg Tabs (Hydralazine hcl) ..... One tablet twice a day. BP today: 150/80 Prior BP: 212/106 (01/17/2008) N uclear Stress Findings: EF - 50%. T est is considered to be negative by ECG criteria. F ixed inferior wall defect consistent with diaphragmatic attenuation. (03/31/2006) E chocardiogram: EF - 50-55%. L VH. D ilated left venricle. D iastolic dysfunction. M ild left atrial enlargement. M yxomaouts mitral valve. M iltral annular calcification. C alcifed aortic valve. M Ild mitral regurgitation. M Ild tricuspid regurgitation. M Ild pulmonary hypertension. PA pressure is 37mmHg. (03/31/2006) Orders: C ardiac Cath - GC (*) Mitchel Ortega MD ov: H er updated medication list for this problem includes: Quinapril Hcl 40 Mg Tabs (Quinapril hcl) ..... Bid Metformin Hcl 1000 Mg Tabs (Metformin hcl) ..... Bid Actos 30 Mg Tabs (Pioglitazone hcl) ..... One tab. daily Avalide 300-25 Mg Tabs (Irbesartan-hydrochlorothiazide) ..... One tab. daily Glimepiride 4 Mg Tabs (Glimepiride) ..... One tab daily Accuretic 10-12.5 Mg Tabs (Quinapril-hydrochlorothiazide) ..... One tab. daily BP today: 212/106 Prior BP: / () Henry Abdul MD ov Henry Abdul MD Date Name PROTHROMBIN TIME WIT H INR LIPID PANEL CBC (INCLUDES DIFF/P LT) BASIC METABOLIC PANE L W/EGFR Microalb/Creatinine Urine, Random HEMOGLOBIN A1c PROBNP, N TERMINAL BASIC METABOLIC PANE L W/EGFR LIPID PANEL Monitor - Telemetry (Mobile Cardiac) Stress Exercise Card iolite Carotid Duplex Bilat eral Arterial Duplex Bi-L ower EX Venous Doppler Bilat eral LE - Reflux Venous Doppler Bilat eral LE - Reflux Arterial Duplex Bi-L ower EX Complete Echo Complete Echo Monitor - Telemetry (Mobile Cardiac) Complete Echo Stress Exercise Card iolite Venous Doppler Bilat eral LE - Reflux Arterial Duplex Bi-L ower EX COVID19 nasal swab ( LC) Covid Antibody IgA ( LC) Covid Antibody IgM ( LC) Covid Antibody Igg PROTHROMBIN TIME WIT H INR LIPID PANEL CBC (INCLUDES DIFF/P LT) BASIC METABOLIC PANE L W/EGFR Holter Monitor 24 Hr Venous Doppler Bilat eral LE - Reflux Stress Exercise Card iolite Complete Echo LIPID PANEL URINALYSIS, RANDOM, MICROALB/CREATININE HEMOGLOBIN A1c BASIC METABOLIC PANE L W/EGFR Complete Echo LIPID PANEL BASIC METABOLIC PANE L W/EGFR CBC (INCLUDES DIFF/P LT) PROTHROMBIN TIME WIT H INR LIPID PANEL BASIC METABOLIC PANE L W/EGFR PROBNP, N TERMINAL Venous Doppler Bilat eral LE - Reflux Carotid Duplex Bilat eral LIPID PANEL Carotid Duplex Bilat eral HEPATIC FUNCTION GARCES EL PROTEIN, TOTAL, RAND OM URINE (W/ CREATININE) RENAL FUNCTION PANEL W/EGFR VITAMIN D, 25-HYDROX Y, LC/MS/MS LIPID PANEL BASIC METABOLIC PANE L W/EGFR PROBNP, N TERMINAL Venous Doppler Bilat eral LE Complete Echo HEMOGLOBIN A1c Venous Doppler Bilat eral LE - Standing Arterial Duplex Bi-L ower EX Full PFT B TYPE NATRIURETIC P EPTIDE (BNP) BASIC METABOLIC PANE L W/EGFR Complete Echo Cardiac Cath - L/R - GC THYROID PANEL WITH T SH, 3RD GENERATION B TYPE NATRIURETIC P EPTIDE (BNP) BASIC METABOLIC PANE L W/EGFR Complete Echo Venous Doppler Bilat eral LE - Standing Venous Doppler Bilat eral LE Cardiopulmonary Stre ss Test Arterial Duplex Lowe r Extremity Bilateral Stress Test - Adenos ine Complete Echo Complete Echo Other Test Other Test Cardiac Cath - GC Complete Echo HISTORY OF PROCEDURES Procedure Date Procedure Name Provider Procedure Notes S tatus Complex e/m visit add on Mitchel Ortega MD completed EKG Mitchel Ortega MD completed Complex e/m visit add on Mitchel Ortega MD completed EKG Mitchel Ortega MD completed EKG Mitchel Ortega MD completed Cardiolite, 2 units Mitchel Ortega MD c ompleted SPECT Images Mitchel Ortega MD complete d Stress EKG Mitchel Ortega MD completed Holter, 24 or 48 Shakira Garcia comple pam EKG Mitchel Ortega MD completed EKG Mitchel Ortega MD completed SNOMED-CT: [id number] Physical Exam, Performed: Pulse Exam of Foot Mitchel Ortega MD completed SNOMED-CT: [id number] Current Medications Documented Mitchel Ortega MD completed SNOMED-CT: 31982456 Physical Exam, Performed: Pulse Exam of Foot Mitchel Ortega MD completed EKG Mitchel Ortega MD completed SNOMED-CT: 390109963 [id number] Current Medications Documented Mitchel Ortega MD completed SNOMED-CT: 38956508 Physical Exam, Performed: Pulse Exam of Foot Mitchel Ortega MD completed SNOMED-CT: 230409117 458392 Current Medications Documented Mitchel Ortega MD completed SNOMED-CT: 24348461 Physical Exam, Performed: Pulse Exam of Foot Mitchel Ortega MD completed SNOMED-CT: 105903729 380005 Current Medications Documented Mitchel Ortega MD completed SNOMED-CT: 26531678 Physical Exam, Performed: Pulse Exam of Foot Mitchel Ortega MD completed SNOMED-CT: 833883415 337842 Current Medications Documented Mitchel Ortega MD completed SNOMED-CT: 50053436 Physical Exam, Performed: Pulse Exam of Foot Mitchel Ortega MD completed SNOMED-CT: 585588660 377536 Current Medications Documented Mitchel Ortega MD completed SNOMED-CT: 97524801 Physical Exam, Performed: Pulse Exam of Foot Mitchel Ortega MD completed EKG Mitchel Ortega MD completed SNOMED-CT: 197241101 506172 Current Medications Documented Mitchel Ortega MD completed Schedule Followup Mitchel Ortega MD 6 months com pleted SNOMED-CT: 74351454 Physical Exam, Performed: Pulse Exam of Foot Mitchel Ortega MD completed SNOMED-CT: 480232425 751231 Current Medications Documented Mitchel Ortega MD completed SNOMED-CT: 06348884 Physical Exam, Performed: Pulse Exam of Foot Mitchel Ortega MD completed SNOMED-CT: 800138037 121501 Current Medications Documented Mitchel Ortega MD completed SNOMED-CT: 52507701 Physical Exam, Performed: Pulse Exam of Foot Mitchel Ortega MD completed SNOMED-CT: 807410945 Smoking Cessation Counseling Mitchel Ortega MD completed SNOMED-CT: 679936618 322128 Current Medications Documented Mitchel Ortega MD completed EKG Mitchel Ortega MD completed DLCO - 90534 Mitchel Ortega MD complete d FRC - 78558 Mitchel Ortega MD completed FVC - 33566 Mitchel Ortega MD completed EKG Mitchel Ortega MD completed EKG Mitchel Ortega MD completed Lipid Strip Mitchel Ortega MD completed ePrescribe - Check t his box if eRx is used Mitchel Ortega MD completed EKG Mitchel Ortega MD completed EKG Henry Abdul MD completed EKG Mitchel Ortega MD completed
--- OUTSIDE RECORDS SUMMARY | 2024-05-12 11:14 | XMS_ITS | Data Portability ---
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 Not available 01/21/2024 08:59:14 Plan of Treatment Reminders Order Date Submit Date Provider Last Modified By Organization Details Last Modified Time Details Appointments None recorded. Lab glycohemogl obin, total, blood [address] (Lab), [address] [place], [address], 4 08:26:08 CBC w/ auto diff [address] (Lab), [address] [place], [address], 4 08:26:08 BMP, serum or plasma [address] (Lab), [address] [place], [address], 4 08:26:08 hepatic function panel, serum [email or web address] [facility] (Lab), [address] [place], [address], 4 08:26:08 TSH, serum or plasma [email or web address] [facility] (Lab), [address] [place], [address], 4 08:26:09 lipid panel, serum [email or web address] [facility] (Lab), [address] [place], [address], 4 08:26:08 alpha-1-ant itrypsin (aat) phenotype, serum [address] (Lab), [address] [place], [address], 4 15:14:47 BNP (B-type natriuretic peptide), serum or plasma [address] (Lab), [address] [place], [address], 4 15:14:58 ige, total, serum [address] (Lab), [address] [place], [address], 4 15:15:09 tb (M tuberculosi s), ifn-gamma janak, blood [address] (Lab), [address] [place], [address], 4 15:15:20 eosinophil count, manual, blood (OBS) [email or web address] [facility] (Lab), [address] [place], [address], 4 15:15:29 igg subclasses 1+2+3+4, serum [email or web address] [facility] (Lab), [address] [place], [address], 4 15:15:38 respiratory allergen panel, [facility] A, serum [email or web address] [facility] (Lab), [address] [place], [address], 4 15:15:48 respiratory allergen panel - [facility] b [email or web address] [facility] (Lab), [address] [place], [address], 4 15:15:59 Referral general surgeon referral 2022 023 [email or web address] Anthony Carlson MD, [address] [facility] [address],, [place], [address], 3 10:57:28 ict business development manager referral 2023 024 [email or web address] Martell Artis Jr DPM, [address], [place], [address], 4 11:09:45 Procedures None recorded. Surgeries None recorded. Imaging MAMMO, screening, digital, bilateral [email or web address] [facility] (Imaging), [address] [place], [address], 4 14:23:05 XR, abdomen 2023 024 GREY [facility], [address], [place], [address], 4 11:04:30 NM, hepatobilia ry scan - no auth required 2023 024 [email or web address] [facility], [address] [facility] [address], [place], [address], 4 11:09:36 Medication Orders metoclopram heraclio 5 mg tablet 2022 023 [email or web address] 4 [id number], [address], [place], [address], 4 10:15:41 meclizine 25 mg tablet 2022 023 [email or web address] 4 [id number], [address], [place], [address], 4 10:15:28 Patient TargetsNo targets recorded. Patient Instructions Encounter Date Encounter Id Patient Instructions Last Modified By Organization Details Last Modified Time 07/09/2022 [id number] dementia rating scale-2* [email or web address] Not available 07/09/2022 15:17:52 alcohol misuse* [email or web address] Not available 07/09/2022 15:17:36 depression screening* [email or web address] Not available 07/09/2022 15:17:31 multi-dimensiona l health assessment questionnaire* [email or web address] Not available 07/09/2022 15:17:40 care plan* Not available 06/19 15:17:45 advance directiv es: care instructions Not available 07/09/2022 15:16:29 advance care planning: care instructions Not available 07/09/2022 15:16:28 [place] Advance Directives Not available 07/09/2022 15:16:28 Personalized [facility] Plan and Screening Recommendations Advance Directives - Do you have one? Advance Directives - Do we have your advance directive on file in your health record? Primary Prevention/Interven tion (prevents or decreases the chance of common diseases from occurring) Smoking Risk: Non Smoker Alcohol Misuse Screening: Negative Weight: Appropriate Overwei ght continue your current weight loss efforts Physical activity: minimum of 10-20 minutes of activity that causes mild breathlessness/day Nutrition: Good Average Fall Risk (screened today): Low Vaccines Pneumococcal: Ordered Recommended today Recommended today, but you have declined No further needed Influenza: Chronic Disease Risks Stroke: I have no recommendations Act theo diagnosis, Continue current treatment plan Heart Attack: I have no recommendations Act theo diagnosis, Continue current treatment plan Clogging of the Arteries: I have no recommendations Act theo diagnosis, Continue current treatment plan Diabetes: Secondary Prevention/Interven tion (detects treatable diseases before they may cause symptoms, disability, or ) Breast Cancer Screening with mammogram: Cervical/Uterine/Ov fabián Cancer Screening: Osteoporosis Screening: Date Screening Last Performed: Colon Cancer Screening: Colonoscopy In: Ordered Date Screening Last Performed: Eye Disease Screening: Ordered Recommended today Dementia Risk: Low Depression Screening: Negative [place] [address] Not available 07/15/2022 23:20:19 01/20/2024 [id number] complete PFT w/ post bronchodilator spirometry* - Please call patient to schedule. RADHA [id number] per [employer]. Not available 02/25/2024 12:21:55 Reason for Referral General Surgeon Referral for Recurrent hernia of anterior abdominal wall Referring Physician: Sarahi Olmos, Internal Medicine, Encounter Date: 07/09/2022 [employer] Referral for Gang lion cyst of left foot Referring Physician: Sarahi Olmos, Internal Medicine, Encounter Date: 04/27/2023 Results Created Date Observation Date Name Description Value Unit Range Abnormal Flag Note LastModifiedBy Organization Detail LastModifiedTime 06/27/19 23 06/25/2022 livan louie/yue wilkinson tic resul t No observ ation record ed. [facility]iology [address] [place] [address], [place], [address], 07/09/2022 14:47:43 07/25/19 23 07/08/2022 XR, chest , 2 view No observ ation record ed. [place] [id number] [facility] [address], [place], [address], 07/24/2022 13:20:46 02/24/20 23 01/28/2023 US, echoc ardio gram, trans thora cic, compl ete, w/ color flow No observ ation record ed. [email or web address] [facility] [address] [facility] [address], [place], [address], 02/23/2023 17:39:18 03/02/20 23 01/19/2023 CT, abdom en + pelvi s, w/ contr ast No observ ation record ed. [address] Imaging [address] [facility] [address], [place], [address], 04/27/2023 13:13:10 04/24/19 24 04/24/2023 US, abdom en, compl ete No observ ation record ed. [address] (Imaging) [address] [facility], [place], [address], 04/27/2023 10:31:30 04/28/19 24 04/27/2023 XR, abdom en No observ ation record ed. [email or web address] [address], [place], [address], 04/30/2023 15:42:59 05/20/19 24 05/07/2023 US, doppl er, arter ial No observ ation record ed. [email or web address] [facility] [address], [place], [address], 05/20/2023 12:54:55 12/14/19 24 12/11/2023 FL, modif iemaria eugenia lopez study No observ ation record ed. [email or web address] [place] [address] [facility] [address], [place], [address], 12/14/2023 08:50:06 12/14/19 24 12/11/2023 [place], modif ied dorothy lopez ow study No observ ation record ed. [email or web address] Not Available 2023 09:11:10 12/22/19 24 12/22/2023 [place], modif ied dorothy lopez ow study No observ ation record ed. [facility] [address], [place], [address], 12/22/2023 11:04:35 01/19/20 24 12/07/2023 XR, chest , 1 view No observ ation record ed. [email or web address] Not Available 2023 15:43:29 Result Notes None recorded. Problems Name Problem SNOMED Code Status Onset Date Resolution Date Notes Provider Name and Address Organization Details Recorded Time Hiatal hernia with gastroesop hageal reflux 453200377 Active 2022 Not Available [employer] 4 09:41:20 Recurrent hernia of anterior abdominal wall 276391037 Active 2022 Not Available [employer] 4 09:41:20 Benign paroxysmal positional vertigo 193956088 Active 2022 Not Available [facility] 4 09:41:19 Allergic rhinitis 29866145 Active 2022 Not Available [facility] 4 09:41:20 Dysfunctio n of bilateral eustachian tubes 4902651796777 100 Active 2021 Not Available [facility] 4 09:41:19 Benign essential hypertensi on 8111494 Active 2018 Not Available [facility] 4 09:41:19 Trigger finger of left hand 1458220812917 9107 Active 2021 Not Available [facility] 4 09:41:19 Disorder of kidney due to diabetes mellitus 110667713 Active Not Available [facility] 4 09:41:19 Chronic obstructiv e pulmonary disease 42167979 Active Not Available [facility] 4 09:41:19 Bilateral trigger fingers 5957633877505 9109 Active 2021 Not Available [facility] 4 09:41:19 Multiple complicati ons due to type 2 diabetes mellitus Active 2021 Not Available [facility] 4 09:41:19 Steatosis of liver 790750591 Active Not Available [facility] 4 09:41:19 Abdominal pain 08759630 Active Not Available [facility] 4 09:41:19 Pneumonia 657983795 Active Not Available [facility] 4 09:41:19 Gastroesop hageal reflux disease 982624279 Active Not Available [facility] 4 09:41:19 Morbid obesity 968514916 Active Not Available [facility] 4 09:41:19 Tendon triggering 698800293 Active Not Available [facility] 4 09:41:19 Degenerati on of lumbar interverte bral disc 00777208 Active 2021 Not Available [facility] 4 09:41:19 Ventricula r hypertroph y 212103396 Active Not Available [facility] 4 09:41:19 Low back pain 549853919 Active Not Available [facility] 4 09:41:19 Right sided abdominal pain 045286489 Active 2022 Not Available [facility] 4 09:41:19 Finding of appearance of nail 842802683 Active Not Available [facility] 4 09:41:19 Osteopenia 887242426 Active Not Available [facility] 4 09:41:19 Pain in left foot 8895045630052 07 Active 2021 Not Available [facility] 4 09:41:20 Pain of left hand 9021085256123 03 Active 2021 Not Available [facility] 4 09:41:20 Right side sciatica 4715465394983 01 Active 2021 Not Available [facility] 4 09:41:20 Bronchitis 93125014 Active Not Available [facility] 4 09:41:20 Hypertensi ve disorder 71124029 Active Not Available [facility] 4 09:41:20 Osteoarthr itis 797981603 Active Not Available [facility] 4 09:41:20 Visual impairment 417764694 Active Not Available [facility] 4 09:41:20 Dizziness 406832571 Active 2021 Not Available [facility] 4 09:41:20 Nausea 114354868 Active 2022 Not Available [facility] 4 09:41:20 Type 2 diabetes mellitus 67297587 Active 2018 Not Available [facility] 4 09:41:20 Seasonal allergy 939106385 Active Not Available [facility] 4 09:41:20 Postviral cough 325782744 Active 2021 Not Available [facility] 4 09:41:20 Pain of left knee joint 7692331082372 07 Active 2022 Not Available [facility] 4 09:41:20 Dysuria 11322983 Active Not Available [facility] 4 09:41:20 Cough 97926710 Active Not Available [facility] 4 09:41:20 Coronary arterioscl erosis 53381880 Active Not Available [facility] 4 09:41:20 Upper respirator y infection 32178229 Active Not Available [facility] 4 09:41:20 Hyperlipid emia 22229644 Active 2018 Not Available [facility] 4 09:41:20 Essential hypertensi on 11730063 Active Not Available [facility] 4 09:41:20 Diarrhea 16895311 Active Not Available [facility] 4 09:41:20 Otitis media 83107997 Active Not Available [facility] 4 09:41:20 Urinary tract infectious disease 59433549 Active Not Available [facility] 4 09:41:20 Chronic kidney disease 756049753 Active 2019 Not Available [facility] 4 09:41:20 Diabetes mellitus 57489266 Active Not Available [facility] 4 09:41:20 Obstructiv e sleep apnea syndrome 12457204 Active 2019 Not Available [facility] 4 09:41:20 Fatigue 03021758 Active Not Available [facility] 4 09:41:20 Kidney disease 02693184 Active Not Available [facility] 4 09:41:20 Uterine leiomyoma 41404456 Active Not Available [facility] 4 09:41:20 Skin lesion 39004754 Active Not Available [facility] 4 09:41:20 Disorder due to type 2 diabetes mellitus 880418826 Active 2022 Not Available [facility] 4 09:41:20 Abrasion of skin of right foot 8865038261911 9103 Active 2022 Not Available [facility] 4 09:41:19 Well controlled type 2 diabetes mellitus 615878695 Active 2022 Not Available [facility] 4 09:41:20 Cholelithi asis without obstructio n 71921299 Active 2023 Not Available [facility] 4 09:41:20 Ganglion cyst of left foot 8765889496818 103 Active 2023 Not Available [facility] 4 09:41:19 Dyssomnia 67893235 Active 2023 Not Available [facility] 4 09:41:20 Sensorineu ral hearing loss 41828496 Active 2023 Jennifer Kang RN null, [facility] 4 15:47:32 Dysphagia 77328901 Active 2023 Jennifer Kang RN null, [facility] 4 15:49:15 Mild chronic obstructiv e pulmonary disease 702747206 Active 2023 Yesenia Moreira NP [address] [facility], [place] [address], [place], [address] , [facility] 4 16:49:03 Dyspnea on exertion 87659945 Active 2023 Yesenia Moreira NP [address] [facility], [facility] [address], [place], [address] , [employer] 16:50:08 [facility] a 01796016 Active 2023 Yesenia Moreira NP [address], [place], [address] , [employer] 08:57:04 Notes:Some problems listed i n Documents: #[id number], #[id number], #[id number] could not be added to this patient's chart. Please review these documents and add these problems to the patient's chart manually as needed. Problem Notes None recorded. Procedures Surgical History Date Name Laterality Status Provider Name and Address Organization Details Recorded Time 07/10/19 Medicare Wellness CPT Code, subsequent completed Nella Araujo RN [place] [employer] 07/09/2022 14:28:05 01/31/20 22 Most Recent Bone Density completed GURMEET [place] [employer] 07/08/2022 11:03:17 01/10/20 22 Date of Last Mammogram completed GURMEET [place] [employer] 07/08/2022 11:03:31 04/06/20 19 Date of Last Colonoscopy completed Not Available [facility] 06/18/2022 03:02:44 12/08/19 16 Colonoscopy completed Not Available [facility] 06/18/2022 03:02:46 Cardiovascular Procedure completed Not Available [facility] 06/18/2022 03:02:46 Carpal tunnel surgery completed Not Available [facility] 06/18/2022 03:02:46 Knee Surgery completed Not Available [facility] 06/18/2022 03:02:46 Hernia Repair completed Not Available [facility] 06/18/2022 03:02:46 CABG completed Not Available [facility] 06/18/2022 03:02:46 section completed Not Available [facility] 06/18/2022 03:02:46 procedure on heart completed Not Available [facility] 06/18/2022 03:02:46 Tonsillectomy completed SNEHA Nava [place] Thryve [facility] [employer] [facility] 11/03/2023 11:14:04 Imaging Results Imaging Date Name Status LastModified by Organiz ation Details LastModified Time 06/25/2022 imaging/diagn ostic result completed [address] Radiology [address], [place], [address], 07/09/2022 14:47:43 07/08/2022 XR, chest, [address], [place], [address], 07/24/2022 13:20:46 01/28/2023 US, echocardiogra m, transthoracic , complete, w/ color flow completed [email or web address] [facility] [address] [facility] [address], [place], [address], 02/23/2023 17:39:18 01/19/2023 CT, abdomen + pelvis, w/ contrast completed [address] Imaging [address], [place], [address], 04/27/2023 13:13:10 04/24/2023 US, abdomen, complete completed [address] (Imaging) [address], [place], [address], 04/27/2023 10:31:30 04/27/2023 XR, abdomen completed [email or web address] [place] [address] [place] [address] [address], [place], [address], 04/30/2023 15:42:59 05/07/2023 US, doppler, arterial completed [email or web address] [facility] [address], [place], [address], 05/20/2023 12:54:55 12/11/2023 FL, modified barium swallow study completed [address], [place], [address], 12/14/2023 08:50:06 12/11/2023 FL, modified barium swallow study [email or web address] Information not available 12/17/2023 09:11:10 12/22/2023 FL, modified barium swallow study completed [facility] [address], [place], [address], 12/22/2023 11:04:35 12/07/2023 XR, chest, 1 view completed Information not available 01/20/2024 15:43:29 Procedure Notes None recorded. Medical Equipment None Reported. Allergies No known drug allergies Medications Name Sig Start Date Stop Date Status Note LastModified by Organization Details LastModified Time cyclobenzap rine 10 mg tablet TAKE 1 TABLET BY MOUTH EVERY 8 HOURS 11/04 completed Not Available Not Available Not Available furosemide 40 mg tablet Take 1 tablet every day by oral route for 30 days. active Not Available Not Available No t Available atorvastati n 40 mg tablet 10/06 completed Not Available Not Available Not Available metformin 500 mg tablet TAKE 1 TABLET BY MOUTH TWICE A DAY WITH MEALS 04/27 completed Not Available Not Available Not Available Augmentin 875 mg-125 mg tablet Take 1 tablet every 12 hours by oral route. 06/18 completed Not Available Not Available Not Available atorvastati n 80 mg tablet TAKE 1 TABLET BY MOUTH EVERY DAY active Not Available Not Available No t Available prednisone 10 mg tablet Take by oral route take 3 tabs for 2 days then 2 tabs for 2 days then 1 tab for 2 days . active Not Available Not Available No t Available cefuroxime axetil 250 mg tablet 10/10 completed Not Available Not Available Not Available atorvastati n 20 mg tablet 1 PO DAILY active Not Available Not Available No t Available carvedilol 12.5 mg tablet TAKE 1 TABLET BY MOUTH TWICE A DAY 04/27 completed Not Available Not Available Not Available ipratropium 0.5 mg-albutero l 3 mg (2.5 mg base)/3 mL nebulizatio n soln USE 1 IN NEBULIZER Q6H PRN SHORTNESS OF BREATH OR WHEEZING 06/27 completed PRN Not Available Not Available Not Available cetirizine 10 mg tablet Take 1 tablet every day by oral route for 30 days. 08/23 completed Not Available Not Available Not Available azithromyci n 250 mg tablet TAKE 2 TABLETS (500 MG) BY ORAL ROUTE ONCE DAILY FOR 1 DAY THEN 1 TABLET (250 MG) BY ORAL ROUTE ONCE DAILY FOR 4 DAYS 05/26 completed Not Available Not Available Not Available aspirin 325 mg tablet Take 1 tablet every day by oral route. 2013 active Not Available Not Available Not Avai lable benzonatate 200 mg capsule Take 1 capsule 3 times a day by oral route. 01/01 completed Not Available Not Available Not Available hydrocodone 5 mg-acetamin ophen 325 mg tablet active Not Available Not Available No t Available Celestone Soluspan 6 mg/mL suspension for injection active Not Available Not Available No t Available famotidine 40 mg tablet Take 1 tablet every day by oral route. 11/04 completed Not Available Not Available Not Available prednisone 20 mg tablet TAKE 1 TABLET BY MOUTH DAILY FOR 5 DAYS 01/19 completed Not Available Not Available Not Available Rocephin 1 gram solution for injection active Not Available Not Available No t Available Advair Diskus 100 mcg-50 mcg/dose powder for inhalation 10/11 completed Not Available Not Available Not Available meclizine 12.5 mg tablet TAKE ONE TABLET UP TO THREE TIMES A DAY NEEDED 08/23 completed Not Available Not Available Not Available clopidogrel 75 mg tablet TAKE 1 TABLET BY MOUTH EVERY DAY 11/04 completed Not Available Not Available Not Available amlodipine 5 mg tablet TAKE 1 TABLET DAILY 06/27 completed Not Available Not Available Not Available aspirin 81 mg tablet,greg yed release TAKE ONE TABLET DAILY active Not Available Not Available No t Available tramadol 50 mg tablet 03/03 completed Not Available Not Available Not Available triamcinolo ne acetonide 0.1 % topical cream APPLY A THIN LAYER TO The rash on knees BY TOPICAL ROUTE 2 TIMES PER DAY PRN 06/27 completed Not Available Not Available Not Available Depo-Medrol 80 mg/mL suspension for injection active Not Available Not Available No t Available famotidine 20 mg tablet TAKE 1 TABLET BY MOUTH TWICE A DAY 04/27 completed Not Available Not Available Not Available metoclopram heraclio 5 mg tablet TAKE 1 TABLET BY MOUTH WITH BREAKFAST AND DINNER 04/27 completed Not Available Not Available Not Available torsemide 100 mg tablet TAKE 1/2 TABLET BY MOUTH EVERY DAY active Not Available Not Available No t Available trazodone 100 mg tablet TAKE 1/2 TO 1 TAB BY MOUTH AT BEDTIME NEEDED FOR SLEEP ISSUES active Not Available Not Available No t Available meclizine 25 mg tablet Take 1 tablet 3 times a day by oral route as needed. 04/27 completed Not Available Not Available Not Available amlodipine 10 mg tablet TAKE 1 TABLET BY MOUTH EVERY DAY active Not Available Not Available No t Available hydrocodone 7.5 mg-acetamin ophen 325 mg tablet TAKE 1 TABLET BY MOUTH EVERY 6 HOURS NEEDED 06/27 completed Not Available Not Available Not Available cephalexin 500 mg capsule TAKE 1 CAPSULE BY MOUTH EVERY 6 HOURS 04/27 completed Not Available Not Available Not Available oseltamivir 75 mg capsule 01/06 completed Not Available Not Available Not Available nitrofurant oin macrocrysta l 100 mg capsule Take 1 capsule every 6 hours by oral route with meals for 5 days. active Not Available Not Available No t Available lisinopril 10 mg tablet TAKE 1 TABLET BY MOUTH EVERY DAY active Not Available Not Available No t Available prednisone 50 mg tablet 08/08 completed Not Available Not Available Not Available docusate sodium 100 mg capsule Take 1 capsule twice a day by oral route. active Not Available Not Available No t Available sertraline 25 mg tablet Take 1 tablet every day by oral route in the evening. 08/23 completed Not Available Not Available Not Available magnesium citrate oral solution TAKE DIRECTED 10/11 completed Not Available Not Available Not Available ergocalcife rol (vitamin D2) 1,250 mcg (50,000 unit) capsule TAKE 1 CAPSULE BY MOUTH ONCE WEEKLY active Not Available Not Available No t Available levalbutero l 1.25 mg/3 mL solution for nebulizatio n Inhale 3 mL every 8 hours by nebulizat ion route as needed. active Not Available Not Available No t Available polyethylen e glycol 3350 17 gram/dose oral powder MIX 17GRAMS DIRECTED AND TAKE ONCE DAILY 11/04 completed Not Available Not Available Not Available levofloxaci n 750 mg tablet Take 1 tablet every day by oral route. active Not Available Not Available No t Available methylpredn isolone 4 mg tablets in a dose pack TAKE 6 TABLETS ON DAY 1 DIRECTED ON PACKAGE AND DECREASE BY 1 TAB EACH DAY FOR A TOTAL OF 6 DAYS 02/04 completed Not Available Not Available Not Available albuterol sulfate HFA 90 mcg/actuati on aerosol inhaler INHALE 1 TO 2 PUFFS BY MOUTH EVERY 4 TO 6 HOURS NEEDED active Not Available Not Available No t Available lisinopril 40 mg tablet TAKE 1 TABLET BY MOUTH EVERY DAY 07/09 completed Not Available Not Available Not Available ondansetron 4 mg disintegrat ing tablet TAKE 1 TABLET BY MOUTH EVERY 8 HOURS NEEDED FOR NAUSEA AND VOMITING 11/04 completed Not Available Not Available Not Available losartan 100 mg tablet Take 1 tablet every day by oral route. active Not Available Not Available No t Available fluticasone propionate 50 mcg/actuati on nasal spray,suspe nsion SPRAY 2 SPRAYS INTO EACH NOSTRIL EVERY DAY 04/27 completed Not Available Not Available Not Available metformin ER 500 mg tablet,exte nded release 24 hr TAKE 1 TABLET (500 MG TOTAL) BY MOUTH DAILY. active Not Available Not Available No t Available doxycycline hyclate 100 mg tablet active Not Available Not Available No t Available naproxen 500 mg tablet Take 1 tablet twice a day by oral route as needed for 30 days. 08/23 completed Not Available Not Available Not Available diazepam 5 mg tablet TAKE 1 TABLET BY MOUTH TWICE A DAY NEEDED FOR MUSCLE SPASM 11/02 completed Not Available Not Available Not Available metoclopram heraclio 10 mg tablet 08/23 completed Not Available Not Available Not Available oxycodone 5 mg tablet TAKE 1 TABLET BY MOUTH EVERY 4 HOURS NEEDED FOR PAIN 04/29 completed Not Available Not Available Not Available ciprofloxac in ER 500 mg tablet,exte nded release 24hr mphase active Not Available Not Available Not Available Novolog FlexPen U-100 Insulin aspart 100 unit/mL (3 mL) subcutaneou s inject 20 units before breakfast and lunch and 30 units before dinner 08/23 completed Not Available Not Available Not Available Klor-Con M20 mEq tablet,exte nded release TAKE 1 TABLET BY MOUTH TWICE A DAY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 Moreira, [place] [address] [facility], [facility] [address], [place], [address], [place] [facility] [employer] 01/21/2024 08:59:50 OBGyn Episode No OBEpisode recorded.
--- OUTSIDE RECORDS SUMMARY | 2024-05-12 11:14 | XMS_ITS | Data Portability ---
Author Organization [facility] RIAZAltagracia Address [address] [place] [address] Assessment Encounter Date Assessment Date Assessment LastModified by Organization Details LastModified Time 08/05/2023 08/05/2023 Colonoscopy was [email or web address] Not availabl e 08/05/2023 15:26:53 02/04/2024 02/04/2024 Colonoscopy was completed this year in November 07, 2023 showing diverticulosis and internal hemorrhoids with a repeat in 10 years. Mammogram is up-to-date from December 27 [email or web address] Not available 02/21/2024 12:03:41 Plan of Treatment Reminders Order Date Submit Date Provider Last Modified By Organization Details Last Modified Time Details Appointments ANY 15 2024 08:00A M MCKENZIE Mcdowell Not available Not available Not available Lab microa lbumin /creat inine, ratio, urine 2023 024 [facility] (Lab), [address] [place], [address], 02/11/2024 14:34:22 glycoh emoglo bin, total, blood 2023 024 [facility] (Lab), [address] [place], [address], 01/19/2024 10:26:46 CBC w/ auto diff 2023 024 [facility] (Lab), [address] [place], [address], 01/19/2024 10:26:47 BMP, serum or plasma 2023 [facility] (Lab), [address] [place], [address], 01/19/2024 10:26:46 hepati c functi on panel, serum 2023 [facility] (Lab), [address] [place], [address], 01/19/2024 10:26:47 TSH, serum or plasma 2023 [facility] (Lab), [address] [place], [address], 01/19/2024 10:26:46 vitami n B12, serum 2023 [facility] (Lab), [address] [place], [address], 01/19/2024 10:26:47 lipid panel, serum 2023 [facility] (Lab), [address] [place], [address], 02/11/2024 14:34:22 microa lbumin /creat inine, ratio, urine 2023 024 [facility] (Lab), [address] [place], [address], 02/12/2024 12:22:12 glycoh emoglo bin, total, blood 2023 [facility] (Lab), [address] [place], [address], 02/12/2024 12:22:21 urinal ysis comple te, reflex cultur e 2023 024 [facility] (Lab), [address] [place], [address], 02/12/2024 12:22:47 CBC w/ auto diff 2023 024 [facility] (Lab), [address] [place], [address], 02/12/2024 12:22:55 BMP, serum or plasma 2023 024 [facility] (Lab), [address] [place], [address], 02/12/2024 12:23:05 hepati c functi on panel, serum 2023 [facility] (Lab), [address] [place], [address], 02/12/2024 12:23:14 TSH, serum or plasma 2023 024 [facility] (Lab), [address] [place], [address], 02/12/2024 12:23:18 lipid panel, serum 2023 024 [facility] (Lab), [address] [place], [address], 02/12/2024 12:22:34 Referral None record ed. Procedures diagno stic colono scopy (PROC) 2023 024 [facility], [address], [address], [place], [address], 12/16/2023 13:59:56 upper endosc opy proced ure (EGD) (PROC) 2023 024 [email or web address] Germain self MD, [address], [address], [place], [address], 03/18/2024 14:09:11 Surgeries None record ed. Imaging PFT, comple te - with and withou t bronch odilat or 2023 [facility] (Resp Services), [address], [place], [address], 02/23/2024 12:17:19 Medication Orders famoti dine 40 mg tablet 2023 024 [facility]acy #[id number], [address], [place], [address], 02/04/2024 09:34:49 famoti dine 40 mg tablet 2023 024 [facility]/Pharmacy #[id number], [address], [place], [address], 02/04/2024 10:09:17 Patient TargetsNo targets recorded. Patient InstructionsNo instructions recorded. Reason for Referral None Reported. Results Created Date Observation Date Name Description Value Unit Range Abnormal Flag Note LastModifiedBy Organization Detail LastModifiedTime 07/06/1907/06/2023 CT, abdom en + pelvi s, w/o contr ast No observ ation record ed. [email or web address] [facility] [address], [place], [address], 08/03/2023 15:27:09 07/06/19 24 07/06/2023 NM, myoca rdial perfu ivonne scan No observ ation record ed. [email or web address] [facility] [address], [place], [address], 08/05/2023 15:23:05 08/13/19 24 08/13/2023 MAMMO , scree allyn, digit al, bilat eral No observ ation record ed. [email or web address] [facility] [address], [place], [address], 08/13/2023 15:32:28 12/02/19 24 12/01/2023 XR, knee No observ ation record ed. [address] [place], [address], 12/03/2023 22:54:00 12/07/19 24 12/07/2023 XR, chest No observ ation record ed. [address] [place], [address], 12/07/2023 12:29:08 12/11/19 24 12/11/2023 FL, modif ied dorothy lopez ow study No observ ation record ed. [place] [id number] [facility] [address] [facility], [place], [address], 12/11/2023 18:40:59 12/16/19 24 10/27/2023 diagn ostic colon oscop y (PROC ) No observ ation record ed. [address] [facility] [address], [place], [address], 12/16/2023 14:04:11 12/28/19 24 12/28/2023 MAMMO , scree allyn, digit al, bilat eral No observ ation record ed. [facility] [address] [facility] [address], [place], [address], 12/29/2023 16:45:41 02/23/20 24 02/15/2024 PFT, compl ete No observ ation record ed. [facility] (Resp Services) [address] [facility] [address], [address], 02/24/2024 11:39:04 Result Notes None recorded. Problems Name Problem SNOMED Code Status Onset Date Resolution Date Notes Provider Name and Address Organization Details Recorded Time Coronary atheroscler osis 833581802 Active 2023 MCKENZIE Mcdowell Attn: Hair g,[address] [facility], [place], [address], [place] [facility] 4 14:00:20 History of placement of stent in coronary artery bypass graft [id number] 00 Active 2023 MCKENZIE Mcdowell Attn: Accountin g,[address] [facility], [place], [address], [place] [facility] 4 14:00:22 Well controlled type 2 diabetes mellitus 421642009 Active 2023 MCKENZIE Mcdowell Attn: Accountin g,[address] [facility], [place], [address], [place] [facility] 4 14:00:23 Hyperlipide uma 04283782 Active 2023 MCKENZIE Mcdowell Attn: Accountin g,[address] [facility], [place], [address], [place] [facility] 4 14:00:24 Benign essential hypertensio n 3141991 Active 2023 MCKENZIE Mcdowell Attn: Accountin g,[address] [facility], [place], [address], [place] [facility] 4 14:00:25 Acid reflux 633596053 Active 2023 MCKENZIE Mcdowell Attn: Accountin g,[address] [facility], [place], [address], [place] [facility] 4 14:00:26 Chronic insomnia 282810532 Active 2023 MCKENZIE Mcdowell Attn: Accountin g,[address] [facility], [place], [address], [place] [facility] 4 14:00:28 Long-term drug therapy Active 2023 MCKENZIE Mcdowell Attn: Accountin g,[address] [facility], [place], [address], [place] [facility] 4 14:00:29 Lower urinary tract symptoms 142821254 Active 2023 MCKENZIE Mcdowell Attn: Hair rubio,[address] [facility], [place], [address], [facility] - SI 12:02:05 Chronic obstructive pulmonary disease 98126128 Active 2023 MCKENZIE Mcdowell Attn: Hair rubio,[address] [facility], [place], [address], [facility] - SI 12:02:07 Dysphagia 28417327 Active 2023 MCKENZIE Mcdowell Attn: Hair rubio,[address] [facility], [place], [address], [facility] - SI 12:02:37 Problem Notes None recorded. Procedures Surgical History Date Name Laterality Status Provider Name and Address Organization Details Recorded Time percutaneous transluminal venous angioplasty with insertion of stent [place] [facility] 08/05/2023 16:02:16 Coronary artery bypass/reop completed [place] [facility] 08/05/2023 16:02:38 Heart Surgery completed [place] [facility] 08/05/2023 16:02:46 Hernia Repair completed [place] [facility] 08/05/2023 16:02:52 Tonsillectomy completed [place] [facility] 08/05/2023 16:03:00 Imaging Results Imaging Date Name Status LastModified by Organization Details LastModified Time 07/06/2023 CT, abdomen + pelvis, w/o contrast completed [address] [facility], [place], [address], 08/03/2023 15:27:09 07/06/2023 NM, myocardial perfusion scan completed [address] [facility] [address] , [place], [address], 08/05/2023 15:23:05 08/13/2023 MAMMO, screening, digital, bilateral completed [email or web address] [facility] [address] [place], [address], 08/13/2023 15:32:28 12/01/2023 XR, knee completed [address] [place], [address], 12/03/2023 22:54:00 12/07/2023 XR, chest completed [address] [place], [address], 12/07/2023 12:29:08 12/11/2023 FL, modified barium swallow study completed [address], [address], 12/11/2023 18:40:59 10/27/2023 diagnostic colonoscopy (PROC) completed [address] [facility] [address] [place] [address] Route [facility] [address] [place] [address], [address], 12/16/2023 14:04:11 12/28/2023 MAMMO, screening, digital, bilateral completed [address], [address], 12/29/2023 16:45:41 02/15/2024 PFT, complete completed [facility]) [address] [place] [address], [address], 02/24/2024 11:39:04 Procedure Notes None recorded. Medical Equipment None Reported. Allergies Allergen ID Allergen Name Allergen Category Reaction Reaction Severity Criticality Documentation Date Start Date Code Code System Note Provider Name and Address Organization Details Recorded Time [id number] ethinyl estradiol / levonorge strel medicatio n facial swelling Not available Not available 02/04/2024 45289 8 RxNorm Not Available Not Available Not Available Medications Name Sig Start Date Stop Date Status Note LastModified by Organization Details LastModified Time cyclobenzap rine 10 mg tablet TAKE 1 TABLET BY MOUTH EVERY 8 HOURS active Not Available Not Available No t Available atorvastati n 80 mg tablet TAKE 1 TABLET BY MOUTH EVERY DAY active Not Available Not Available No t Available famotidine 40 mg tablet TAKE 1 TABLET BY MOUTH EVERY DAY WITH MEALS active Not Available Not Available No t Available prednisone 20 mg tablet TAKE 1 TABLET BY MOUTH DAILY FOR 5 DAYS 02/03 completed Not Available Not Available Not Available clopidogrel 75 mg tablet TAKE 1 TABLET BY MOUTH EVERY DAY 11/05 completed Not Available Not Available Not Available torsemide 100 mg tablet TAKE 1/2 TABLET BY MOUTH EVERY DAY active Not Available Not Available No t Available trazodone 100 mg tablet TAKE 1/2 TO 1 TABLET BY MOUTH EVERY EVENING AT BEDTIME NEEDED FOR SLEEP ISSUES 2023 active Not Available Not Available Not Avai lable amlodipine 10 mg tablet TAKE 1 TABLET BY MOUTH EVERY DAY active Not Available Not Available No t Available cephalexin 500 mg capsule TAKE 1 CAPSULE BY MOUTH EVERY 6 HOURS 08/04 completed Not Available Not Available Not Available lisinopril 10 mg tablet TAKE 1 TABLET BY MOUTH EVERY DAY active Not Available Not Available No t Available docusate sodium 100 mg capsule TAKE 1 SOFTGEL BY MOUTH TWICE A DAY active Not Available Not Available No t Available ergocalcife rol (vitamin D2) 1,250 mcg (50,000 unit) capsule TAKE 1 CAPSULE BY MOUTH ONCE WEEKLY active Not Available Not Available No t Available polyethylen e glycol 3350 17 gram/dose oral powder MIX 17GRAMS DIRECTED AND TAKE ONCE DAILY 08/04 completed Not Available Not Available Not Available ondansetron 4 mg disintegrat ing tablet TAKE 1 TABLET BY MOUTH EVERY 8 HOURS NEEDED FOR NAUSEA AND VOMITING active Not Available Not Available No t Available fluticasone propionate 50 mcg/actuati on nasal spray,suspe nsion SPRAY 2 SPRAYS INTO EACH NOSTRIL EVERY DAY 08/04 completed Not Available Not Available Not Available metformin ER 500 mg tablet,exte nded release 24 hr TAKE 1 TABLET (500 MG TOTAL) BY MOUTH DAILY. active Not Available Not Available No t Available diazepam 5 mg tablet TAKE 1 TABLET BY MOUTH TWICE A DAY NEEDED FOR MUSCLE SPASM 08/04 completed Not Available Not Available Not Available oxycodone 5 mg tablet TAKE 1 TABLET BY MOUTH EVERY 4 HOURS NEEDED FOR PAIN 08/04 completed Not Available Not Available Not Available Klor-Con M20 mEq tablet,exte nded release TAKE 1 TABLET BY MOUTH TWICE A DAY active Not Available Not Available No t Available aspirin 81mg active Not Available Not Avail able Not Available Vitals Date Recorded Body height Provider Name an d Address Organization Details Last Updated DateTime 08/05/2023 154.94 cm [place] [facility] 2023 15:12:07 Date Recorded Body mass index (BMI) Provider Name and Address Organization Details Last Updated DateTime 08/05/2023 36.9 kg/m2 [place] [facility] 2023 15:12:20 Date Recorded Body weight Provider Name an d Address Organization Details Last Updated DateTime 08/05/2023 83637.8 g [place] [facility] 2023 15:12:21 Date Recorded Respiratory rate Provider Name a nd Address Organization Details Last Updated DateTime 08/05/2023 20 /min [place] [facility] 08/05/2023 15:12:25 Date Recorded Oxygen saturation Oxygen saturation in Arterial blood by Pulse oximetry Provider Name and Address Organization Details Last Updated DateTime 08/05/2023 98 % 98 % MCKENZIE Mcdowell Attn: Accounting,[address] [place], [address], [facility] 08/05/2023 15:34:57 Date Recorded Heart rate Provider Name an d Address Organization Details Last Updated DateTime 08/05/2023 60 /min MCKENZIE Mcdowell Attn: Accounting,[address] [place], [address], [facility] 08/05/2023 15:35:03 Date Recorded Body height Provider Name an d Address Organization Details Last Updated DateTime 02/04/2024 154.94 cm Pineda Jimenez [place] [facility] 02/04/2024 09:36:23 Date Recorded Body mass index (BMI) Body weight Provider Name and Address Organization Details Last Updated DateTime 02/04/2024 40.1 kg/m2 27290.58 g Pineda Jimenez [place] [facility] 02/04/2024 09:36:29 Date Recorded Heart rate Provider Name an d Address Organization Details Last Updated DateTime 02/04/2024 58 /min Pineda leo, [place] [facility] 02/04/2024 09:36:32 Date Recorded Oxygen saturation Oxygen saturation in Arterial blood by Pulse oximetry Provider Name and Address Organization Details Last Updated DateTime 02/04/2024 98 % 98 % Pineda Jimenez [place] [facility] 02/04/2024 09:36:38 Date Recorded Systolic blood pressure Diastolic blood pressure Provider Name and Address Organization Details Last Updated DateTime 08/05/2023 118 mm[Hg] 84 mm[Hg] MCKENZIE Mcdowell Attn: Accounting,[address] [facility], [place], [address], [facility] 08/05/2023 15:34:35 Date Recorded Systolic blood pressure Diastolic blood pressure Provider Name and Address Organization Details Last Updated DateTime 02/04/2024 118 mm[Hg] 80 mm[Hg] Pineda Jimenez [place] [facility] 02/04/2024 09:38:42 Social History Question Answer Notes LastModified by Organizat ion Details LastModified Time Tobacco Smoking Status Never Smoker marijuana Pineda Jimenez [place] null, [facility] 02/04/2024 09:36:02 What Is Your Level Of Alcohol Consumption? Occasional Wine Information not available 02/04/2024 Are You Blind Or Do You Have Difficulty Seeing? No Information not available 08/05/2023 In The 14 Days Before Symptom Onset, Have You Had Close Contact With A Laboratory-confir med COVID-19 While That Case Was Ill? No Information not available 08/05/2023 In The 14 Days Before Symptom Onset, Have You Had Close Contact With A Person Who Is Under Investigation For COVID-19 While That Person Was Ill? No Information not available 08/05/2023 Have You Been To An Area Known To Be High Risk For COVID-19? No Information not available 08/05/2023 Are You Deaf Or Do You Have Serious Difficulty Hearing? No Information not available 08/05/2023 What Type Of Diet Are You Following? REGULAR Information not available 08/05/2023 Are There Any Guns Present In Your Home? No Information not available 08/05/2023 What Was The Date Of Your Most Recent Tobacco Screening? 02/04/2024 Information not available 02/04/2024 Do You Use Your Seat Belt Or Car Seat Routinely? Yes Information not available 08/05/2023 Do You Have Smoke And Carbon Monoxide Detectors In Your Home? Yes Information not available 08/05/2023 Do You Feel Stressed (tense, Restless, Nervous, Or Anxious, Or Unable To Sleep At Night)? [id number] Information not available 08/05/2023 Do You Use Sunscreen Routinely? No Information not available 08/05/2023 Has Tobacco Cessation Counseling Been Provided? No Information not available 02/04/2024 Do You Or Have You Ever Used Any Other Forms Of Tobacco Or Nicotine? No Information not available 02/04/2024 Sex: Female Functional Status Question Answer Note LastModified by Organization D etails LastModified Time Are you able to care for yourself? Yes Information not available 08/05/2023 What is your exercise level? Moderate Information not available 08/05/2023 Mental Status None recorded. Family History Relationship Description Onset Age of this Age Resolved Age Notes LastModified by Organization Details LastModified Time Sister Alcohol abuse [email or web address] Not available 2023 16:03:12 Sister Asthma [email or web address] Not available 08/05/2023 16:03:20 Sister Hypertensive disorder [email or web address] Not available 2023 16:04:37 Sister Migraine [email or web address] Not availabl e 08/05/2023 16:05:12 Mother Asthma tcarterma Not available 08/05/2023 16:03:20 Mother Dementia [email or web address] Not availabl e 08/05/2023 16:03:37 Mother Depressive disorder tcarterma Not available 2023 16:03:42 Mother Diabetes mellitus [email or web address] Not available 2023 16:03:55 Mother Disorder of thyroid gland tcarterma Not available 2023 16:04:02 Mother Heart disease tcarterma Not available 2023 16:04:15 Mother Hypertensive disorder tcarterma Not available 2023 16:04:37 Mother Hypercholest erolemia tcarterma Not available 2023 16:04:59 Father Coronary arterioscler osis tcarterma Not available 2023 16:03:30 Father Diabetes mellitus [email or web address] Not available 2023 16:03:55 Father Heart disease tcarterma Not available 2023 16:04:16 Father Hypertensive disorder tcarterma Not available 2023 16:04:37 Father Hypercholest erolemia tcarterma Not available 2023 16:04:59 Father Migraine tcarterma Not availabl e 08/05/2023 16:05:12 Brother Coronary arterioscler osis tcarterma Not available 2023 16:03:30 Brother Diabetes mellitus tcarterma Not available 2023 16:03:55 Brother Heart disease tcarterma Not available 2023 16:04:16 Brother Hypertensive disorder tcarterma Not available 2023 16:04:37 Brother Hypercholest erolemia tcarterma Not available 2023 16:04:59 Son Hypercholest erolemia tcarterma Not available 2023 16:04:59 Medical History Condition Response Coronary Artery Disease Y Other N Atrial Fibrillation N High Blood Pressure Y Depression N COPD Y Blood Clots N Anxiety Disorder N Muscle, Joint, or Bone Problems N Acid Reflux (GERD) N Cancer N Stroke N Headaches N Kidney or Bladder Problems N Skin Problems N Asthma N Allergies Y Hepatitis N High Cholesterol Y Liver Disease N Thyroid Problems N GI Problems N Anemia N Heart Attack (CT) N Diabetes N Seizures/Epilepsy N Heart Failure N Osteoporosis Y Gynecological History Statement/Question Response Menses Monthly N Current Control Method Other Obstetrics History GPAL:G 0 P 0 0 0 0 Immunizations Vaccine Type Date Status Note Provider Nam e and Address Organization Details Recorded Time Influenza, split virus, quadrivalent, preservative 6 completed [place], [place] [facility] 02/03/2024 09:55:49 Influenza, MDCK, quadrivalent, PF 0 completed [place] [facility] 02/03/2024 09:55:49 Influenza, high-dose, quadrivalent, PF 2 completed [place] [facility] 02/03/2024 09:55:49 COVID-19, mRNA, LNP-S, PF, 30 mcg/0.3 mL dose 1 completed [place] [facility] 02/03/2024 09:55:49 COVID-19, mRNA, LNP-S, PF, 30 mcg/0.3 mL dose 1 [place] [facility] 02/03/2024 09:55:49 COVID-19, mRNA, LNP-S, bivalent, PF, 30 mcg/0.3 mL dose 2 completed [place] [facility] 02/03/2024 09:55:49 RSV, recombinant, protein subunit RSVpreF, adjuvant reconstituted, 0.5 mL, PF 4 completed [place] [facility] 02/03/2024 09:55:49 COVID-19, mRNA, LNP-S, PF, wan-sucrose, 30 mcg/0.3 mL 4 completed [place] [facility] 02/03/2024 09:55:49 pneumococcal polysaccharide PPV23 1 completed [place] [facility] 02/03/2024 09:55:49 pneumococcal polysaccharide PPV23 6 completed [place] [facility] 02/03/2024 09:55:49 Tdap 6 completed [place] [facility] 02/03/2024 09:55:49 Tdap 6 completed [place] [facility] 02/03/2024 09:55:49 Influenza, split virus, trivalent, preservative 5 completed [place] [facility] 02/03/2024 09:55:49 Influenza, split virus, trivalent, preservative 5 completed [place] [facility] 02/03/2024 09:55:49 Influenza, split virus, quadrivalent, PF 9 completed [place] [facility] 02/03/2024 09:55:49 Past Encounters Encounter ID Performer Location Encounter Start Date Encounter Closed Date Diagnosis/Indication Diagnosis SNOMED-CT Code Diagnosis ICD10 Code Diagnosis Note [id number] MCKENZIE Mcdowell [facility] [employer] [address] [place] [address] 08/05/2023 14:56:02 08/05/2023 15:59:58 Coronary atherosclerosis 067821903 I25.10 stable. following with cardiology . History of placement of stent in coronary artery bypass graft [id number] 18877 Z95.1 stable Well contr olled type 2 diabetes mellitus 988238931 E11.9 stable on metformin therapy. next labs due in Jan. Hyperlipidemia 66587609 E78.5 stable on statin therapy. fasting lipids due in Jan. Benign ess ential hypertension 4589693 I10 stable on medication . Chronic insomnia 7721369 04 F51.04 use trazodone as directed for sleep. Long-term drug therapy 172649753 Z79.899 next lab panel due in January. Lower abdominal pain 545 57670 R10.30 refer for diagnostic colonoscop y as she had hernia surgery repair and that did not resolve pain, and she has had CT scan and there were no findings as source for her pain. she needs updated scope. Acid reflux 733274419 K2 1.9 refill famotidine 40mg daily. stable. [id number] MCKENZIE Mcdowell [facility] [employer] [address] [place] [address] 02/04/2024 09:15:37 02/08/2024 14:57:21 Coronary atherosclerosis 700143577 I25.10 stable. following with cardiology . Trevaomat ic. Patient had myocardial perfusion stress testing in June History of placement of stent in coronary artery bypass graft 2611069505 54244 Z95.1 stable Well contr olled type 2 diabetes mellitus 362385399 E11.9 stable on metformin therapy. A1c and microalbum in testing is due Hyperlipidemia 48976829 E78.5 stable on statin therapy. fasting lipids due Benign ess ential hypertension 2210354 I10 stable on medication . Acid reflux 485975217 K2 1.9 Patient is having some acid reflux. We will start famotidine 40 mg once daily to see if this helps with symptoms and was some of her dysphagia. Chronic insomnia [id number] F51.04 use trazodone as directed for sleep. Long-term drug therapy [id number] Z79.899 next lab panel due Lower urin tonya tract symptoms [id number] R39.9 Will always check a urine with reflex culture for her urinary frequency symptoms Chronic ob structive pulmonary disease [id number] J44.9 Refer for complete pulmonary function testing and follow-up with Pulmonary as indicated. She would like to have her COPD assessed Dysphagia [id number] R13.1 0 Refer for upper endoscopy EGD. Patient had previously discussed her symptoms with ear nose and throat and a modified barium swallow study was completed in November and it was normal. Health Concerns Section Related Observation LastModified by Organization Detai ls LastModified Time None Recorded Concern Status LastModified by Organization Details LastModified Time None Recorded Advance Directives Directive None Recorded Payers Encounter Date Sequence Insurance Name Policy Number Policy Duron Covered Member ID Duron Member ID Guarantor Name 08/05/2023 1 [employer] (HMO) [id number] Norma Power [id number] Norma Power 02/04/2024 1 [employer] - PRIME (MEDICARE REPLACEMENT/ ADVANTAGE - HMO) [id number] Norma Power [id number] Norma Power Notes Date Note Type Note Provider Name and Address Organization Details Recorded Time 08/05/19 24 text/htm l Abdominal PainReported bypatient.Location:[facility] Quality:pain;dull Severity:moderate Duration:constant Onset/Timing:worse Modifying Factors:nothing gives relief Associated Symptoms:no fever; no chills; no blood in the urine Other:denies possible pregnancyCoronary Artery Disease F/UReported bypatient.Notes:hx of CABG x 4. follows with dr. aguirre.DiabetesReported bypatient.Notes:pt is taking metformin therapy for glucose management.HyperlipidemiaReport ed bypatient.Notes:stable on statin therapyHypertensionReported bypatient.Notes:stable on amlodipine 10mg daily, and lisinopril 10mg dailyInsomniaReported bypatient.Notes:pt has trazodone to use for sleep issues. MCKENZIE Mcdowell Attn: Accounting,[address] [facility], [place], [address], [facility] 08/18/2023 14:00:43 02/04/20 24 text/htm l Coronary Artery Disease F/UReported bypatient.Notes:hx of CABG x 4. follows with dr. aguirre.DiabetesReported bypatient.Notes:pt is taking metformin therapy for glucose management.HyperlipidemiaReport ed bypatient.Notes:stable on statin therapyHypertensionReported bypatient.Notes:stable on amlodipine 10mg daily, and lisinopril 10mg dailyInsomniaReported bypatient.Notes:pt has trazodone to use for sleep issues. Patient reports that she has trouble swallowing at times not all the time but just having some difficulty with medications and solid foods. She has not choked or had any type of significant event but just feels discomfort. She does have a history of some acid reflux as well MCKENZIE Mcdowell Attn: Accounting,[address] [facility], [place], [address], [facility] - [facility] 02/21/2024 12:03:59 OBGyn Episode No OBEpisode recorded.
--- OUTSIDE RECORDS SUMMARY | 2024-05-12 11:14 | XMS_ITS | Clinical Summary ---
Author Organization [facility] Address [address] [place] [address]. [place], [place] [id number] [place] [id number] Care Team Providers Care Catalytic Converter Operator Helper Name Role Phone None, Provider MD Primary Care Provider Unavaila ble Allergies No known active allergies Medications ondansetron 4 MG disintegrating tablet Take 1 tablet (4 mg total) by mouth every 8 (eight) hours as needed for Nausea. 20 tablet Active Social History Tobacco Use Types Packs/Day Years Used Date Smoking Tobacco: Never Smokeless Tobacco: Never Alcohol Use Standard Drinks/Week Comments Yes 0 (1 standard drink = 0.6 oz pur e alcohol) occasional Comments No Sex and Gender Information Value Date Recorded Sex Assigned at Not on file Legal Sex Female 12:39 PM CDT Gender Identity Not on file Sexual Orientation Not on file Last Filed Vital Signs Vital Sign Reading Time Taken Comments Blood Pressure 109/59 08/23/2021 4:00 PM CDT Pulse 53 08/23/2021 4:00 PM CDT Temperature 36.8 ??C (98.2 ??F) 08/23/2021 2:49 PM CD T Respiratory Rate 15 08/23/2021 4:00 PM CDT Oxygen Saturation 98% 08/23/2021 4:00 PM CDT Inhaled Oxygen Concentration - - Weight 101.2 kg (223 lb) 08/23/2021 12:53 PM CDT Height 160 cm (5' 3 ) 08/23/2021 12:53 PM CDT Body Mass Index 39.5 08/23/2021 12:53 PM CDT Plan of Treatment Health Maintenance Due Date Last Done Comments Colorectal Cancer Screening Colonoscopy (10 Years) 1955 Hepatitis C 07/29/1973 Mammogram Screening 1995 Zoster Vaccines (1 of 2) 07/29/2005 Annual Medicare Wellness Visit 07/29/2020 Dexa Scan (General) 07/29/2020 Pneumococcal Vaccine: 65+ Years (2 of 2 - PCV) 07/29/2020 12/25/2010, 03/20/2006 COVID-19 Vaccine (3 - season) 2023 08/02/2020, 07/05/2020 Influenza Adult (#1) 2024 02/03/2020, 03/07/2019, 03/03/2018, Additional history exists DTaP, Tdap and Td Vaccines (3 - Td or Tdap) 03/04/2026 03/04/2016, 03/30/2006 RSV Immunization or 60+ Years (1 - 1-dose 75+ series) 07/29/2030 Meningococcal Vaccine Aged Out No babak irena eligible based on patient's age to complete this topic RSV Immunizations Under 20 Months Aged Out No longer eligible based on patient's age to complete this topic Insurance [employer] Care Teams Catalytic Converter Operator Helper Relationship Specialty Start Date End Date None, Provider, PCP - General 08/23/21
--- OUTSIDE RECORDS SUMMARY | 2024-05-12 11:15 | XMS_ITS | Clinical Summary ---
Author Organization [facility] [employer] [place] Address [address] [place] [address] Care Team Providers Care Wire Brush Maker Name Role Phone Mitchel Ortega MD Unavailable Sarahi Olmos Primary Care Pr ovider Allergies No known active allergies Medications calcium carbonate-vitamin D3 600 mg(1,500mg) -400 unit capsule take 2 daily 0 0 1 Active ergocalciferol (VITAMIN D2) 50,000 unit capsule take 1 capsule ([id number]) by oral route every week 0 1 Active blood-glucose meter (FREESTYLE LITE METER) kit take by [facility].(Non-Dr ug; Combo Route) route 0 kit 0 6 Active blood glucose diagnostic (FREESTYLE LITE STRIPS) strip test 1 by finger stick BS route before meals and bed time 0 strip 0 6 Active torsemide (DEMADEX) 100 mg tablet Take 0.5 tablets (50 mg total) by mouth daily Active VENTOLIN HFA 90 mcg/actuation inhaler Inhale 2 puffs every 4 (four) hours as needed 7 Active lisinopril (PRINIVIL,ZESTRIL) 40 mg tablet Take 1 tablet (40 mg total) by mouth daily 8 Active atorvastatin (LIPITOR) 80 mg tablet Take 1 tablet (80 mg total) by mouth daily 8 Active POTASSIUM CHLORIDE ER 20 mEq CR tablet Take 1 tablet (20 mEq total) by mouth 2 (two) times a day 8 Active aspirin 81 mg enteric coated tablet Take 1 tablet (81 mg total) by mouth daily Active clopidogreL (PLAVIX) 75 mg tablet Take by mouth 0 Active amLODIPine (NORVASC) 10 mg tablet Take 1 tablet (10 mg total) by mouth daily 2 Active ondansetron ODT (ZOFRAN-ODT) 4 mg disintegrating tablet Take 1 tablet (4 mg total) by mouth every 8 (eight) hours as needed for nausea or vomiting 12 tablet 4 Active metFORMIN XR (GLUCOPHAGE XR) 500 mg 24 hr tablet TAKE 1 TABLET (500 MG TOTAL) BY MOUTH DAILY. 90 tablet 3 4 01/22/20 25 Active Active Problems Problem Noted Date Diagnosed Date Class 2 severe obesity due t o excess calories with serious comorbidity and body mass index (BMI) of 36.0 to 36.9 in adult 05/12/2022 Assessment & Plan (05/12/2022 2:47 PM TE[facility]ER[employer]): Discussed healthy diet and importance of regular physical activity (20- 30min/day, 150min/wk). Weight slowly trending downward after diet changes. She's down 16# since last appt. Referral sent to [facility] television news photographer. Contact # given to Norma if no call rec'd . Hyperlipidemia due to type 2 diabetes mellitus 0 10/06/2019 Assessment & Plan (11/13/2022 2:39 PM CDT): Chronic, well controlled Low fat Low cholesterol diet Exercise Continue statin therapy with Atorvastatin Assessment & Plan (05/12/2022 2:48 PM TEACHER HOME THERAPY): Chronic problem. Last LDL=68 07/27/21. Atorvastatin 80mg daily. No changes at this time. Norma reports that she's recently had labs completed at PCP office. Will call to get copy sent to our office. Assessment & Plan (09/26/2021 2:58 PM CDT): Chronic problem. On statin therapy, no changes. Assessment & Plan (10/23/2020 4:08 PM CDT): Goal of treatment , LDL cholesterol less than 100 ( less than 70 in patients with history of heart attacks and / or strokes ) NonHDL cholesterol ( total cholesterol minus HDL cholesterol ) goal less than 130 ( less than 100 in patients with history of heart attacks and / or strokes ) Low cholesterol, low fat diet was discussed and advised. Daily exercise On statin therapy , max dose Lipitor LDL not at goal Pt to work on low cholesterol diet. Nee Assessment & Plan (10/06/2019 10:03 AM CDT): Goal of treatment , LDL cholesterol less than 100 ( less than 70 in patients with history of heart attacks and / or strokes ) NonHDL cholesterol ( total cholesterol minus HDL cholesterol ) goal less than 130 ( less than 100 in patients with history of heart attacks and / or strokes ) Low cholesterol, low fat diet was discussed and advised. Daily exercise On statin therapy with Lipitor Type 2 diabetes mellitus 07/12/2013 Overview (07/24/2016): DMII WO CMP UNCNTRLD Assessment & Plan (11/13/2022 2:38 PM CDT): Chronic, well controlled Diet and exercise BG monitoring 2 x wk Metformin XR 500 mg once day Will get report of last eye exam Assessment & Plan (05/12/2022 2:43 PM TE[employer]ER HOME THERAPY): Chronic problem, stable & well controlled on Metformin 500mg bid. Norma reports that she's had labs with PCP in last 1-2 months, will try to get copy from her office. [facility] Motor Inspection Mechanic: [phone]. I sent referral to them. Please call if you don't hear from them in the next few days. Please call to schedule diabetic eye exam & have copy of report sent to our office. Continue current medications: Metformin 500 mg twice daily. Assessment & Plan (09/26/2021 3:13 PM CDT): Chronic problem, stable on low dose metformin. We discussed retrying ozempic for further weight loss but she had side effects so will hold for now. She just had full routine labs including urine test last month per pt. Will request results. Assessment & Plan (10/23/2020 4:09 PM CDT): Hba1c was Lab Results Component Value Date HGBA1C 6.9 (A) 10/23/2020 today, indicating adequate DM control but rising hba1c Goals blood sugars of 120-160 and Hba1c under 7 % was explained. 1800 calorie, consistent carb diet recommended, no more than 3-45 grams of carbs per meal, avoiding concentrated sweet drinks and rapid absorption carbs. 25-45 min daily aerobic and resistance exercise recommended Blood glucose monitoring with fingers sticks. Restart Metformin Assessment & Plan (03/29/2020 2:41 PM TEACHER HOME THERAPY): Hba1c was Lab Results Component Value Date HGBA1C 6.3 03/29/2020 today, indicating adequate DM control Goals blood sugars of 120-160 and Hba1c under 7 % was explained. 1800 calorie, consistent carb diet recommended, no more than 3-45 grams of carbs per meal, avoiding concentrated sweet drinks and rapid absorption carbs. 25-45 min daily aerobic and resistance exercise recommended Continue metformin Assessment & Plan (10/06/2019 10:04 AM CDT): Hba1c was Lab Results Component Value Date HGBA1C 6.9 10/06/2019 today, indicating adequate DM control 1800 calorie, consistent carb diet recommended, no more than 3-45 grams of carbs per meal, avoiding concentrated sweet drinks and rapid absorption carbs. 25-45 min daily aerobic and resistance exercise recommended Prevention and treatment of hyypoglcyemia discussed. Medications: Continue Metformin Assessment & Plan (03/29/2019 10:24 AM TEACHER HOME THERAPY): Your Hba1c today was: Lab Results Component Value Date HGBA1C 8.1 03/29/2019 meaning a 3 month average sugar of : 184 Your goal hba1c is under 7.0 to prevent prison diabetes complications ( eye , kidney and nerve damage ) . Your goal sugars are in the 90-130 range Exercise recommendations: It is recommended that you do daily aerobic ( walking, riding a bike, swimming ) and resistance exercises ( light weight lifting, resistance band stretching ) for at least 30 minutes , most days of the week. If you can not walk, chair exercises for 10-15 min a day would help tremendously. As little as 15-20 minutes exercise , in one or two sessions a day, is still very helpful to improve your diabetes control . Diet recommendations: Eat small portion meals, trying not to consume more than 1800 calories a day . Try to eat not more than than 2 servings of carbs ( starches ) wiith your meals. Avoid soft drinks, including regular sodas , fruit juices and sweetened tea. Drink water instead. Eat plenty of green and leafy vegetables, including salads. Medications: Take your medications regularly. Setting phone alarms can help . Keep your medication on the kitchen dinner table, by the bedside table or by the sink where they are visible to you. Monitor your sugar levels with finger sticks regularly and keep a log sheet or book. Bring your sugar meter and /or a log book or log sheet to every office visit. Increase Metformin to 1000 mg twice a day ( two of the 500 mg tabs twice a day ) Start Farxiga, 10 mg daily ( it is a diabetes medication, it can help with some weight loss ) Assessment & Plan (09/23/2018 4:08 PM CDT): Ac 7.3. Continue metformin. Start Farxiga 5 mg daily. Advised she must have labs done within the week. Focus on diet and exercise. Portions sizes and timing of meals reviewed. Wt loss goal of 10 lbs before next follow up. Schedule dilated eye exam this month Assessment & Plan (02/08/2018 3:12 PM CDT): A1c 7.1. BG mostly controlled without medication since significant wt loss. Restart metformin at dinner and add breakfast dose in 1-2 weeks. Advised dilated eye exam before appointment Assessment & Plan (04/02/2017 10:30 AM TEACHER HOME THERAPY): A1c 6.1 improved from 8.6. Denies many lows now because she adjusted her insulin. Will try samples of Trulicity 0.75 mg to see if she tolerates lower dose. Take Lantus 20 bid and Novolog 5 tid ac. Send in BG weekly for the next month. Will adjust insulin based on tolerance of GLP1 and Bg readings. Assessment & Plan (01/01/2017 3:57 PM CDT): Hba1c was 8.9 today, indicating worsening, poor DM control 1800 calorie, consistent carb diet recommended 30 min daily aerobic and resistance exercise recommended Prevention and treatment of hyypoglcyemia discussed. Blood glucose monitoring with fingers sticks 1-2 x day . Foot care was discussed. Start bydureon Hypertension associated with diabetes 06/16/2012 Overview (07/25/2016): Unspecified essential hypertension Assessment & Plan (11/13/2022 2:39 PM CDT): Chronic, well controlled Importance of low salt diet and exercise were discussed Continue current meds, including Lisinopril Assessment & Plan (05/12/2022 2:49 PM TE[facility]ER [employer] THERAPY): Chronic problem, well controlled with current amlodipine 10mg daily, lisinopril 40mg daily. No changes at this time Assessment & Plan (09/26/2021 2:58 PM CDT): Controlled on current medications, no changes. Assessment & Plan (03/29/2020 2:41 PM TEACHER HOME THERAPY): Goal blood pressure is less than 140/85 Low salt diet was discussed andd recommended The importance of daily aerobic exercise was also emphasized. Continue current meds, including PAUL-I or ARB, e.g. Lisinopril Assessment & Plan (10/06/2019 10:03 AM CDT): Goal blood pressure is less than 140/85 Low salt diet recommended Daily aerobic exercise Continue current meds, including PAUL-I or ARB Check microalbumin Assessment & Plan (03/29/2019 10:26 AM TEACHER HOME THERAPY): Goal blood pressure is less than 140/85 Low salt diet recommended Daily aerobic exercise Continue current meds, including PAUL-I or ARB Check microalbumin Assessment & Plan (09/23/2018 4:09 PM CDT): Controlled on current medications. Assessment & Plan (02/08/2018 3:11 PM CDT): Controlled on current medications. Continue follow up with cardiology Assessment & Plan (04/02/2017 10:29 AM TEACHER HOME THERAPY): Controlled on current medications. Assessment & Plan (01/01/2017 3:56 PM CDT): Goal blood pressure is less than 140/85 Low salt diet recommended Daily aerobic exercise Continue current meds, including PAUL-I or ARB Resolved Problems Problem Noted Date Diagnosed Date Resolved Date BMI 39.0-39.9,adult 01/01/2017 05/09/19 23 Morbid obesity (CMS/HCC) 01/01/2017 Assessment & Plan (04/02/2017 10:28 AM TEACHER HOME THERAPY): Importance of following diet and exercising discussed. She is considering lap band. Hyperlipidemia 06/16/2012 05/09/2022 Overview (07/23/2016): HYPERLIPIDEMIA NEC/NOS Assessment & Plan (09/23/2018 4:06 PM CDT): Check lipid panel today. Assessment & Plan (02/08/2018 3:12 PM CDT): Will obtain recent labs from PCP and cardiology Assessment & Plan (04/02/2017 10:29 AM TEACHER HOME THERAPY): Check lipid panel. Surgical History Surgery Date Site/Laterality Comments CARPAL TUNNEL RELEASE Carpal tunnel release SECTION section CORONARY ARTERY BYPASS GRAFT CABG HERNIA REPAIR Hernia repair OTHER SURGICAL HISTORY 2010 Pneumonia: Drug therapy OTHER SURGICAL HISTORY Pneumonia: Hospitalization OTHER SURGICAL HISTORY 2011 infected boil of the abdomen: Hospitalization OTHER SURGICAL HISTORY 2011 Coronary artery disease: cardiac catheterization w/ stent placement Medical History Medical History Date Comments Type 2 diabetes mellitus (HCC) D iabetes type 2 Pneumonia 2010 Pneumonia; Outco me: improved Pneumonia 2011 Pneumonia; Outco me: resolved Hx Other Medical 2011 infected boil o f the abdomen; Outcome: resolved Cardiovascular disease 2012 Coronary artery disease; Outcome: successful Hx Other Medical NOT CLAUSTAPHOI C; Comments: ESCOTO 10/18/2013 - COPD (chronic obstructive pu lmonary disease) (HCC) Family History Medical History Relation Name Comments Diabetes type II Other Family hist ory of Diabetes -Type 2; Relation Name Status Comments Other Social History Tobacco Use Types Packs/Day Years Used Date Smoking Tobacco: Never Smokeless Tobacco: Never Tobacco Cessation:Counseling Given: Not Answered Alcohol Use Standard Drinks/Week Comments Yes 0 (1 standard drink = 0.6 oz pur e alcohol) PHQ-2 Answer Date Recorded PHQ-2 Total Score (If total score is 3 or more points, staff should administer the PHQ-9) 1 05/12/2022 Personal Safety Answer Date Recorded Have you ever been in or are you currently in a harmful physical or emotional relationship or is someone making you feel afraid or unsafe? Denies 09/19/2023 Comments No Sex and Gender Information Value Date Recorded Sex Assigned at Not on file Legal Sex Female 9:41 AM TEACHER HOME THER[employer] Gender Identity Not on file Sexual Orientation Not on file Obstetrics History Last Filed Vital Signs Vital Sign Reading Time Taken Comments Blood Pressure 151/79 09/19/2023 4:48 PM CDT Pulse 70 09/19/2023 4:48 PM CDT Temperature 37 ??C (98.6 ??F) 09/19/2023 1:33 PM CDT Respiratory Rate 18 09/19/2023 4:48 PM CDT Oxygen Saturation 100% 09/19/2023 4:48 PM CDT Inhaled Oxygen Concentration - - Weight 88.6 kg (195 lb 5.2 oz) 09/19/2023 1:33 P M CDT Height 154.9 cm (5' 1 ) 09/19/2023 1:33 PM CDT Body Mass Index 36.91 09/19/2023 1:33 PM CDT Plan of Treatment Health Maintenance Due Date Last Done Comments Breast Cancer Screening-Mammogram 1955 Colon Cancer Screening-Colonoscopy 1955 Fall Risk Assessment 1955 Hepatitis C Screening 1955 Hepatitis B Screening 07/29/1973 Zoster Vaccine (1 of 2) 07/29/2005 Pneumococcal vaccine 65+ (2 of 2 - PCV) 12/26/2011 12/25/2010, 03/20/2006 Well Visit 65+ 07/29/2020 Lipid Panel 02/24/2023 02/24/2022, 2 12/2021, 10/23/2020, Additional history exists eGFR 02/24/2023 02/24/2022, 09/10/2017 Albumin Creatinine Ratio, Urine 05/12/2023 3 Depression Screening 05/12/2023 05/12/2022, 03/29/2020, 03/29/2019, Additional history exists Foot Exam 05/12/2023 05/12/2022, 06/0 12/2021, 03/29/2020, Additional history exists Hemoglobin A1C 05/16/2023 11/13/2022, 04/21, 09/26/2021, Additional history exists Dilated Eye Exam 11/22/2023 11/21/2022, 10/17/2020 Influenza Vaccine (#1) 2023 , 03/07/2019, 03/03/2018, Additional history exists Osteoporosis Screening-Bone Density Scan 02/27/2024 02/26/2022, 09/10/2021, 09/10/2021 DTaP/Tdap/Td Vaccine (3 - Td or Tdap) 03/04/2026 03/04/2016, 03/30/2006 Procedures Procedure Name Priority Date/Time Associated Diagnosis Comments DIABETES EYE EXAM Routine 11/21/2022 8:00 AM CDT POCT HEMOGLOBIN A1C Routine 11/13/2022 1 :52 PM CDT Type 2 diabetes mellitus with hyperglycemia, without long-term current use of insulin ([facility]) ([facility]) ALBUMIN CREATININE RATIO, URINE Routine 05/12/2022 2:36 PM [facility] Type 2 diabetes mellitus with hyperglycemia, without long-term current use of insulin ([facility]) ([facility]) BASIC METABOLIC PANEL Routine 02/24/2022 7:18 AM [facility] LIPID PANEL Routine 02/24/2022 7:18 AM [facility]Y DEXA SCAN Routine 09/10/2021 from Last 3 Months or Most Recently Relevant to Health Maintenance Results * DIABETES EYE EXAM (11/21/2022 8:00 AM CDT) Result [facility] Historical Provider HEALTH MAINTENANCE Edited Result - Final * POCT hemoglobin A1c (11/13/2022 1:52 PM CDT) Hemoglobin A1C, POC 6.2 % Blood 11/13/2022 1:52 PM CDT Result [facility] Ricardo Franco MD POINT OF CARE TEST ORDERABLES Fi nal Result * Albumin Creatinine Ratio, Urine (05/12/2022 2:36 PM [facility]) Albumin Ur <12.0 mg/L [facility] Comment: Interpretive Data No reference range established. Current interpretive data was last revised 2018. Creatinine Ur 26.8 mg/dL [facility] Comment: Interpretive Data No reference range established. Current interpretive data was last revised 2018. Albumin Creatinine Ratio, Ur See Comment 1 - 29 [facility] Comment:Unable to calculate Urine 05/12/2022 2:36 PM [facility] 05/12/2022 7:08 PM [facility] Result [facility] Eva Zaman DIRECTOR FRAUD LAB URINE ORDERABLES Dianne l Result [facility] [address] [address] Department [place] [address] * (ABNORMAL) Lipid panel (02/24/2022 7:18 AM TE[facility] THERAPY) Pathologist [facility] SCRIBED Cholesterol, Total 109(A) 140 - 199 [facility] SCRIBED HDL 40 40 - NA [facility] SCRIBED LDL 48 0 - 130 [facility] SCRIBED Triglycerides 106 0 - 150 [facility] Blood 02/24/2022 7:18 AM [facility]ERAP[facility] Result [facility] Historical Provider LAB BLOOD ORDERABLES Edit ed Result - Final [facility] [address] [phone] * (ABNORMAL) Basic metabolic panel (02/24/2022 7:18 AM [facility]ER[facility]) SCRIBED Sodium 141 137 - 145 mmol/L [facility] SCRIBED Potassium 4.8 3.5 - 5.1 mmol/L [facility] SCRIBED Chloride 105 98 - 107 mmol/L [facility] SCRIBED Carbon Dioxide 32(A) 22 - 30 mmol/L [facility] SCRIBED Anion Gap 8.8(A) 14 - 22 mmol/L [facility] SCRIBED Urea Nitrogen (BUN) 22(A) 8 - 19 mg/dl [facility] SCRIBED Creatinine 0.85 0.66 - 1.25 mg/dl [facility] SCRIBED Glucose 110(A) 70 - 99 mg/dl [facility] SCRIBED Calcium 9.2 8.4 - 10.2 mg/dl [facility] SCRIBED eGFR in NonAfrican [place] Citizen >60 >=60 - NA [facility] Blood 02/24/2022 7:18 AM [facility] Historical Provider LAB BLOOD ORDERABLES Edit ed Result - Final [facility] [address] [place] [address], [facility] [phone] * HM DEXA SCAN (09/10/2021) Historical Provider HEALTH MAINTENANCE Final Result from Last 3 Months or Most Recently Relevant to Health Maintenance Insurance MEDICARE [facility] MEDICARE [employer] MEDIC[employer] Care Teams Wire Brush Maker Relationship Specialty Start Date End Date Sarahi Olmos PA PCP - General Physician Hematologist Oncologist 09/23/18 Mitchel Ortega MD Consulting Physician Cardiovascular Disease 02/04/18
--- OUTSIDE RECORDS SUMMARY | 2024-05-12 11:15 | XMS_ITS | Encounter Summary ---
Author Organization [facility] Address [address] [place] [address] Phone Care Team Providers Care Service Writer Advisor Name Role Phone Yanet Richard MD Primary Care Provider [phone] Mitchel Ortega MD Unavailable Sarahi Olmos Primary Care Pr ovider Encounter Details Date Type Department Care Team (Late st Contact Info) Description 09/10/2017 Orders Only [facility] Provider, MD Ted [address] [place] [id number] Social History Tobacco Use Types Packs/Day Years Used Date Smoking Tobacco: Never Smokeless Tobacco: Never Alcohol Use Standard Drinks/Week Comments Yes 0 (1 standard drink = 0.6 oz pur e alcohol) Comments Unknown Sex and Gender Information Value Date Recorded Sex Assigned at Not on file Legal Sex Female 9:41 AM HEAD BOOKKEEPER Gender Identity Not on file Sexual Orientation Not on file documented as of this encounter Plan of Treatment Not on file documented as of this encounter Procedures Procedure Name Priority Date/Time Associated Diagnosis Comments DISCHARGE LABORATORY CUMULATIVE REPORT 09/10/2017 12:00 AM CDT documented in this encounter Results * DISCHARGE LABORATORY CUMULATIVE REPORT (09/10/2017 12:00 AM CDT) Narrative 09/10/2017 12:00 AM CDT Ordered by an unspecified provider. Historical Provider LAB BLOOD ORDERABLES Dianne l Result documented in this encounter Visit Diagnoses Not on filedocumented in this encounter Care Teams Service Writer Advisor Relationship Specialty Start Date End Date Yanet Richard MD [address] [address] PCP - General 07/18/16 09/22/18 Sarahi Olmos PA [address] [address] PCP - General Physician Woodworking Machine Feeder 09/23/18 Mitchel Ortega MD [address] [id number] Consulting Physician Cardiovascular Disease 02/04/18 documented as of this encounter
--- OUTSIDE RECORDS SUMMARY | 2024-05-12 11:15 | XMS_ITS | Clinical Summary ---
Author Organization [facility] Address [address] [place] [address] Phone Care Team Providers Care Tank Storage Supervisor Name Role Phone Unavailable Primary Care Provider Unavailabl e Medications Medication Sig Dispensed Refills Start Date End Date Status calcium 500 MG tablet 1 bid 11/15/2011 Act theo potassium chloride (KLOR-CON) 10 MEQ CR tablet 11/15/2011 Active omega-3 (FISH OIL) 1000 MG capsule 11/15/2011 Active aspirin 325 MG tablet 11/15/2011 Act theo insulin glargine (LANTUS) 100 UNIT/ML injection 11/15/2011 Active metFORMIN (GLUCOPHAGE) 500 MG tablet 1 bid 11/15/2011 Active atorvastatin (LIPITOR) 10 MG tablet 11/15/2011 Active ergocalciferol (VITAMIN D-2) 16630 units capsule 1 weekly 11/15/2011 Active carvedilol (COREG) 25 MG tablet 11/15/2011 Active furosemide (LASIX) 40 MG tablet 05/31/2014 Active insulin lispro (HUMALOG) 100 UNIT/ML injection 11/15/2011 Active lisinopril (PRINIVIL,ZESTRIL) 40 MG tablet TAKE 1/2 TABLET TWICE DAILY 12 09/19/2015 Active torsemide (DEMADEX) 100 MG tablet half every other day 0 09/19/2015 Active Active Problems Problem Noted Date Diagnosed Date Proteinuria 05/28/2015 Other hyperlipidemia 05/28/2015 Overview (07/03/2018): Converted unresolved ICD9, potential mismatch. Type 2 diabetes mellitus without complication Family History Medical History Relation Comments Kidney disease Relative Relation Status Comments Relative Social History Tobacco Use Types Packs/Day Years Used Date Smoking Tobacco: Never Assessed Sex and Gender Information Value Date Recorded Sex Assigned at Not on file Gender Identity Not on file Sexual Orientation Not on file Last Filed Vital Signs Vital Sign Reading Time Taken Comments Blood Pressure 128/80 09/19/2015 12:01 AM CDT Pulse 72 09/19/2015 12:01 AM CDT Temperature 37.4 ??C (99.3 ??F) 09/19/2015 12:01 AM C DT Respiratory Rate - - Oxygen Saturation - - Inhaled Oxygen Concentration - - Weight 136 kg (300 lb) 09/19/2015 12:01 AM CDT Height 165.1 cm (5' 5 ) 09/19/2015 12:01 AM CDT Body Mass Index 49.92 09/19/2015 12:01 AM CDT Plan of Treatment Not on file
--- OUTSIDE RECORDS SUMMARY | 2024-05-12 11:15 | XMS_ITS | Referral Summary ---
Author Organization [facility] [address] [facility] [place] Address [address] [place] [address] Care Team Providers Care Combat Control Manager Name Role Phone Mitchel Ortega MD Unavailable Sarahi Olmos Primary Care Pr ovider Allergies No known active allergies Medications calcium carbonate-vitamin D3 600 mg(1,500mg) -400 unit capsule take 2 daily 0 0 1 Active ergocalciferol (VITAMIN D2) 50,000 unit capsule take 1 capsule ([id number]) by oral route every week 0 1 Active blood-glucose meter (FREESTYLE LITE METER) kit take by [facility].(Non-Dr ug; Combo Route) route 0 kit 0 [...] 05/12/2022 Assessment & Plan (05/12/2022 2:47 PM DIRECTOR OF MATH): Discussed healthy diet and importance of regular physical activity (20- 30min/day, 150min/wk). Weight slowly trending downward after diet changes. She's down 16# since last appt. Referral sent to [facility] biz[employer] developer. Contact # given to Norma if no call rec'd . Hyperlipidemia due to type 2 diabetes mellitus 0 10/06/2019 Assessment & Plan (11/13/2022 2:39 PM CDT): Chronic, well controlled Low fat Low cholesterol diet Exercise Continue statin therapy with Atorvastatin Assessment & Plan (05/12/2022 2:48 PM DIRECTOR OF MATH): Chronic problem. Last LDL=68 07/27/21. Atorvastatin 80mg [...] exam Assessment & Plan (05/12/2022 2:43 PM DIRECTOR OF MATH): Chronic problem, stable & well controlled on Metformin 500mg bid. Norma reports that she's had labs with PCP in last 1-2 months, will try to get copy from her office. [facility] Professional: [phone]. I sent referral to them. Please call [...] Metformin Assessment & Plan (03/29/2020 2:41 PM DIRECTOR OF MATH): Hba1c was Lab Results Component Value Date [...] Metformin Assessment & Plan (03/29/2019 10:24 AM DIRECTOR OF MATH): Your Hba1c today was: Lab Results Component Value Date HGBA1C 8.1 03/29/2019 meaning a 3 month average sugar of : 184 Your goal hba1c is under 7.0 to prevent [facility] diabetes complications ( eye , kidney and [...] appointment Assessment & Plan (04/02/2017 10:30 AM DIRECTOR OF MATH): A1c 6.1 improved from 8.6. Denies many [...] Lisinopril Assessment & Plan (05/12/2022 2:49 PM DIRECTOR OF MATH): Chronic problem, well controlled with current amlodipine 10mg daily, lisinopril 40mg daily. No changes at this time Assessment & Plan (09/26/2021 2:58 PM CDT): Controlled on current medications, no changes. Assessment & Plan (03/29/2020 2:41 PM DIRECTOR OF MATH): Goal blood pressure is less than 140/85 Low salt diet was discussed andd recommended The importance of daily aerobic exercise was also emphasized. Continue current meds, including APUL-I or ARB, e.g. Lisinopril Assessment & Plan (10/06/2019 10:03 AM CDT): Goal blood pressure is less than 140/85 Low salt diet recommended Daily aerobic exercise Continue current meds, including PAUL-I or ARB Check microalbumin Assessment & Plan (03/29/2019 10:26 AM DIRECTOR OF MATH): Goal blood pressure is less than 140/85 Low salt diet recommended Daily aerobic exercise Continue current meds, including PAUL-I or ARB Check microalbumin Assessment & Plan (09/23/2018 4:09 PM CDT): Controlled on current medications. Assessment & Plan (02/08/2018 3:11 PM CDT): Controlled on current medications. Continue follow up with cardiology Assessment & Plan (04/02/2017 10:29 AM DIRECTOR OF MATH): Controlled on current medications. Assessment & Plan (01/01/2017 3:56 PM CDT): Goal blood pressure is less than 140/85 Low salt diet recommended Daily aerobic exercise Continue current meds, including PAUL-I or ARB Resolved Problems Problem Noted Date Diagnosed Date Resolved Date BMI 39.0-39.9,adult 01/01/2017 05/09/19 23 Morbid obesity (CMS/HCC) 01/01/2017 Assessment & Plan (04/02/2017 10:28 AM DIRECTOR OF MATH): Importance of following diet and exercising discussed. She is considering lap band. Hyperlipidemia 06/16/2012 05/09/2022 Overview (07/23/2016): HYPERLIPIDEMIA NEC/NOS Assessment & Plan (09/23/2018 4:06 PM CDT): Check lipid panel today. Assessment & Plan (02/08/2018 3:12 PM CDT): Will obtain recent labs from PCP and cardiology Assessment & Plan (04/02/2017 10:29 AM DIRECTOR OF MATH): Check lipid panel. Social History Tobacco Use Types Packs/Day Years [...] on file Legal Sex Female 9:41 AM DIRECTOR OF MATH Gender Identity Not on file Sexual Orientation [...] 09/19/2023 1:33 PM CDT Plan of Treatment Not on file Procedures Procedure Name Priority Date/Time Associated Diagnosis Comments DIABETES EYE EXAM Routine 11/21/2022 8:00 AM CDT POCT HEMOGLOBIN A1C Routine 11/13/2022 1 :52 PM CDT Type 2 diabetes mellitus with hyperglycemia, without long-term current use of insulin ([facility]) ([facility]) ALBUMIN CREATININE RATIO, URINE Routine 05/12/2022 2:36 PM DIRECTOR OF MATH Type 2 diabetes mellitus with hyperglycemia, without long-term current use of insulin ([facility]) ([facility]) BASIC METABOLIC PANEL Routine 02/24/2022 7:18 AM DIRECTOR OF MATH LIPID PANEL Routine 02/24/2022 7:18 AM DIRECTOR OF MATH DEXA SCAN Routine 09/10/2021 from Last 3 Months or Most Recently Relevant to Health Maintenance Results * DIABETES EYE EXAM (11/21/2022 8:00 AM CDT) us Historical Provider HEALTH MAINTENANCE Edited Result - Final * POCT hemoglobin A1c (11/13/2022 1:52 PM CDT) Hemoglobin A1C, POC 6.2 % Blood 11/13/2022 1:52 PM CDT Ricardo Franco MD POINT OF CARE TEST ORDERABLES Fi nal Result * Albumin Creatinine Ratio, Urine (05/12/2022 2:36 PM DIRECTOR OF MATH) Albumin Ur <12.0 mg/L [facility] Comment: Interpretive Data No reference range established. Current interpretive data was last revised 2018. Creatinine Ur 26.8 mg/dL [facility] Comment: Interpretive Data No reference range established. Current interpretive data was last revised 2018. Albumin Creatinine Ratio, Ur See Comment 1 - 29 [facility] Comment:Unable to calculate Urine 05/12/2022 2:36 PM DIRECTOR OF MATH 05/12/2022 7:08 PM DIRECTOR OF MATH Eva Zaman STAFF CERTIFIED NURSE MIDWIFE LAB URINE ORDERABLES Dianne l Result [facility] [id number] [address] Department [place] [address] * (ABNORMAL) Lipid panel (02/24/2022 7:18 AM DIRECTOR OF MATH) Pathologist [facility] SCRIBED Cholesterol, Total 109(A) 140 - 199 [facility] SCRIBED HDL 40 40 - NA [facility] S[facility] LDL 48 0 - 130 [facility] SCR[facility] Triglycerides 106 0 - 150 [facility] Blood 02/24/2022 7:18 AM DIRECTOR OF MATH Ted Benitez MD LAB BLOOD ORDERABLES Edit ed Result - Final [facility] [address] [place] [address], [facility] [phone] * (ABNORMAL) Basic metabolic panel (02/24/2022 7:18 AM DIRECTOR OF MATH) Pathologist [facility] SCRIBED Sodium 141 137 - 145 mmol/L [facility] S[facility] Potassium 4.8 3.5 - 5.1 mmol/L [facility] SCR[facility] Chloride 105 98 - 107 mmol/L [facility] S[facility] Carbon Dioxide 32(A) 22 - 30 mmol/L [facility] SCR[facility] Anion Gap 8.8(A) 14 - 22 mmol/L [facility] S[facility] Urea Nitrogen (BUN) 22(A) 8 - 19 mg/dl [facility] S[facility] Creatinine 0.85 0.66 - 1.25 mg/dl [facility] Glucose 110(A) 70 - 99 mg/dl [facility] Calcium 9.2 8.4 - 10.2 mg/dl [facility] SCRIBED eGFR in NonAfrican Russian >60 >=60 - NA [facility] Blood 02/24/2022 7:18 AM DIRECTOR OF MATH Historical Provider LAB BLOOD ORDERABLES Edit ed Result - Final [facility] [address] [phone] * DEXA SCAN (09/10/2021) Historical Provider HEALTH MAINTENANCE Final Result from Last 3 Months or Most Recently Relevant to Health Maintenance Insurance MEDICARE AETNA MEDICARE GOLD AETNA MEDICARE GOLD [facility] MEDICARE [facility] Care Teams Combat Control Manager Relationship Specialty Start Date End Date Sarahi Olmos PA PCP - General Physician Guest Services Ambassador 09/23/18 Mitchel Ortega MD Consulting Physician Cardiovascular Disease 02/04/18
[2024-05-30 09:16] VITALS: BMI 38.0
[2024-06-09] VITALS (9 sets, daily range): BP systolic 134–205; BP diastolic 63–79; PULSE 52–62; RESP 18–22; TEMP 36.7; O2SAT 98–100
--- OUTSIDE RECORDS SUMMARY | 2024-06-09 00:39 | XMS_ITS | Data Portability ---
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 Not available 06/18/2022 03:02:49 Brother Diabetes mellitus MIGRATION.967 [id number] Not available 06/18/2022 03:02:49 Brother Kidney disease MIGRATION.894 [id number] Not available 06/18/2022 03:02:49 Brother Malignant tumor of pancreas MIGRATION.705 [id number] Not available 06/18/2022 03:02:49 Mother Asthma [email or web address] Not available 0 11/03/2023 11:25:32 Notes:No ENT Medical History Condition Response LUNG DISEASE/DISORDER Y COPD Y HIGH CHOLESTEROL / HYPERLIPIDEMIA Y CORONARY ARTERY DISEASE (CAD) Y ARTHRITIS Y USE OF BLOOD THINNERS Y DIABETES, TYPE Y SEASONAL ALLERGIES Y VASCULAR DISEASE Y HEART DISEASE/HEART PROBLEMS Y HYPERTENSION Y Gynecological History Statement/Question Response STIs/STDs Y Date of Last Colonoscopy 04/06/2019 Date of Last Mammogram 01/09/2022 Most Recent Bone Density 01/30/2022 Obstetrics History GPAL:G 1 P 0 0 0 1 Type Value Living 1 Total 1 Immunizations Vaccine Type Date Status Note Provider Nam e and Address Organization Details Recorded Time Respiratory syncytial virus (RSV) vaccine, unspecified 4 completed [facility]ET [place] [employer] [facility] 05/05/2023 16:17:18 SARS-COV-2 (COVID-19) vaccine, UNSPECIFIED 4 completed [facility]ET [place], [facility] 05/05/2023 16:17:27 COVID-19, mRNA, LNP-S, PF, 30 mcg/0.3 mL dose 2 completed Not Available [facility] 06/18/2022 03:12:30 Influenza, high-dose, quadrivalent, PF 2 completed Not Available [facility] 06/18/2022 03:12:30 Influenza, split virus, quadrivalent, preservative 0 completed Not Available [facility] 06/18/2022 03:12:30 Influenza, split virus, trivalent, preservative 5 completed Not Available [facility] 06/18/2022 03:12:30 pneumococcal polysaccharide PPV23 1 completed Not Available [facility] 06/18/2022 03:12:30 Tdap 6 completed Not Available [facility] 06/18/2022 03:12:30 pneumococcal polysaccharide PPV23 6 completed Not Available [facility] 06/18/2022 03:12:31 Tdap 6 completed Not Available [facility] 06/18/2022 03:12:31 Influenza, split virus, quadrivalent, preservative 6 completed Not Available [facility] 06/18/2022 03:12:31 Influenza, split virus, trivalent, preservative 5 completed Not Available [facility] 06/18/2022 03:12:31 Influenza, split virus, quadrivalent, PF 8 completed Not Available [facility] 06/18/2022 03:12:31 Past Encounters Encounter ID Performer Location Encounter Start Date Encounter Closed Date Diagnosis/Indication Diagnosis SNOMED-CT Code Diagnosis ICD10 Code Diagnosis Note [id number] [facility] [place] [address] [place] [address] 08/23/2020 00:00:00 09/13/2020 01:51:58 [id number] [facility] [place] [address] [place] [address] 09/14/2020 00:00:00 09/14/2020 17:12:29 [id number] [facility] [place] [address] [place] [address] 10/18/2020 00:00:00 11/03/2020 20:46:40 [id number] [facility] [place] [address] [place] [address] 06/27/2021 00:00:00 07/18/2021 11:08:02 [id number] [facility] [place] [address] [place] [address] 08/21/2021 00:00:00 08/21/2021 16:00:14 [id number] [facility] [place] [address] [place] [address] 08/30/2021 00:00:00 09/09/2021 12:33:18 [id number] [facility] [place] [address] [place] [address] 10/03/2021 00:00:00 10/03/2021 09:32:57 [id number] [facility] [place] [address] [place] [address] 11/18/2021 00:00:00 12/18/2021 19:33:48 [id number] [facility] [place] [address] [place] [address] 01/01/2022 00:00:00 01/16/2022 18:53:23 [id number] [facility] [place] [address] [place] [address] 02/05/2022 00:00:00 02/15/2022 19:37:32 [id number] [facility] [place] [address] [place] [address] 05/23/2022 00:00:00 05/23/2022 12:34:25 [id number] [facility] [place] [address] [place] [address] 06/02/2022 00:00:00 06/17/2022 20:00:21 [id number] MCKENZIE Mcdowell [facility] [place] [address] [place] [address] 07/09/2022 14:27:44 07/09/2022 15:18:33 Adult health examination 208736498 Z00.00 MAWE completed. Screening for disorder 932209035 Z13.9 Nausea 474256925 R11.0 RX trial of reglan 5mg bid w/meal Hiatal her santiago with gastroesophageal reflux 259311717 K21.9 continue famotidine 20mg daily. Recurrent hernia of anterior abdominal wall 452659513 K43.9 refer to general surgeon for consult on abdominal wall hernia. pt is symptomati c and this remains a primary complaint of hers that she would like to get repaired. Benign par oxysmal positional vertigo 565097756 H81.10 refill meclizine 25mg tid PRN [id number] MCKENZIE Mcdowell [facility] [place] [address] [place] [address] 01/02/2023 10:32:15 01/02/2023 11:29:54 Hiatal hernia with gastroesophageal reflux 739699111 K21.9 continue famotidine 20mg daily. Hyperlipidemia 78940765 E78.5 fasting lipids due in May. on high dose statin therapy Benign ess ential hypertension 9372523 I10 stable on amlodipine 10mg daily and coreg and lisinopril Coronary arteriosclerosis 27269533 I25.10 stable. following with cardiology routinely. asymptomat ic. Obstructiv e sleep apnea syndrome 98903222 G47.33 stable on cpap Well contr olled type 2 diabetes mellitus 291382373 E11.9 stable on metformin therapy low dose. Long-term drug therapy 733556591 Z79.899 routine labs due in May Screening mammography 24 643238 Z12.31 mammogram due in Sept Osteopenia 490970337 M85 .Jan. repeat 2023. [id number] MCKENZIE Mcdowell [facility] [place] [address] [place] [address] 04/27/2023 10:09:17 04/27/2023 12:43:41 Cholelithiasis without obstruction 24765182 K80.20 gallstones without inflammati on of gallbladde r and without obstructio n. refer for hida scan. Right side d abdominal pain 091728154 R10.9 check xray abdomen to evaluate for possible constipati on backup causing discomfort . no nausea or vomiting reported. bowels are moving some each day on miralax. Benign ess ential hypertension 8698808 I10 stable on amlodipine 10mg daily and coreg and lisinopril but she has not dosed them yet today because she has not eaten food. bp borderline as result. Ganglion c yst of left foot 5625434246 464547 M67.472 refer to podiatry for left ventral surface cyst presence. [id number] Nehemiah Pacheco MD [facility] [place] [address] [place] [address] 11/05/2023 15:20:22 11/11/2023 13:32:25 Dysphagia 04946186 R13.10 Sensorineu ral hearing loss 43926263 H90.5 [id number] Yesenia Moreira NP [facility] [address] [place] [address] 01/20/2024 16:07:58 01/21/2024 11:32:31 Mild chronic obstructive pulmonary disease 114534074 J44.9 PFT orderUse albuterol as needed-dis cussed use Dyspnea on exertion 6084 5006 R06.09 Lab work todayPFT for baselinest art ZyrtecAwar e to use Albuterol inhaler as needed-ok to use when sobEncoura ge patient to remain activefoll ow-up once testing is complete-s ooner for any changes in breathing and increase use of inhaler Bradycardia 45178344 R00 .1 Patient aware to call carlosogbonnie jarvis for follow-up Health Concerns Section Related Observation LastModified by Organization Detai ls LastModified Time None Recorded Concern Status LastModified by Organization Details LastModified Time None Recorded Advance Directives Directive N: Payers Encounter Date Sequence Insurance Name Policy Number Policy Duron Covered Member ID Duron Member ID Guarantor Name 07/09/2022 1 [employer] (MEDICARE REPLACEMENT HMO) [id number] Norma Power [id number] Norma Power 01/02/2023 1 [employer] (MEDICARE REPLACEMENT HMO) [id number] Norma Power [id number] Norma Power 04/27/2023 1 [employer] (MEDICARE REPLACEMENT HMO) [id number] Norma Power [id number] Norma Power 11/05/2023 1 [employer] (MEDICARE REPLACEMENT HMO) [id number] Nidhi Power [id number] Norma Power 01/20/2024 1 [employer] (MEDICARE REPLACEMENT HMO) [id number] Nidhi Power [id number] Norma Power Notes Date Note Type Note [...] no fatigue; no throat pain;nausea;vomiting MCKENZIE Mcdowell [address] [facility], [facility] [address], [place], [address], [place] [facility] 07/15/2022 23:20:55 023 text/ht ml DiabetesReported bypatient.Duration:chronic [...] no fatigue; no throat pain MCKENZIE Mcdowell [address] [address], [place], [address], [facility] 01/17/2023 20:45:48 024 text/ht ml Abdominal PainReported [...] below surface of skin. MCKENZIE Mcdowell [address] [place] [address], [place], [address], [facility] 04/27/2023 13:18:30 024 text/ht ml The patient had quadruple bypass and reports that she has had dysphagia and decreased hearing. She was hoping it was ear wax. She is never experienced choking episodes or unplanned weight loss. Nehemiah Pacheco MD [address] [place] [address], [place], [address], [facility] 11/05/2023 15:56:14 024 text/ht ml DyspneaReported bypatient.Quality:tightness Severity:moderate Duration:sensation/episode lasts moments; for 2 months Onset/Timing:weekly Context:with activity Aggravating Factors:activity Associated Symptoms:no chest pain; no orthopnea; no PND; no fever; no chills; no wheezing; no dietary indiscretion; no hemoptysis; no weight gain; no dyspepsia;palpitations;coughing up sputum;hoarsenessNotes:abnormal chest u-gri-latcvu congestionnotes she just hasn't felt right for [...] not taking anything Yesenia Moreira, [place] [address] [facility], [facility] [address], [place], [address], [place] [facility] 01/21/2024 08:59:50 OBGyn Episode No OBEpisode recorded.
--- OUTSIDE RECORDS SUMMARY | 2024-06-09 00:39 | XMS_ITS | Clinical Summary ---
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
--- OUTSIDE RECORDS SUMMARY | 2024-06-09 00:39 | XMS_ITS | Encounter Summary ---
Author Organization [facility] Address [address] [place] [address] Phone Care Team Providers Care In School Suspension Aide Name Role Phone Yanet Rihcard MD Primary Care Provider [phone] Mitchel Ortega MD Unavailable Sarahi Olmos Primary Care Pr ovider Encounter Details Date Type Department Care Team (Late st Contact Info) Description 09/10/2017 Orders Only [facility] Provider, MD Ted [address] [place] [address] Social History Tobacco Use Types Packs/Day Years Used Date Smoking Tobacco: Never Smokeless Tobacco: Never Alcohol Use Standard Drinks/Week Comments Yes 0 (1 standard drink = 0.6 oz pur e alcohol) Comments Unknown Sex and Gender Information Value Date Recorded Sex Assigned at Not on file 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
--- OUTSIDE RECORDS SUMMARY | 2024-06-09 00:39 | XMS_ITS | Data Portability ---
Author Organization [facility] Simmons Address [address] [place] [address] Assessment Encounter Date Assessment Date Assessment LastModified by Organization Details LastModified Time 08/05/2023 08/05/2023 Colonoscopy was [email or web address] Not availabl e 08/05/2023 15:26:53 02/04/2024 02/04/2024 Colonoscopy was completed this year in November 07, 2023 showing diverticulosis and internal hemorrhoids with a repeat in 10 years. Mammogram is up-to-date from December [email or web address] Not available 02/21/2024 12:03:41 Plan of Treatment Reminders Order Date Submit Date Provider Last Modified By Organization Details Last Modified Time Details Appointments ANY 15 2024 08:00A M MCKENZIE Mcdowell Not available Not available Not available Lab microa lbumin /creat inine, ratio, urine 2023 [facility] (Lab), [address] [place], [address], 02/12/2024 12:22:12 glycoh emoglo bin, total, blood 2023 024 [facility] (Lab), [address] [place], [address], 02/12/2024 12:22:21 urinal ysis comple te, reflex cultur e 2023 024 [facility] (Lab), [address] [place], [address], 02/12/2024 12:22:47 CBC w/ auto diff 2023 024 [facility] (Lab), [address] [place], [address], 02/12/2024 12:22:55 BMP, serum or plasma 2023 024 [facility] (Lab), [address] [place], [address], 02/12/2024 12:23:05 hepati c functi on panel, serum 2023 024 [facility] (Lab), [address] [place], [address], 02/12/2024 12:23:14 TSH, serum or plasma 2023 024 [facility] (Lab), [address] [place], [address], 02/12/2024 12:23:18 lipid panel, serum 2023 024 [facility] (Lab), [address] [place], [address], 02/12/2024 12:22:34 microa lbumin /creat inine, ratio, urine 2023 024 [facility] (Lab), [address] [place], [address], 02/11/2024 14:34:22 glycoh emoglo bin, total, blood 2023 024 [facility] (Lab), [address] [place], [address], 01/19/2024 10:26:46 CBC w/ auto diff 2023 024 [facility] (Lab), [address] [place], [address], 01/19/2024 10:26:47 BMP, serum or plasma 2023 024 [facility] (Lab), [address] [place], [address], 01/19/2024 10:26:46 hepati c functi on panel, serum 2023 024 [facility] (Lab), [address] [place], [address], 01/19/2024 10:26:47 TSH, serum or plasma 2023 024 [facility] (Lab), [address] [place], [address], 01/19/2024 10:26:46 vitami n B12, serum 2023 024 [facility] (Lab), [address] [place], [address], 01/19/2024 10:26:47 lipid panel, serum 2023 024 [facility] (Lab), [address] [place], [address], 02/11/2024 14:34:22 Referral None record ed. Procedures upper endosc opy proced ure (EGD) (PROC) 2023 024 [facility] Germain self MD, [address], [address], [place], [address], 05/30/2024 13:08:35 diagno stic colono scopy (PROC) 2023 024 [facility] [place] [facility], [address], [address], [place], [address], 12/16/2023 13:59:56 Surgeries None record ed. Imaging PFT, comple te - with and withou t bronch odilat or 2023 [facility] (Resp Services), [address], [place], [address], 02/23/2024 12:17:19 Medication Orders famoti dine 40 mg tablet 2023 024 [id number], [address], [place], [address], 02/04/2024 10:09:17 famoti dine 40 mg tablet 2023 024 [facility] #[id number], [address], [place], [address], 02/04/2024 09:34:49 Patient TargetsNo targets recorded. Patient InstructionsNo instructions recorded. Reason for Referral None Reported. Results Created Date Observation Date Name Description Value Unit Range Abnormal Flag Note LastModifiedBy Organization Detail LastModifiedTime 07/06/1907/06/2023 CT, abdom en + pelvi s, w/o contr ast No observ ation record ed. [email or web address] [facility] [address] [facility] [address], [place], [address], 08/03/2023 15:27:09 07/06/19 24 07/06/2023 NM, myoca rdial perfu ivonne scan No observ ation record ed. [email or web address] [facility] [address], [place], [address], 08/05/2023 15:23:05 08/13/19 24 08/13/2023 MAMMO , scree allyn, digit al, bilat eral No observ ation record ed. [email or web address] [place] [address], [place], [address], 08/13/2023 15:32:28 12/02/19 24 12/01/2023 XR, knee No observ ation record ed. [address] [place], [address], 12/03/2023 22:54:00 12/07/19 24 12/07/2023 XR, chest No observ ation record ed. [address] [place], [address], 12/07/2023 12:29:08 12/11/19 24 12/11/2023 FL, modif ied dorothy lopez ow study No observ ation record ed. [place] [id number] [facility] [address], [place], [address], 12/11/2023 18:40:59 12/16/19 24 10/27/2023 diagn ostic colon oscop y (PROC ) No observ ation record ed. [address] [facility] [address], [place], [address], 12/16/2023 14:04:11 12/28/19 24 12/28/2023 MAMMO , scree allyn, digit al, bilat eral No observ ation record ed. [facility] [address] [facility] [address], [place], [address], 12/29/2023 16:45:41 02/23/20 24 02/15/2024 PFT, compl ete No observ ation record ed. [facility] (Resp Services) [address] [facility] [address], [place], [address], 02/24/2024 11:39:04 Result Notes None recorded. Problems Name Problem SNOMED Code Status Onset Date Resolution Date Notes Provider Name and Address Organization Details Recorded Time Coronary atheroscler osis 028948198 Active 2023 MCKENZIE Mcdowell Attn: Hair rubio,[address] [facility], [place], [address], [place] [facility] 4 14:00:20 History of placement of stent in coronary artery bypass graft 9949712447632 00 Active 2023 MCKENZIE Mcdowell Attn: Accountin g,[address] [facility], [place], [address], [place] [facility] 4 14:00:22 Well controlled type 2 diabetes mellitus 261271069 Active 2023 MCKENZIE Mcdowell Attn: Accountin g,[address] [facility], [place], [address], [place] [facility] 4 14:00:23 Hyperlipide uma 09880040 Active 2023 MCKENZIE Mcdowell Attn: Accountin g,[address] [facility], [place], [address], [place] [facility] 4 14:00:24 Benign essential hypertensio n 2599269 Active 2023 MCKENZIE Mcdowell Attn: Accountin g,[address] [facility], [place], [address], [place] [facility] 4 14:00:25 Acid reflux 550639305 Active 2023 MCKENZIE Mcdowell Attn: Accountin g,[address] [facility], [place], [address], [place] [facility] 4 14:00:26 Chronic insomnia 079331077 Active 2023 MCKENZIE Mcdowell Attn: Accountin g,[address] [facility], [place], [address], [place] [facility] 4 14:00:28 Long-term drug therapy Active 2023 MCKENZIE Mcdowell Attn: Accountin g,[address] [facility], [place], [address], [place] [facility] 4 14:00:29 Lower urinary tract symptoms 922043214 Active 2023 MCKENZIE Mcdoewll Attn: Hair rubio,[address], [place], [address], [facility] 12:02:05 Chronic obstructive pulmonary disease 85621072 Active 2023 MCKENZIE Mcdowell Attn: Hair g,[address] [facility], [place], [address], [facility] 4 12:02:07 Dysphagia 39307515 Active 2023 MCKENZIE Mcdowell Attn: Hair rubio,[address] [facility], [place], [address], [facility] 12:02:37 Problem Notes None recorded. Procedures Surgical History Date Name Laterality Status Provider Name and Address Organization Details Recorded Time percutaneous transluminal venous angioplasty with insertion of stent completed [place] MA [facility] 08/05/2023 16:02:16 Coronary artery bypass/reop completed [place] MA [facility] 08/05/2023 16:02:38 Heart Surgery completed [place] MA [facility] 08/05/2023 16:02:46 Hernia Repair completed [place] MA [facility] 08/05/2023 16:02:52 Tonsillectomy completed [place] MA [facility] 08/05/2023 16:03:00 Imaging Results Imaging Date Name Status LastModified by Organization Details LastModified Time 07/06/2023 CT, abdomen + pelvis, w/o contrast completed [address] [facility] [facility] [address], [place], [address], 08/03/2023 15:27:09 07/06/2023 NM, myocardial perfusion scan completed [address] [facility] [address] , [place], [address], 08/05/2023 15:23:05 08/13/2023 MAMMO, screening, digital, bilateral completed [email or web address] [facility] [address] [place], [address], 08/13/2023 15:32:28 12/01/2023 XR, knee completed [address] [place], [address], 12/03/2023 22:54:00 12/07/2023 XR, chest completed [address] [place], [address], 12/07/2023 12:29:08 12/11/2023 [place], modified barium swallow study completed [address], [address], 12/11/2023 18:40:59 10/27/2023 diagnostic colonoscopy (PROC) completed [address] [facility] [address] [place] [address] Route [facility] [address] [place] [address], [address], 12/16/2023 14:04:11 12/28/2023 MAMMO, screening, digital, bilateral completed [address], [address], 12/29/2023 16:45:41 02/15/2024 PFT, complete completed [facility] ([facility]) [address] [place] [address], [address], 02/24/2024 11:39:04 Procedure Notes None recorded. Medical Equipment None Reported. Allergies Allergen ID Allergen Name Allergen Category Reaction Reaction Severity Criticality Documentation Date Start Date Code Code System Note Provider Name and Address Organization Details Recorded Time 931234 ethinyl estradiol / levonorge strel medicatio n facial swelling Not available Not available 02/04/2024 05098 8 RxNorm Not Available Not Available Not [...] Available Vitals Date Recorded Body height Body mass index (BMI) Body weight Respiratory rate Provider Name and Address Organization Details Last Updated DateTime 08/05/2023 154.94 cm 36.9 kg/m2 74306.8 g 20 /min [place] MA [facility] 08/05/2023 15:12:25 Date Recorded Oxygen saturation Oxygen saturation in Arterial blood by Pulse oximetry Heart rate Systolic blood pressure Diastolic blood pressure Provider Name and Address Organization Details Last Updated DateTime 98 % 98 % 60 /min 118 mm[Hg] 84 mm[Hg] MCKENZIE Mcdowell Attn: Hair rubio,[address] [place], [address], [facility] 4 15:34:35 Date Recorded Body height Body mass index (BMI) Body weight Heart rate Oxygen saturation Oxygen saturation in Arterial blood by Pulse oximetry Systolic blood pressure Diastolic blood pressure Provider Name and Address Organization Details Last Updated DateTime 154.94 cm 40.1 kg/m2 94352.5 8 g 58 /min 98 % 98 % 118 mm[Hg] 80 mm[Hg] Pineda Jimenez MA [facility] 4 09:38:42 Social History Question Answer Notes LastModified by Organizat ion Details LastModified Time Tobacco Smoking Status Never Smoker marijuana Pineda Jimenez MA null, [facility] 02/04/2024 09:36:02 What Is Your Level Of [...] Anxious, Or Unable To Sleep At Night)? [id number] Information not available 08/05/2023 Do You Use [...] GI Problems N Anemia N Heart Attack ([place]) N Diabetes N Seizures/Epilepsy N Heart Failure N Osteoporosis Y Gynecological History Statement/Question Response Menses Monthly N Current Control Method Other Obstetrics History GPAL:G 0 P 0 0 0 0 Immunizations Vaccine Type Date Status Note Provider Nam e and Address Organization Details Recorded Time Influenza, split virus, quadrivalent, preservative 6 completed [place] [facility] 02/03/2024 09:55:49 Influenza, MDCK, quadrivalent, PF 0 completed [place] [facility] 02/03/2024 09:55:49 Influenza, high-dose, [...] 02/03/2024 09:55:49 pneumococcal polysaccharide PPV23 1 completed [place] [facility] 02/03/2024 09:55:49 pneumococcal polysaccharide PPV23 6 completed [place] [facility] 02/03/2024 09:55:49 Tdap 6 completed [place] [facility] 02/03/2024 09:55:49 Tdap 6 completed [place] [facility] 02/03/2024 09:55:49 Influenza, split virus, trivalent, preservative 5 completed [place], [place]SE [place] - [facility] 02/03/2024 09:55:49 Influenza, split virus, trivalent, preservative 5 completed [place] [facility] 02/03/2024 09:55:49 Influenza, split virus, quadrivalent, PF 9 completed [place] [facility] 02/03/2024 09:55:49 Past Encounters Encounter ID Performer Location Encounter Start Date Encounter Closed Date Diagnosis/Indication Diagnosis SNOMED-CT Code Diagnosis ICD10 Code Diagnosis Note [id number] MCKENZIE Mcdowell [facility] [place] [address] [place] [address] 08/05/2023 14:56:02 08/05/2023 15:59:58 Coronary atherosclerosis 552503803 I25.10 stable. following with cardiology . History of placement of stent in coronary artery bypass graft 3153971034 47996 Z95.1 stable Well contr olled type 2 diabetes mellitus 684045342 E11.9 stable on metformin therapy. next labs due in Jan. Hyperlipidemia 59343601 E78.5 stable on statin therapy. fasting lipids due in Jan. Benign ess ential hypertension 7084431 I10 stable on medication . Chronic insomnia 7753317 04 F51.04 use trazodone as directed for sleep. Long-term drug therapy 115270540 Z79.899 next lab panel due in January. Lower abdominal pain 545 62964 R10.30 refer for diagnostic colonoscop y as she had hernia surgery repair and that did not resolve pain, and she has had CT scan and there were no findings as source for her pain. she needs updated scope. Acid reflux 531603783 K2 1.9 refill famotidine 40mg daily. stable. [id number] MCKENZIE Mcdowell [facility] [place] [address] [place] [address] 02/04/2024 09:15:37 02/08/2024 14:57:21 Coronary atherosclerosis 705610254 I25.10 stable. following with cardiology . Asymptomat ic. Patient had myocardial perfusion stress testing in June History of placement of stent in coronary artery bypass graft 1973655536 13631 Z95.1 stable Well contr olled type 2 diabetes mellitus 308168545 E11.9 stable on metformin therapy. A1c and microalbum in testing is due Hyperlipidemia 11642043 E78.5 stable on statin therapy. fasting lipids due Benign ess ential hypertension 7035130 I10 stable on medication . Acid reflux 137287366 K2 1.9 Patient is having some acid reflux. We will start famotidine 40 mg once daily to see if this helps with symptoms and was some of her dysphagia. Chronic insomnia 7603192 04 F51.04 use trazodone as directed for sleep. Long-term drug therapy 865701416 Z79.899 next lab panel due Lower urin tonya tract symptoms 670142822 R39.9 Will always check a urine with reflex culture for her urinary frequency symptoms Chronic ob structive pulmonary disease 12872659 J44.9 Refer for complete pulmonary function testing and follow-up with Pulmonary as indicated. She would like to have her COPD assessed Dysphagia 58311613 R13.1 0 Refer for upper endoscopy EGD. [...] ID Guarantor Name 08/05/2023 1 [employer] (HMO) [id number] Norma Power [id number] Norma Power 02/04/2024 1 [employer] - PRIME (MEDICARE REPLACEMENT/ ADVANTAGE - HMO) [id number] Norma Power [id number] Norma Power Notes Date Note Type Note Provider Name and Address Organization Details Recorded Time 08/05/19 24 text/htm l Abdominal PainReported bypatient.Location:[facility] Quality:pain;dull Severity:moderate Duration:constant Onset/Timing:worse Modifying Factors:nothing gives [...] sleep issues. MCKENZIE Mcdowell Attn: Accounting,[address] [facility], [place], [address], [facility] 08/18/2023 14:00:43 02/04/20 24 text/htm l Coronary [...] as well MCKENZIE Mcdowell Attn: Accounting,[address] [facility], [place], [address], [facility] 02/21/2024 12:03:59 OBGyn Episode No OBEpisode recorded.
--- OUTSIDE RECORDS SUMMARY | 2024-06-09 00:39 | XMS_ITS | Clinical Summary ---
Author Organization [facility] Address [facility] [place] [address] Care Team Providers Care Mortgage Broker Name Role Phone None, Provider MD Primary Care Provider Unavaila ble Allergies No known active allergies Medications ondansetron 4 MG disintegrating tablet Take 1 tablet (4 mg total) by mouth every 8 (eight) hours as needed for Nausea. 20 tablet 2 Active Social History Tobacco Use Types Packs/Day [...] 53 08/23/2021 4:00 PM CDT Temperature 36.8 C (98.2 F) 08/23/2021 2:49 PM CDT Respiratory Rate 15 08/23/2021 4:00 PM CDT [...] (1 - 1-dose 75+ series) 07/29/2030 Meningococcal B Vaccine Aged Out No l onger eligible based on patient's age to complete this topic Meningococcal Vaccine Aged Out No babak irena eligible based on patient's age to complete this topic RSV Immunizations Under 20 Months Aged Out No longer eligible based on patient's age to complete this topic Insurance [employer] Care Teams Mortgage Broker Relationship Specialty Start Date End Date None, Provider, PCP - General 08/23/21
--- OUTSIDE RECORDS SUMMARY | 2024-06-09 00:40 | XMS_ITS | Clinical Summary ---
Author Organization [facility] [address] [place] [address] [place] Address [address] [place] [address] Care Team Providers Care Valve Tester Name Role Phone Mitchel Ortega MD Unavailable Sarahi Olmos Primary Care Pr ovider Allergies No known active allergies Medications calcium carbonate-vitamin D3 600 mg(1,500mg) -400 unit capsule take 2 daily 0 0 1 Active ergocalciferol (VITAMIN D2) 50,000 unit capsule take 1 capsule ([id number]) by oral route every week 0 1 Active blood-glucose meter (FREESTYLE LITE METER) kit take by [facility].(Non-Dr ug; Combo Route) [...] 05/12/2022 Assessment & Plan (05/12/2022 2:47 PM CREATIVE SERVICES WRITER): Discussed healthy diet and importance of regular physical activity (20- 30min/day, 150min/wk). Weight slowly trending downward after diet changes. She's down 16# since last appt. Referral sent to [facility] dietary aide. Contact # given to Norma if no call rec'd . Hyperlipidemia due to type 2 diabetes mellitus 0 10/06/2019 Assessment & Plan (11/13/2022 2:39 PM CDT): Chronic, well controlled Low fat Low cholesterol diet Exercise Continue statin therapy with Atorvastatin Assessment & Plan (05/12/2022 2:48 PM CREATIVE SERVICES WRITER): Chronic problem. Last LDL=68 07/27/21. Atorvastatin 80mg [...] exam Assessment & Plan (05/12/2022 2:43 PM CREATIVE SERVICES WRITER): Chronic problem, stable & well controlled on Metformin 500mg bid. Norma reports that she's had labs with PCP in last 1-2 months, will try to get copy from her office. [facility] Digital Strategist Senior Manager: [phone]. I sent referral to them. Please call [...] Metformin Assessment & Plan (03/29/2020 2:41 PM CREATIVE SERVICES WRITER): Hba1c was Lab Results Component Value Date [...] Metformin Assessment & Plan (03/29/2019 10:24 AM CREATIVE SERVICES WRITER): Your Hba1c today was: Lab Results Component Value Date HGBA1C 8.1 03/29/2019 meaning a 3 month average sugar of : 184 Your goal hba1c is under 7.0 to prevent mcfp diabetes complications ( eye , kidney and [...] appointment Assessment & Plan (04/02/2017 10:30 AM CREATIVE SERVICES WRITER): A1c 6.1 improved from 8.6. Denies many [...] Lisinopril Assessment & Plan (05/12/2022 2:49 PM CREATIVE SERVICES WRITER): Chronic problem, well controlled with current amlodipine 10mg daily, lisinopril 40mg daily. No changes at this time Assessment & Plan (09/26/2021 2:58 PM CDT): Controlled on current medications, no changes. Assessment & Plan (03/29/2020 2:41 PM CREATIVE SERVICES WRITER): Goal blood pressure is less than 140/85 [...] microalbumin Assessment & Plan (03/29/2019 10:26 AM CREATIVE SERVICES WRITER): Goal blood pressure is less than 140/85 Low salt diet recommended Daily aerobic exercise Continue current meds, including PAUL-I or ARB Check microalbumin Assessment & Plan (09/23/2018 4:09 PM CDT): Controlled on current medications. Assessment & Plan (02/08/2018 3:11 PM CDT): Controlled on current medications. Continue follow up with cardiology Assessment & Plan (04/02/2017 10:29 AM CREATIVE SERVICES WRITER): Controlled on current medications. Assessment & Plan (01/01/2017 3:56 PM CDT): Goal blood pressure is less than 140/85 Low salt diet recommended Daily aerobic exercise Continue current meds, including PAUL-I or ARB Resolved Problems Problem Noted Date Diagnosed Date Resolved Date BMI 39.0-39.9,adult 01/01/2017 05/09/19 23 Morbid obesity (CMS/HCC) 01/01/2017 Assessment & Plan (04/02/2017 10:28 AM CREATIVE SERVICES WRITER): Importance of following diet and exercising discussed. She is considering lap band. Hyperlipidemia 06/16/2012 05/09/2022 Overview (07/23/2016): HYPERLIPIDEMIA NEC/NOS Assessment & Plan (09/23/2018 4:06 PM CDT): Check lipid panel today. Assessment & Plan (02/08/2018 3:12 PM CDT): Will obtain recent labs from PCP and cardiology Assessment & Plan (04/02/2017 10:29 AM CREATIVE SERVICES WRITER): Check lipid panel. Surgical History Surgery Date [...] on file Legal Sex Female 9:41 AM CREATIVE SERVICES WRITER Gender Identity Not on file Sexual Orientation Not on file Obstetrics History Last Filed Vital Signs Vital Sign Reading Time Taken Comments Blood Pressure 151/79 09/19/2023 4:48 PM CDT Pulse 70 09/19/2023 4:48 PM CDT Temperature 37 C (98.6 F) 09/19/2023 1:33 PM CDT Respiratory Rate 18 [...] Visit 65+ 07/29/2020 Lipid Panel 02/24/2023 02/24/2022, 04/2 12/2021, 10/23/2020, Additional history exists eGFR 02/24/2023 [...] hyperglycemia, without long-term current use of insulin ([facility] ([facility]) ALBUMIN CREATININE RATIO, URINE Routine 05/12/2022 2:36 PM CREATIVE SERVICES WRITER Type 2 diabetes mellitus with hyperglycemia, without long-term current use of insulin ([facility]) ([facility]) BASIC METABOLIC PANEL Routine 02/24/2022 7:18 AM CREATIVE SERVICES WRITER LIPID PANEL Routine 02/24/2022 7:18 AM CREATIVE SERVICES WRITER DEXA SCAN Routine 09/10/2021 from Last 3 Months or Most Recently Relevant to Health Maintenance Results * DIABETES EYE EXAM (11/21/2022 8:00 AM CDT) Historical Provider HEALTH MAINTENANCE Edited Result - Final * POCT hemoglobin A1c (11/13/2022 1:52 PM CDT) Pathologist [facility] Hemoglobin A1C, POC 6.2 % Blood 11/13/2022 1:52 PM CDT Result [facility] Ricardo Franco MD POINT OF CARE TEST ORDERABLES Fi nal Result * Albumin Creatinine Ratio, Urine (05/12/2022 2:36 PM CREATIVE SERVICES WRITER) Pathologist [facility] Albumin Ur <12.0 mg/L [facility] Comment: Interpretive Data No reference range established. Current interpretive data was last revised 2018. Creatinine Ur 26.8 mg/dL [facility] Comment: Interpretive Data No reference range established. Current interpretive data was last revised 2018. Albumin Creatinine Ratio, Ur See Comment 1 - 29 [facility] Comment:Unable to calculate Urine 05/12/2022 2:36 PM CREATIVE SERVICES WRITER 05/12/2022 7:08 PM CREATIVE SERVICES WRITER Eva Zaman DIE FINISHER LAB URINE ORDERABLES Dianne l Result [facility] [address] Department [place] [address] * (ABNORMAL) Lipid panel (02/24/2022 7:18 AM CREATIVE SERVICES WRITER) Pathologist [facility] SCRIBED Cholesterol, Total 109(A) 140 - [address] [facility] SCRIBED HDL 40 40 - NA [facility] SCRIBED LDL 48 0 - [address] [facility] SCRIBED Triglycerides 106 0 - [address] [facility] Blood 02/24/2022 7:18 AM CREATIVE SERVICES WRITER Historical Provider LAB BLOOD ORDERABLES Edit ed Result - Final [facility] [address] [phone] * (ABNORMAL) Basic metabolic panel (02/24/2022 7:18 AM CREATIVE SERVICES WRITER) SCRIBED Sodium 141 137 - 145 mmol/L [facility] SCRIBED Potassium 4.8 3.5 - 5.1 mmol/L [facility] SCRIBED Chloride 105 98 - 107 mmol/L [facility] SCRIBED Carbon Dioxide 32(A) 22 - 30 mmol/L [facility] SCRIBED Anion Gap 8.8(A) 14 - 22 mmol/L [facility] SCRIBED Urea Nitrogen (BUN) 22(A) 8 - 19 mg/dl [facility] SCRIBED Creatinine 0.85 0.66 - 1.25 mg/dl [facility] SCRIBED Glucose 110(A) 70 - 99 mg/dl [facility] SCRIBED Calcium 9.2 8.4 - 10.2 mg/dl [facility] SCRIBED eGFR in NonAfrican Northern Irish >60 >=60 - NA [facility] Blood 02/24/2022 7:18 AM CREATIVE SERVICES WRITER Historical Provider LAB BLOOD ORDERABLES Edit ed Result - Final [facility] [address] [phone] * HM DEXA SCAN (09/10/2021) Historical Provider HEALTH MAINTENANCE Final Result from Last 3 Months or Most Recently Relevant to Health Maintenance Insurance MEDICARE [facility] Address: [facility] [address] [place] [address] [facility] MEDICARE [facility] [id number] AETNA MEDICARE GOLD AETNA MEDICARE GOLD Care Teams Valve Tester Relationship Specialty Start Date End Date Sarahi Olmos PA PCP - General Physician Trains Service Conductor 09/23/18 Mitchel Ortega MD Consulting Physician Cardiovascular Disease 02/04/18
--- OUTSIDE RECORDS SUMMARY | 2024-06-09 00:40 | XMS_ITS | Referral Summary ---
Author Organization [facility] [address] [place] [place] Address [address] [place] [address] Care Team Providers Care Forest Management Professor Name Role Phone Mitchel Ortega MD Unavailable Sarahi Olmos Primary Care Pr ovider Allergies No known active allergies Medications calcium carbonate-vitamin D3 600 mg(1,500mg) -400 unit capsule take 2 daily 0 0 1 Active ergocalciferol (VITAMIN D2) 50,000 unit capsule take 1 capsule ([id number]) by oral route every week 0 1 Active blood-glucose meter (FREESTYLE LITE METER) kit take [place] [facility]Non-Dr ug; Combo Route) route 0 kit 0 [...] 05/12/2022 Assessment & Plan (05/12/2022 2:[address] PILOT): Discussed healthy diet and importance of regular physical activity (20- 30min/day, 150min/wk). Weight slowly trending downward after diet changes. She's down 16# since last appt. Referral sent to [facility] cancer researcher. Contact # given to Norma if no call rec'd . Hyperlipidemia due to type 2 diabetes mellitus 0 10/06/2019 Assessment & Plan (11/13/2022 2:39 PM CDT): Chronic, well controlled Low fat Low cholesterol diet Exercise Continue statin therapy with Atorvastatin Assessment & Plan (05/12/2022 2:[address] PILOT): Chronic problem. Last LDL=68 07/27/21. Atorvastatin 80mg [...] exam Assessment & Plan (05/12/2022 2:[address]ILOT): Chronic problem, stable & well controlled on Metformin 500mg bid. Norma reports that she's had labs with PCP in last 1-2 months, will try to get copy from her office. [facility] Senior Analytical Chemist: [phone]. I sent referral to them. Please call [...] Metformin Assessment & Plan (03/29/2020 2:[address] PILOT): Hba1c was Lab Results Component Value Date [...] Metformin Assessment & Plan (03/29/2019 10:[address]ILOT): Your Hba1c today was: Lab Results Component Value Date HGBA1C 8.1 03/29/2019 meaning a 3 month average sugar of : 184 Your goal hba1c is under 7.0 to prevent long-term diabetes complications ( eye , kidney and [...] appointment Assessment & Plan (04/02/2017 10:[address] PILOT): A1c 6.1 improved from 8.6. Denies many [...] Lisinopril Assessment & Plan (05/12/2022 2:[address]ILOT): Chronic problem, well controlled with current amlodipine 10mg daily, lisinopril 40mg daily. No changes at this time Assessment & Plan (09/26/2021 2:58 PM CDT): Controlled on current medications, no changes. Assessment & Plan (03/29/2020 2:[address] PILOT): Goal blood pressure is less than 140/85 [...] microalbumin Assessment & Plan (03/29/2019 10:[address]IL[address]): Goal blood pressure is less than 140/85 Low salt diet recommended Daily aerobic exercise Continue current meds, including PAUL-I or ARB Check microalbumin Assessment & Plan (09/23/2018 4:09 PM CDT): Controlled on current medications. Assessment & Plan (02/08/2018 3:11 PM CDT): Controlled on current medications. Continue follow up with cardiology Assessment & Plan (04/02/2017 10:[address]IL[address]): Controlled on current medications. Assessment & Plan (01/01/2017 3:56 PM CDT): Goal blood pressure is less than 140/85 Low salt diet recommended Daily aerobic exercise Continue current meds, including PAUL-I or ARB Resolved Problems Problem Noted Date Diagnosed Date Resolved Date BMI 39.0-39.9,adult 01/01/2017 05/09/19 23 Morbid obesity (CMS/HCC) 01/01/2017 Assessment & Plan (04/02/2017 10:[address] PILOT): Importance of following diet and exercising discussed. She is considering lap band. Hyperlipidemia 06/16/2012 05/09/2022 Overview (07/23/2016): HYPERLIPIDEMIA NEC/NOS Assessment & Plan (09/23/2018 4:06 PM CDT): Check lipid panel today. Assessment & Plan (02/08/2018 3:12 PM CDT): Will obtain recent labs from PCP and cardiology Assessment & Plan (04/02/2017 10:[address]IL[address]): Check lipid panel. Social History Tobacco Use [...] on file Legal Sex Female 9:[address] Gender Identity Not on file Sexual Orientation [...] hyperglycemia, without long-term current use of insulin ([facility]) ([facility]) ALBUMIN CREATININE RATIO, URINE Routine 05/12/2022 2:[address] PILOT Type 2 diabetes mellitus with hyperglycemia, without long-term current use of insulin ([facility]) ([facility]) BASIC METABOLIC PANEL Routine 02/24/2022 7:[address]IL[address] LIPID PANEL Routine 02/24/2022 7:[address] DEXA SCAN Routine 09/10/2021 from Last 3 [...] Albumin Creatinine Ratio, Urine (05/12/2022 2:[address]) Albumin Ur <12.0 mg/L [facility] Comment: Interpretive Data No reference range established. Current interpretive data was last revised 2018. Creatinine Ur 26.8 mg/dL [facility] Comment: Interpretive Data No reference range established. Current interpretive data was last revised 2018. Albumin Creatinine Ratio, Ur See Comment 1 - 29 [facility] Comment:Unable to calculate Urine 05/12/2022 2:[address] 05/12/2022 7:[address] Eva Zaman MACHINE TOOL TECHNOLOGY INSTRUCTOR LAB URINE ORDERABLES Dianne l Result [facility] [address] Department [place] [address] * (ABNORMAL) Lipid panel (02/24/2022 7:[address]) Pathologist [facility] SCRIBED Cholesterol, Total 109(A) 140 - 199 [facility] SCRIBED HDL 40 40 - NA [facility] SCRIBED LDL 48 0 - 130 [facility] SCRIBED Triglycerides 106 0 - 150 [facility] Blood 02/24/2022 7:[address] Historical Provider LAB BLOOD ORDERABLES Edit ed Result - Final [facility] [address] [phone] * (ABNORMAL) Basic metabolic panel (02/24/2022 7:[address]) SCRIBED Sodium 141 137 - 145 mmol/L [facility] SCRIBED Potassium 4.8 3.5 - 5.1 mmol/L [facility] SCRIBED Chloride 105 98 - 107 mmol/L [facility] SCRIBED Carbon Dioxide 32(A) 22 - 30 mmol/L [facility] SCRIBED Anion Gap 8.8(A) 14 - 22 mmol/L [facility] SCRIBED Urea Nitrogen (BUN) 22(A) 8 - 19 mg/dl [facility] SCRIBED Creatinine 0.85 0.66 - 1.25 mg/dl [facility] SCRIBED Glucose 110(A) 70 - 99 mg/dl [facility] SCRIBED Calcium 9.2 8.4 - 10.2 mg/dl [facility] SCRIBED eGFR in NonAfrican Bulgarian >60 >=60 - NA [facility] Blood 02/24/2022 7:[address] Historical Provider LAB BLOOD ORDERABLES Edit ed Result - Final Performing Organization Address City/State/[facility] Co de Phone Number [facility] [address] [phone] * HM DEXA SCAN (09/10/2021) Historical Provider HEALTH MAINTENANCE Final Result from Last 3 Months or Most Recently Relevant to Health Maintenance Insurance MEDICARE AETNA MEDICARE GOLD [facility] MEDICARE [facility] MEDICARE [facility] Care Teams Forest Management Professor Relationship Specialty Start Date End Date Sarahi Olmos PA PCP - General Physician Sales Attendant 09/23/18 Mitchel Ortega MD Consulting Physician Cardiovascular Disease 02/04/18
[2024-06-09 12:34] LABS: Glucose Point of Care 92 mg/dl (65-105)
[2024-06-09] MEDS: LACTATED RINGERS 1,000 ML 150 ML IV CONT (12:34)
--- NOTE | 2024-06-09 13:10 | P.PNAN_ITS ---
Anes - Initial Pre Proc Eval Procedure: Operation Date: 06/09/24 13:00 Proposed Procedures p Esophagogastroduodenoscopy - Tristen Caldwell MD Date/Time: 06/09/24 13:10 Surgeon: Tristen Caldwell MD Pre Op Diagnosis: dysphagia Patient Data Age: 68 Gender: F Height: 1.57 m Weight: 93.1 kg Last Vital Signs Temp 98.0 F 06/09/24 12:21 Pulse 53 L 06/09/24 12:21 Resp 18 06/09/24 12:21 BP 162/68 H 06/09/24 12:21 Pulse Ox 100 06/09/24 12:21 O2 Del Method Room Air 06/09/24 12:21 Allergies Allergy/AdvReac Type Severity Reaction Status Date / Time adhesive tape Allergy Intermediate Rash Verified 06/09/24 12:16 Home Medications ?Medication ?Instructions ?Recorded ?Confirmed ?Type aspirin 81 mg tablet,delayed 81 mg PO HS 01/03/20 06/09/24 History release atorvastatin 80 mg tablet 80 mg PO HS 01/03/20 06/09/24 History cholecalciferol (vitamin D3) 1,250 1,250 mcg PO WEEKLY 01/03/20 06/09/24 History mcg (50,000 unit) tablet metformin 500 mg tablet,extended 500 mg PO DAILY 01/03/20 06/09/24 History release 24 hr torsemide 100 mg tablet 50 mg PO QAM 01/03/20 06/09/24 History clopidogrel 75 mg tablet 75 mg PO DAILY 01/16/22 04/28/24 History albuterol sulfate 90 mcg/actuation 2 inh inhalation PRN PRN Wheezing 03/09/23 04/08/24 History aerosol inhaler amlodipine 10 mg tablet 10 mg PO HS 03/09/23 06/09/24 History docusate sodium 100 mg capsule 100 mg PO BID #60 caps 03/20/23 06/09/24 Rx (Colace) lisinopril 10 mg tablet 10 mg PO DAILY 10/15/23 06/09/24 History potassium chloride 20 mEq 20 meq PO BID 10/15/23 06/09/24 History tablet,extended release(part/cryst) (Klor-Con M) famotidine 40 mg tablet 40 mg PO .meals PRN upset stomach 04/08/24 06/09/24 History trazodone 100 mg tablet 50 mg PO HS 04/08/24 06/09/24 History meclizine 25 mg tablet 25 mg PO DAILY 05/30/24 06/09/24 History Laboratory Tests 06/09/24 12:32 POC Capillary Glucose 92 mg/dl (65-105) Patient hx anesthesia problems: none Family hx anesthesia problems: none Results Review: All pre-operative results and documents have been reviewed as part of the pre- operative evaluation. 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 Hyperlipidemia Diverticulosis COPD (chronic obstructive pulmonary disease) History of blood transfusion Diabetes Hypertension Surgical History Surgical History History of incisional hernia repair Robotic assisted laparoscopic recurrent incarcerated incisional hernia repair with [employer] Ventralight ST mesh 03/17/23 History of open heart surgery Hx of elbow surgery [place] teeth removed H/O dilation and curettage H/O hernia repair H/O section Family History Family History Mother Hypertension Family history of elevated blood lipids Family history of diabetes mellitus in first degree relative Father Hypertension Cerebrovascular accident Sibling Family history of elevated blood lipids Hypertension Family history of diabetes mellitus in first degree relative Other Diabetes mellitus Family history of cardiovascular disease Family history of coronary artery disease Social History Social History Smoking status: Never smoker Second hand tobacco smoke exposure: No Alcohol intake: current Drinks per week: 1 Alcohol use details: 12/MONTH Substance use: current Substance use type: marijuana Other substance usage details: DAILY- FOR PAIN Last use: 03/09/23 Lack of Transportation: No Lack of Food: Never True Current Housing: I Have Housing Concerned About Future Housing: No Difficulty Paying Gas/Electric Bills: No Difficulty Paying for Meds: No Currently Unemployed: No Education: High School Diploma/GED Difficulty w/ Childcare or Family Care: No Living arrangements: with family Additional living arrangements comments: LIVES WITH BOYFRIEND MINE EVANS Spiritual care concerns: No Anes - Eval Final PreProcedure Day of Procedure 06/09/24 13:10 Patient weight: obese Lungs: normal air movement Airway: Mallampati scale class II Neurological: alert and oriented Last oral intake: >/= 8 hours ASA classification: III Emergent: no Anesthetic plan: proceed Anesthesia type and monitoring: general GIVS and standard monitoring Results Review: All pre-operative results and documents have been reviewed as part of the pre- operative evaluation. HTN, hyperlipidemia, marijuana use daily, PVD, DM, now w dysphagia. Informed Consent: The patient's anesthetic plan and its attendant risks and benefits were discussed with the patient/family/POA. Questions were solicited and answers provided to the satisfaction of the patient/family/POA.
--- NOTE | 2024-06-09 13:40 | PM.IMHP ---
H&P: HPI History of Present Illness Date/Time: 06/09/24 13:40 Chief Complaint: Dysphagia Narrative: this patient has been experiencing dysphagia to solids and liquids for the past 7 months approximately. There is no history of heartburn, regurgitation or weight loss. 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 Hyperlipidemia Diverticulosis COPD (chronic obstructive pulmonary disease) History of blood transfusion Diabetes Hypertension Surgical History Surgical History History of incisional hernia repair Robotic assisted laparoscopic recurrent incarcerated incisional hernia repair with Bard Ventralight ST mesh 03/17/23 History of open heart surgery Hx of elbow surgery [place] [employer] teeth removed H/O dilation and curettage H/O hernia repair H/O section Family History Family History Mother Hypertension Family history of elevated blood lipids Family history of diabetes mellitus in first degree relative Father Hypertension Cerebrovascular accident Sibling Family history of elevated blood lipids Hypertension Family history of diabetes mellitus in first degree relative Other Diabetes mellitus Family history of cardiovascular disease Family history of coronary artery disease Social History Social History Smoking status: Never smoker Second hand tobacco smoke exposure: No Alcohol intake: current Drinks per week: 1 Alcohol use details: 12/MONTH Substance use: current Substance use type: marijuana Other substance usage details: DAILY- FOR PAIN Last use: 03/09/23 Lack of Transportation: No Lack of Food: Never True Current Housing: I Have Housing Concerned About Future Housing: No Difficulty Paying Gas/Electric Bills: No Difficulty Paying for Meds: No Currently Unemployed: No Education: High School Diploma/GED Difficulty w/ Childcare or Family Care: No Living arrangements: with family Additional living arrangements comments: LIVES WITH BOYFRIEND MINE EVANS Spiritual care concerns: No Meds Home Medications and Allergies Home Medications ?Medication ?Instructions ?Recorded ?Confirmed ?Type aspirin 81 mg tablet,delayed 81 mg PO HS 01/03/20 06/09/24 History release atorvastatin 80 mg tablet 80 mg PO HS 01/03/20 06/09/24 History cholecalciferol (vitamin D3) 1,250 1,250 mcg PO WEEKLY 01/03/20 06/09/24 History mcg (50,000 unit) tablet metformin 500 mg tablet,extended 500 mg PO DAILY 01/03/20 06/09/24 History release 24 hr torsemide 100 mg tablet 50 mg PO QAM 01/03/20 06/09/24 History clopidogrel 75 mg tablet 75 mg PO DAILY 01/16/22 04/28/24 History albuterol sulfate 90 mcg/actuation 2 inh inhalation PRN PRN Wheezing 03/09/23 04/08/24 History aerosol inhaler amlodipine 10 mg tablet 10 mg PO HS 03/09/23 06/09/24 History docusate sodium 100 mg capsule 100 mg PO BID #60 caps 03/20/23 06/09/24 Rx (Colace) lisinopril 10 mg tablet 10 mg PO DAILY 10/15/23 06/09/24 History potassium chloride 20 mEq 20 meq PO BID 10/15/23 06/09/24 History tablet,extended release(part/cryst) (Klor-Con M) famotidine 40 mg tablet 40 mg PO .meals PRN upset stomach 04/08/24 06/09/24 History trazodone 100 mg tablet 50 mg PO HS 04/08/24 06/09/24 History meclizine 25 mg tablet 25 mg PO DAILY 05/30/24 06/09/24 History Allergies Allergy/AdvReac Type Severity Reaction Status Date / Time adhesive tape Allergy Intermediate Rash Verified 06/09/24 12:16 Vital Signs Vital Signs - 24 hr 06/09/24 12:21 Temperature 98.0 F Pulse Rate 53 L Respiratory Rate 18 Blood Pressure 162/68 H Pulse Oximetry 100 Oxygen Delivery Room Air Exam Const: General: cooperative and healthy appearing Resp: Effort & Inspection: normal respiratory effort and able to speak in complete sentences Auscultation: clear to auscultation bilaterally Cardio: Rate: regular rate Rhythm: regular rhythm GI: Inspection: normal to inspection GI Palp: No No hepatosplenomegaly present Auscultation: normal bowel sounds Rectal Exam: deferred Skin: General skin exam: normal color Psych: Appearance: grossly normal Mental Status: mental status grossly normal Assessment and Plan Assessment and plan (1) Dysphagia: Code(s): R13.10 - Dysphagia, unspecified Status: Acute Assessment and Plan: The patient is deemed a good candidate for the procedure. differential diagnosis includes eosinophilic esophagitis, Schatzki ring, peptic stricture, malignancy or motility disorders. An EGD with biopsies will be performed. Consent signed. Will proceed.
--- NOTE | 2024-06-09 14:30 | SUR.PHASEII ---
Reported Bp's of 188/79, 188/72 and 201/[address] Carrillo. Verbal order of 5mg IV hydralazine given.
[2024-06-09] MEDS: hydrALAZINE HCL 20 MG/ML VIAL 5 MG IV PUSH ×2 (14:34→14:53)
--- NOTE | 2024-06-09 15:21 | SUR.PHASEII ---
Spoke with Dr. Carrillo. Patient last bp was 176/76 that has also been the lowest since we had done the last dose of hydralazine. Per Dr. Carrillo, patient can go home but to take blood pressure medication as soon as she can.
== END 2024-06-09 15:24 | disposition home or self-care (01) ==
PROVIDERS: PCP Physician Assistant; Visit Provider Internal Medicine Gastroenterology
PROC: 0DJ08ZZ Inspection of Upper Intestinal Tract, Via Natural or Artificial Opening Endoscopic (ICD-10-PCS; CPT 43239; principal; 2024-06-09 13:00)
DX: R13.10 Dysphagia, unspecified (principal); K44.9 Diaphragmatic hernia without obstruction or gangrene; K29.30 Chronic superficial gastritis without bleeding; E11.9 Type 2 diabetes mellitus without complications; F12.90 Cannabis use, unspecified, uncomplicated; E66.9 Obesity, unspecified; Z68.37 Body mass index [BMI] 37.0-37.9, adult
CPT/HCPCS: 43239; 82948; 88305; J0360; J2003; J2704; J7120

== ENCOUNTER 2024-06-22 14:47 | Outpatient (CLI) | payer MEDICARE, SELFPAY ==
--- NOTE | ~2024-06-22 | US_ITS ---
EXAMINATION: US thyroid DATE: 06/22/2024 15:42 INDICATION: Abnormal results of thyroid function studies. TECHNIQUE: Multiple ultrasound images of the thyroid were obtained. COMPARISON: Thyroid ultrasound 04/04/2024 FINDINGS: The right thyroid lobe measures 3.7 x 1.5 x 1.2 cm. The left thyroid lobe measures 3.3 x 1.4 x 1.5 c m. In the right thyroid lobe, there is a 7 mm solid, hypoechoic, wider than tall nodule with ill-def ined margin and macrocalcification (TI-RADS TR4). IMPRESSION: 1. Small thyroid nodule, likely not clinically significant. No follow-up is needed. Reviewed, dictated and finalized at location A. NSTRATOR SALES IMPRESSION: 1. Small thyroid nodule, likely not clinically significant. No follow-up is nee ded.
--- OUTSIDE RECORDS SUMMARY | 2024-06-22 16:41 | XMS_ITS | Data Portability ---
Author Organization [facility] RIAZAltagracia Address [address] [place] [address] Assessment Encounter Date Assessment Date Assessment LastModified by Organization Details LastModified Time 08/05/2023 08/05/2023 Colonoscopy was [email or web address] Not availabl e 08/05/2023 15:26:53 02/04/2024 02/04/2024 Colonoscopy was completed this year in November 07, 2023 showing diverticulosis and internal hemorrhoids with a repeat in 10 years. Mammogram is [email or web address] Not available 02/21/2024 12:03:41 Plan of Treatment Reminders Order Date Submit Date Provider Last Modified By Organization Details Last Modified Time Details Appointments ANY 15 2024 08:00A M MCKENZIE Mcdowell Not available Not available Not available Lab microa lbumin /creat inine, ratio, urine 2023 [facility] (Lab), [address] [place], [address], 02/12/2024 12:22:12 glycoh emoglo bin, total, blood 2023 024 [facility] (Lab), [address] [place], [address], 02/12/2024 12:22:21 urinal ysis comple te, reflex cultur e 2023 024 [facility] (Lab), [address] [place], [address], 02/12/2024 12:22:47 CBC w/ auto diff 2023 024 [facility] (Lab), [address] [place], [address], 02/12/2024 12:22:55 BMP, serum or plasma 2023 024 [facility] (Lab), [address] [place], [address], 02/12/2024 12:23:05 hepati c functi on panel, serum 2023 024 [facility] (Lab), [address] [place], [address], 02/12/2024 12:23:14 TSH, serum or plasma 2023 024 [facility] (Lab), [address] [place], [address], 02/12/2024 12:23:18 lipid panel, serum 2023 024 [facility] (Lab), [address] [place], [address], 02/12/2024 12:22:34 microa lbumin /creat inine, ratio, urine 2023 024 [facility] (Lab), [address] [place], [address], 02/11/2024 14:34:22 glycoh emoglo bin, total, blood 2023 024 [facility] (Lab), [address] [place], [address], 01/19/2024 10:26:46 CBC w/ auto diff 2023 024 [facility] (Lab), [address] [place], [address], 01/19/2024 10:26:47 BMP, serum or plasma 2023 024 [facility] (Lab), [address] [place], [address], 01/19/2024 10:26:46 hepati c functi on panel, serum 2023 024 [facility] (Lab), [address] [place], [address], 01/19/2024 10:26:47 TSH, serum or plasma 2023 024 [facility] (Lab), [address] [place], [address], 01/19/2024 10:26:46 vitami n B12, serum 2023 024 [facility] (Lab), [address] [place], [address], 01/19/2024 10:26:47 lipid panel, serum 2023 024 [facility] (Lab), [address] [place], [address], 02/11/2024 14:34:22 Referral None record ed. Procedures upper endosc opy proced ure (EGD) (PROC) 2023 024 [facility] Germain self MD, [address], [address], [place], [address], 05/30/2024 13:08:35 diagno stic colono scopy (PROC) 2023 024 [facility], [address], [address], [place], [address], 12/16/2023 13:59:56 Surgeries None record ed. Imaging PFT, comple te - with and withou t bronch odilat or 2023 [facility] (Resp Services), [address], [place], [address], 02/23/2024 12:17:19 Medication Orders famoti dine 40 mg tablet 2023 024 [facility]/Pharmacy #[id number], [address], [place], [address], 02/04/2024 10:09:17 famoti dine 40 mg tablet 2023 024 [facility]/Pharmacy #[id number], [address], [place], [address], 02/04/2024 09:34:49 Patient TargetsNo targets recorded. Patient InstructionsNo instructions recorded. Reason for Referral None Reported. Results Created Date Observation Date Name Description Value Unit Range Abnormal Flag Note LastModifiedBy Organization Detail LastModifiedTime 07/06/1907/06/2023 CT, abdom en + pelvi s, w/o contr ast No observ ation record ed. [email or web address] [facility] [address] [facility] [address], [place], [address], 08/03/2023 15:27:09 07/06/19 24 07/06/2023 NM, myoca rdial perfu ivonne scan No observ ation record ed. [email or web address] [facility] [address], [place], [address], 08/05/2023 15:23:05 08/13/19 24 08/13/2023 MAMMO , scree allyn, digit al, bilat eral No observ ation record ed. [email or web address] [place] [address], [place], [address], 08/13/2023 15:32:28 12/02/19 24 12/01/2023 XR, knee No observ ation record ed. [address] [place], [address], 12/03/2023 22:54:00 12/07/19 24 12/07/2023 XR, chest No observ ation record ed. [address] [place], [address], 12/07/2023 12:29:08 12/11/19 24 12/11/2023 FL, modif ied dorothy lopez ow study No observ ation record ed. [place] [address] [facility] [address], [place], [address], 12/11/2023 18:40:59 12/16/19 24 10/27/2023 diagn ostic colon oscop y (PROC ) No observ ation record ed. [address] [facility] [address], [place], [address], 12/16/2023 14:04:11 12/28/19 24 12/28/2023 MAMMO , scree allyn, digit al, bilat eral No observ ation record ed. [facility] [address] [facility] [address], [place], [address], 12/29/2023 16:45:41 02/23/20 24 02/15/2024 PFT, compl ete No observ ation record ed. [facility] (Resp Services) [address] [facility] [address], [place], [address], 02/24/2024 11:39:04 Result Notes None recorded. Problems Name Problem SNOMED Code Status Onset Date Resolution Date Notes Provider Name and Address Organization Details Recorded Time Coronary atheroscler osis 782669665 Active 2023 MCKENZIE Mcdowell Attn: Hair rubio,[address] [facility], [place], [address], [place] - [facility] 4 14:00:20 History of placement of stent in coronary artery bypass graft 4545048351615 00 Active 2023 MCKENZIE Mcdowell Attn: Accountin g,[address] [facility], [place], [address], [place] [facility] 4 14:00:22 Well controlled type 2 diabetes mellitus 168420134 Active 2023 MCKENZIE Mcdowell Attn: Accountin g,[address] [facility], [place], [address], [place] [facility] 4 14:00:23 Hyperlipide uma 37970208 Active 2023 MCKENZIE Mcdowell Attn: Accountin g,[address] [facility], [place], [address], [place] [facility] 4 14:00:24 Benign essential hypertensio n 0789916 Active 2023 MCKENZIE Mcdowell Attn: Accountin g,[address] [facility], [place], [address], [place] [facility] 4 14:00:25 Acid reflux 678961283 Active 2023 MCKENZIE Mcdowell Attn: Accountin g,[address] [facility], [place], [address], [place] [facility] 4 14:00:26 Chronic insomnia 474849070 Active 2023 MCKENZIE Mcdowell Attn: Accountin g,[address] [facility], [place], [address], [place] [facility] 4 14:00:28 Long-term drug therapy Active 2023 MCKENZIE Mcdowell Attn: Accountin g,[address] [facility], [place], [address], [place] [facility] 4 14:00:29 Lower urinary tract symptoms 855925198 Active 2023 MCKENZIE Mcdowell Attn: Hair rubio,[address], [place], [address], [facility] - [facility] 12:02:05 Chronic obstructive pulmonary disease 02679208 Active 2023 MCKENZIE Mcdowell Attn: Hair g,[address] [facility], [place], [address], [facility] 4 12:02:07 Dysphagia 05886237 Active 2023 MCKENZIE Mcdowell Attn: Hair rubio,[address] [facility], [place], [address], [facility] 12:02:37 Problem Notes None recorded. Procedures Surgical History Date Name Laterality Status Provider Name and Address Organization Details Recorded Time percutaneous transluminal venous angioplasty with insertion of stent completed [place] [facility] 08/05/2023 16:02:16 Coronary artery bypass/reop completed [place] [facility] 08/05/2023 16:02:38 Heart Surgery completed [place] MA [facility] 08/05/2023 16:02:46 Hernia Repair completed [place] MA [facility] 08/05/2023 16:02:52 Tonsillectomy completed [place] [facility] 08/05/2023 16:03:00 Imaging Results Imaging Date Name Status LastModified by Organization Details LastModified Time 07/06/2023 CT, abdomen + pelvis, w/o contrast completed [address] [facility] [facility] [address], [place], [address], 08/03/2023 15:27:09 07/06/2023 NM, myocardial perfusion scan completed [address] [facility] [address] , [place], [address], 08/05/2023 15:23:05 08/13/2023 MAMMO, screening, digital, bilateral completed [email or web address] [address] [place], [address], 08/13/2023 15:32:28 12/01/2023 XR, knee completed [address] [place], [address], 12/03/2023 22:54:00 12/07/2023 XR, chest completed [address] [place], [address], 12/07/2023 12:29:08 12/11/2023 [place], modified barium swallow study completed [address], [address], 12/11/2023 18:40:59 10/27/2023 diagnostic colonoscopy (PROC) completed [address] [facility] [address] [place] [address] Route [facility] [address] [place] [address], [address], 12/16/2023 14:04:11 12/28/2023 MAMMO, screening, digital, bilateral completed [address], [address], 12/29/2023 16:45:41 02/15/2024 PFT, complete completed [facility] (Resp Services) [address] [place] [address], [address], 02/24/2024 11:39:04 Procedure Notes None recorded. Medical Equipment None Reported. Allergies Allergen ID Allergen Name Allergen Category Reaction Reaction Severity Criticality Documentation Date Start Date Code Code System Note Provider Name and Address Organization Details Recorded Time 017147 ethinyl estradiol / levonorge strel medicatio n facial swelling Not available Not available 02/04/2024 72925 8 RxNorm Not Available Not Available Not [...] EVENING AT BEDTIME NEEDED FOR SLEEP ISSUES 2024 active Not Available Not Available Not Avai [...] (vitamin D2) 1,250 mcg (50,000 unit) capsule Take 1 capsule every week by oral route. 2024 active Not Available Not Available Not Avai lable polyethylen e glycol 3350 17 gram/dose oral [...] Updated DateTime 08/05/2023 154.94 cm 36.9 kg/m2 04933.8 g 20 /min [place] MA [facility] 08/05/2023 15:12:25 Date Recorded Oxygen saturation Oxygen saturation in Arterial blood by Pulse oximetry Heart rate Systolic blood pressure Diastolic blood pressure Provider Name and Address Organization Details Last Updated DateTime 98 % 98 % 60 /min 118 mm[Hg] 84 mm[Hg] MCKENZIE Mcdowell Attn: Hair ramiro,[address] [place], [address], [facility] 15:34:35 Date Recorded Body height Body mass index (BMI) Body weight Heart rate Oxygen saturation Oxygen saturation in Arterial blood by Pulse oximetry Systolic blood pressure Diastolic blood pressure Provider Name and Address Organization Details Last Updated DateTime 154.94 cm 40.1 kg/m2 63536.5 8 g 58 /min 98 % 98 % 118 mm[Hg] 80 mm[Hg] Pineda Jimenez MA [facility] 09:38:42 Social History Question Answer Notes LastModified by Organizat ion Details LastModified Time Tobacco Smoking Status Never Smoker marijuana Pineda Jimenez MA null, [facility] 02/04/2024 09:36:02 What Is Your Level Of [...] Anxious, Or Unable To Sleep At Night)? CK2214-7 Information not available 08/05/2023 Do You Use [...] Response Coronary Artery Disease Y Other N High Blood Pressure Y Atrial Fibrillation N Kidney or Bladder Problems N Thyroid Problems N GI Problems N Depression N COPD Y Blood Clots N Skin Problems N Anemia N Heart Attack ([place]) N Anxiety Disorder N Diabetes N Muscle, Joint, or Bone Problems N Seizures/Epilepsy N Acid Reflux (GERD) N Cancer N Stroke N Asthma N Allergies Y High Cholesterol Y Hepatitis N Liver Disease N Headaches N Heart Failure N Osteoporosis Y Gynecological [...] Tdap 6 completed [place] [facility] 02/03/2024 09:55:49 Tdap 6 completed Angelirmatello Keith [place] [facility] 02/03/2024 09:55:49 Influenza, split virus, trivalent, preservative 5 completed [place], [place] - [facility] 02/03/2024 09:55:49 Influenza, split virus, trivalent, preservative 5 completed Angelirmatello Keith [place] [facility] 02/03/2024 09:55:49 Influenza, split virus, quadrivalent, PF 9 completed [place] [facility] 02/03/2024 09:55:49 Past Encounters Encounter ID Performer Location Encounter Start Date Encounter Closed Date Diagnosis/Indication Diagnosis SNOMED-CT Code Diagnosis ICD10 Code Diagnosis Note [id number] MCKENZIE Mcdowell [facility] [place] [address] [place] [address] 08/05/2023 14:56:02 08/05/2023 15:59:58 Coronary atherosclerosis 010355882 I25.10 stable. following with cardiology . History of placement of stent in coronary artery bypass graft 4077145717 17925 Z95.1 stable Well contr olled type 2 diabetes mellitus 679852287 E11.9 stable on metformin therapy. next labs due in Jan. Hyperlipidemia 57480318 E78.5 stable on statin therapy. fasting lipids due in Jan. Benign ess ential hypertension 6466482 I10 stable on medication . Chronic insomnia 8922159 04 F51.04 use trazodone as directed for sleep. Long-term drug therapy 795421212 Z79.899 next lab panel due in January. Lower abdominal pain 545 43009 R10.30 refer for diagnostic colonoscop y as she had hernia surgery repair and that did not resolve pain, and she has had CT scan and there were no findings as source for her pain. she needs updated scope. Acid reflux 535224531 K2 1.9 refill famotidine 40mg daily. stable. [id number] MCKENZIE Mcdowell [facility] [place] [address] [place] [address] 02/04/2024 09:15:37 02/08/2024 14:57:21 Coronary atherosclerosis 088974093 I25.10 stable. following with cardiology . Asymptomat ic. Patient had myocardial perfusion stress testing in June History of placement of stent in coronary artery bypass graft 6066769156 08866 Z95.1 stable Well contr olled type 2 diabetes mellitus 271177437 E11.9 stable on metformin therapy. A1c and microalbum in testing is due Hyperlipidemia 69315342 E78.5 stable on statin therapy. fasting lipids due Benign ess ential hypertension 1617117 I10 stable on medication . Acid reflux 936971279 K2 1.9 Patient is having some acid reflux. We will start famotidine 40 mg once daily to see if this helps with symptoms and was some of her dysphagia. Chronic insomnia 1063317 04 F51.04 use trazodone as directed for sleep. Long-term drug therapy 806030640 Z79.899 next lab panel due Lower urin tonya tract symptoms 158341852 R39.9 Will always check a urine with reflex culture for her urinary frequency symptoms Chronic ob structive pulmonary disease 50912690 J44.9 Refer for complete pulmonary function testing and follow-up with Pulmonary as indicated. She would like to have her COPD assessed Dysphagia 62521491 R13.1 0 Refer for upper endoscopy EGD. [...] ID Guarantor Name 08/05/2023 1 [employer] (HMO) [id number] Norma Power [id number] Norma Power 02/04/2024 1 [employer] - PRIME (MEDICARE REPLACEMENT/ ADVANTAGE - HMO) [id number] Norma Power [id number] Norma Power Notes Date Note Type Note [...] sleep issues. MCKENZIE Mcdowell Attn: Accounting,[address] [facility], [place], [address], [facility] 08/18/2023 14:00:43 02/04/20 24 text/htm l [...] as well MCKENZIE Mcdowell Attn: Accounting,[address] [facility], [place], [address], [facility] 02/21/2024 12:03:59 OBGyn Episode No OBEpisode recorded.
--- OUTSIDE RECORDS SUMMARY | 2024-06-22 16:41 | XMS_ITS | Clinical Summary ---
Author Organization [facility] Address [address] [place] [address] Phone Care Team Providers Care Rn Home Health Name Role Phone Unavailable Primary Care Provider [...] MG tablet 11/15/2011 Active ergocalciferol (VITAMIN D-2) 04395 units capsule 1 weekly 11/15/2011 Active carvedilol [...]
--- OUTSIDE RECORDS SUMMARY | 2024-06-22 16:41 | XMS_ITS | Encounter Summary ---
Author Organization [facility] Address [address] [place] [address] Phone Care Team Providers Care Returner Name Role Phone Yanet Richard MD Primary Care Provider [phone] Mitchel Ortega MD Unavailable Sarahi Olmos Primary Care Pr ovider Encounter Details Date Type Department Care Team (Late st Contact Info) Description 09/10/2017 Orders Only [facility] Provider, MD Ted [address] [place] [address] Social History Tobacco Use Types Packs/Day Years Used Date Smoking Tobacco: Never Smokeless Tobacco: Never Alcohol Use Standard Drinks/Week Comments Yes 0 (1 standard drink = 0.6 oz pur e alcohol) Comments Unknown Sex and Gender Information Value Date Recorded Sex Assigned at Not on file Legal Sex Female 9:41 AM [employer] Gender Identity Not on file Sexual Orientation [...] on filedocumented in this encounter Care Teams Returner Relationship Specialty Start Date End Date Yanet Richard MD [address] [address] PCP - General 07/18/16 09/22/18 Sarahi Olmos PA [address] [address] PCP - General Physician Wheel Installer 09/23/18 Mitchel Ortega MD [address] [id number] Consulting Physician Cardiovascular Disease 02/04/18 documented as of this encounter
--- OUTSIDE RECORDS SUMMARY | 2024-06-22 16:41 | XMS_ITS | Clinical Summary ---
Author [place] [facility] [place] [address] Address [address] [place] [address] Care Team Providers Care End Polisher Name Role Phone Mitchel Ortega MD Unavailable Sarahi Olmos Primary Care Pr ovider Allergies No known active allergies Medications calcium carbonate-vitamin D3 600 mg(1,500mg) -400 unit capsule take 2 daily 0 0 1 Active ergocalciferol (VITAMIN D2) 50,000 unit capsule take 1 capsule ([id number]) by oral route every week 0 1 Active blood-glucose meter (FREESTYLE LITE METER) kit take by [facility] [place]Non-Dr ug; Combo Route) route 0 kit 0 [...] 05/12/2022 Assessment & Plan (05/12/2022 2:47 PM ULTRASONIC SOLDERER): Discussed healthy diet and importance of regular physical activity (20- 30min/day, 150min/wk). Weight slowly trending downward after diet changes. She's down 16# since last appt. Referral sent to [facility] printing table worker. Contact # given to Norma if no call rec'd . Hyperlipidemia due to type 2 diabetes mellitus 0 10/06/2019 Assessment & Plan (11/13/2022 2:39 PM CDT): Chronic, well controlled Low fat Low cholesterol diet Exercise Continue statin therapy with Atorvastatin Assessment & Plan (05/12/2022 2:48 PM ULTRASONIC SOLDERER): Chronic problem. Last LDL=68 07/27/21. Atorvastatin 80mg [...] exam Assessment & Plan (05/12/2022 2:43 PM ULTRASONIC SOLDERER): Chronic problem, stable & well controlled on Metformin 500mg bid. Norma reports that she's had labs with PCP in last 1-2 months, will try to get copy from her office. [facility] Prepress Specialist: [phone]. I sent referral to them. Please call [...] Metformin Assessment & Plan (03/29/2020 2:41 PM ULTRASONIC SOLDERER): Hba1c was Lab Results Component Value Date [...] Metformin Assessment & Plan (03/29/2019 10:24 AM ULTRASONIC SOLDERER): Your Hba1c today was: Lab Results Component Value Date HGBA1C 8.1 03/29/2019 meaning a 3 month average sugar of : 184 Your goal hba1c is under 7.0 to prevent chcf diabetes complications ( eye , kidney and [...] appointment Assessment & Plan (04/02/2017 10:30 AM ULTRASONIC SOLDERER): A1c 6.1 improved from 8.6. Denies many [...] Lisinopril Assessment & Plan (05/12/2022 2:49 PM ULTRASONIC SOLDERER): Chronic problem, well controlled with current amlodipine 10mg daily, lisinopril 40mg daily. No changes at this time Assessment & Plan (09/26/2021 2:58 PM CDT): Controlled on current medications, no changes. Assessment & Plan (03/29/2020 2:41 PM ULTRASONIC SOLDERER): Goal blood pressure is less than 140/85 [...] microalbumin Assessment & Plan (03/29/2019 10:26 AM ULTRASONIC SOLDERER): Goal blood pressure is less than 140/85 Low salt diet recommended Daily aerobic exercise Continue current meds, including PAUL-I or ARB Check microalbumin Assessment & Plan (09/23/2018 4:09 PM CDT): Controlled on current medications. Assessment & Plan (02/08/2018 3:11 PM CDT): Controlled on current medications. Continue follow up with cardiology Assessment & Plan (04/02/2017 10:29 AM ULTRASONIC SOLDERER): Controlled on current medications. Assessment & Plan (01/01/2017 3:56 PM CDT): Goal blood pressure is less than 140/85 Low salt diet recommended Daily aerobic exercise Continue current meds, including PAUL-I or ARB Resolved Problems Problem Noted Date Diagnosed Date Resolved Date BMI 39.0-39.9,adult 01/01/2017 05/09/19 23 Morbid obesity (CMS/HCC) 01/01/2017 Assessment & Plan (04/02/2017 10:28 AM ULTRASONIC SOLDERER): Importance of following diet and exercising discussed. She is considering lap band. Hyperlipidemia 06/16/2012 05/09/2022 Overview (07/23/2016): HYPERLIPIDEMIA NEC/NOS Assessment & Plan (09/23/2018 4:06 PM CDT): Check lipid panel today. Assessment & Plan (02/08/2018 3:12 PM CDT): Will obtain recent labs from PCP and cardiology Assessment & Plan (04/02/2017 10:29 AM ULTRASONIC SOLDERER): Check lipid panel. Surgical History Surgery Date [...] on file Legal Sex Female 9:41 AM ULTRASONIC SOLDERER Gender Identity Not on file Sexual Orientation [...] hyperglycemia, without long-term current use of insulin (HCC) ALBUMIN CREATININE RATIO, URINE Routine 05/12/2022 2:36 PM ULTRASONIC SOLDERER Type 2 diabetes mellitus with hyperglycemia, without long-term current use of insulin (HCC) BASIC METABOLIC PANEL Routine 02/24/2022 7:18 AM ULTRASONIC SOLDERER LIPID PANEL Routine 02/24/2022 7:18 AM ULTRASONIC SOLDERER DEXA SCAN Routine 09/10/2021 from Last 3 [...] Albumin Creatinine Ratio, Urine (05/12/2022 2:36 PM ULTRASONIC SOLDERER) Albumin Ur <12.0 mg/L [facility] Comment: Interpretive Data No reference range established. Current interpretive data was last revised 2018. Creatinine Ur 26.8 mg/dL [facility] Comment: Interpretive Data No reference range established. Current interpretive data was last revised 2018. Albumin Creatinine Ratio, Ur See Comment 1 - 29 [facility] Comment:Unable to calculate Urine 05/12/2022 2:36 PM ULTRASONIC SOLDERER 05/12/2022 7:08 PM ULTRASONIC SOLDERER Eva Zaman PICKLE WATER PUMP OPERATOR LAB URINE ORDERABLES Dianne l Result [facility] [id number] [address] Department [place] [address] * (ABNORMAL) Lipid panel (02/24/2022 7:18 AM ULTRASONIC SOLDERER) Pathologist [facility] SCRIBED Cholesterol, Total 109(A) 140 - 199 [facility] SCRIBED HDL 40 40 - NA [facility] SCRIBED LDL 48 0 - 130 [facility] SCRIBED Triglycerides 106 0 - 150 [facility] Blood 02/24/2022 7:18 AM ULTRASONIC SOLDERER Historical Provider LAB BLOOD ORDERABLES Edit ed Result - Final [facility] [address] [phone] * (ABNORMAL) Basic metabolic panel (02/24/2022 7:18 AM ULTRASONIC SOLDERER) SCRIBED Sodium 141 137 - 145 mmol/L [facility] SCRIBED Potassium 4.8 3.5 - 5.1 mmol/L [facility] SCRIBED Chloride 105 98 - 107 mmol/L [facility] SCRIBED Carbon Dioxide 32(A) 22 - 30 mmol/L [facility] SCRIBED Anion Gap 8.8(A) 14 - 22 mmol/L [facility] SCRIBED Urea Nitrogen (BUN) 22(A) 8 - 19 mg/dl [facility] SCRIBED Creatinine 0.85 0.66 - 1.25 mg/dl [facility] SCRIBED Glucose 110(A) 70 - 99 mg/dl [facility] SCRIBED Calcium 9.2 8.4 - 10.2 mg/dl [facility] SCRIBED eGFR in NonAfrican French >60 >=60 - NA [facility] Blood 02/24/2022 7:18 AM ULTRASONIC SOLDERER Historical Provider LAB BLOOD ORDERABLES Edit ed Result - Final [facility] [address] [phone] * HM DEXA SCAN (09/10/2021) Historical Provider HEALTH MAINTENANCE Final Result from Last 3 Months or Most Recently Relevant to Health Maintenance Insurance MEDICARE [facility] MEDICARE [facility] AETNA MEDICARE GOLD AETNA MEDICARE GOLD Care Teams End Polisher Relationship Specialty Start Date End Date Sarahi Olmos PA PCP - General Physician Counselor Marriage And Family 09/23/18 Mitchel Ortega MD Consulting Physician Cardiovascular Disease 02/04/18
--- OUTSIDE RECORDS SUMMARY | 2024-06-22 16:41 | XMS_ITS | CONTINUITY OF CARE DOCUMENT ---
Author Name weston ontiveros Address Unknown Organization [facility] Address [address] [address] [place] [address] Phone [phone] Care Team Providers Care Title 1 Tutor Name Role Phone Mitchel Ortega MD Unavailable [phone] DANELLE HARRIS Unavailable DANELLE HARRIS Unavailable PROBLEMS Condition Status Date Provider Notes DIABETES MELLITUS active Blossom Stahlschlis t HTN active Mitchel Ortega MD Hyperlipidemia active Mitchel Ortega MD LEG PAIN active Dhruv Monroe CP-12/29 NUC NEG completed - Mitchel Ortega MD CAD S/P CABGx5 -02/25 [id number]-RPN, LRA-T [id number]-[id number]-UAT-RCA, SVG-PDA active Mitchel Ortega MD PALPITATIONS-09/27 HOLTER SR 53-105 completed - Dhruv Monroe PVD active Dhruv Monroe HTN-07/01 ECHO SEVERE LVE EF 60 completed - Mitchel Ortega MD Edema active Mitchel Ortega MD DYSPNEA-12/30 CATH PATENT GRA FT XCEPT PL OCCLUDED completed - Mitchel Ortega MD SHORTNESS OF BREATH completed - Dhruv Monroe COPD active Mitchel Ortega MD Obstructive sleep apnea active Dhruv Landry ndberg Vertigo completed - Dhruv Monroe Carotid artery [...] nuclear stress test active Mitchel reyna MD ENCOUNTERS Date Type Provider Location Encounter Diag nosis - In-person encounter Office Visit Mitchel Ortega MD [facility] Abnormal nuclear stress test - In-person encounter Office Visit Mitchel Ortega MD [facility] - In-person encounter Office Visit Mitchel Ortega MD [facility] - In-person encounter Office Visit Mitchel Ortega MD [facility] - In-person encounter Office Visit Mitchel Ortega MD [facility] - In-person encounter Office Visit Mitchel Ortega MD [facility] - In-person encounter Office Visit Mitchel Ortega MD [facility] - In-person encounter Office Visit Mitchel Ortega MD [facility] - In-person encounter Office Visit Mitchel Ortega MD [facility] Bradycardia - In-person encounter Office Visit Mitchel Ortega MD [facility] - In-person encounter Office Visit Mitchel Ortega MD [facility] - In-person encounter Office Visit Mitchel Ortega MD [facility] - In-person encounter Office Visit Mitchel Ortega MD [facility] LEG PAIN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COVID-19 screening - negative antibodies and swab 11/2019 - In-person encounter Office Visit Mitchel Ortega MD [facility] PALPITATIONS-09/27 HOLTER SR 53-105PVDSHORTNESS OF BREATHVertigoCOVID-19 screening - negative antibodies and swab 11/2019 - In-person encounter Office Visit Mitchel Ortega MD TeleHealth - In-person encounter Office Visit Mitchel Ortega MD [facility] CP-12/29 NUC NEGCarotid artery stenosis - 07/2018 DUPLEX <50% ICAsPreop examPVC's - In-person encounter Office Visit Henry Abdul MD [facility] - In-person encounter Office Visit Mitchel Ortega MD [facility] Office - In-person encounter Office Visit Mitchel Ortega MD [facility] - In-person encounter Office Visit Mitchel Ortega MD [facility] - In-person encounter Office Visit Mitchel Ortega MD [facility] Obstructive sleep apneaCarotid artery stenosis - 07/2018 DUPLEX <50% ICAsCompression of left common iliac vein S/P stent 08/2016Obesity - In-person encounter Office Visit Mitchel Ortega MD [facility] 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 - In-person encounter Office Visit Mitchel Ortega MD [facility] Obstructive sleep apnea - In-person encounter Office Visit Mitchel Ortega MD [facility] HTNHyperlipidemiaLEG PAINCAD S/P CABGx5 -02/25 [id number], LRA-T [id number]-SB-ZXS-RCA, SVG-PDAEdemaCarotid artery stenosis - 07/2018 DUPLEX <50% ICAs - In-person encounter Office Visit Mitchel Ortega MD [facility] - In-person encounter Office Visit Mitchel Ortega MD [facility] Obstructive sleep apnea - In-person encounter Office Visit Mitchel Ortega MD [facility] - In-person encounter Office Visit Mitchel Ortega MD [facility] - In-person encounter Office Visit Mitchel Ortega MD [facility] HTNCAD S/P CABGx5 -1 04/27 [id number], LRA-T OUITC-AK-NHJ-RCA, SVG-PDAEdemaSHORTNESS OF BREATHCOPD - In-person encounter Office Visit Mitchel Ortega MD [facility] - In-person encounter Office Visit Mitchel Ortega MD [facility] - In-person encounter Office Visit Mitchel Ortega MD [facility] - In-person encounter Office Visit Mitchel Ortega MD [facility] - In-person encounter Office Visit Mitchel Ortega MD [facility] - In-person encounter Office Visit Mitchel Ortega MD [facility] - In-person encounter Office Visit Mitchel Ortega MD [facility] - In-person encounter Office Visit Mitchel Ortega MD [facility] - In-person encounter Office Visit Mitchel Ortega MD [facility] - In-person encounter Office Visit Mitchel Ortega MD [facility] EdemaDYSPNEA-12/30 CATH PATENT GRAFT XCEPT PL OCCLUDED - In-person encounter Office Visit Mitchel Ortega MD [facility] CP-12/29 NUC NEGPVDHTN-07/01 ECHO SEVERE LVE EF 60 - In-person encounter Office Visit Mitchel Ortega MD [facility] PVD - In-person encounter Office Visit Henry Abdul MD [facility] - In-person encounter Office Visit Mitchel Ortega MD [facility] - In-person encounter Office Visit Mitchel Ortega MD [facility] Office - In-person encounter Office Visit Mitchel Ortega MD [facility] - In-person encounter Office Visit Mitchel Ortega MD [facility] Hyperlipidemia - In-person encounter Office Visit Henry Abdul MD [facility] VITAL SIGNS Date Observation Value Provider Body Mass Index (Ratio) 37.35 kg/m2 Mitchel Ortega MD blood pressure, diastolic 86 mm[Hg] [facility] blood pressure, systolic 158 mm[Hg] Yuliya prasanna [place] oxygen saturation, oximetry 95 % [facility] pulse rate 60 /min [facility] blood pressure, cuff size regular [facility] weight E&M 208.2 [lb_av] [facility] height E&M 62.6 [in_i] [facility] Body Mass Index (Ratio) 36.24 kg/m2 Zeeshan [...] y Body Mass Index (Ratio) 34.08 [facility] size regular [facility] blood pressure, diastolic 79 mm[Hg] [facility] blood pressure, systolic 141 mm[Hg] [facility] oxygen saturation, oximetry 97 % [facility] respiratory rate E&M 16 /min Andie arriaza pulse rate 73 /min [facility] weight E&M 190 [lb_av] [facility] height E&M 62.6 [in_i] [facility] Body Mass Index (Ratio) 35.88 kg/m2 [facility] blood [facility], cuff size large [facility] blood pressure, diastolic 72 mm[Hg] Ja rret [...] Laisha Galvan blood pressure, cuff size large suir Galvan weight E&M 214 [lb_av] Laisha Galvan [...] blood pressure, diastolic 82 mm[Hg] Adriana allen Martin blood pressure, systolic 140 mm[Hg] [facility] helle Martin oxygen saturation, oximetry 97 % Madeline Ortega [...] Danya Pineda blood pressure, cuff size large Ca alejandro Martin blood pressure, diastolic 100 mm[Hg] Ca alejandro Martin blood pressure, systolic 150 mm[Hg] [facility] helle Martin oxygen saturation, oximetry 98 % Madeline Ortega [...] Leonor respiratory rate E&M 16 /min Amandastit daemon Leonor weight E&M 220 [lb_av] [facility] Body [facility] (Ratio) 38.75 kg/m2 Loi muniz [facility] blood pressure, cuff size regular Cy margie [...] er height E&M 62.6 [in_i] Felicia Gruenenfe [facility] Body Mass Index (Ratio) 39.83 kg/m2 Loi [...] Loi muniz Fer weight E&M 243 [lb_av] [employer] erg height E&M 62.6 [in_i] [email or web address] erg Body Mass Index (Ratio) 44.99 kg/m2 [...] Body Mass Index (Ratio) 43.59 kg/m2 Loi [facility] blood pressure, diastolic, left arm 90 mm [Hg] [facility], systolic, left arm 140 mm [Hg] [facility] blood pressure, diastolic, right arm 86 m m[Hg] [facility] blood pressure, systolic, right arm 138 m m[Hg] Pauly Maddox blood pressure, diastolic 90 mm[Hg] Fer etienne blood pressure, systolic 140 mm[Hg] Bairon ross [place] oxygen saturation, oximetry 97 % [place] respiratory rate E&M 16 /min [place] pulse rate 65 /min [place] weight E&M 243 [lb_av] Pauly height E&M 62.6 [in_i] [place] Body Mass Index (Ratio) 42.19 kg/m2 Radha Blank blood pressure, diastolic 98 mm[Hg] Rajiv Cantuby blood pressure, systolic 150 mm[Hg] Pratima Cantuby oxygen saturation, oximetry 95 % Shakira Cantuby respiratory rate E&M 17 /min Shakira Cogswell pulse rate 66 /min Shakira Radha blood pressure, cuff size regular Rajiv Cantuby weight E&M 235.2 [lb_av] Shakira Cogswell height E&M 62.6 [in_i] Shakira Cogswell Body Mass Index (Ratio) 43.05 kg/m2 Loi [...] huntleyjessee pulse rate 65 /min Felicia Kaufman [facility] weight E&M 274 [lb_av] Felicia Kaufman er height E&M 62.6 [in_i] Felicia Kaufman [facility] Body Mass Index (Ratio) 54.36 kg/m2 Loi Monroe blood pressure, cuff size large Christianne brown Solis blood pressure, diastolic 80 mm[Hg] Christianne brown [facility] blood pressure, systolic 130 mm[Hg] Ana Solis oxygen saturation, oximetry 97 % Michelleshira Solis respiratory rate E&M 16 /min Michelle Solis pulse rate 71 /min Michelleshira Solis weight E&M 303 [lb_av] Michelle Solis height E&M 62.6 [in_i] Michellesihra Solis Body Mass Index (Ratio) 55.61 kg/m2 [...] clifabiolaanand pulse rate 72 /min Felicia Kaufman [facility] weight E&M 306 [lb_av] Felicia Kaufman [facility] height E&M 62.6 [in_i] Felicia Kaufman [facility] Body Mass Index (Ratio) 54.28 kg/m2 Loi [...] Boss sulmanaz blood pressure, diastolic 76 mm[Hg] Ks glenroy Montemayor blood pressure, systolic 142 mm[Hg] [...] pressure, systolic, left arm 151 mm [Hg] Jayad Montemayor blood pressure, diastolic, right arm 89 m m[Hg] Jayda Montemayor blood pressure, systolic, right arm 162 m m[Hg] Jayda Montemayor blood pressure, diastolic 77 mm[Hg] Me tim Montemayor blood pressure, systolic 151 mm[Hg] Shyann katey Montemayor pulse rate 66 /min Jayda Montemayor oxygen saturation, oximetry 96 % Jayda Montemayor respiratory rate E&M 15 /min Jayda Montemayor Body Mass Index (Ratio) 53.10 kg/m2 [facility] weight E&M 296 [lb_av] Jayda Montemayor blood [...] Jayda Montemayor blood pressure, diastolic 76 mm[Hg] Ks glenroy Montemayor blood pressure, systolic 142 mm[Hg] [...] Sheron Cortez oxygen saturation, oximetry 94 % Sheron Cortez respiratory rate E&M 20 /min Sheron [...] blood pressure, diastolic 68 mm[Hg] Ke vikas Flores blood pressure, systolic 106 mm[Hg] Yovany Flores [...] pressure, diastolic, right arm 70 m m[Hg] Nnia Morales blood pressure, systolic, right arm 135 [...] joiner [place] pulse rate 75 /min Sincere [place] oxygen saturation, oximetry 98 % Sincere [facility] respiratory rate E&M 16 /min Sincere [place] weight E&M 297 [lb_av] Sincere [facility] blood pressure, bryan tolic, second observation 77 [...] blood pressure, diastolic 88 mm[Hg] Fe cintia Jhonny blood pressure, systolic 144 mm[Hg] Fel icia Jhonny pulse rate 65 /min [place] oxygen saturation, oximetry 96 % Enedina Jhonny respiratory rate E&M 16 /min [place] weight E&M 272 [lb_av] Enedina Jhonny blood pressure, diastolic 77 mm[Hg] Tyrone Pena [...] 0-149 High cholesterol, serum 130 mg/dL [facility] [phone]/11 /16 calcium, serum 9.3 mg/dL [facility] 8.7-10.3 carbon dioxide, venous blood 23 mmol/L [facility] 20-29 chloride, serum 103 mmol/L [facility] 96-106 potassium, serum 4.2 mmol/L [facility] 3.5-5.2 sodium, serum 142 mmol/L [facility] [phone]/11 /16 urea nitrogen/creatinine ratio, serum 27 [facility] [...] Not Estab. platelet count 205 X10E3/UL [facility] [phone]/11 /16 red blood cell distribution width 13.6 [...] [facility] 3.5-5.2 sodium, serum 140 mmol/L [facility] [phone]/10 /11 urea nitrogen/creatinine ratio, serum 22 [facility] 12-28 eGFR if 67 mL/min/{1.7 3_m2} [facility] >59 eGFR if not 58 mL/min/{1.7 3_m2} [facility] >59 Low creatinine, serum 1.03 mg/dL [facility] 0.57-1.00 High urea nitrogen, blood 23 mg/dL [facility] 8-27 blood glucose, random 130 mg/dL [facility] 65-99 High LDL cholesterol, serum 75 mg/dL [facility] LDL cholesterol, serum 135 mg/dL [facility] very low density lipoproteins 59.4 mg/dL [facility] 5.0 - 40.0 High LDL/HDL (low-density lipoprotein/high-de nsity lipoprotein) ratio 2.6 RATIO [facility] - lipoprotein, beta, serum, point, quantitative, calculated 74.6 (?) [facility] 0.0 - 100.0 HDL cholesterol, serum 29.0 mg/dL [facility] 45.0 - 65.0 Low cholesterol, serum 163.0 mg/dL [facility] 0.0 - 200.0 triglyceride, serum, fasting 297.0 mg/dL [facility] 0.0 - 150.0 High urea nitrogen/creatinine ratio, serum 14.0 [facility] - Estimated Glomerular Filtration Rate (calc) 59.9 (?) [facility] - chloride, serum 100.6 mmol/L [facility] 98.0 - 107.0 potassium, serum 4.2 mmol/L [facility] 3.5 - 5.1 sodium, serum 140.0 mmol/L [facility] 136.0 - 145.0 creatinine, serum 1.0 mg/dL [facility] 0.5 - 1.0 High carbon dioxide, venous blood 27.0 mmol/L [facility] 23.0 - 31.0 calcium, serum 8.9 mg/dL [facility] 8.6 - 10.2 urea nitrogen, blood 14.0 mg/dL [facility] 8.0 - 23.0 blood glucose, random 244.0 mg/dL [facility] 74.0 - 99.0 High red blood cell distribution width, size density 44.9 fL [facility] - immature granulocytes, percentage of total cells, blood 1.1 % [facility] - nucleated red blood cells as percent of blood leukocytes 0.0 % [facility] - red blood cell (erythrocyte) count, per high power field 0.0 10*3/UL [facility] - eosinophils as percent of blood leukocytes 7.0 % [facility] - neutrophils as percent of blood leukocytes 69.2 % [facility] - Absolute Neutrophils 5.7 CELLS/UL [facility] 1.5 - 7.8 basophils as percent of blood leukocytes 0.4 % [facility] - Absolute Basophils 0.0 CELLS/UL [facility] 0.0 - 0.2 monocytes as percent of blood leukocytes 5.8 % [facility] - Absolute Monocytes 0.5 CELLS/UL [facility] 0.2 - 1.0 lymphocytes as percent of blood leukocytes 16.5 % [facility] Lymphocytes 1.4 CELLS/UL [facility] [...] (low-density lipoprotein/high-de nsity lipoprotein) ratio 3.7 RATIO [facility] - lipoprotein, beta, serum, point, quantitative, calculated 135.4 (?) [facility] 0.0 - 100.0 High HDL cholesterol, serum 37.0 mg/dL [facility] 45.0 - 65.0 Low cholesterol, serum 238.0 mg/dL [facility] 0.0 - 200.0 High triglyceride, serum, fasting 328.0 mg/dL [facility] 0.0 - 150.0 High urea nitrogen/creatinine ratio, serum 23.8 [facility] Estimated Glomerular Filtration Rate [...] High carbon dioxide, venous blood 34 mmol/L [facility] 22[facility]29 High chloride, serum 99 MEQ/L [facility] 98-107 Normal potassium, serum 4.3 MEQ/L [facility] 3.5-5.1 Normal sodium, serum 143 MEQ/L [facility] 136-145 Normal triglyceride, serum, fasting 262 mg/dL [facility] HDL cholesterol, serum 33 mg/dL [facility] LDL cholesterol, serum 72 mg/dL [facility] cholesterol, serum 157 mg/dL [facility] platelet count 250 10*3/mm3 [facility] hematocrit, blood 42.6 % [facility] international normalized ratio (INR) 1.0 [facility] creatinine, serum 0.78 mg/dL [facility] potassium, serum 4.0 mmol/L [facility] sodium, serum 138 mmol/L [facility] B-type natriuretic peptide 78.4 pg/mL [facility] 0.0-100.0 thyroid stimulating hormone, serum 1.110 u[IU]/mL [facility] 0.450-4.500 calcium, serum 9.1 mg/dL [facility] 8.7-10.2 carbon dioxide, venous blood 30 mmol/L [facility] 20-32 chloride, serum 98 mmol/L [facility] 97-108 potassium, serum 4.3 mmol/L [facility] 3.5-5.2 sodium, serum 141 mmol/L [facility] [phone]/06 /28 urea nitrogen/creatinine ratio, serum 23 [facility] 9-23 eGFR if not 92 mL/min/{1.7 3_m2} [facility] >59 creatinine, serum 0.73 mg/dL [facility] 0.57-1.00 urea nitrogen, blood 17 mg/dL [facility] 6-24 blood glucose, random 226 mg/dL [facility] 65-99 High alanine aminotransferase (SGPT), serum 47 1/L [facility] aspartate aminotransferase (SGOT), serum 22 1/L [facility] platelet count 192 10*3/mm3 [facility] hematocrit, blood 38.6 % [facility] creatinine, serum 0.94 mg/dL [facility] potassium, serum 4.1 mmol/L [facility] sodium, serum 138 mmol/L [facility] lipase, serum 128 1/L [facility] anion gap, serum 10.0 [facility] globulins, serum, total 3.6 g/dL [facility] bilirubin, serum, direct 0.11 mg/dL [facility] bilirubin, serum, indirect 0.48 mg/dL [facility] albumin/globulin ratio, serum 0.9 [facility] protein, total, serum 6.8 g/dL [facility] albumin, serum 3.2 g/dL [facility] bilirubin, serum, total 0.59 mg/dL [facility] alkaline phosphatase, serum 130 1/L [facility] alanine aminotransferase (SGPT), serum 54 1/L [facility] aspartate aminotransferase (SGOT), serum 28 1/L [facility] PTT patient 28.7 s [facility] prothrombin time (patient) 9.8 s [facility] lipase, serum 566 1/L [facility] international normalized ratio (INR) 1.0 [facility] PTT patient 28.7 s prothrombin time (patient) 9.8 s lipase, serum 566 1/L [facility] international normalized ratio (INR) 1.0 [facility] hemoglobin A1C, blood, as % of total hemoglobin 9.4 % [facility] amylase, serum 54 1/L [facility] globulins, serum, total 4.4 g/dL [facility] calcium, serum 9.0 mg/dL [facility] protein, total, serum 8.0 g/dL [facility] albumin, serum 3.6 g/dL [facility] bilirubin, serum, total 0.52 mg/dL [facility] alkaline phosphatase, serum 152 1/L [facility] alanine aminotransferase (SGPT), serum 68 1/L aspartate aminotransferase (SGOT), serum 28 1/L [facility] blood glucose, random 185 mg/dL estimated glomerular filtration rate >60 [facility] creatinine, serum 0.88 mg/dL [facility] urea nitrogen, blood 15.3 mg/dL [facility] carbon dioxide, venous blood 29 mmol/L chloride, serum 101 mmol/L potassium, serum 4.0 mmol/L [facility] sodium, serum 136 mmol/L [facility] troponin I <0.04 creatine kinase, serum 78 1/L Count Includes [facility] hemoglobin A1C, blood, as % of total hemoglobin 9.4 % yeast identified on urinalysis No [facility] mucus on urinalysis Yes Denetrbandar Avilez urine crystals, microscopic None Denetrist Raghav epithelial cells, urine, per microscopy moderate Denetrbandar Avilez casts, urine Moderate [facility] WBC urine on microscopy 1-3 Denetrbandar Avilez bacteria, urine microscopy Moderate [facility] RBC urine by microscopy 0-2 [facility] leukocyte esterase, urine, by dipstick Negative [facility] urobilinogen, urine, semiquantitative (dipstick) Normal [facility] nitrite, urine, semiquantitative Negative [facility] Av[facility] RBC, urine, dipstick Negative Count Includes [facility] bilirubin, urine Negative Count Includes [facility] ketones, urine, by test strip Negative Count Includes [facility] glucose, urine, semiquantitative Normal Count Includes [facility] protein, urine, semiquantitative (dipstick) 25 [facility] pH, urine, semiquantitative 5.0 [facility] specific gravity, urine 1.020 etrbandar Avilez urine color Yellow etrbandar Avilez appearance, urine Hazy [facility] Raghav platelet count 204 10*3/uL [facility] Raghav red blood cell distribution width 12.9 % Count Includes [facility] mean corpuscular hemoglobin concentration, RBC 33.3 g/dL [facility] Raghav mean corpuscular hemoglobin, RBC 29.0 pg [facility] Raghav mean corpuscular volume, RBC 86.9 fL [facility] Raghav hematocrit, blood 36.6 % [facility] Raghav hemoglobin, blood 12.2 g/dL [facility] Raghav erythrocyte (RBC) count 4.12 10*6/mm3 [facility] Raghav monocytes as percent of blood leukocytes 7.6 % [facility] Raghav lymphocytes as percent of blood leukocytes 18.1 % [facility] leukocyte count, blood 7.5 10*3/mm3 [facility] calcium, serum 9.1 mg/dL [facility] blood glucose, fasting 171 mg/dL [facility] creatinine, serum 0.70 mg/dL [facility] urea nitrogen, blood 15 mg/dL [facility] carbon dioxide, serum, total 31 mmol/L [facility] chloride, serum 99 mmol/L [facility] potassium, serum 4.0 mmol/L [facility] sodium, serum 141 mmol/L [facility] prothrombin time (patient) 9.5 s Ella Hyatt RN international normalized ratio (INR) 0.9 Ella Edmar DOYLE creatinine, serum 0.77 mg/dL [facility] urea nitrogen, blood 16 mg/dL [facility] potassium, serum 4.2 mmol/L [facility] sodium, serum 139 mmol/L [facility] platelet count 219 10*3/uL [facility] hematocrit, blood 43.6 % [facility] hemoglobin, blood 14.3 g/dL [facility] erythrocyte (RBC) count 5.07 10*6/mm3 [facility] leukocyte count, blood 7.8 10*3/mm3 [facility] HISTORY OF MEDICATION USE Medication Status Instructions [...] TABLET BY MOUTH TWICE A DAY [facility] mg tablet completed [...] Lea smoking status Never smoker Didier Navarro [facility] drug use no Mitchel Ortega MD alcohol use no Mitchel Ortega MD passive cigarette sm natasha exposure yes Mitchel Ortega MD smoking status Never smoker Mitchel Dozier drug use no [facility] alcohol use no [facility] passive cigarette sm natasha exposure yes [facility] smoking status Never smoker [facility] drug use no Mitchel Ortega MD alcohol use no Mitchel Ortega MD passive cigarette sm natasha exposure yes Mitchel Ortega MD smoking status Never smoker Mitchel Dozire physical exercise, f requency, days per week [...] exercise, f requency, days per week no [place] alcohol use, average drinks per day social basis only [place] alcohol use no [place] caffeine use, averag e drinks per day 1+ [place] Maddox drug use no [place] Maddox passive cigarette sm natasha exposure no Pauly Maddox smoking status Never smoker Pauly ramos social history reviewed E&M revi ewed - no changes required Mitchel Ortega MD physical exercise, f requency, days per week no Shakira Radha alcohol use, average drinks per day social basis only Shakira Radha alcohol use no Shakira Cogswell caffeine use, averag e drinks per day 1+ Shakira Radha drug use no Shakira Cogswell passive cigarette sm natasha exposure no Shakira Cogswell smoking status Never smoker Shakira Radha social history reviewed E&M revi ewed - no changes required Mitchel Ortega MD physical exercise, f requency, days per week no Bobbi Yesenia alcohol use, average drinks per day social basis only Bobbi Yesenia alcohol use no Bobbi Yesenia caffeine use, averag e drinks per day 1+ Bobbi Yesenia drug use no Bobbi Yesenia passive cigarette sm natasha exposure no Bbobi Yesenia smoking status Never smoker Bobbi Yesenia [...] drinks per day social basis only Jayda Duarn alcohol use no Jayda Duran caffeine use, [...] Pena RN social history reviewed E&M reviewed Drayn Pena RN smoking status never smoker Daryn [...] L alanna with family/friends E thnicity: Mitchel rOtega MD social history E&M Marital Statu s: [...] Angina (inactive) Management Plan continue current therapy iMtchel Ortega MD HRA, CV Assess/Plan, Angina (inactive) Management Plan continue current therapy Mitchel Otrega MD HRA, CV Assess/Plan, Angina (inactive) Management [...] (inactive) Management Plan continue current therapy [facility] HRA, CV Assess/Plan, Angina (inactive) Management Plan continue current therapy [facility] HRA, CV Assess/Plan, Angina (inactive) Management Plan continue current therapy [facility] HRA, CV Assess/Plan, Angina (inactive) Management Plan continue current therapy Mitchel Ortega MD HRA, CV Assess/Plan, Angina (inactive) Management Plan continue current therapy Mitchel Ortega MD HRA, CV Assess/Plan, Angina (inactive) Management Plan continue current therapy [facility] HRA, CV Assess/Plan, Angina (inactive) Management Plan continue current therapy Mitchel Ortega MD HRA, CV Assess/Plan, Angina (inactive) Management Plan continue current therapy Mitchel Ortega MD HRA, CV Assess/Plan, Angina (inactive) Management Plan continue current therapy Mitchel Ortega MD HRA, CV Assess/Plan, Angina (inactive) Management Plan continue current therapy [facility] HRA, CV Assess/Plan, Angina (inactive) [...] person. Mood and affect are normal. Daryn Epna RN assessment of judgme nt and insight [...] Payer name Policy type / Coverage type [place] red libertarian ID [employer] MEDICARE GOLD ADVANTAGE HMO Medicare [id number] ADVANCE DIRECTIVES Name Date DISCUSSED - NO DECISION MADE TREATMENT PLAN Date Name Performer [id number],S, Mitchel Ortega MD [id number],B, Mitchel Ortega MD [id number],S,T he patient is using CPAP on a regular basis. The patient has been benefiting from therapy and should continue use. Mitchel Ortega MD [id number],S, H er updated medication list for this problem includes: Atorvastatin 80 Mg Tablet (Atorvastatin) ..... Take 1 tablet by mouth every day Mitchel Ortega MD [id number],C, H er updated medication list for this problem includes: Lisinopril 10 Mg Tablet (Lisinopril) ..... 1 tablet by mouth once a day Aspirin 81 Mg Tablet,delayed Release (dr/ec) (Aspirin) ..... 1 tablet by mouth once a day Mitchel Ortega MD [id number],S, T he following medications were removed from [...] mouth once a day Mitchel Ortega MD [id number],SAntwan i [id number],SAntwan i [id number],S, Antwan Charles i [id number],S, Antwan Charles i [id number],SAntwan i [id number],C,Weight loss a dvised Mitchel Ortega MD [id number],C, H er updated medication list for this problem includes: Atorvastatin 80 Mg Tablet (Atorvastatin) ..... Take 1 tablet by mouth once a day Mitchel Ortega MD [id number],C, H er updated medication list for this problem includes: Lisinopril 40 Mg Tablet (Lisinopril) ..... 0.5 tablet by mouth twice a day Aspirin 81 Mg Tablet,delayed Release (dr/ec) (Aspirin) ..... 1 tablet by mouth once a day Mitchel Ortega MD [id number],C, B P today: 140/82 P rior BP: [...] mouth once a day Mitchel Ortega MD [id number],C,T he pt is feeling better, review of telesentry showed there is no further bradycardia (however frequent PVCs and PACs noted). Will keep her off Coreg. Carotid duplex in August 2021 at [facility] was normal. Mitchel Ortega MD [id number],C, Will keep her off Coreg. Carotid duplex in August 2021 at [facility] was normal. H er updated medication list [...] mouth once a day Mitchel Ortega MD [id number],S, I f she develops more leg swelling, we will consider Venaseal. Marito Worley [id number],S, H er updated medication list for this problem includes: Atorvastatin 80 Mg Tablet (Atorvastatin) ..... Take 1 tablet by mouth once a day Marito Worley [id number],S, B P today: 160/77 P rior BP: [...] by mouth once a day Marito Worley [id number],S,N o chest pain. T he following medications [...] by mouth once a day Marito Worley [id number],C,T he pt complains of dizziness, weakness, and 'fogginess.' EKG shows sinus brachycardia down to the 30s. We will stop carvedilol and start amlodipine 10mg daily. Obtained telesentry, may need PMR. She had carotid duplex at [facility] and we will try to obtain the report. Mitchel Ortega MD [id number],S, Domonique banks [id number],C, H er updated medication list for this problem includes: Lisinopril 40 Mg Tablet (Lisinopril) ..... 0.5 tablet by mouth twice a day Aspirin 81 Mg Tablet,delayed Release (dr/ec) (Aspirin) ..... 1 tablet by mouth once a day Domonique Pineda [id number],C, H er updated medication list for this problem includes: Atorvastatin 80 Mg Tablet (Atorvastatin) ..... Take 1 tablet by mouth once a day Domonique Pineda [id number],C,T he pt missed her meds yesterday and [...] by mouth twice a day Domonique Pineda [id number],S, Domonique bnaks [id number],C,No pain today Domonique Pineda [id number],C,T he pt missed her meds yesterday and [...] Coreg. Carotid duplex in August 2021 at [facility] was normal. Mitchel Ortega MD Cardiology:04/2023: Arterial [...] Coreg. Carotid duplex in August 2021 at [facility] was normal. Mitchel Ortega MD Cardiology: Will michelle p her off Coreg. Carotid duplex in August 2021 at [facility] was normal. H er updated medication list [...] need PMR. She had carotid duplex at [facility] and we will try to obtain [...] (Lisinopril) ..... One half tab. twice daily [facility] Cardiology:If she de velops more leg swelling, we will consider Venaseal. [facility] Cardiology:She finis hes her supervised exercise therapy this week. She has some post-exercise tingling in the feet but she is not interested in intervention at this time. If she develops more claudication, we will consider AIF. [facility] follow up :Her updated medication list for this problem includes: Aspirin Adult Low Dose 81 Mg Oral Tablet Delayed Release (Aspirin) ..... One tab by mouth daily Lisinopril 40 Mg Oral Tablet (Lisinopril) ..... One half tab. twice daily [facility] follow up :Her updated medication list for this problem includes: Atorvastatin 80mg (Atorvastatin calcium) ..... Take one tablet daily [facility] follow up :BP today: 140/80 P rior BP: 110/66 (02/15/2020) Her updated medication list for this problem includes: Torsemide 100mg Tab (Torsemide) ..... Take one-half tablet daily Coreg 12.5 Mg Oral Tablet (Carvedilol) ..... 1/2 twice a day Lisinopril 40 Mg Oral Tablet (Lisinopril) ..... One half tab. twice daily [facility] follow up :No issues with leg swelling at this time. [facility] follow up :Since she does not have chest pain or SOB, she is clear to resume supervised exercise therapy. [facility] follow up :In April, her echo [...] (Lisinopril) ..... One half tab. twice daily [facility] Follow up :Her updated medication list for this problem includes: Atorvastatin 80mg (Atorvastatin calcium) ..... Take one tablet daily [facility] Follow up :BP today: [...] if systolic bp is less than 130 [facility] Follow up :Medicare did not approve a new CPAP machine. 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 Still symptomatic with numbness and pain. No rest pain, swelling or sores. 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 Still symptomatic with numbness and pain. No rest pain, swelling or sores. Will enroll her in supervised exercise therapy. 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 Still symptomatic with numbness and pain. No rest pain, swelling or sores. Will send her Plavix and enroll her in supervised exercise therapy. [facility] follow up :She needs a new CPAP machine. [facility] follow up :Her updated medication list for this problem includes: Aspirin Adult Low Dose 81 Mg Oral Tablet Delayed Release (Aspirin) ..... One tab by mouth daily Lisinopril 40 Mg Oral Tablet (Lisinopril) ..... One half tab. twice daily [facility] follow up :Her updated medication list for this problem includes: Atorvastatin 80mg (Atorvastatin calcium) ..... Take one tablet daily [facility] follow up :BP today: [...] if systolic bp is less than 130 [facility] follow up :No chest [...] if systolic bp is less than 130 [facility] follow up :Orders: A rterial Duplex Bi-Lower EX (CPT-83177) [facility] follow up :Orders: V enous Doppler Bilateral LE - Reflux (CPT-03637) [facility] follow up :C/O pain and numbness in right LE, she believes she broke the 3rd toe. In view of pain and numbness in the leg, will check JABIER's and venous duplex. [facility] TeleHealth:CHOL: 130 (03/05/2019) HDL: 35 (03/05/2019) LDL: 56 (03/05/2019) TRI (03/05/2019) Her updated medication list for this problem includes: Lipitor 80 Mg Oral Tablet (Atorvastatin calcium) ..... One tab. daily [facility] TeleHealth:She had a sleep study for titration. Will order a machine for her. [facility] TeleHealth:Mild occa sional dizziness. She [...] (01/24/2019) Labs Reviewed: C reat: 1.03 (03/05/2019) [facility] TeleHealth:Monitor s howed frequent PVC's. She feels palpitations twice a week. [facility] TeleHealth:Echo show ed EF of [...] if systolic bp is less than 130 [facility] TeleHealth:Echo show ed EF of 50%. Myoview scan showed a fixed defect, thus cardiac cath was performed. All grafts were patent. EF was normal. Monitor showed frequent PVC's. She feels palpitations twice a week. [facility] Cardiology:Recent ca rotid duplex did not show significant disease in the ICAs but there were some increased velocities in the RECA. [facility] Cardiology:Her [facility] ed medication list for this problem includes: Aspirin Adult Low Dose 81 Mg Oral Tablet Delayed Release (Aspirin) ..... One tab by mouth daily Lisinopril 40 Mg Oral Tablet (Lisinopril) ..... One half tab. twice daily [facility] Cardiology:Her [facility] ed medication list for this problem includes: Lipitor 80 Mg Oral Tablet (Atorvastatin calcium) ..... One tab. daily [facility] Cardiology:BP today: 126/70 P rior BP: 140/90 (07/28/2018) Her updated medication list for this problem includes: Torsemide 100 Mg Oral Tablet (Torsemide) ..... Half tab twice daily Coreg 12.5 Mg Oral Tablet (Carvedilol) ..... One tab. twice daily Lisinopril 40 Mg Oral Tablet (Lisinopril) ..... One half tab. twice daily Amlodipine 5mg (Amlodipine besylate) ..... Take 1 tablet daily [facility] Cardiology:Denies le g swelling. Will obtain f/u venous duplex. [facility] Cardiology:Denies leg swelling. [facility] Cardiology:Overall d oing well. Denies chest pain, SOB or leg swelling. EKG today shows frequent PVC's. We will obtain an echo and stress myoview. Will also perform 24 hour Holter monitor. [facility] Cardiology:Denies ch est pain, SOB. EKG today [...] [facility], seen by Dr. Franko Avilez [facility] Cardiology, seen by Dr. Franko Avilez [facility], seen by Dr. Franko Avilez [facility], seen by Dr. Franko Cadena flavio [facility], seen by Dr. Franko Avilez [facility], seen by Dr. Franko Avilez [facility]:BP today: 150/98 P rior BP: 136/80 (01/27/2018) Her updated medication list for this problem includes: Torsemide 100 Mg Oral Tablet (Torsemide) ..... Half tab twice daily Coreg 12.5 Mg Oral Tablet (Carvedilol) ..... One tab. twice daily Lisinopril 40 Mg Oral Tablet (Lisinopril) ..... One half tab. twice daily Amlodipine Besylate 5 Mg Oral Tablet (Amlodipine besylate) ..... 1 tab daily [facility] Cardiology:Encouraged further we ight loss. Mitchel Ortega [...] with Dr. Franco. Mitchel Ortega MD Cardiology:Her [facility] ed medication list for this problem includes: [...] daily Orders: B ASIC METABOLIC PANEL W/EGFR (73105) H EMOGLOBIN A1c (496) U RINALYSIS, RANDOM, [...] and rivaroxaban 2.5mg bid Orders: E KG (CPT-68216) C omplete Echo (CPT-34997) [facility] Follow up :Down ~30 [...] Mitchel Ortega MD Cardiology:Weight loss advised. [facility] Cardiology:Per Dr. Franco. [facility] Cardiology:CHOL: 163 .0 (08/13/2016) HDL: 29.0 (08/13/2016) T.0 (08/13/2016) LDL: 74.6 (08/13/2016) Her updated medication list for this problem includes: Lipitor 40 Mg Tabs (Atorvastatin calcium) ..... One tablet daily [facility] Cardiology:BP today: 130/80 P rior BP: 140/90 (08/11/2016) Her updated medication list for this problem includes: Torsemide 100 Mg Tabs (Torsemide) ..... Half tab twice daily Coreg 12.5 Mg Tabs (Carvedilol) ..... One tab. twice daily Lisinopril 40 Mg Tabs (Lisinopril) ..... One half tab. twice daily Amlodipine Besylate 5 Mg Tabs (Amlodipine besylate) ..... 1 tab daily [facility] Cardiology:Duplex la st month showed: Mild plaque with less than 50% stenosis of the internal carotid arteries bilaterally. Vertebral flow is antegrade bilaterally. Elevated doppler velocity of the right ECA ( no siginificant plaque seen). [facility] Cardiology:No claudication. Loi muniz [facility] Cardiology:No chest pain or SOB. Her updated [...] with significant improvement of her swelling. [facility] Cardiology:S/P stent to the left iliac vein [...] hcl) ..... 1 tab twice daily [facility] Follow up :Her updated medication list for this problem includes: Lipitor 40 Mg Tabs (Atorvastatin calcium) ..... One tablet daily CHOL: 238.0 (06/24/2016) HDL: 37.0 (06/24/2016) T.0 (06/24/2016) LDL: 135.4 (06/24/2016) [facility] Follow up :BP today: [...] besylate) ..... 1 tab daily [facility] Follow up :She denies claudication at this time. [facility] Follow up :No chest pain or [...] (Amlodipine besylate) ..... 1 tab daily [facility] Follow up :Venous duplex showed bilateral [...] tab daily Mitchel Ortega MD Cardiology Follow up:No chest pa in or SOB. Mitchel Ortega MD Cardiology Follow up Mitchel Ortega MD Cardiology Follow up :Complaining of swelling and discomfort of the right leg for about 6 weeks. Will check venous duplex, BMP and proBNP. Mitchel Ortega MD Cardiology [facility]:Orders: S NOMED-CT: [id number] Current Medications Documented ([facility]-[id number]) L IPID PANEL (1634) Her updated medication list for this problem [...] [facility]:No chest pain or SOB. [facility] Cardiology:Compliant with CPAP. Mitchel Ortega MD Cardiology:No [...] hcl) ..... 1 tab twice daily [facility] Cardiology:CHOL: 191 .0 (03/13/2015) LDL: -999.0 (?) (03/13/2015) HDL: 29.0 (03/13/2015) T.0 (03/13/2015) Her updated medication list for this problem includes: Lipitor 20 Mg Tabs (Atorvastatin calcium) ..... 1 tablet by mouth daily [facility] Cardiology:BP today: 144/70 P rior [...] Tabs (Amlodipine besylate) ..... 1 tab daily [facility] Cardiology:ProBNP wa s elevated to 440. Echo showed normal EF and venous duplex was normal. She reported significant improvement with Demadex. [facility] Cardiology:ProBNP wa s elevated to 440. Echo showed normal EF and venous duplex was normal. She reported significant improvement with Demadex. [facility] Cardiology:BP today: 151/77 P rior [...] MD Cardiology:Pt had a recent admission to [facility] for COPD. Mitchel Ortega MD FOLLOW UP: [...] ICA, vertebral artery & left duplex scan. [facility] (07/05/2007) H gb: 14.3 (02/14/2008) HCT: 43.6 (02/14/2008) RBC: 5.07 (02/14/2008) WBC: 7.8 (02/14/2008) B UN: 16 (02/14/2008) Creat: 0.77 (02/14/2008) Na+: 139 (02/14/2008) K+: 4.2 (02/14/2008) PT: 9.5 (02/14/2008) INR: 0.9 (02/14/2008) Orders: C omplete Echo (CPT-02203) Mitchel Ortega MD routine: H er updated [...] ICA, vertebral artery & left duplex scan. [facility] (07/05/2007) H gb: 14.3 (02/14/2008) HCT: [...] rior BP: 212/106 (01/17/2008) Orders: E KG (CPT-40370) C omplete Echo (CPT-55786) Mitchel Ortega MD office visit: T he [...] completed EKG Mitchel Ortega MD completed SNOMED-CT: 39132512 Physical Exam, Performed: Pulse Exam of Foot Mitchel Ortega MD completed SNOMED-CT: 420866234 920263 Current Medications Documented Mitchel Ortega MD completed SNOMED-CT: 10081419 Physical Exam, Performed: Pulse Exam of Foot Mitchel Ortega MD completed EKG Mitchel Ortega MD completed SNOMED-CT: 214724160 237095 Current Medications Documented Mitchel Ortega MD completed SNOMED-CT: 15932735 Physical Exam, Performed: Pulse Exam of Foot Mitchel Ortega MD completed SNOMED-CT: 740918353 704607 Current Medications Documented Mitchel Ortega MD completed SNOMED-CT: 15786737 Physical Exam, Performed: Pulse Exam of Foot Mitchel Ortega MD completed SNOMED-CT: 688443614 990073 Current Medications Documented Mitchel Ortega MD completed SNOMED-CT: 83671150 Physical Exam, Performed: Pulse Exam of Foot Mitchel Ortega MD completed SNOMED-CT: 311622479 214002 Current Medications Documented Mitchel Ortega MD completed SNOMED-CT: 37461996 Physical Exam, Performed: Pulse Exam of Foot Mitchel Ortega MD completed SNOMED-CT: 915554779 899693 Current Medications Documented Mitchel Ortega MD completed SNOMED-CT: 51144389 Physical Exam, Performed: Pulse Exam of Foot Mitchel Ortega MD completed EKG Mitchel Ortega MD completed SNOMED-CT: 694511401 132916 Current Medications Documented Mitchel Ortega MD completed Schedule Followup Mitchel Ortega MD 6 months com pleted SNOMED-CT: 24887550 Physical Exam, Performed: Pulse Exam of Foot Mitchel Ortega MD completed SNOMED-CT: 744435395 048429 Current Medications Documented Mitchel Ortega MD completed SNOMED-CT: 90328640 Physical Exam, Performed: Pulse Exam of Foot Mitchel Ortega MD completed SNOMED-CT: 207687024 347917 Current Medications Documented Mitchel Ortega MD completed SNOMED-CT: 67014503 Physical Exam, Performed: Pulse Exam of Foot Mitchel Ortega MD completed SNOMED-CT: 839909398 Smoking Cessation Counseling Mitchel Ortega MD completed SNOMED-CT: 929040916 688324 Current Medications Documented Mitchel Ortega MD completed EKG Mitchel Ortega MD completed DLCO - 51238 Mitchel Ortega MD complete d FRC - 60182 Mitchel Ortega MD completed FVC - 43367 Mitchel Ortega MD completed EKG Mitchel Ortega MD completed EKG Mitchel Ortega MD completed Lipid Strip Mitchel Ortega MD completed ePrescribe - Check t his box if eRx is used Mitchel Ortega MD completed EKG Mitchel Ortega MD completed EKG Henry Abdul MD completed EKG Mitchel Ortega MD completed
--- OUTSIDE RECORDS SUMMARY | 2024-06-22 16:41 | XMS_ITS | Clinical Summary ---
Author Organization [facility] Address [address] [place] [address] Care Team Providers Care Weld Inspector Name Role Phone None, Provider MD Primary [...] complete this topic Insurance [employer] Care Teams Weld Inspector Relationship Specialty Start Date End Date None, Provider, PCP - General 08/23/21
--- OUTSIDE RECORDS SUMMARY | 2024-06-22 16:42 | XMS_ITS | Referral Summary ---
Author Organization [facility] [address] Address [address] [place] [address] Care Team Providers Care Integration Specialist Name Role Phone Mitchel Ortega MD Unavailable Sarahi Olmos Primary Care Pr ovider Allergies No known active allergies Medications calcium carbonate-vitamin D3 600 mg(1,500mg) -400 unit capsule take 2 daily 0 0 1 Active ergocalciferol (VITAMIN D2) 50,000 unit capsule take 1 capsule ([id number]) by oral route every week 0 1 Active blood-glucose meter (FREESTYLE LITE METER) kit take by [facility]Non-Dr ug; Combo Route) route 0 kit 0 [...] 05/12/2022 Assessment & Plan (05/12/2022 2:47 PM ICU REGISTERED NURSE): Discussed healthy diet and importance of regular physical activity (20- 30min/day, 150min/wk). Weight slowly trending downward after diet changes. She's down 16# since last appt. Referral sent to [facility] real estate transaction manager. Contact # given to Norma if no call rec'd . Hyperlipidemia due to type 2 diabetes mellitus 0 10/06/2019 Assessment & Plan (11/13/2022 2:39 PM CDT): Chronic, well controlled Low fat Low cholesterol diet Exercise Continue statin therapy with Atorvastatin Assessment & Plan (05/12/2022 2:48 PM ICU REGISTERED NURSE): Chronic problem. Last LDL=68 07/27/21. Atorvastatin 80mg [...] exam Assessment & Plan (05/12/2022 2:43 PM ICU REGISTERED NURSE): Chronic problem, stable & well controlled on Metformin 500mg bid. Norma reports that she's had labs with PCP in last 1-2 months, will try to get copy from her office. [facility] Production Control Specialist: [phone]. I sent referral to them. Please call [...] Metformin Assessment & Plan (03/29/2020 2:41 PM ICU REGISTERED NURSE): Hba1c was Lab Results Component Value Date [...] Metformin Assessment & Plan (03/29/2019 10:24 AM ICU REGISTERED NURSE): Your Hba1c today was: Lab Results Component Value Date HGBA1C 8.1 03/29/2019 meaning a 3 month average sugar of : 184 Your goal hba1c is under 7.0 to prevent mcc diabetes complications ( eye , kidney and [...] appointment Assessment & Plan (04/02/2017 10:30 AM ICU REGISTERED NURSE): A1c 6.1 improved from 8.6. Denies many [...] Lisinopril Assessment & Plan (05/12/2022 2:49 PM ICU REGISTERED NURSE): Chronic problem, well controlled with current amlodipine 10mg daily, lisinopril 40mg daily. No changes at this time Assessment & Plan (09/26/2021 2:58 PM CDT): Controlled on current medications, no changes. Assessment & Plan (03/29/2020 2:41 PM ICU REGISTERED NURSE): Goal blood pressure is less than 140/85 [...] microalbumin Assessment & Plan (03/29/2019 10:26 AM ICU REGISTERED NURSE): Goal blood pressure is less than 140/85 Low salt diet recommended Daily aerobic exercise Continue current meds, including PAUL-I or ARB Check microalbumin Assessment & Plan (09/23/2018 4:09 PM CDT): Controlled on current medications. Assessment & Plan (02/08/2018 3:11 PM CDT): Controlled on current medications. Continue follow up with cardiology Assessment & Plan (04/02/2017 10:29 AM ICU REGISTERED NURSE): Controlled on current medications. Assessment & Plan (01/01/2017 3:56 PM CDT): Goal blood pressure is less than 140/85 Low salt diet recommended Daily aerobic exercise Continue current meds, including PAUL-I or ARB Resolved Problems Problem Noted Date Diagnosed Date Resolved Date BMI 39.0-39.9,adult 01/01/2017 05/09/19 23 Morbid obesity (CMS/HCC) 01/01/2017 Assessment & Plan (04/02/2017 10:28 AM ICU REGISTERED NURSE): Importance of following diet and exercising discussed. She is considering lap band. Hyperlipidemia 06/16/2012 05/09/2022 Overview (07/23/2016): HYPERLIPIDEMIA NEC/NOS Assessment & Plan (09/23/2018 4:06 PM CDT): Check lipid panel today. Assessment & Plan (02/08/2018 3:12 PM CDT): Will obtain recent labs from PCP and cardiology Assessment & Plan (04/02/2017 10:29 AM ICU REGISTERED NURSE): Check lipid panel. Social History Tobacco Use [...] on file Legal Sex Female 9:41 AM ICU REGISTERED NURSE Gender Identity Not on file Sexual Orientation [...] CREATININE RATIO, URINE Routine 05/12/2022 2:36 PM ICU REGISTERED NURSE Type 2 diabetes mellitus with hyperglycemia, without long-term current use of insulin (HCC) BASIC METABOLIC PANEL Routine 02/24/2022 7:18 AM ICU REGISTERED NURSE LIPID PANEL Routine 02/24/2022 7:18 AM ICU REGISTERED NURSE DEXA SCAN Routine 09/10/2021 from Last 3 [...] Albumin Creatinine Ratio, Urine (05/12/2022 2:36 PM ICU REGISTERED NURSE) Albumin Ur <12.0 mg/L SAFIA SANTAMARIA Comment: Interpretive Data No reference range established. Current interpretive data was last revised 2018. Creatinine Ur 26.8 mg/dL SAFIA Comment: Interpretive Data No reference range established. Current interpretive data was last revised 2018. Albumin Creatinine Ratio, Ur See Comment 1 - 29 SAFIA Comment:Unable to calculate Urine 05/12/2022 2:36 PM ICU REGISTERED NURSE 05/12/2022 7:08 PM ICU REGISTERED NURSE Eva Zaman SENIOR AUDIT MANAGER LAB URINE ORDERABLES Dianne l Result [facility] [id number] [address] Department [place] [address] * (ABNORMAL) Lipid panel (02/24/2022 7:18 AM ICU REGISTERED NURSE) Pathologist [facility] SCRIBED Cholesterol, Total 109(A) 140 - 199 [facility] SCRIBED HDL 40 40 - NA [facility] SCRIBED LDL 48 0 - 130 [facility] SCRIBED Triglycerides 106 0 - 150 [facility] Blood 02/24/2022 7:18 AM ICU REGISTERED NURSE Ted Provider LAB BLOOD ORDERABLES Edit ed Result - Final [facility] [address] [phone] * (ABNORMAL) Basic metabolic panel (02/24/2022 7:18 AM ICU REGISTERED NURSE) Pathologist [facility] SCRIBED Sodium 141 137 - 145 mmol/L [facility] SCRIBED Potassium 4.8 3.5 - 5.1 mmol/L [facility] SCRIBED Chloride 105 98 - 107 mmol/L [facility] SCRIBED Carbon Dioxide 32(A) 22 - 30 mmol/L [facility] SCRIBED Anion Gap 8.8(A) 14 - 22 mmol/L [facility] SCRIBED Urea Nitrogen (BUN) 22(A) 8 - 19 mg/dl [facility] SCRIBED Creatinine 0.85 0.66 - 1.25 mg/dl [facility] SCRIBED Glucose 110(A) 70 - 99 mg/dl [facility] SCRIBED Calcium 9.2 8.4 - 10.2 mg/dl [facility] SCRIBED eGFR in NonAfrican Lithuanian >60 >=60 - NA [facility] Blood 02/24/2022 7:18 AM ICU REGISTERED NURSE Historical Provider LAB BLOOD ORDERABLES Edit ed Result - Final [facility] [address] [phone] * DEXA SCAN (09/10/2021) Historical Provider HEALTH MAINTENANCE Final Result from Last 3 Months or Most Recently Relevant to Health Maintenance Insurance MEDICARE AETNA MEDICARE [facility] AET MEDICARE [facility] T MEDICARE [facility] Care Teams Integration Specialist Relationship Specialty Start Date End Date Sarahi Olmos PA PCP - General Physician Site Foreman 09/23/18 Mitchel Ortega MD Consulting Physician Cardiovascular Disease 02/04/18
== END 2024-06-22 14:48 | disposition home or self-care (01) ==
PROVIDERS: PCP Physician Assistant; Visit Provider Physician Assistant
DX: R94.6 Abnormal results of thyroid function studies (principal); E04.1 Nontoxic single thyroid nodule
CPT/HCPCS: 76536

== ENCOUNTER 2024-10-26 20:25 | Emergency (ER) | payer MEDICARE, SELFPAY ==
--- NOTE | ~2024-10-26 | XR_ITS ---
XR elbow RT min 3V Ordering provider: Mle Lyn MD History: . pain . Comparison: None. FINDINGS: BONES: No acute fracture or dislocation. JOINT SPACES: Narrowing of the elbow joint space. SOFT TISSUES: Unremarkable. No definite joint effusion. IMPRESSION: No acute osseous abnormality of the right elbow. If Patient continued to have symptoms a repeat exam in 10 days is advised. Reviewed, dictated and finalized at location A. IMPRESSION: No acute osseous abnormality of the right elbow. If Patient continued to have s ymptoms a repeat exam in 10 days is advised.
--- NOTE | ~2024-10-26 | CT_ITS ---
CT cervical spine wo con Ordering provider: Jennifer Bunn PA-C History: . fall, hi . Comparison: None. Technique: CT of the cervical spine was performed without contrast. Sagittal and coronal reformatted images were also obtained and reviewed. Automated exposure control and iterative reconstruction jade hnique were employed. The dose-length product was 439.56 mGy-cm. FINDINGS: VERTEBRAE: No subluxation or acute fracture. The occipital condyles are intact. Degenerative changes of the spine. DISC SPACES: Narrowing of the disc C4-C5, C5-C6 and C6-C7. Uncovertebral joint osteoarthritic changes at the level of C4-C5 and C6-C7. Multilevel intervertebral foraminal narrowing PARASPINOUS SOFT TISSUES: Atherosclerotic changes in the right carotid artery. Calcifications seen in the right lingular tonsil. IMPRESSION: No acute osseous abnormality cervical spine. Multilevel degenerative disc disease. Reviewed, dictated and finalized at location A.
--- NOTE | ~2024-10-26 | CT_ITS ---
CT brain wo con Ordering provider: Jennifer Bunn PA-C History: 69 years Female with . fall, [place] . Comparison: None. Technique: CT of the head without contrast. Radiation reduction technique utilized.The dose-length pr oduct was 681 mGy-cm. FINDINGS: BRAIN PARENCHYMA AND CSF SPACES: No midline shift, mass effect or hemorrhage. The brain parenchyma a nd CSF spaces are otherwise normal. VISUALIZED PARANASAL SINUSES: Well aerated. MASTOIDS: Well aerated. BONES: The bones appear intact. SOFT TISSUES: Visualized nasopharynx is normal. Superficial soft tissues are normal. IMPRESSION: No acute intracranial findings. Reviewed, dictated and finalized at location A.
--- NOTE | ~2024-10-26 | XR_ITS ---
XR knee LT 3V Ordering provider: Mel Lyn MD History: . swelling, pain . Comparison: December 21, 2008 FINDINGS: BONES: No acute fracture or dislocation. Osteopenia of the bones. Longitudinal lucency seen in the ar ea of the medial tibial plateau is most likely summation shadow. JOINT SPACES: Narrowing of the medial and lateral compartments. SOFT TISSUES: Suprapatellar bursa fluid. Edema in the area anterior to the patella and patellar tendo n. Ossification of the proximal portion of the medial collateral ligament is noted. IMPRESSION: No acute osseous abnormality left knee. Severe osteoarthritic changes. Reviewed, dictated and finalized at location A.
--- OUTSIDE RECORDS SUMMARY | 2024-10-26 20:27 | XMS_ITS | Clinical Summary ---
Author Organization [facility] Address [facility] [place] [address] Care Team Providers Care Facility Administrator Name Role Phone None, Provider MD Primary [...] 12:53 PM CDT Height 160 cm (5' 3) 08/23/2021 12:53 PM CDT Body Mass Index 39.5 08/23/2021 12:53 PM CDT Plan of Treatment Health Maintenance Due Date Last Done Comments Colorectal Cancer Screening Colonoscopy (10 Years) 1955 Hepatitis C 07/29/1973 Mammogram Screening 1995 Zoster Vaccines (1 of 2) 07/29/2005 Pneumococcal Vaccine: 50+ Years (2 of 2 - PCV) 12/26/2011 12/25/2010, 03/20/2006 Annual Medicare Wellness Visit 07/29/2020 Dexa Scan (General) 07/29/2020 COVID-19 Vaccine (3 - 2023-2 5 season) 2023 08/02/2020, 07/05/2020 DTaP, Tdap and Td Vaccines ( 3 - Td or Tdap) 03/04/2026 03/04/2016, 03/30/2006 RSV Immunization or 60+ Years (1 - 1-dose 75+ series) 07/29/2030 Meningococcal B Vaccine Aged Out No l onger eligible based on patient's age to complete this topic Meningococcal Vaccine Aged Out No babak irena eligible based on patient's age to complete this topic RSV Immunizations Under 20 Months Aged Out No longer eligible b ased on patient's age to complete this topic Insurance AETNA Care Teams Facility Administrator Relationship Specialty Start Date End Date None, Provider, PCP - General 08/23/21
[2024-10-26 20:34] VITALS: BP 129/68; PULSE 51; RESP 17; TEMP 36.3; O2SAT 98
[2024-10-26] MEDS: HYDROcodone/acetaminophen (*CRX) 5-325 MG TABLET 1 TAB PO (22:34)
--- NOTE | 2024-10-26 23:01 | ED_ITS ---
HPI - Fall General Chief Complaint: Fall Stated Complaint: fall Time Seen by Provider: 10/26/24 21:13 Source: patient Mode of arrival: ambulatory Limitations: no limitations History of Present Illness HPI Narrative: Patient is a 69 y/o female who presents to the ED with c/o fall. Patient reports she slipped and fell on uneven concrete in her driveway and fell onto her left knee. She has since developed significant swelling to her left knee. Sustained small abrasion over anterior knee. Reports head injury, but denies LOC. States she hit the right side of her face on the ground. Also c/o pain to her R elbow. Denies numbness, tingling. Denies dizziness, lightheadedness, vision changes. She is able to ambulate, but has been using crutches. Took ibuprofen prior to arrival. She is not on any blood thinners. Related Data Home Medications ?Medication ?Instructions ?Recorded ?Confirmed ?Last Taken ?Type aspirin 81 mg tablet,delayed 81 mg PO HS 01/03/20 10/18/24 06/08/24 History release atorvastatin 80 mg tablet 80 mg PO HS 01/03/20 10/18/24 06/08/24 History cholecalciferol (vitamin D3) 1,250 1,250 mcg PO WEEKLY 01/03/20 10/18/24 05/29/24 History mcg (50,000 unit) tablet torsemide 100 mg tablet 50 mg PO QAM 01/03/20 10/18/24 06/08/24 History clopidogrel 75 mg tablet 75 mg PO DAILY 01/16/22 04/28/24 10/22/23 History amlodipine 10 mg tablet 10 mg PO HS 03/09/23 10/18/24 06/08/24 History lisinopril 10 mg tablet 10 mg PO DAILY 10/15/23 10/18/24 06/08/24 History potassium chloride 20 mEq 20 meq PO BID 10/15/23 10/18/24 06/08/24 History tablet,extended release(part/cryst) (Klor-Con M) famotidine 40 mg tablet 40 mg PO .meals PRN upset stomach 04/08/24 10/18/24 06/08/24 History VitaFusion Womens Multivitamin PO 10/18/24 10/18/24 Unknown History mecobalamin (vitamin B12) 500 mcg mcg PO 10/18/24 10/18/24 Unknown History chewable tablet Allergies Allergy/AdvReac Type Severity Reaction Status Date / Time adhesive tape Allergy Intermediate Rash Verified 10/18/24 11:38 Review of Systems Review of Systems: All systems reviewed & are unremarkable except as noted in HPI. All systems reviewed & are unremarkable except as noted in HPI and below PMFSH Past Medical History Medical History Lower abdominal pain Ventral hernia Carpal tunnel syndrome of right wrist Carpal tunnel syndrome of left wrist Herpes simplex virus (HSV) type I or type II 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 Hyperlipidemia Diverticulosis COPD (chronic obstructive pulmonary disease) History of blood transfusion Diabetes Hypertension Surgical History Surgical History History of incisional hernia repair Robotic assisted laparoscopic recurrent incarcerated incisional hernia repair with Bard Ventralight ST mesh 03/17/23 History of open heart surgery Hx of elbow surgery Beacon teeth removed H/O dilation and curettage H/O hernia repair H/O section Family History Family History Mother Hypertension Family history of elevated blood lipids Family history of diabetes mellitus in first degree relative Father Hypertension Cerebrovascular accident Sibling Family history of elevated blood lipids Hypertension Family history of diabetes mellitus in first degree relative Other Diabetes mellitus Family history of cardiovascular disease Family history of coronary artery disease Social History Social History Smoking status: Never smoker Second hand tobacco smoke exposure: No Alcohol intake: current Drinks per week: 1 Alcohol use details: 12/MONTH Substance use: current Substance use type: marijuana Other substance usage details: DAILY- FOR PAIN Last use: 03/09/23 Do You Feel Safe in your Home?: Yes Lack of Transportation: No Lack of Food: Never True Current Housing: I Have Housing Concerned About Future Housing: No Difficulty Paying Gas/Electric Bills: YES Difficulty Paying for Meds: No Currently Unemployed: YES Education: High School Diploma/GED Difficulty w/ Childcare or Family Care: No Living arrangements: with family Additional living arrangements comments: LIVES WITH BOYFRIEND MINE EVANS Spiritual care concerns: No Exam Narrative: GENERAL: Well appearing, well-nourished, non-toxic, in no acute distress. HEAD: Normocephalic, atraumatic. No contusions or tenderness along face. NECK: No midline cervical spinal tenderness. Normal ROM RESPIRATORY: Airway patent, respirations nonlabored. Clear to auscultation bilaterally, no rales, rhonchi, wheezing. CARDIOVASCULAR: Regular rate and rhythm without murmurs, rubs, or gallops. Peripheral pulses are intact and easily palpable. MUSCULOSKELETAL: Moves all extremities. No gross deformities. Marked swelling to left anterior knee with diffuse tenderness. Very small abrasion over left anterior knee without active bleeding or drainage. Mild tenderness to palpation along right proximal forearm/elbow region. Again tenderness over medial or lateral epicondyle of right elbow. No T/L midline spinal tenderness. SKIN: Warm, dry, normal color. NEURO: A&O X3. Speech clear. Cranial nerves II-XII grossly intact. Steady gait. No ataxic movements. PSYCHIATRIC: Appropriate mood and affect. Normal interaction. Course Vital Signs Vital signs: Vital Signs Temperature 97.3 F L 10/26/24 20:34 Pulse Rate 51 L 10/26/24 20:34 Respiratory Rate 17 10/26/24 20:34 Blood Pressure 129/68 10/26/24 20:34 Pulse Oximetry 98 10/26/24 20:34 Oxygen Delivery Room Air 10/26/24 20:34 Temperature 97.3 F L 10/26/24 20:34 Pulse Rate 51 L 10/26/24 20:34 Respiratory Rate 17 10/26/24 20:34 Blood Pressure 129/68 10/26/24 20:34 Pulse Oximetry 98 10/26/24 20:34 Oxygen Delivery Room Air 10/26/24 20:34 MDM - Fall MDM Narrative Medical decision making narrative: Patient presented to ED status post ground level mechanical fall, pain to left knee, right elbow, head injury. No LOC. Vital signs stable. Neurologically intact. She is not on any blood thinners. CT brain and cervical spine negative for traumatic findings. X-ray of right elbow negative. X-ray of left knee with suprapatellar bursa fluid/superficial edema, no joint effusion or osseous abnormality. Discussed imaging findings with patient. Left knee placed in Ulises bandage. Discussed rice therapy. Will refer to orthopedics for further evaluation is needed. Discussed pain control. Patient given return precautions. Otherwise safe for D/C. Discharged in stable condition. Medical Records Attestation: I reviewed the patient's medical records. Imaging Data Attestation: I personally reviewed and interpreted this imaging study as follows: Radiologist's impression: ITS Impressions Knee X-Ray 10/26/24 21:51 IMPRESSION: No acute osseous abnormality left knee. Severe osteoarthritic changes. Elbow X-Ray 10/26/24 21:56 IMPRESSION: No acute osseous abnormality of the right elbow. If Patient continued to have symptoms a repeat exam in 10 [address] is advised. Head CT 10/26/24 23:38 IMPRESSION: No acute intracranial findings. Cervical Spine CT 10/26/24 23:47 IMPRESSION: No acute osseous abnormality cervical spine. Multilevel degenerative disc disease. Discharge Plan Discharge Clinical Impression: Fall from ground level, Suprapatellar bursitis of left knee Closed head injury Qualifiers: Encounter type: initial encounter Qualified Code(s): S09.90XA - Unspecified injury of head, initial encounter Strain of left knee Qualifiers: Encounter type: initial encounter Qualified Code(s): S86.912A - Strain of unspecified muscle(s) and tendon(s) at lower leg level, left leg, initial encounter Strain of right elbow Qualifiers: Encounter type: initial encounter Qualified Code(s): S56.911A - Strain of unspecified muscles, fascia and tendons at forearm level, right arm, initial encounter Patient Disposition: Home Condition: Stable Instructions: Antibiotic Form, Knee Bursitis (ED), Head Injury (ED), Knee Pain (ED), Elbow Strain (ED) Additional Instructions: Utilize Ulises bandage for compression and support of left knee. Keep leg elevated as much as possible. Recommend frequent icing to knee and/or right elbow/areas of pain. Recommend Tylenol, ibuprofen as needed for pain. Sigurd as needed for more severe pain. Follow-up with orthopedics for further evaluation if needed. Return to the ED if you experience worsening or severe pain, recurrent fall or injury, severe swelling, numbness, dizziness, passing out, redness or warmth of left knee, or any other symptoms of concern. Patient Language: Mongolian Prescriptions: New hydrocodone-acetaminophen 5-325 mg tablet 1 tablet PO Q6H PRN (Reason: pain) Qty: 7 0RF No Action mecobalamin (vitamin B12) 500 mcg tablet,chewable PO VitaFusion Womens Multivitamin PO Rx Instructions: 2 tablets daily prednisone 10 mg tablet 10 mg PO BID 10 Days Qty: 20 0RF torsemide 100 mg tablet 50 mg PO QAM atorvastatin 80 mg tablet 80 mg PO HS cholecalciferol (vitamin D3) 1,250 mcg (50,000 unit) tablet 1,250 mcg PO WEEKLY Patient Comments: TAKES ON SUNDAYS aspirin 81 mg tablet,delayed release (DR/EC) 81 mg PO HS clopidogrel 75 mg tablet 75 mg PO DAILY Patient Comments: Pt no longer taking amlodipine 10 mg tablet 10 mg PO HS docusate sodium [Colace] 100 mg capsule 100 mg PO BID Qty: 60 1RF potassium chloride [Klor-Con M20] 20 mEq tablet,ER particles/crystals 20 meq PO BID lisinopril 10 mg tablet 10 mg PO DAILY famotidine 40 mg tablet 40 mg PO .meals PRN (Reason: upset stomach) Follow-up/Referrals: Salty Topete MD [Physician] - (ORTHOPEDICS) Amarilis,GEMMA Mcclain [Primary Care Provider] - Time of Disposition: 00:08
== END 2024-10-27 00:25 | disposition home or self-care (01) ==
PROVIDERS: Emergency Provider Physician Assistant; PCP Physician Assistant
DX: M70.52 Other bursitis of knee, left knee (principal); S09.90XA Unspecified injury of head, initial encounter; S86.912A Strain of unspecified muscle(s) and tendon(s) at lower leg level, left leg, initial encounter; S56.911A Strain of unspecified muscles, fascia and tendons at forearm level, right arm, initial encounter; E78.5 Hyperlipidemia, unspecified; K57.90 Diverticulosis of intestine, part unspecified, without perforation or abscess without bleeding; J44.9 Chronic obstructive pulmonary disease, unspecified; E11.9 Type 2 diabetes mellitus without complications; I10 Essential (primary) hypertension; W01.0XXA Fall on same level from slipping, tripping and stumbling without subsequent striking against object, initial encounter
CPT/HCPCS: 70450; 72125; 73080; 73562; 99284; A9270

== ENCOUNTER 2025-01-05 11:05 | Outpatient (CLI) | payer MEDICARE, SELFPAY ==
--- OUTSIDE RECORDS SUMMARY | 2025-01-05 11:41 | XMS_ITS | Clinical Summary ---
Author Organization [facility] Address [address] [place] [phone] Phone Care Team Providers Care Director Meetings Name Role Phone Unavailable Primary Care Provider Unavailabl e Medications calcium 500 MG tablet 1 bid 11/15/2011 Active potassium chloride (KLOR-CON) 10 MEQ CR tablet 11/15/2011 Activ e omega-3 (FISH OIL) 1000 MG capsule 11/15/2011 Active aspirin 325 MG tablet 11/15/2011 Active insulin glargine (LANTUS) 100 UNIT/ML injection 11/15/2011 Active metFORMIN (GLUCOPHAGE) 500 MG tablet 1 bid 11/15/2011 Active atorvastatin (LIPITOR) 10 MG tablet 11/15/2011 Active ergocalciferol (VITAMIN D-2) 84045 units capsule 1 weekly 11/15/2011 Active carvedilol (COREG) 25 MG tablet 11/15/2011 Active furosemide (LASIX) 40 MG tablet 05/31/2014 Active insulin lispro (HUMALOG) 100 UNIT/ML injection 11/15/2011 Active lisinopril (PRINIVIL,ZESTRI L) 40 MG tablet TAKE 1/2 TABLET TWICE [...] Years Used Date Smoking Tobacco: Never Assessed Comments Unknown Sex and Gender Information Value Date Recorded Sex Assigned at Not on file Legal Sex Female 8:51 AM [facility] Gender Identity Not on file Sexual Orientation [...] 12:01 AM CDT Height 165.1 cm (5' 5) 09/19/2015 12:01 AM CDT Body Mass Index 49.92 09/19/2015 12:01 AM CDT Plan of Treatment Not on file
--- OUTSIDE RECORDS SUMMARY | 2025-01-05 11:41 | XMS_ITS | Clinical Summary ---
Author Organization [facility] [address] Address [address] [place] [address] Care Team Providers Care Director Of Search Engine Marketing Name Role Phone Mitchel Ortega MD Unavailable Sarahi Olmos Primary Care Pr ovider Allergies No known active allergies Medications calcium carbonate-vitamin D3 600 mg(1,500mg) -400 unit capsule take 2 daily 0 0 1 Active ergocalciferol (VITAMIN D2) 50,000 unit capsule take 1 capsule ([id number]) by oral route every week 0 1 Active blood-glucose meter (FREESTYLE LITE METER) kit take by [facility].(Non-Dr ug; Combo Route) route 0 kit 0 [...] 05/12/2022 Assessment & Plan (05/12/2022 2:47 PM LAUNCH STEWARD): Discussed healthy diet and importance of regular physical activity (20- 30min/day, 150min/wk). Weight slowly trending downward after diet changes. She's down 16# since last appt. Referral sent to [facility] contract engineer. Contact # given to Norma if no call rec'd . Hyperlipidemia due to type 2 diabetes mellitus 0 10/06/2019 Assessment & Plan (11/13/2022 2:39 PM CDT): Chronic, well controlled Low fat Low cholesterol diet Exercise Continue statin therapy with Atorvastatin Assessment & Plan (05/12/2022 2:48 PM LAUNCH STEWARD): Chronic problem. Last LDL=68 07/27/21. Atorvastatin 80mg [...] exam Assessment & Plan (05/12/2022 2:43 PM LAUNCH STEWARD): Chronic problem, stable & well controlled on Metformin 500mg bid. Norma reports that she's had labs with PCP in last 1-2 months, will try to get copy from her office. [facility] Milk Bottling Machine Operator: [phone]. I sent referral to them. Please call [...] Metformin Assessment & Plan (03/29/2020 2:41 PM LAUNCH STEWARD): Hba1c was Lab Results Component Value Date [...] Metformin Assessment & Plan (03/29/2019 10:24 AM LAUNCH STEWARD): Your Hba1c today was: Lab Results Component Value Date HGBA1C 8.1 03/29/2019 meaning a 3 month average sugar of : 184 Your goal hba1c is under 7.0 to prevent terminologist diabetes complications ( eye , kidney and [...] appointment Assessment & Plan (04/02/2017 10:30 AM LAUNCH STEWARD): A1c 6.1 improved from 8.6. Denies many [...] Lisinopril Assessment & Plan (05/12/2022 2:49 PM LAUNCH STEWARD): Chronic problem, well controlled with current amlodipine 10mg daily, lisinopril 40mg daily. No changes at this time Assessment & Plan (09/26/2021 2:58 PM CDT): Controlled on current medications, no changes. Assessment & Plan (03/29/2020 2:41 PM LAUNCH STEWARD): Goal blood pressure is less than 140/85 [...] microalbumin Assessment & Plan (03/29/2019 10:26 AM LAUNCH STEWARD): Goal blood pressure is less than 140/85 Low salt diet recommended Daily aerobic exercise Continue current meds, including PAUL-I or ARB Check microalbumin Assessment & Plan (09/23/2018 4:09 PM CDT): Controlled on current medications. Assessment & Plan (02/08/2018 3:11 PM CDT): Controlled on current medications. Continue follow up with cardiology Assessment & Plan (04/02/2017 10:29 AM LAUNCH STEWARD): Controlled on current medications. Assessment & Plan (01/01/2017 3:56 PM CDT): Goal blood pressure is less than 140/85 Low salt diet recommended Daily aerobic exercise Continue current meds, including PAUL-I or ARB Resolved Problems Problem Noted Date Diagnosed Date Resolved Date BMI 39.0-39.9,adult 01/01/2017 05/09/19 23 Morbid obesity (CMS/HCC) 01/01/2017 Assessment & Plan (04/02/2017 10:28 AM LAUNCH STEWARD): Importance of following diet and exercising discussed. She is considering lap band. Hyperlipidemia 06/16/2012 05/09/2022 Overview (07/23/2016): HYPERLIPIDEMIA NEC/NOS Assessment & Plan (09/23/2018 4:06 PM CDT): Check lipid panel today. Assessment & Plan (02/08/2018 3:12 PM CDT): Will obtain recent labs from PCP and cardiology Assessment & Plan (04/02/2017 10:29 AM LAUNCH STEWARD): Check lipid panel. Surgical History Surgery Date [...] History Date Comments Type 2 diabetes mellitus Diabete s type 2 Pneumonia 2011 Pneumonia; Outco me: improved Pneumonia 2011 Pneumonia; Outco me: resolved Hx Other Medical 2011 infected boil o f the abdomen; Outcome: resolved Cardiovascular disease 2012 Coronary artery disease; Outcome: successful Hx Other Medical NOT CLAUSTAPHOI C; Comments: ESCOTO 10/18/2013 - COPD (chronic obstructive pu lmonary disease) Family History Medical History Relation Name Comments [...] on file Legal Sex Female 9:41 AM LAUNCH STEWARD Gender Identity Not on file Sexual Orientation [...] P M CDT Height 154.9 cm (5' 1) 09/19/2023 1:33 PM CDT Body Mass Index [...] Visit 65+ 07/29/2020 Lipid Panel 02/24/2023 02/24/2022, 07/20, 10/23/2020, Additional history exists eGFR 02/24/2023 02/24/2022, 09/10/2017 Albumin Creatinine Ratio, Urine 05/12/2023 3 Depression Screening 05/12/2023 05/12/2022, 03/29/2020, 03/29/2019, Additional history exists Foot Exam 05/12/2023 05/12/2022, 06/0 12/2021, 03/29/2020, Additional history exists Hemoglobin A1C 05/16/2023 11/13/2022, 04/21, 09/26/2021, Additional history exists Dilated Eye Exam 11/22/2023 11/21/2022, 10/17/2020 Osteoporosis Screening-Bone Density Scan 02/27/2024 02/26/2022, 09/10/2021, 09/10/2021 Influenza Vaccine (#1) 2024 , 03/07/2019, 03/03/2018, Additional history exists DTaP/Tdap/Td Vaccine (3 - Td or Tdap) 03/04/2026 03/04/2016, 03/30/2006 Procedures Procedure Name Priority Date/Time Associated Diagnosis Comments DIABETES EYE EXAM Routine 11/21/2022 8:00 AM CDT POCT HEMOGLOBIN A1C Routine 11/13/2022 1 :52 PM CDT Type 2 diabetes mellitus with hyperglycemia, without long-term current use of insulin (HCC) ALBUMIN CREATININE RATIO, URINE Routine 05/12/2022 2:36 PM LAUNCH STEWARD Type 2 diabetes mellitus with hyperglycemia, without long-term current use of insulin (HCC) BASIC METABOLIC PANEL Routine 02/24/2022 7:18 AM LAUNCH STEWARD LIPID PANEL Routine 02/24/2022 7:18 AM LAUNCH STEWARD DEXA SCAN Routine 09/10/2021 from Last 3 Months or Most Recently Relevant to Health Maintenance Results * DIABETES EYE EXAM (11/21/2022 8:00 AM CDT) us Historical Provider MD HEALTH MAINTENANCE Edited Result - Final * POCT hemoglobin A1c (11/13/2022 1:52 PM CDT) Hemoglobin A1C, POC 6.2 % Blood 11/13/2022 1:52 PM CDT Result [facility] Ricardo Franco MD POINT OF CARE TEST ORDERABLES Fi nal Result * Albumin Creatinine Ratio, Urine (05/12/2022 2:36 PM LAUNCH STEWARD) Albumin Ur <12.0 mg/L [facility] Comment: Interpretive Data No reference range established. Current interpretive data was last revised 2018. Creatinine Ur 26.8 mg/dL [facility] Comment: Interpretive Data No reference range established. Current interpretive data was last revised 2018. Albumin Creatinine Ratio, Ur See Comment 1 - 29 [facility] Comment:Unable to calculate Urine 05/12/2022 2:36 PM LAUNCH STEWARD 05/12/2022 7:08 PM LAUNCH STEWARD Eva Zaman [address] [facility] LAB URINE ORDERABLES Dianne l Result [facility] [id number] [address] [place] [address] * (ABNORMAL) Lipid panel (02/24/2022 7:18 AM LAUNCH STEWARD) Pathologist [facility] SCRIBED Cholesterol, Total 109(A) 140 - 199 [facility] SCRIBED HDL 40 40 - NA [facility] SCRIBED LDL 48 0 - 130 [facility] SCRIBED Triglycerides 106 0 - 150 [facility] Blood 02/24/2022 7:18 AM LAUNCH STEWARD Historical Provider LAB BLOOD ORDERABLES Edit ed Result - Final [facility] [address] [phone] * (ABNORMAL) Basic metabolic panel (02/24/2022 7:18 AM LAUNCH STEWARD) SCRIBED Sodium 141 137 - 145 mmol/L [facility] SCRIBED Potassium 4.8 3.5 - 5.1 mmol/L [facility] SCRIBED Chloride 105 98 - 107 mmol/L [facility] SCRIBED Carbon Dioxide 32(A) 22 - 30 mmol/L [facility] SCRIBED Anion Gap 8.8(A) 14 - 22 mmol/L [facility] SCRIBED Urea Nitrogen (BUN) 22(A) 8 - 19 mg/dl [facility] SCRIBED Creatinine 0.85 0.66 - 1.25 mg/dl [facility] SCRIBED Glucose 110(A) 70 - 99 mg/dl [facility] SCRIBED Calcium 9.2 8.4 - 10.2 mg/dl [facility] SCRIBED eGFR >60 >=60 - NA [facility] Blood 02/24/2022 7:18 AM LAUNCH STEWARD Historical Provider LAB BLOOD ORDERABLES Edit ed Result - Final [facility] [address] [phone] * HM DEXA SCAN (09/10/2021) Historical Provider HEALTH MAINTENANCE Final Result from Last 3 Months or Most Recently Relevant to Health Maintenance Insurance MEDICARE [facility] Address: [address] [address] [place] [address] T MEDICARE GOLD [facility] MEDICARE [facility] MEDICARE [facility] Care Teams Director Of Search Engine Marketing Relationship Specialty Start Date End Date Sarahi Olmos PA PCP - General Physician In Service Education Teacher 09/23/18 Mitchel Ortega MD Consulting Physician Cardiovascular Disease 02/04/18
--- OUTSIDE RECORDS SUMMARY | 2025-01-05 11:41 | XMS_ITS | Encounter Summary ---
Author Organization [facility] Address [address] [place] [address] Phone Care Team Providers Care Tester Rocket Engine Name Role Phone Yanet Richard MD Primary Care Provider [phone] Mitchel Ortega MD Unavailable Sarahi Olmos Primary Care Pr ovider Encounter Details Date Type Department Care Team (Late st Contact Info) Description 09/10/2017 Orders Only [facility] Provider, MD Ted [address] [place] [id number] Social History Tobacco Use Types Packs/Day Years Used Date Smoking Tobacco: Never Smokeless Tobacco: Never Alcohol Use Standard Drinks/Week Comments Yes 0 (1 standard drink = 0.6 oz pur e alcohol) Comments Unknown Sex and Gender Information Value Date Recorded Sex Assigned at Not on file 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
[2025-01-05 11:45] LABS: Hematocrit 41.4 % (37.0-47.0); Hemoglobin 13.4 g/dL (12.0-15.0); Immature Granulocyte Percent A 0.3 % (0-0.5); Lymphocytes Absolute Auto 1.00 K/mm3 (0.9-3.2); Mean Corpuscular HGB Conc 32.4 g/dl (32-36); Mean Corpuscular Hemoglobin 28.9 pg (26-34); Mean Corpuscular Volume 89.2 fl (80-100); Nucleated Red Blood Cells Absolute Auto 0.000 K/mm3 (0.0-0.012); Nucleated Red Blood Cells Perc 0.0 % (0.0-0.2); Platelet Count Result 199 k/mm3 (150-375); Red Blood Count 4.64 M/mm3 (4.2-5.4); White Blood Count 6.5 K/mm3 (4.5-10.0)
[2025-01-05 12:12] LABS: Hemoglobin A1C 6.5 % (<5.7)
[2025-01-05 12:18] LABS: Alanine Aminotransferase 23 U/L (6-35); Albumin Level 4.1 g/dL (3.5-5.1); Alkaline Phosphatase 80 U/L (38-126); Anion Gap 2 mmol/L (4-12); Aspartate Amino Transferase 31 U/L (14-36); Bilirubin,Total 0.7 mg/dL (0.2-1.3); Blood Urea Nitrogen 18 mg/dL (7-17); Calcium 8.9 mg/dL (8.4-10.2); Carbon Dioxide 32 mmol/L (22-30); Chloride 106 mmol/L (98-107); Cholesterol 142 mg/dL (0-200); Estimated Glomerular Filt Rate > 60; Glucose 106 mg/dL (65-110); HDL Direct 54 mg/dL; Potassium 4.0 mmol/L (3.4-5.0); Sodium 140 mmol/L (137-145); Total Protein 7.2 g/dL (6.3-8.2); Triglycerides 99 mg/dL (<150)
[2025-01-05 12:48] LABS: Thyroid Stimulating Hormone 1.010 uIU/mL (0.465-4.680)
[2025-01-05 12:50] LABS: MALB Creatinine Ratio 431.8 mg/g (0-30)
== END 2025-01-05 11:06 | disposition home or self-care (01) ==
PROVIDERS: PCP Physician Assistant; Visit Provider Physician Assistant
DX: E11.9 Type 2 diabetes mellitus without complications (principal); I10 Essential (primary) hypertension; E78.5 Hyperlipidemia, unspecified; Z79.899 Other long term (current) drug therapy
CPT/HCPCS: 36415; 80048; 80061; 80076; 82043; 83036; 84443; 85025

== ENCOUNTER 2025-01-31 13:40 | Outpatient (CLI) | payer MEDICARE, SELFPAY ==
--- NOTE | ~2025-01-31 | MM_ITS ---
EXAMINATION: MM screening rosmery BI w luly HISTORY: Screening TECHNIQUE: Craniocaudal and mediolateral oblique 3-D tomosynthesis images were obtained and synthetic 2-D images were generated. CAD analysis was submitted and interpreted. COMPARISON: 12/28/2023 BREAST PARENCHYMAL COMPOSITION: There are scattered areas of fibroglandular density. FINDINGS: There is no evidence of suspicious mass, calcification, or architectural distortion to suggest malignancy. There has been no suspicious interval change. IMPRESSION: 1. No mammographic evidence of malignancy. Recommend routine screening mammography in one year. BI-RADS Category 2: Benign finding(s) Reviewed, dictated and finalized at location Q. IMPRESSION: 1. No mammographic evidence of malignancy. Recommend routine screening mammogra phy in one year. BI-RADS Category 2: Benign finding(s)
--- OUTSIDE RECORDS SUMMARY | 2025-01-31 15:41 | XMS_ITS | Data Portability ---
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 quadrivalent, PF 2 completed Not Available [facility] 06/18/2022 03:12:30 Influenza, split virus, quadrivalent, preservative 0 completed Not Available [facility] 06/18/2022 03:12:30 Influenza, split virus, trivalent, preservative 5 completed Not Available [facility] 06/18/2022 03:12:30 pneumococcal polysaccharide PPV23 1 completed Not Available [facility] 06/18/2022 03:12:30 Tdap 6 completed Not Available [facility] 06/18/2022 03:12:30 pneumococcal polysaccharide PPV23 6 completed Not Available [facility] 06/18/2022 03:12:31 Tdap 6 completed Not Available [facility] 06/18/2022 03:12:31 Influenza, split virus, quadrivalent, preservative 6 completed Not Available [facility] 06/18/2022 03:12:31 Influenza, split virus, trivalent, preservative 5 completed Not Available [facility] 06/18/2022 03:12:31 Influenza, split virus, quadrivalent, PF 8 completed Not Available [facility] 06/18/2022 03:12:31 Past Encounters Encounter ID Performer Location Encounter Start Date Encounter Closed Date Diagnosis/Indication Diagnosis SNOMED-CT Code Diagnosis ICD10 Code Diagnosis IMO Codes Diagnosis Note [id number] MCKENZIE Mcdowell [facility] [place] [place] Internal Med [place] [address] [place] [address] 08/23/2020 00:00:00 09/13/2020 01:51:58 [id number] MCKENZIE Mcdowell [facility] [place] [place] Internal [facility] [place] [address] [place] [address] 09/14/2020 00:00:00 09/14/2020 17:12:29 [id number] MCKENZIE Mcdowell [facility] [place] [place] Internal Med [place] [address] [place] [address] 10/18/2020 00:00:00 11/03/2020 20:46:40 [id number] MCKENZIE Mcdowell [facility] [place] [place] Internal Med [place] [address] [place] [address] 06/27/2021 00:00:00 07/18/2021 11:08:02 [id number] Reyes Graf MD [facility] [place] [place] Ortho [place] [address] [facility] [address] [place] [address] 08/21/2021 00:00:00 08/21/2021 16:00:14 [id number] Marito Blanchard MD [facility] [place] [place] Internal Med [place] [address] [place] [address] 08/30/2021 00:00:00 09/09/2021 12:33:18 [id number] Real Esquivel MD [facility] [place] [place] Orth[facility] [place] [address] [place] [address] 10/03/2021 00:00:00 10/03/2021 09:32:57 [id number] Marito Blanchard MD [facility] Internal [facility] [place] [address] [place] [address] 11/18/2021 00:00:00 12/18/2021 19:33:48 [id number] MCKENZIE Mcdowell [facility] [place] [address] [place] [address] 01/01/2022 00:00:00 01/16/2022 18:53:23 [id number] MCKENZIE Mcdowell [facility] [place] [address] [place] [address] 02/05/2022 00:00:00 02/15/2022 19:37:32 [id number] Didier Borrego MD [facility] [place] [place] Ortho [place] [address] [place] [address] 05/23/2022 00:00:00 05/23/2022 12:34:25 [id number] MCKENZIE Mcdowell [facility] [place] [address] [place] [address] 06/02/2022 00:00:00 06/17/2022 20:00:21 [id number] MCKENZIE Mcdowell [facility] [place] [address] [place] [address] 07/09/2022 14:27:44 07/09/2022 15:18:33 Adult health examination 485492287 Z00.00 MAWE completed. Screening for disorder 854812693 Z13.9 Nausea 993215504 R11.0 RX trial of reglan 5mg bid w/meal Hiatal her santiago with gastroesophageal reflux 483745051 K21.9 continue famotidine 20mg daily. Recurrent hernia of anterior abdominal wall 641232532 K43.9 refer to general surgeon for consult on abdominal wall hernia. pt is symptomati c and this remains a primary complaint of hers that she would like to get repaired. Benign par oxysmal positional vertigo 425449833 H81.10 refill meclizine 25mg tid PRN [id number] MCKENZIE Mcdowell [facility] Internal Med [place] [address] [place] [address] 01/02/2023 10:32:15 01/02/2023 11:29:54 Hiatal hernia with gastroesophageal reflux 531966857 K21.9 continue famotidine 20mg daily. Hyperlipidemia 47864667 E78.5 fasting lipids due in May. on high dose statin therapy Benign ess ential hypertension 5719229 I10 stable on amlodipine 10mg daily and coreg and lisinopril Coronary arteriosclerosis 00515956 I25.10 stable. following with cardiology routinely. asymptomat ic. Obstructiv e sleep apnea syndrome 69762321 G47.33 stable on cpap Well contr olled type 2 diabetes mellitus 908291454 E11.9 stable on metformin therapy low dose. Long-term drug therapy 111946825 Z79.899 routine labs due in May Screening mammography 24 911487 Z12.31 mammogram due in Dec Osteopenia 224011117 M85 .Jan. repeat 2023. [id number] MCKENZIE Mcdowell [facility] Internal Med [place] [address] [place] [address] 04/27/2023 10:09:17 04/27/2023 12:43:41 Cholelithiasis without obstruction 47678683 K80.20 gallstones without inflammati on of gallbladde r and without obstructio n. refer for hida scan. Right side d abdominal pain 719678734 R10.9 check xray abdomen to evaluate for possible constipati on backup causing discomfort . no nausea or vomiting reported. bowels are moving some each day on miralax. Benign ess ential hypertension 7784702 I10 stable on amlodipine 10mg daily and coreg and lisinopril but she has not dosed them yet today because she has not eaten food. bp borderline as result. Ganglion c yst of left foot 1674190463 078180 M67.472 refer to podiatry for left ventral surface cyst presence. [id number] Nehemiah Pacheco MD [facility] [place] [place] E[place] [address] [place] [address] 11/05/2023 15:20:22 11/11/2023 13:32:25 Dysphagia 80256706 R13.10 Sensorineu ral hearing loss 38774609 H90.5 [id number] Yesenia Moreira NP [facility] [place] [address] [facility] [address] [place] [address] 01/20/2024 16:07:58 01/21/2024 11:32:31 Mild chronic obstructive pulmonary disease 614290217 J44.9 PFT orderUse albuterol as needed-dis cussed use Dyspnea on exertion 6084 5006 R06.09 Lab work todayPFT for baselinest art ZyrtecAwar e to use Albuterol inhaler as needed-ok to use when sobEncoura ge patient to remain activefoll ow-up once testing is complete-s ooner for any changes in breathing and increase use of inhaler Bradycardia 33276869 R00 .1 Patient aware to call nick jarvis for follow-up Health Concerns Section Related Observation LastModified by Organization Detai ls LastModified Time None Recorded Concern Status LastModified by Organization Details LastModified Time None Recorded Advance Directives Directive N: Payers Insurance Date Sequence Insurance Name Policy Number Policy Duron Covered Member ID Duron Member ID Guarantor Name 11/07/2024 1 [employer]ET (MEDICARE REPLACEMENT/ ADVANTAGE - HMO) [id number] Norma Power [id number] Norma Power 01/05/2025 1 [facility] (MEDICARE REPLACEMENT/ ADVANTAGE - HMO) [id number] Norma Power [id number] Norma Power Notes Date Note Type Note Provider Name and Address Organization Details Recorded Time 07/10/19 23 text/htm l HypertensionReported by PatientHPIFor associated symptoms, patient reportsshortness of breath,palpitations,numbness, andtinglingbut reportsno fatigue,no decline in exercise capacity, andno snoring. For onset/timing, patient reportsbetter. For alleviating factors, patient reportsmedication. HyperlipidemiaReported by PatientHPIFor duration, patient reportschronic. For compliance, patient reportsdoes not exercisebut reportscompliant,compliant with diet, andexercises. For control, patient reportsusually well controlled,improving, andat goal. For complications, patient reportsno coronary artery disease,no peripheral artery disease, andno cardiovascular disease. Reflux/GERDReported by PatientHPIFor associated symptoms, patient reportsnauseaandvomitingbut reportsno frequent coughing,no feeling of fullness/mass in throat,no hoarseness,no food getting stuck,no belching/burping,not vomiting blood,no regurgitation,no shortness of breath,no chest pain,no heartburn,no difficulty swallowing,no pain when swallowing,no bad taste,no decreased appetite,no weight loss,no black/tarry stools,no fatigue, andno throat pain. For severity, patient reportsimproving. For context, patient reportsnon-smoker,no drug/alcohol abuse,no drug alcohol withdrawal, andnot related to food/drink. DiabetesReported by PatientHPIFor compliance, patient reportsnoncompliant with medications (stopped taking metformin)but reportscompliant with medications,compliant with follow-up visits,compliant with diet,compliant with home glucose monitoring,had eye doctor visit in last year,had dietitian visit in last year,wears a medic alert bracelet or necklace, andrapid-acting carbohydrate kept in car. For associated symptoms, patient reportsdizzinessandblurred visionbut reportsno weight gain,no weight loss,no sweats,no headaches,no confusion,no increased thirst,no increased appetite,no increased urination,no blurred vision,no numbness of feet,no calluses on feet,no coronary artery disease,no kidney disease,no peripheral vascular disease,no diabetic retinopathy, andno diabetic neuropathy. For duration, patient reportschronic. For control, patient reportsusually well controlledandimproved since last visit. For self care, patient reportsmonitoring glucose __. For context, patient reportsnormal range of home blood sugars (in the low 100s),seeing eye doctor regularly, andchecking feet regularly. MCKENZIE Mcdowell [address] [place] [address] [place], [place], [address], [place] - [facility] [address] 07/15/2022 23:20:55 01/03/20 23 text/htm l HypertensionReported by PatientHPIFor onset/timing, patient reportsbetter. For alleviating factors, patient reportsmedication. For associated symptoms, patient reportsno shortness of breath,no fatigue,no palpitations,no decline in exercise capacity, andno snoring. HyperlipidemiaReported by PatientHPIFor duration, patient reportschronic. For compliance, patient reportsdoes not exercisebut reportscompliant,compliant with diet, andexercises. For control, patient reportsusually well controlled,improving, andat goal. For complications, patient reportsno coronary artery disease,no peripheral artery disease, andno cardiovascular disease. Reflux/GERDReported by PatientHPIFor severity, patient reportsimproving. For context, patient reportsnon-smoker,no drug/alcohol abuse,no drug alcohol withdrawal, andnot related to food/drink. For associated symptoms, patient reportsno frequent coughing,no feeling of fullness/mass in throat,no hoarseness,no food getting stuck,no belching/burping,no vomiting,not vomiting blood,no regurgitation,no shortness of breath,no chest pain,no heartburn,no difficulty swallowing,no pain when swallowing,no bad taste,no decreased appetite,no weight loss,no black/tarry stools,no fatigue, andno throat pain. DiabetesReported by PatientHPIFor compliance, patient reportsnoncompliant with medications (stopped taking metformin)but reportscompliant with medications,compliant with follow-up visits,compliant with diet,compliant with home glucose monitoring,had eye doctor visit in last year,had dietitian visit in last year,wears a medic alert bracelet or necklace, andrapid-acting carbohydrate kept in car. For duration, patient reportschronic. For control, patient reportsusually well controlledandimproved since last visit. For self care, patient reportsmonitoring glucose __. For context, patient reportsnormal range of home blood sugars (in the low 100s),seeing eye doctor regularly, andchecking feet regularly. For associated symptoms, patient reportsno weight gain,no weight loss,no dizziness,no sweats,no headaches,no confusion,no increased thirst,no increased appetite,no increased urination,no blurred vision,no numbness of feet,no calluses on feet,no coronary artery disease,no kidney disease,no peripheral vascular disease,no diabetic retinopathy, andno diabetic neuropathy. MCKENZIE Mcdowell [address] [facility] [address], [place], [address], [employer] [facility] 01/17/2023 20:45:48 04/27/19 24 text/htm l Abdominal PainReported by PatientAbdominal PainFor quality, patient reportsbloating,dull, andfullness(belching). For location, patient reportsrlq (right mid quadrant more than lower)andruq. For severity, patient reportsmild. For duration, patient reportsconstant. For modifying factors, patient reportsnothing gives reliefandnothing makes it worse. For associated symptoms, patient reportsno fever,no chills,no blood in the urine, andno shortness of breath. For other, patient reportsdenies possible . For onset/timing, (same). For context, (constipation since post hernia surgery recently. on miralax daily. moving bowels each day). Generic HPI TemplateReported by PatientPt is here to f/u on the US results in her chart. also has knot on bottom of left foot that hurt ; onset more recent she has noticed. painful to walk. did not step on anything. it is below surface of skin. MCKENZIE Mcdowell [address] [facility], [facility] [address], [place], [address], [employer] [facility] 04/27/2023 13:18:30 11/05/19 24 text/htm l The patient had quadruple bypass and reports that she has had dysphagia and decreased hearing. She was hoping it was ear wax. She is never experienced choking episodes or unplanned weight loss. Nehemiah Pacheco MD [address] [facility], [facility] [address], [place], [address], [employer] [facility] 11/05/2023 15:56:14 01/20/20 24 text/htm l DyspneaReported by PatientHPIFor quality, patient reportstightness. For context, patient reportswith activity. For aggravating factors, patient reportsactivity. For associated symptoms, patient reportspalpitations,coughing up sputum, andhoarsenessbut reportsno chest pain,no orthopnea,no pnd,no fever,no chills,no wheezing,no dietary indiscretion,no hemoptysis,no weight gain, andno dyspepsia. For severity, patient reportsmoderate. For duration, patient reportssensation/episode lasts ____ momentsandfor 2 months. For onset/timing, patient reportsweekly.abnormal chest x-nam-eljjbd congestionnotes she just hasn't felt right for [...] past year but not taking anything Yesenia Moreira NP [address] [facility], [facility] [address], [place], [address], [facility] 01/21/2024 08:59:50 OBGyn Episode No OBEpisode recorded.
--- OUTSIDE RECORDS SUMMARY | 2025-01-31 15:41 | XMS_ITS | Encounter Summary ---
Author Organization [facility] Address [address] [place] [address] Phone Care Team Providers Care Footwear Stitcher Name Role Phone Yanet Richard MD Primary Care Provider [phone] Mitchel Ortega MD Unavailable Sarahi Olmos Primary Care Pr ovider Encounter Details Date Type Department Care Team (Late st Contact Info) Description 09/10/2017 Orders Only [facility] Provider, MD Ted [address] [place] [address] Social History Tobacco Use Types Packs/Day Years Used Date Smoking Tobacco: Never Smokeless Tobacco: Never Alcohol Use Standard Drinks/Week Comments Yes 0 (1 standard drink = 0.6 oz pur e alcohol) Comments Unknown Sex and Gender Information Value Date Recorded Sex Assigned at Not on file Legal Sex Female 9:41 AM [employer] LE[employer] Gender Identity Not on file Sexual Orientation [...] on filedocumented in this encounter Care Teams Footwear Stitcher Relationship Specialty Start Date End Date Yanet Richard MD [address] [address] PCP - General 07/18/16 09/22/18 Sarahi Olmos PA [address] [address] PCP - General Physician Social Services Specialist 09/23/18 Mitchel Ortega MD [address] [id number] Consulting Physician Cardiovascular Disease 02/04/18 documented as of this encounter
--- OUTSIDE RECORDS SUMMARY | 2025-01-31 15:41 | XMS_ITS | Clinical Summary ---
Author Organization [facility] [address] [facility] Address [address] [place] [address] Care Team Providers Care Mva Still Operator Name Role Phone Mitchel Ortega MD Unavailable Sarahi Olmos Primary Care Pr ovider Allergies No known active allergies Medications calcium carbonate-vitamin D3 600 mg(1,500mg) -400 unit capsule take 2 daily 0 0 1 Active ergocalciferol (VITAMIN D2) 50,000 unit capsule take 1 capsule ([id number]) by oral route every week 0 1 Active blood-glucose meter (FREESTYLE LITE METER) kit take by [facility].(Non-Dr ug; Combo Route) route 0 kit 0 [...] BY MOUTH DAILY. 90 tablet 3 4 Active Active Problems Problem Noted Date Diagnosed Date Class 2 severe obesity due t o excess calories with serious comorbidity and body mass index (BMI) of 36.0 to 36.9 in adult 05/12/2022 Assessment & Plan (05/12/2022 2:47 PM FIRER WATERTENDER): Discussed healthy diet and importance of regular physical activity (20- 30min/day, 150min/wk). Weight slowly trending downward after diet changes. She's down 16# since last appt. Referral sent to [facility] scal[facility]. Contact # given to Norma if no call rec'd . Hyperlipidemia due to type 2 diabetes mellitus 0 10/06/2019 Assessment & Plan (11/13/2022 2:39 PM CDT): Chronic, well controlled Low fat Low cholesterol diet Exercise Continue statin therapy with Atorvastatin Assessment & Plan (05/12/2022 2:48 PM FIRER WATERTENDER): Chronic problem. Last LDL=68 07/27/21. Atorvastatin 80mg [...] exam Assessment & Plan (05/12/2022 2:43 PM FIRER WATERTENDER): Chronic problem, stable & well controlled on Metformin 500mg bid. Norma reports that she's had labs with PCP in last 1-2 months, will try to get copy from her office. [facility] Certified Breastfeeding Educator: [phone]. I sent referral to them. Please call if you don't hear from them in the next few days. Please call to schedule diabetic eye exam & have copy of report sent to our office. Continue current medications: Metformin 500 mg twice daily. Assessment & Plan (09/26/2021 3:13 PM CDT): Chronic problem, stable on low dose metformin. We discussed retrying angelicaempic for further weight loss but she had [...] Metformin Assessment & Plan (03/29/2020 2:41 PM FIRER WATERTENDER): Hba1c was Lab Results Component Value Date [...] Metformin Assessment & Plan (03/29/2019 10:24 AM FIRER WATERTENDER): Your Hba1c today was: Lab Results Component Value Date HGBA1C 8.1 03/29/2019 meaning a 3 month average sugar of : 184 Your goal hba1c is under 7.0 to prevent alf diabetes complications ( eye , kidney and [...] appointment Assessment & Plan (04/02/2017 10:30 AM FIRER WATERTENDER): A1c 6.1 improved from 8.6. Denies many [...] Lisinopril Assessment & Plan (05/12/2022 2:49 PM FIRER WATERTENDER): Chronic problem, well controlled with current amlodipine 10mg daily, lisinopril 40mg daily. No changes at this time Assessment & Plan (09/26/2021 2:58 PM CDT): Controlled on current medications, no changes. Assessment & Plan (03/29/2020 2:41 PM FIRER WATERTENDER): Goal blood pressure is less than 140/85 [...] microalbumin Assessment & Plan (03/29/2019 10:26 AM FIRER WATERTENDER): Goal blood pressure is less than 140/85 Low salt diet recommended Daily aerobic exercise Continue current meds, including PAUL-I or ARB Check microalbumin Assessment & Plan (09/23/2018 4:09 PM CDT): Controlled on current medications. Assessment & Plan (02/08/2018 3:11 PM CDT): Controlled on current medications. Continue follow up with cardiology Assessment & Plan (04/02/2017 10:29 AM FIRER WATERTENDER): Controlled on current medications. Assessment & Plan (01/01/2017 3:56 PM CDT): Goal blood pressure is less than 140/85 Low salt diet recommended Daily aerobic exercise Continue current meds, including PAUL-I or ARB Resolved Problems Problem Noted Date Diagnosed Date Resolved Date BMI 39.0-39.9,adult 01/01/2017 05/09/19 23 Morbid obesity (CMS/HCC) 01/01/2017 Assessment & Plan (04/02/2017 10:28 AM FIRER WATERTENDER): Importance of following diet and exercising discussed. She is considering lap band. Hyperlipidemia 06/16/2012 05/09/2022 Overview (07/23/2016): HYPERLIPIDEMIA NEC/NOS Assessment & Plan (09/23/2018 4:06 PM CDT): Check lipid panel today. Assessment & Plan (02/08/2018 3:12 PM CDT): Will obtain recent labs from PCP and cardiology Assessment & Plan (04/02/2017 10:29 AM FIRER WATERTENDER): Check lipid panel. Surgical History Surgery Date [...] diabetes mellitus Diabete s type 2 Pneumonia 2010 Pneumonia; Outco me: [...] on file Legal Sex Female 9:41 AM FIRER WATERTENDER Gender Identity Not on file Sexual Orientation [...] Additional history exists Hemoglobin A1C 05/16/2023 11/13/2022, 2 06/2022, 09/26/2021, Additional history exists Dilated Eye Exam [...] CREATININE RATIO, URINE Routine 05/12/2022 2:36 PM FIRER WATERTENDER Type 2 diabetes mellitus with hyperglycemia, without long-term current use of insulin (HCC) BASIC METABOLIC PANEL Routine 02/24/2022 7:18 AM FIRER WATERTENDER LIPID PANEL Routine 02/24/2022 7:18 AM FIRER WATERTENDER DEXA SCAN Routine 09/10/2021 from Last 3 [...] Albumin Creatinine Ratio, Urine (05/12/2022 2:36 PM FIRER WATERTENDER) Albumin Ur <12.0 mg/L [facility]IA SANTAMARIA Comment: Interpretive Data No reference range established. Current interpretive data was last revised 2018. Creatinine Ur 26.8 mg/dL SAFIA Comment: Interpretive Data No reference range established. Current interpretive data was last revised 2018. Albumin Creatinine Ratio, Ur See Comment 1 - 29 SAFIA Comment:Unable to calculate Urine 05/12/2022 2:36 PM FIRER WATERTENDER 05/12/2022 7:08 PM FIRER WATERTENDER Eva Zaman PRODUCTION OPERATIONS INSPECTOR LAB URINE ORDERABLES Dianne l Result [facility] [id number] [address] Department [place] [address] * (ABNORMAL) Lipid panel (02/24/2022 7:18 AM FIRER WATERTENDER) Pathologist [facility] SCRIBED Cholesterol, Total 109(A) 140 - 199 [facility] SCRIBED HDL 40 40 - NA [facility] SCRIBED LDL 48 0 - 130 [facility] SCRIBED Triglycerides 106 0 - 150 [facility] Blood 02/24/2022 7:18 AM FIRER WATERTENDER Historical Provider LAB BLOOD ORDERABLES Edit ed Result - Final [facility] [address] [phone] * (ABNORMAL) Basic metabolic panel (02/24/2022 7:18 AM FIRER WATERTENDER) SCRIBED Sodium 141 137 - 145 mmol/L [facility] SCRIBED Potassium 4.8 3.5 - 5.1 mmol/L [facility] SCRIBED Chloride 105 98 - 107 mmol/L [facility] SCRIBED Carbon Dioxide 32(A) 22 - 30 mmol/L [facility] SCRIBED Anion Gap 8.8(A) 14 - 22 mmol/L [facility] SCRIBED Urea Nitrogen (BUN) 22(A) 8 - 19 mg/dl [facility] SCRIBED Creatinine 0.85 0.66 - 1.25 mg/dl [facility] SCRIBED Glucose 110(A) 70 - 99 mg/dl [facility] SCRIBED Calcium 9.2 8.4 - 10.2 mg/dl [facility] SCRIBED eGFR >60 >=60 - NA [facility] Blood 02/24/2022 7:18 AM FIRER WATERTENDER Historical Provider LAB BLOOD ORDERABLES Edit ed Result - Final [facility] [address] [phone] * DEXA SCAN (09/10/2021) Historical Provider HEALTH MAINTENANCE Final Result from Last 3 Months or Most Recently Relevant to Health Maintenance Insurance MEDICARE [facility] Address: [address] [address] [place] [address] [employer] MEDICARE GOLD AET MEDICARE GOLD T MEDICARE GOLD Care Teams Mva Still Operator Relationship Specialty Start Date End Date Sarahi Olmos PA PCP - General Physician Surgical Services Asst 09/23/18 Mitchel Ortega MD Consulting Physician Cardiovascular Disease 02/04/18
== END 2025-01-31 13:41 | disposition home or self-care (01) ==
LOC: ANHFOHIMG 13:43
PROVIDERS: PCP Physician Assistant; Visit Provider Physician Assistant
DX: Z12.31 Encounter for screening mammogram for malignant neoplasm of breast (principal)
CPT/HCPCS: 77063; 77067